=== PATIENT | male | born 1945 | race Caucasian/White ===

== ENCOUNTER 2016-05-10 14:05 | Inpatient (IN) | payer MEDICARE ==
[~2016-05-10] VITALS: Ht 175.3 cm; Wt 98.7 kg
[2016-05-10] VITALS (7 sets, daily range): BP systolic 106–154; BP diastolic 50–82; PULSE 65–70; RESP 18–22; O2SAT 92–94
[~2016-05-10 14:05] MED LIST: DOCU-41 PO; FOLI1TAB18 PO; INSU100I SQ; INSU100V7 SUBQ; LEVO88TA4 PO; MAGN400T39 PO; MULT1CAP33 PO; OMEG-38 PO; OXYC5TAB72 PO; PANT40TA3 PO; TORS20TA3 PO; WARF4TAB6 PO
--- NOTE | 2016-05-10 14:23 | ED.REPORT ---
HPI-Dyspnea / Wheezing Date of Service May 10, 2016 ED Provider: Dr. Deleon 70 year old male with a hx of recurrent follicular malignant lymphoma, currently in remission, DM, Afib, on 3L home O2, and recurrent bilat pleural effusions requiring thoracentesis who presents to the ED via EMS due to increasing SOB for 2 days. Pt was seen by his home care nurse today who was concerned that he may need a thoracentesis. He is seen for the on almost a weekly basis with his last on 05/02/16. Pt also reports worsening edema. Pt denies CP but reports discomfort secondary to the dyspnea. Oncologist: Dr. Duque. Nursing Notes Stated Complaint: INCREASED SHORTNESS OF BREATH Chief Complaint: Respiratory Distress Nursing Notes Reviewed: Yes Allergies: Coded Allergies: levofloxacin (Verified Allergy, Intermediate, hives, 04/07/16) vancomycin (Verified Allergy, Intermediate, Rash, 04/07/16) Scheduled Folic Acid (Folic Acid) 1 Mg Tablet 1 MG PO DAILY Insulin Aspart (NovoLOG U-100 Pen) 100 Unit/Ml Insuln.pen UNITS SQ ACHS per sliding scale Insulin Glargine (Lantus U100 Insulin Vial) 100 Unit/Ml Vial 100 UNIT SUBQ QAM Levothyroxine (Levothyroxine) 88 Mcg Tablet 2 TAB PO DAILY Magnesium Oxide (Magnesium) 400 Mg Tablet 400 MG PO BID Multivitamin (Multivitamins) 1 Each Capsule 1 EACH PO DAILY [place]-3/Dha/Epa/Fish Oil (Fish Oil 1,000 mg Softgel) 1 Each Capsule 2 EACH PO DAILY Pantoprazole DR (Pantoprazole DR) 40 Mg Tablet.dr 40 MG PO DAILY Torsemide (Torsemide) 20 Mg Tablet 40 MG PO DAILY Warfarin Sodium (Warfarin Sodium) 4 Mg Tablet 4 MG PO DAILY Scheduled PRN Docusate Sodium (Colace) 100 Mg Capsule 100 MG PO HS PRN PRN For Constipation oxyCODONE (oxyCODONE) 5 Mg Tablet 10 MG PO Q4H PRN PRN SEVERE PAIN General Time Seen by MD: 14:25 Chief Complaint Shortness of breath Hx Obtained From: Patient, EMS Arrived By: Ambulance Sudden in Onset?: No Onset Occurred: 2 days ago Symptom Duration: Since onset Severity: Current: Mild Associated with: Reports: Leg swelling, Denies: Chest pain, Fever, Vomiting Pertinent Negative: Relieved by nothing Recent Healthcare: Recent doctor visit Similar Sx Previous: Yes Past Medical History Past Medical History Notes: Oncologist: Dunia - see note 02/29/16 Anaesthesiologist: Dr. Harper Last Admit: 10/2015 Past Medical History 1. ho Bacteremia with MRSA 10/2015 2. 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 4. Left-hand osteomyelitis. 7. Chronic kidney disease stage 3. 8. Paroxysmal atrial fibrillation. 9. Chronic Coumadin anticoagulation. 10. Diabetes mellitus type 2, insulin dependent. 11. History of complete heart block status post pacemaker. 13. Chronic anemia. 14. Dyslipidemia. 15. Hypothyroidism. 17. Recurrent follicular malignant lymphoma, currently in remission. 18. Hyperlipidemia 19. Congestive heart failure Past Surgical History Tonsillectomy Bone marrow asp/core biopsy Stem cell transplant Partial colonectomy Pacemaker insertion Family History noncontributory Smoking History Never Smoker Social History Lives at [facility] Alcohol Use: Denies alcohol use Drug Use: Denies drug use Other Social History: Local resident Ambulatory Status Independent Review of Systems Basic Review of Systems Eyes: Vision NL Neurologic: NL mental status Psychiatric: Normal thought content Constitutional: Denies: Fever Respiratory: Reports: Shortness of breath Cardiovascular: Reports: Edema, Denies: Chest pain Complete sys rev & neg: except as marked. Physical Exam Initial Vital Signs Vital Signs (First) Date Time Temp Pulse Resp B/P Pulse Ox O2 Delivery O2 Flow Rate FiO2 05/10/16 14:10 36.7 65 18 134/56 Nasal Cannula 4 Initial VS: Reviewed Head / Eyes: Atraumatic, Normocephalic, PERRL ENT: Conjunctiva normal, No scleral icterus Abdomen / GI: Soft, Non-tender, No guarding, No rebound, No distention Skin: Warm, Dry, No cyanosis Neurologic: Alert, Oriented Psychiatric: Mood/affect normal, Behavior normal General/Constitutional: Awake, Alert Distress / Hydration: Positive: Distress moderate Appearance / Presentation: Positive: Pale Neck: Atraumatic, Full range of motion Diminished Breath Sounds: Positive: Absent bilateral (Absent breath sounds except L upper lobe) on 5L NC in Low 80's. Goes up to 90% on a non-rebreather. Cardiovascular: Peripheral circulation NL Lower Ext Edema: Positive: Bilateral 3+ (with no erythema) Cardiac noises completely overridden. Abdomen: Soft, Non-tender Interpretation & Diagnostics Lab Results Interpretation Test 05/10/16 14:30 Prothrombin Time 21.9sec (8.1-12.5) Prothromb Time International Ratio 2.02ratio Troponin T 0.014ug/L (0.0-0.011) Re-Eval/Medical Decision Re-Evaluation/Progress : Time of Eval: 14:37 Re-Evaluation/Progress Note: Attempted to discuss advanced directives with the patient. He does not wish to talk about this at the time but indicates that there are advanced directives on file. Presumed DNR. Discharge & Departure Shift Change Sign-Out Patient Care Transferred: Yes Discussed Complaint(s): Yes Laboratory Evaluation: Ordered, not yet done Imaging Studies: Ordered, not yet done Procedures: Ordered, not yet done (anticipate need for therapeutic thoracentesis) Impression: Primary Impression: Bilateral pleural effusion Additional Impressions: Dyspnea Dyspnea type: shortness of breath Qualified Code: R06.02 - Shortness of breath Lymphoma Lymphoma type: non-Hodgkin Non-Hodgkin lymphoma type: follicular Follicular lymphoma type: other follicular type Lymphoma site: unspecified region Qualified Code: C82.80 - Other types of follicular lymphoma, unspecified site Referrals: Julian Fabian MD (PCP) Care Transferred to: Dr. Tony Care Transferred at: 15:09 Scribe Attestation Portions of this note were transcribed by Марина Bar. I, (Dr. Deleon) personally performed the history, physical exam and medical decision-making; I reviewed and confirmed the accuracy of the information in the transcribed note. Signed by: Марина Bar. 05/10/2016, 1433 copies to: Julian Fabian MD, Shawna L MD May 10, 2016 14:23 Марина Bar May 10, 2016 14:41
[2016-05-10 14:51] LABS: Mean Corpuscular Hemoglobin 25.1 pg (27.0-35.0); Mean Corpuscular Volume 90.4 fL (81-100); Platelet Count 166 bil/L (150-400)
[2016-05-10 15:01] LABS: INR 2.02 ratio
[2016-05-10 15:08] LABS: TROPONIN T 0.014 ug/L (0.0-0.011)
[2016-05-10 15:34] LABS: BASOPHILS % (AUTO) 2 % (0-3); EOSINOPHILS % (AUTO) 0 % (0-5); MONOCYTES % (AUTO) 7 % (4-12); NEUTROPHILS % (AUTO) 60 % (40-74)
[2016-05-10] MEDS ORDERED: Furosemide 10 mg/mL 10 mL Inj IVPUSH ONE (15:45)
[2016-05-10] MEDS ORDERED: 0.9% Sodium Chloride 250 ML IV ONE (15:45)
--- NOTE | 2016-05-10 15:45 | PCM.HPMED ---
Subjective Date of Service May 10, 2016 Primary Provider: Admitting Physician: Primary Care Physician: Julian Fabian MD Attending Physician: Chief Complaint: Dyspnea, recurrent pleural effusion History of Present Illness: 70 year old male with a hx of recurrent follicular malignant lymphoma, currently in remission, DM, Afib, on 3L home O2, and recurrent bilat pleural effusions requiring thoracentesis who presents to the ED via EMS due to increasing SOB for 2 days. Pt was seen by his home care nurse today who was concerned that he may need a thoracentesis. He is seen for the on almost a weekly basis with his last on 05/02/16. Pt also reports worsening edema. Pt denies CP but reports discomfort secondary to the dyspnea. Review of Systems: Gen.: No fevers chills weight loss weight gain Eyes: no visual disturbances or blurring vision HEENT: No nose/throat drainage, no pain in ears or throat, no hearing loss Lymph: No lymph nodes noted Cardiac: No chest pain, orthopnea, PND, palpitations , pedal edema or dyspnea on exertion Pulmonary: no cough, wheezing or bringing up of sputum GI: No anorexia nausea vomiting blood or black in the stool : no dysuria hematuria urinary frequency or decrease in urine output Musculoskeletal: Joint swelling no joint pain no new muscle aches or back pain Neuro: No syncope, seizures no loss of consciousness no new focal weakness, numbness or tingling Psychiatric: New new anxiety insomnia or depression Endocrine: No new heat or cold intolerances polyuria or polydipsia Hematology: No lymphadenopathy or easy bleeding or bruising noted skin: No new rashes, stasis dermatitis Allergies Coded Allergies: levofloxacin (Verified Allergy, Intermediate, hives, 04/07/16) vancomycin (Verified Allergy, Intermediate, Rash, 04/07/16) Home Medications Scheduled Folic Acid (Folic Acid) 1 Mg Tablet 1 MG PO DAILY Insulin Aspart (NovoLOG U-100 Pen) 100 Unit/Ml Insuln.pen UNITS SQ ACHS per sliding scale Insulin Glargine (Lantus U100 Insulin Vial) 100 Unit/Ml Vial 100 UNIT SUBQ QAM Levothyroxine (Levothyroxine) 88 Mcg Tablet 2 TAB PO DAILY Magnesium Oxide (Magnesium) 400 Mg Tablet 400 MG PO BID Multivitamin (Multivitamins) 1 Each Capsule 1 EACH PO DAILY [place]-3/Dha/Epa/Fish Oil (Fish Oil 1,000 mg Softgel) 1 Each Capsule 2 EACH PO DAILY Pantoprazole DR (Pantoprazole DR) 40 Mg Tablet.dr 40 MG PO DAILY Torsemide (Torsemide) 20 Mg Tablet 40 MG PO DAILY Warfarin Sodium (Warfarin Sodium) 4 Mg Tablet 4 MG PO DAILY Scheduled PRN Docusate Sodium (Colace) 100 Mg Capsule 100 MG PO HS PRN PRN For Constipation oxyCODONE (oxyCODONE) 5 Mg Tablet 10 MG PO Q4H PRN PRN SEVERE PAIN PMH Bacteremia with MRSA 10/2015 ho 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 Left-hand osteomyelitis. Sepsis secondary to above processes. Transaminitis, drug induced. Chronic kidney disease stage 3. Paroxysmal atrial fibrillation. Diabetes mellitus type 2, insulin dependent. History of complete heart block status post pacemaker. Lymphoma. Chronic anemia. Dyslipidemia. Hypothyroidism. Complete heart block, s/p dual chambered pacemaker placement Mar 2015 removed . New pacemaker placed 07/19/2015. Recurrent follicular malignant lymphoma, currently in remission. Hyperlipidemia Congestive heart failure Surgical History Tonsillectomy Bone marrow asp/core biopsy Stem cell transplant Partial colonectomy Pacemaker insertion Social History Hx Alcohol Use: No Hx Substance Use: No Hx Tobacco Use: No Smoking Status: Never Smoker Social History Hx Alcohol Use: No Hx Substance Use: No Hx Tobacco Use: No Smoking Status: Never Smoker Exam Vital Signs Vital Sign - Last Date Time Temp Pulse Resp B/P Pulse Ox O2 Delivery O2 Flow Rate FiO2 05/10/16 14:10 36.7 65 18 134/56 Nasal Cannula 4 Exam Gen.- A+ O 3 no apparent distress. Eyes- open conjunctiva clear, pupils equal nonicteric ENT- ears normal, nose normal Neck- supple/trach midline CVS- RRR no murmur or gallop Lungs CTA GI- NABS/NT soft Musc- moving 4 no obvious deformity Neuro- cranial nerves II through XII intact to gross examination, nonfocal Skin- warm and dry Psych- pleasant and appropriate, Lab and Diagnostics Labs INR 2.02, Troponin 0.014, LFTs WNL, glucose 243, urine still pending Result Diagram: 05/10/16 1430 05/10/16 1430 X-Rays, CTs and MRIs CXR Moderate to large bilateral pleural effusions, increased compared to prior exam. Recommend followup, as underlying areas of mass lesion cannot be excluded. Personally reviewed by me 12-lead ECG Personally viewed by me read his a flutter I see P waves and admits to regular but there is left bundle branch block I believe it is sinus with perhaps a first degree block heart rate 70 QTc 534 ms which may be spuriously prolonged as well Assessment & Plan Patient is getting FFP which only has a window of 6 hours of suppression of anticoagulation and will not affect the INR in the morning, I am going ahead and giving vitamin K 2 mg not tense so as not to over reverse him and have difficulties E anticoagulating him. Plan is for patient to go for thoracentesis when INR is 1.5 which hopefully will be tomorrow morning. 70-year-old male with recurrent pleural effusions presented with dyspnea and recurrence. I wonder to myself why this patient does not have a Pleurx cath or if he is not a candidate for 1,or perhaps pleuroadhesis (pt states they are talking about/working on this) Dyspena/acute resp failure- 2' effusion Recurrent malignant pleural effusion-ravi for thoracentesis 05/11 INR <1.6 Complete Heart Block- - Pacemaker dependent Paroxysmal Atrial Fibrillation- continue Warfarin, dosing as per pharmacist Diabetes Mellitus, Type II- cutting lantus from 100 to 60 and will use high dose SS and prandial, suspect substantial home noncomplaince. Giving pt general diet here, he wants OJ. I don't think he is going to to of diabetic complications... Hyperlipidemia- Continue statin Hypothyroidism- levothyroxine 176 mcg daily Chronic Kidney Disease, Stage III- baseline about 1.3 stable Chronic anemia- - Likely due to CKD pt stable w/ Hg 8-210 will allow oncology to address as needed Pain Evaluation: Adequate Pain Control prn morphine GI Prophylaxis: H2 eugene, VTE Prophylaxis: Theraputic Anticoag with Warfarin, lovenox while he is not Dispo-from home, full code cbc, bmp, inr in am Kevin Coles MD May 10, 2016 15:45 - Continue home insulin regimen Hyperlipidemia - Continue Pravastatin 40 mg HS Hypothyroidism - Continue home dose levothyroxine 176 mcg daily Chronic Kidney Disease, Stage III Chronic anemia - Likely due to CKD Pain Evaluation: Adequate Pain Control GI Prophylaxis: H2 eugene VTE Prophylaxis: Theraputic Anticoag with Warfarin Kevin Coles MD May 10, 2016 15:45
[2016-05-10] MEDS ORDERED: Alum-Mag Hydrox-Simeth 30 mL Suspension PO PRN (15:55)
[2016-05-10] MEDS ORDERED: Ondansetron 2 mg/mL 2 mL Inj IVPUSH PRN (15:55)
--- NOTE | 2016-05-10 16:03 | DRSVH ---
PROCEDURE: X-RAY CHEST ONE VIEW, PORTABLE ([id number]) INDICATIONS: dyspnea TECHNIQUE: One view of the chest was acquired. COMPARISON: [facility], CR, XR CHEST 1VW, 05/02/2016, 14:09. FINDINGS: Surgical changes and devices: None. Lungs and pleura: Moderate to large bilateral pleural effusions, increased in size compared to prior exam. Mediastinum: Mediastinal contours appear normal. Heart size is normal. Bones and chest wall: No suspicious bony lesions. Overlying soft tissues appear unremarkable. IMPRESSION: Moderate to large bilateral pleural effusions, increased compared to prior exam. Recomm end followup, as underlying areas of mass lesion cannot be excluded. Dictated by: Em Mercado M.D. on 05/10/2016 at 16:01 Approved by: Em Mercado M.D. on 05/10/2016 at 16:01
[2016-05-10] MEDS ORDERED: IBRU140C PO (16:19)
[2016-05-10] MEDS ORDERED: Glucose 40% Oral Gel 15 Gm Tube PO PRN (17:10)
[2016-05-10] MEDS ORDERED: Polyethylene Glycol (PEG) 17 Gm Powder PO PRN (17:10)
[2016-05-10] MEDS ORDERED: HYDROcodone-APAP 5-325 mg Tablet PO PRN (17:10)
[2016-05-10] MEDS ORDERED: Phytonadione (Adult) 10 mg/1 mL Inj PO ONE (17:25)
[2016-05-10 17:26] LABS: APPEARANCE,URINE CLEAR (CLEAR,HAZY); COLOR,URINE YELLOW (YELLOW)
[2016-05-10 17:27] LABS: OCCULT BLOOD,URINE TRACE (NEGATIVE); UROBILINOGEN,URINE NORMAL (NORMAL)
[2016-05-10] MEDS: Insulin LISPRO 300 Unit/3 mL Inj SUBQ SCH ×2 (17:30→21:33)
[2016-05-10] MEDS ORDERED: Morphine PF 1 mg/mL 10 mL Inj IV PRN (18:45)
[2016-05-10] MEDS ORDERED: LORazepam 1 mg Tablet PO PRN (18:45)
--- NOTE | 2016-05-10 18:49 | PCM.CONPHA ---
Subjective Date of Service: May 10, 2016 Dyspnea, recurrent pleural effusion Reason for Pharmacy Consult: Anticoagulation Management Objective Vital Signs Date Time Temp Pulse Resp B/P Pulse Ox O2 Delivery O2 Flow Rate FiO2 05/10/16 18:23 70 05/10/16 18:21 36.0 70 22 118/68 93 Nasal Cannula 3.00 05/10/16 17:34 Supplement Oxygen 05/10/16 16:49 36.7 69 19 106/50 92 Nasal Cannula 5 05/10/16 16:13 69 19 106/50 92 Nasal Cannula 5 05/10/16 14:10 36.7 65 18 134/56 Nasal Cannula 4 Weight (Kilograms): 99.000 Height (Feet): 5 Height (Inches): 9.00 Test 05/10/16 14:30 05/10/16 16:43 White Blood Count 18.7th/mm3 (3.8-10.1) Red Blood Count 3.87mil/mm3 (4.40-5.80) Hemoglobin 9.7g/dL (13.8-17.2) Hematocrit 35.0% (41.0-50.0) Mean Corpuscular Volume 90.4fL (81-100) Mean Corpuscular Hemoglobin 25.1pg (27.0-35.0) Mean Corpuscular Hemoglobin Concent 27.7% (32.0-37.0) Red Cell Distribution Width 24.0% (12.3-15.4) Platelet Count 166bil/L (150-400) Neutrophils (%) (Auto) 60% (40-74) Lymphocytes (%) (Auto) 25% (14-46) Monocytes (%) (Auto) 7% (4-12) Eosinophils (%) (Auto) 0% (0-5) Basophils (%) (Auto) 2% (0-3) Band Neutrophils % 6% (1-5) Nucleated Red Blood Cells 4/100 WBC (0-24) Prothrombin Time 21.9sec (8.1-12.5) Prothromb Time International Ratio 2.02ratio Sodium Level 136mEq/L (134-144) Potassium Level 4.3mEq/L (3.5-5.2) Chloride Level 86mEq/L (97-108) Carbon Dioxide Level 44mmol/L (18-29) Blood Urea Nitrogen 17mg/dL (8-27) Creatinine 1.28mg/dL (0.76-1.27) Estimat Glomerular Filtration Rate 59mL/min (>59) Glucose Level 243mg/dL (60-99) Calcium Level 8.7mg/dL (8.5-10.1) Total Bilirubin 0.2mg/dL (0.0-1.2) Aspartate Amino Transf (AST/SGOT) 13U/L (0-50) Alanine Aminotransferase (ALT/SGPT) 8U/L (0-44) Alkaline Phosphatase 128U/L (25-160) Troponin T 0.014ug/L (0.0-0.011) Total Protein 6.1g/dL (6.4-8.4) Albumin 3.3g/dL (3.4-5.0) Hold Pérez Top Tube Received (Received) Urine Color Yellow (YELLOW) Urine Appearance Clear (CLEAR,HAZY) Urine pH 7.0 (5.0-8.0) Urine Specific [place] 1.010 (1.003-1.035) Urine Protein Tracemg/dL (NEG,TRACE) Urine Glucose (UA) 250mg/dL (NEGATIVE) Urine Ketones Negativemg/dL (NEGATIVE) Urine Occult Blood Trace (NEGATIVE) Urine Nitrite Negative (NEGATIVE) Urine Bilirubin Negative (NEGATIVE) Urine Urobilinogen Normalmg/dL (NORMAL) Urine Leukocyte Esterase Negative (NEGATIVE) Urine RBC 0-2/hpf (0-2) Urine WBC 0-5/hpf (0-5) Urine Epithelial Cells Occasional/hpf (NONE-MOD) Urine Crystals None seen (NONE SEEN) Urine Bacteria None/hpf (NONE-FEW) Urine Hyaline Casts None/lpf (NONE) Urine Granular Casts None seen (NONE SEEN) Urine Waxy Casts None seen (NONE SEEN) Urine Red Blood Cell Casts None seen (NONE SEEN) Urine White Blood Cell Casts None seen (NONE SEEN) Urine Mucus None seen (None Seen) Urine Trichomonas None seen (NONE SEEN) Urine Yeast None (NONE SEEN) Urinalysis Comment None Urine Culture Reflexed Not indicated Assessment/Plan Assessment/Plan Indication: A-Fib Home Dose : 4mg INR today: 2.02; 2mg Vit K PO for INR goal <1.5 prior to thoracentesis tomorrow 05/11 Then start Lovenox 100mg Q12h to bridge & reload with warfarin on 05/11 Ad Fairbanks PharmD May 10, 2016 18:49
[2016-05-10 20:32] LABS: INR 1.97 ratio
[2016-05-11] VITALS (11 sets, daily range): BP systolic 109–145; BP diastolic 65–71; PULSE 70–76; RESP 16–20; O2SAT 92–97
--- NOTE | 2016-05-11 07:04 | NUR ---
Resp/Confusion/FFP Pt very SOB even at rest, O2 need increased over night from 3L O@ per NC to 6L O2 per NC. Pt got increasingly confused over night, thinking he was in the war and bullets were flying, pt also keeps taking O2 off and immediately desats to low 70's. FFP's apparently not given in ED or on day shift, night hospitalist called and verified that FFP's still should be given and verified that "yes". FFP's started and infusing currently. Pt's own home med given at HS per his own request since he always takes it at night.
[2016-05-11] MEDS: Insulin GLARgine 100 Unit/mL Syringe SUBQ SCH (08:29)
[2016-05-11] MEDS ORDERED: IBRUTINIB 140 MG PO SCH ×2 (08:30→21:15)
[2016-05-11] MEDS: Insulin LISPRO 300 Unit/3 mL Inj SUBQ SCH ×4 (08:31→21:31)
[2016-05-11] MEDS: Pantoprazole 40 mg ER24 Tablet PO SCH (08:40)
[2016-05-11] MEDS: Omega-3 Fatty Acids 1,000 mg Capsule PO SCH (08:41)
[2016-05-11 09:25] LABS: Mean Corpuscular Hemoglobin 25.8 pg (27.0-35.0); Mean Corpuscular Volume 89.9 fL (81-100)
[2016-05-11 09:51] LABS: INR 1.52 ratio
--- NOTE | 2016-05-11 11:09 | NUR ---
Mentation/Resp 0715 am, pt somnolent, not oriented. Woke to voice, but could not hold attention. 1:1 sitter present. By 0830, he was much more alert and completely oriented. Compliant with care. Refuses oximask. On 6L nc. Sats in the low-mid 90s at rest, but desats to mid 80s quickly with eating, talking or activity. Recovers with coaching for pursed lip breathing. FFP transfused with no s/s adverse effect.
--- NOTE | 2016-05-11 13:17 | NUR ---
Off unit Pt to ultrasound via wheelchair for thoracentesis at this time. equipment maintenance tech aware. Report given to Nallely. Addendum: 05/11/16 at 1428 by ERICK LEIGH RN Returned to [facility] [place] room 1014 at this time.
--- NOTE | 2016-05-11 13:56 | PCM.PHAPRO ---
Progress Dyspnea, recurrent pleural effusion WARFARIN DOSING PER PHARMACY Indication: Afib Home dose: 4 mg po daily INR Goal: 2-3 Additional Anticoagulation: Lovenox 100 mg sq q12 Lab Date Result Dose INR 05/10/16 2.02 HELD INR 05/11/16 1.52 Notes: - Pt is scheduled for thoracentesis and is going this afternoon - 2mg of vit K PO was given 05/10/16 for procedure (goal INR <1.5) Plan: - Lovenox will be scheduled 12 hours post-op once pt leaves for procedure (pt has not received any doses so far) - Plan on holding warfarin dose tonight for procedure and restarting tomorrow evening - Pharmacy will continue to monitor INR/CBC/signs and symptoms of bleeding Adri Britt PharmD May 11, 2016 13:56
--- NOTE | 2016-05-11 14:32 | DRSVH ---
PROCEDURE: US GUIDED THORACENTESIS BY REFERRING PHYSICIAN ([id number]) INDICATIONS: therapeutic, recurrent pleural effusion TECHNIQUE: The indications, alternatives, benefits, risks, and complications of the procedure were explained to the patient. Written informed consent was obtained and placed in the chart. The chest was examined sonographically, and an appropriate site was chosen for thoracentesis. The skin was prepared and noemy ped in the usual sterile fashion, and 1% lidocaine was infiltrated from the skin down through the ple ural surface. A 19-gauge catheter-covered needle was then introduced into the pleural space, the cat heter was advanced and the needle was withdrawn, and thereafter pleural fluid was aspirated. The cat heter was then removed and a dressing was applied. COMPARISON: [facility], CR, XR CHEST 1VW, 05/11/2016, 14:07. [facility], US, US GUIDED THORACENTESIS, 05/02/2016, 13:16. FINDINGS: Access site: Right hemithorax. Needle: One-Step centesis catheter with introducer needle. Fluid volume and description: 1450 cc, serosanguineous Fluid sent for diagnostic testing: No Medications: 1% lidocaine for local anaesthesia. Complications: None; post-procedural chest radiograph is pending to assess for pneumothorax. IMPRESSION: Successful ultrasound-guided thoracentesis. Dictated by: Em Mercado M.D. on 05/11/2016 at 14:30 Approved by: Em Mercado M.D. on 05/11/2016 at 14:30
--- NOTE | 2016-05-11 15:35 | DRSVH ---
PROCEDURE: X-RAY CHEST ONE VIEW ([id number]) INDICATIONS: POST thoracentesis TECHNIQUE: One view of the chest was acquired. COMPARISON: [facility], CR, XR CHEST 1VW, 05/02/2016, 14:09. FINDINGS: Surgical changes and devices: None. Lungs and pleura: Bilateral pleural fluid collections are stable compared to prior examination. Bibas ilar opacities which could represent compressive atelectasis versus pneumonia stable. Mediastinum: Mediastinal contours appear normal. Heart size is normal. Bones and chest wall: No suspicious bony lesions. Overlying soft tissues appear unremarkable. IMPRESSION: No postthoracentesis pneumothorax. Dictated by: Lisbeth Alva MD, PhD on 05/11/2016 at 15:34 Approved by: Lisbeth Alva MD, PhD on 05/11/2016 at 15:34
--- NOTE | 2016-05-11 16:41 | NUR ---
Wound Care Wound evaluation orders received, pt seen at bedside. Pt has been seen as an outpatient at [facility] for left foot wound. Dressing removed. Drainage- minimal,sanguineous, without odor. Periwound- calloused and raised, no redness, undermining or tunneling. Wound bed 100% fibrin. Dimensions- 1 cm x 1.5 cm x 0.2 cm. Biofilm removed with #10 scalpel, bleeding minimal, stopped with pressure. Redressed with offloading felt,foam and tape. 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 Follow up at wound center on discharge, dressing can stay intact for 72 hrs.
--- NOTE | 2016-05-11 17:19 | PCM.PNMED ---
Subjective Date of Service May 11, 2016 Subjective denies any new issues/complaints. says feeling sleepy and tired. breathing feels about the same Exam Vital Signs Vital Sign - Last Date Time Temp Pulse Resp B/P Pulse Ox O2 Delivery O2 Flow Rate FiO2 05/11/16 14:25 36.5 70 18 109/65 96 Nasal Cannula 6.00 Intake and Output 05/10/16 05/10/16 05/11/16 Cumulative From/Thru 15:00 23:00 07:00 05/10/16 14:10 - 05/11/16 06:47 Intake Total 250 ml 350 ml 600 ml Output Total 550 ml 875 ml 1425 ml Balance -300 ml -525 ml -825 ml Intake Oral 240 ml 350 ml 590 ml IV Total 10 ml 10 ml Output Urine Total 550 ml 875 ml 1425 ml # Bowel Movements 0 0 General: Alert, Cooperative, No Acute Distress Eyes: Scleral Anicteric Mouth: Mucous Membr Moist/[place] Neck: Supple Chest & Lungs: Chest Wall Normal, Coarse breath sounds (bilat) Cardiovascular: Regular Rate/Rhythm Abdomen: Non-tender, Non-distended, Normoactive bowel tones, Soft Extremities: No cyanosis/clubbing/edma bilat Neurological: Grossly Neurologically Intact, Normal Speech IVs and Medications Medications Reviewed: Medications were reviewed in detail Lab and Diagnostics Result Diagram: 05/11/16 0855 05/11/16 0855 X-Rays, CTs and MRIs CXR Moderate to large bilateral pleural effusions, increased compared to prior exam. Recommend followup, as underlying areas of mass lesion cannot be excluded. Personally reviewed by me 12-lead ECG Personally viewed by me read his a flutter I see P waves and admits to regular but there is left bundle branch block I believe it is sinus with perhaps a first degree block heart rate 70 QTc 534 ms which may be spuriously prolonged as well Assessment & Plan 70-year-old male with recurrent pleural effusions presented with dyspnea and recurrence. 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 stable # Paroxysmal Atrial Fibrillation - Resume Warfarin (dosing as per pharmacist) after thoracentesis - f/u daily INR # Diabetes Mellitus, Type II - c/w Lantus - c/w ISS # Hyperlipidemia - Continue statin # Hypothyroidism - c/w levothyroxine # Chronic Kidney Disease, Stage III - baseline about 1.3 stable Dispo: 1-2 days Donal Negron May 11, 2016 17:19
[2016-05-12 00:36] VITALS: BP 109/62; PULSE 70; RESP 22; O2SAT 96
--- NOTE | 2016-05-12 03:28 | NUR ---
Sob/Desat Pt alert and oriented x3 but forgetful at times. He answers questions appropriately but has episodes of disorientation at times. Reorientation given with patient's understanding noted. Pt noted to have desaturations while on his right side with 02 6L NC in low to mid 80s. Patient enc to lay on his back and head up if but insists on his side. Pt denies and not noted to be on distress. RT at bedside to assess pt as well. Increased 02sat to 15L Oxymask while pt laying on his side with 02sat only up to 90%. Pt agreed to reposition and sleep on his back and head up. He prefers the NC instead of Oxymask. 02sat on 6L NC in 90-93% at this time. made aware. Repeat CXR in am ordered.
[2016-05-12 04:42] VITALS: PULSE 72
[2016-05-12 04:55] VITALS: BP 114/67; PULSE 70; RESP 18; O2SAT 95
[2016-05-12] MEDS: Pantoprazole 40 mg ER24 Tablet PO SCH (06:33)
[2016-05-12 06:58] LABS: INR 1.22 ratio
[2016-05-12] MEDS: Insulin GLARgine 100 Unit/mL Syringe SUBQ SCH (07:42)
[2016-05-12] MEDS: Insulin LISPRO 300 Unit/3 mL Inj SUBQ SCH ×2 (07:42→11:46)
[2016-05-12 08:00] VITALS: PULSE 77
[2016-05-12] MEDS: Omega-3 Fatty Acids 1,000 mg Capsule PO SCH (08:59)
--- NOTE | 2016-05-12 09:05 | DRSVH ---
PROCEDURE: X-RAY CHEST ONE VIEW, PORTABLE ([id number]) INDICATIONS: SHORT OF BREATH TECHNIQUE: One view of the chest was acquired. COMPARISON: 05/11/2016 FINDINGS: Surgical changes and devices: None. Lungs and pleura: Bilateral, left greater than right, pleural effusions, and no pneumothorax. Bibasil ar atelectasis/infiltrate left greater than right. Mediastinum: Mediastinal contours appear normal. Heart size is normal. Bones and chest wall: No suspicious bony lesions. Overlying soft tissues appear unremarkable. IMPRESSION: 1. Bilateral pleural effusions left greater than right. 2. Bibasilar radiodensities compatible with atelectasis or possible pneumonia. Underlying mass lesion s cannot be excluded. Dictated by: Shamir Whitfield M.D. on 05/12/2016 at 9:03 Approved by: Shamir Whitfield M.D. on 05/12/2016 at 9:03
[2016-05-12 09:16] VITALS: BP 110/68; PULSE 75; RESP 18; O2SAT 93
--- NOTE | 2016-05-12 11:05 | PCM.PHAPRO ---
Progress Dyspnea, recurrent pleural effusion WARFARIN DOSING PER PHARMACY Indication: Afib Home dose: 4 mg po daily INR Goal: 2-3 Additional Anticoagulation: Lovenox 100 mg sq q12 for bridging Lab Date Result Dose INR 05/10/16 2.02 HELD INR 05/11/16 1.52 HELD INR 05/12/16 1.22 Notes: - 2mg of vit K PO was given 05/10/16 for procedure (goal INR <1.5) Plan: - Warfarin has been held the last few days due to thoracentesis but can be initiated today - Will give one dose of warfarin 4mg PO tonight - Pharmacy will continue to monitor INR/CBC/signs and symptoms of bleeding Adri Britt PharmD May 12, 2016 11:05
--- NOTE | 2016-05-12 12:01 | PCM.DIMED ---
Discharge Instructions Date of Service May 12, 2016 Dates of Hospitalization May 10, 2016 at 16:58 Discharge Diagnosis Discharge Diagnosis Pulmonary effusion-post thoracentesis Diet Diabetic Activity Limited until seen by PCP Call your provider Shortness of breath, Chest pain, Excessive diarrhea, Weakness (unilateral) Patient Instructions Follow-up plan Follow-up with oncology as previously scheduled Next INR check 05/16/2016 Follow-up with PCP in: 1 week Fidel Bar DO May 12, 2016 12:00
--- NOTE | 2016-05-12 13:58 | NUR ---
Discharge To home with friend via POV at 13:50. Steady transfer to wheelchair with 1 person assist. IV discontinued intact. All belongings, including phone/mobile solutions architect and home chemo medication, sent with pt. Expresses understanding of all discharge instructions. No Rx.
--- NOTE | 2016-05-12 21:21 | PCM.DC.MED ---
Discharge Summary Date of Service May 12, 2016 Dates of Hospitalization Date of Hospital Admission May 10, 2016 at 16:58 Date of Discharge: May 12, 2016 Providers: Admitting Physician: Kevin Coles MD Primary Care Physician: Julian Fabian MD Attending Physician: Kevin Coles MD Diagnosis at Time of Discharge Diagnosis at Time of Discharge Pulmonary effusion-post thoracentesis Consultations Interventional radiology Procedures XRay, CTs & MRIs CXR Moderate to large bilateral pleural effusions, increased compared to prior exam. Recommend followup, as underlying areas of mass lesion cannot be excluded. Personally reviewed by me ECG 12 Lead Personally viewed by me read his a flutter I see P waves and admits to regular but there is left bundle branch block I believe it is sinus with perhaps a first degree block heart rate 70 QTc 534 ms which may be spuriously prolonged as well Invasive Procedures Thoracentesis Brief History 70 year old male with a hx of recurrent follicular malignant lymphoma, currently in remission, DM, Afib, on 3L home O2, and recurrent bilat pleural effusions requiring thoracentesis who presents to the ED via EMS due to increasing SOB for 2 days. Pt was seen by his home care nurse today who was concerned that he may need a thoracentesis. He is seen for the on almost a weekly basis with his last on 05/02/16. Pt also reports worsening edema. Pt denies CP but reports discomfort secondary to the dyspnea. Hospital Course 70-year-old male with recurrent pleural effusions presented with dyspnea and recurrence. The patient was admitted, he did undergo thoracentesis on 2016 with no reported complications. 1450 mL of fluid was drained. Eventually his oxygen supplementation was able to return to his normal baseline of 3 L/m. He had no other complications during his hospital stay. He had a strong desire to be discharged home and was feeling significantly better. He will need to follow-up with his oncologist as previously scheduled, and follow-up with his primary care physician within one week, sooner if his condition worsened in anyway. Delineated problem list as below. 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 stable # Paroxysmal Atrial Fibrillation - Resume Warfarin (dosing as per pharmacist) after thoracentesis - f/u daily INR # Diabetes Mellitus, Type II - c/w Lantus - c/w ISS # Hyperlipidemia - Continue statin # Hypothyroidism - c/w levothyroxine # Chronic Kidney Disease, Stage III - baseline about 1.3 stable Exam Vital Signs (Last) Date Time Temp Pulse Resp B/P Pulse Ox O2 Delivery O2 Flow Rate FiO2 05/12/16 09:16 36.7 75 18 110/68 93 Nasal Cannula 6.00 Test 05/10/16 14:30 05/10/16 16:43 05/11/16 08:55 05/12/16 05:42 Neutrophils (%) (Auto) 60% (40-74) Lymphocytes (%) (Auto) 25% (14-46) Monocytes (%) (Auto) 7% (4-12) Eosinophils (%) (Auto) 0% (0-5) Basophils (%) (Auto) 2% (0-3) Band Neutrophils % 6% (1-5) Nucleated Red Blood Cells 4/100 WBC (0-24) Total Bilirubin 0.2mg/dL (0.0-1.2) Aspartate Amino Transf (AST/SGOT) 13U/L (0-50) Alanine Aminotransferase (ALT/SGPT) 8U/L (0-44) Alkaline Phosphatase 128U/L (25-160) Troponin T 0.014ug/L (0.0-0.011) Total Protein 6.1g/dL (6.4-8.4) Albumin 3.3g/dL (3.4-5.0) Hold Pérez Top Tube Received (Received) Urine Color Yellow (YELLOW) Urine Appearance Clear (CLEAR,HAZY) Urine pH 7.0 (5.0-8.0) Urine Specific [place] 1.010 (1.003-1.035) Urine Protein Tracemg/dL (NEG,TRACE) Urine Glucose (UA) 250mg/dL (NEGATIVE) Urine Ketones Negativemg/dL (NEGATIVE) Urine Occult Blood Trace (NEGATIVE) Urine Nitrite Negative (NEGATIVE) Urine Bilirubin Negative (NEGATIVE) Urine Urobilinogen Normalmg/dL (NORMAL) Urine Leukocyte Esterase Negative (NEGATIVE) Urine RBC 0-2/hpf (0-2) Urine WBC 0-5/hpf (0-5) Urine Epithelial Cells Occasional/hpf (NONE-MOD) Urine Crystals None seen (NONE SEEN) Urine Bacteria None/hpf (NONE-FEW) Urine Hyaline Casts None/lpf (NONE) Urine Granular Casts None seen (NONE SEEN) Urine Waxy Casts None seen (NONE SEEN) Urine Red Blood Cell Casts None seen (NONE SEEN) Urine White Blood Cell Casts None seen (NONE SEEN) Urine Mucus None seen (None Seen) Urine Trichomonas None seen (NONE SEEN) Urine Yeast None (NONE SEEN) Urinalysis Comment None Urine Culture Reflexed Not indicated White Blood Count 17.1th/mm3 (3.8-10.1) Red Blood Count 3.76mil/mm3 (4.40-5.80) Hemoglobin 9.7g/dL (13.8-17.2) Hematocrit 33.8% (41.0-50.0) Mean Corpuscular Volume 89.9fL (81-100) Mean Corpuscular Hemoglobin 25.8pg (27.0-35.0) Mean Corpuscular Hemoglobin Concent 28.7% (32.0-37.0) Red Cell Distribution Width 24.2% (12.3-15.4) Platelet Count 152bil/L (150-400) Sodium Level 140mEq/L (134-144) Potassium Level 4.1mEq/L (3.5-5.2) Chloride Level 86mEq/L (97-108) Carbon Dioxide Level 44mmol/L (18-29) Blood Urea Nitrogen 19mg/dL (8-27) Creatinine 1.32mg/dL (0.76-1.27) Estimat Glomerular Filtration Rate 57mL/min (>59) Glucose Level 187mg/dL (60-99) Calcium Level 8.3mg/dL (8.5-10.1) Prothrombin Time 13.1sec (8.1-12.5) Prothromb Time International Ratio 1.22ratio Discharge Medications Discharge Medications Folic Acid (Folic Acid) 1 Mg Tablet 1 MG PO DAILY Prescribed by: EDWIN BURGOS MD Ibrutinib (Imbruvica) 140 Mg Capsule 420 MG PO HS (Reported) Insulin Aspart (NovoLOG U-100 Pen) 100 Unit/Ml Insuln.pen UNITS SQ ACHS ( Reported) per sliding scale Insulin Glargine (Lantus U100 Insulin Vial) 100 Unit/Ml Vial 100 UNIT SUBQ QAM ( Reported) Levothyroxine (Levothyroxine) 88 Mcg Tablet 2 TAB PO DAILY (Reported) Magnesium Oxide (Magnesium) 400 Mg Tablet 400 MG PO BID (Reported) Multivitamin (Multivitamins) 1 Each Capsule 1 EACH PO DAILY (Reported) [place]-3/Dha/Epa/Fish Oil (Fish Oil 1,000 mg Softgel) 1 Each Capsule 2 EACH PO DAILY (Reported) Pantoprazole DR (Pantoprazole DR) 40 Mg Tablet.dr 40 MG PO DAILY (Reported) Torsemide (Torsemide) 20 Mg Tablet 40 MG PO DAILY Prescribed by: PARVIN BASILIO DO Warfarin Sodium (Warfarin Sodium) 4 Mg Tablet 4 MG PO DAILY (Reported) As needed Docusate Sodium (Colace) 100 Mg Capsule 100 MG PO HS PRN PRN For Constipation ( Reported) oxyCODONE (oxyCODONE) 5 Mg Tablet 10 MG PO Q4H PRN PRN SEVERE PAIN (Reported) Followup Plan Follow-up plan Follow-up with oncology as previously scheduled Next INR check 05/16/2016 Discharge Diet: Diabetic Discharge Activity: Limited until seen by PCP Follow-up with PCP in: 1 week Time spent 35 minutes spent discharging this patient Fidel Bar DO May 12, 2016 21:21
[2016-05-26] MEDS ORDERED: BEND25VI IV (14:13)
[2016-05-26] MEDS ORDERED: RITUX IV (14:13)
[2016-06-22] MEDS ORDERED: ASPI-973 PO (11:23)
[2016-07-25] MEDS ORDERED: TORS20TA3 PO (10:35)
[2016-08-02] MEDS ORDERED: TORS20TA3 PO (10:46)
[2016-08-10] MEDS ORDERED: SPIR25TA3 PO (12:39)
[2016-09-29] MEDS ORDERED: IBRU140C PO (09:08)
[2016-10-06] MEDS ORDERED: METF500T4 PO (11:03)
[2016-10-06] MEDS ORDERED: SPIR25TA3 PO (11:27)
[2016-10-06] MEDS ORDERED: TORS20TA3 PO (11:27)
[2016-10-06] MEDS ORDERED: POTA20TA16 PO (11:30)
[2016-10-13] MEDS ORDERED: [UNRECOGNIZED DRUG - CODE] PO (15:08)
[2016-10-13] MEDS ORDERED: ACET-2766 PO (15:08)
[2016-10-13] MEDS ORDERED: LEVO150T5 PO (15:08)
[2016-10-13] MEDS ORDERED: POTA10TA12 PO (15:08)
[2016-10-13] MEDS ORDERED: TORS10TA5 PO (15:08)
[2016-10-13] MEDS ORDERED: INSLIS SUBQ (15:08)
[2016-10-13] MEDS ORDERED: oxygen INH (15:08)
[2016-10-19] MEDS ORDERED: CLIN-78 PO (10:09)
[2016-10-19] MEDS ORDERED: FOLI1TAB18 PO (10:09)
== END 2016-05-12 13:53 | disposition home or self-care (01) | DRG 189 ==
LOC: EDBD 14:05 → SED 14:05 → EDUNIT# 14:05 → OSC 16:58
PROVIDERS: ADMIT Hospitalist; ATTEND Hospitalist
PROC: 0W993ZX Drainage of Right Pleural Cavity, Percutaneous Approach, Diagnostic (ICD-10-PCS; principal; 2016-05-11)
PROC: 0HDLXZZ Extraction of Left Lower Leg Skin, External Approach (ICD-10-PCS; 2016-05-11)
DX: J96.01 Acute respiratory failure with hypoxia (principal); J91.0 Malignant pleural effusion; C82.50 Diffuse follicle center lymphoma, unspecified site; I48.0 Paroxysmal atrial fibrillation; N18.3 Chronic kidney disease, stage 3 (moderate); E78.5 Hyperlipidemia, unspecified; E03.9 Hypothyroidism, unspecified; E11.9 Type 2 diabetes mellitus without complications; Z95.0 Presence of cardiac pacemaker

== ENCOUNTER 2016-08-02 23:24 | Emergency (ER) | payer MEDICARE ==
[~2016-08-02 23:24] MED LIST changes: +ASPI-973 PO; +IBRU140C PO; -WARF4TAB6 PO
--- NOTE | 2016-08-02 23:34 | ED.REPORT ---
HPI-Trauma Minor / Fall Date of Service Aug 02, 2016 ED Provider: Dago Tony MD A 70 year old male no longer on anticoagulants with an extensive medical history including chronic kidney disease, paroxysmal atrial fibrillation, CHF, diabetes, recurrent follicular malignant lymphoma, and heart block s/p pacemaker insertion presents to the ED via EMS with a head injury after a ground level fall onset just prior to arrival. The patient tripped and lost his balance while getting out of bed, hitting his head against a door jam. He denies loss of consciousness, vomiting, additional injury/trauma, or other symptoms. EMS found the patient with a BP of 140/76 and otherwise normal vital signs. The patient was previously on Coumadin but this has been discontinued by his oncologist. Nursing Notes Stated Complaint: GLF/ HEAD LAC Nursing Notes Reviewed: Yes ([employer] not reconciled) Allergies: Coded Allergies: levofloxacin (Verified Allergy, Intermediate, hives, 04/07/16) vancomycin (Verified Allergy, Intermediate, Rash, 04/07/16) Scheduled Aspirin (Aspirin) 81 Mg Tablet 81 MG PO DAILY Folic Acid (Folic Acid) 1 Mg Tablet 1 MG PO DAILY Ibrutinib (Imbruvica) 140 Mg Capsule 420 MG PO HS Insulin Aspart (NovoLOG U-100 Pen) 100 Unit/Ml Insuln.pen UNITS SQ ACHS per sliding scale Insulin Glargine (Lantus U100 Insulin Vial) 100 Unit/Ml Vial 100 UNIT SUBQ QAM Levothyroxine (Levothyroxine) 88 Mcg Tablet 2 TAB PO DAILY Magnesium Oxide (Magnesium) 400 Mg Tablet 400 MG PO BID Multivitamin (Multivitamins) 1 Each Capsule 1 EACH PO DAILY [place]-3/Dha/Epa/Fish Oil (Fish Oil 1,000 mg Softgel) 1 Each Capsule 2 EACH PO DAILY Pantoprazole DR (Pantoprazole DR) 40 Mg Tablet.dr 40 MG PO DAILY Torsemide (Torsemide) 20 Mg Tablet 40 MG PO DAILY Scheduled PRN Docusate Sodium (Colace) 100 Mg Capsule 100 MG PO HS PRN PRN For Constipation oxyCODONE (oxyCODONE) 5 Mg Tablet 10 MG PO Q4H PRN PRN SEVERE PAIN General Time Seen by MD: 23:31 Chief Complaint Fall, Head injury Hx Obtained From: Patient Arrived By: Ambulance Onset Occurred: Just prior to arrival Symptom Duration: Since onset Caused by: Accidental, Fall on ground Location: Head Quality: Painful Severity: Current: Moderate Severity: Maximum: Moderate Associated with: Denies: Loss of consciousness Pertinent Negative: Pt denies other symptoms Pertinent Negative: Relieved by nothing Context: Immunizations Unknown Recent Healthcare: No recent doctor visit Past Medical History Past Medical History Notes: Oncologist: [facility] - see note 07/25/16 (recurrent follicular lymphoma) Clockmaker: Dr. Harper Last Admit: 10/2015 Past Medical History 1. ho Bacteremia with MRSA 10/2015 2. 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 4. Left-hand osteomyelitis. 7. Chronic kidney disease stage 3. 8. Paroxysmal atrial fibrillation. 9. Chronic Coumadin anticoagulation - has been discontinued as of 08/02/16 10. Diabetes mellitus type 2, insulin dependent. 11. History of complete heart block status post pacemaker. 13. Chronic anemia. 14. Dyslipidemia. 15. Hypothyroidism. 17. Recurrent follicular malignant lymphoma, most recently on treatment with oral agent ibrutinib since the beginning of May 2016 at 420 mg daily - as of 07/25/16 18. Hyperlipidemia 19. Congestive heart failure 20. Chronic bilateral pleural effusion, requiring frequent thoracentesis Past Surgical History Tonsillectomy Bone marrow asp/core biopsy Stem cell transplant Partial colonectomy Pacemaker insertion Reports: Pacemaker insertion Family History noncontributory Smoking History Never Smoker Social History Lives at [facility] See discussion re: code status with oncology 07/25/16 - Patient does not want to be on protracted life support, but would want an initial attempt at resuscitation to be undertaken Alcohol Use: Denies alcohol use Drug Use: Denies drug use Other Social History: Local resident Ambulatory Status Independent Review of Systems Review of Systems Note: + Head injury Constitutional: Denies: Fever Respiratory: Denies: Non-productive cough, Shortness of breath Neurologic: Denies: Change LOC Complete sys rev & neg: except as marked. GI: Denies: Diarrhea, Vomiting Physical Exam Initial Vital Signs Vital Signs (First) Date Time Temp Pulse Resp B/P Pulse Ox O2 Delivery O2 Flow Rate FiO2 08/03/16 00:20 36.6 69 21 128/52 94 Nasal Cannula 2 Initial VS: Reviewed Respiratory: Breath sounds normal, Clear to auscultation, No respiratory distress Cardiovascular: Regular rate & rhythm, Heart sounds normal Abdomen / GI: Soft, Non-tender Skin: Warm, Dry, No cyanosis Psychiatric: Mood/affect normal, Behavior normal, Normal thought content General/Constitutional: Awake, Alert, No acute distress Head / Eyes: Normocephalic Trauma - General: Positive: Laceration (4.5cm, curved with surrounding blood) Lower Extremity / Pelvis / MS: Atraumatic Bilateral leg edema with calves wrapped - at baseline Neurologic: Oriented X3, Speech NL, No motor deficits, No sensory deficits No altered mental status or focal deficits Interpretation & Diagnostics CT Head Interpretation CONCLUSION: Small old area of encephalomalacia right anterior inferior right frontal lobe may be due to old trauma. Mild involutional changes. Mild patchy low density bilaterally in the deep white matter likely due to chronic ischemic small vessel disease. No acute intracranial abnormality. Report transmitted to ED by radiologist Geremias Camacho M.D. at 08/03/2016 - 12:12:51 AM PDT Study: Head CT no contrast Interpretation / Wet Read by: Interpret - Radiologist Procedures Laceration Management Time: 23:44 Procedure Performed by: ED physician Consent / Setup / Site Prep: Consent from patient, Time-out performed, Hand hygiene observed, Stand sterile technique Location of Wound: 4.5cm, curved, on scalp Local Anesthesia: Bupivacaine 0.5% (w/ epi) Wound Preparation: Normal saline Irrigation: Copious Repair Skin: Ava # Sutures - Skin: 9 Closure Layers: 1 Post-Procedure / Complications: No complications, Condition improved, Tolerated procedure well, Patient stable Re-Eval/Medical Decision Med Decision/Clinical Course This is a 70-year-old male who used to be on warfarin secondary atrial fibrillation but that has been discontinued due to need for recurrent thoracenteses for a pleural effusions from recurrent follicular lymphoma reports he tripped trying to get out of bed and hit his head against the door jam suffering a laceration. He had no loss of consciousness, denies neck pain, and had denies any other injury. The patient's mildly frail 70-year-old male, but in no extremist but he does have a 4.5 cm scalp laceration. His neck is nontender, and he has some chronic edema in his legs which are wrapped, but no other acute findings are evident. Noncontrast CT was negative. The scalp wound was anesthetized with bupivacaine and then cleaned irrigated, and ultimately repaired with 9 ava. Wound care is discussed. The patient is being discharged in stable condition. Source of Hx: Old records Re-Evaluation/Progress #1: Time of Eval: 23:44 Patient Status: Condition improved Re-Evaluation/Progress Note: Wound cleaned and laceration management performed. Re-Evaluation/Progress #2: Time of Eval: 00:40 Patient Status: Condition improved Re-Evaluation/Progress Note: Discussed with patient CT results, diagnosis, and plan for discharge. Follow-up and return to the ER instructions given. Patient agrees with plan for care and all questions were addressed. Counseled Regarding: Diagnosis, Need for follow-up, When/why to return to ED Discharge & Departure Impression: Primary Impression: Scalp laceration Encounter type: initial encounter Qualified Code: S01.01XA - Laceration without foreign body of scalp, initial encounter Additional Impression: Blunt head trauma Encounter type: initial encounter Qualified Code: S09.8XXA - Other specified injuries of head, initial encounter Disposition: Home Discharge Condition All VS Reviewed: Yes Condition: Improved Additional Instructions: 1. The CT scan did not reveal any injury to the brain from her fall. 2. You did have a 4.5 cm scalp laceration that was repaired with 9 ava today. 3. It is okay to shower. Keep wound clean. Fortunately it is rare for a scalp wound like this to become infected, so and the box are not indicated at this time. However if he develops redness, increasing swelling pain or fever- return to the emergency department for reevaluation. 4. Ava do need to be removed in about a week. There is no charge to return to the emergency Department forced staple removal. Referrals: Julian Fabian MD (PCP) Scribe Attestation Portions of this note were transcribed by Any Quijano. I, Dr. Tony, personally performed the history, physical exam, and medical decision-making; I reviewed and confirmed the accuracy of the information in the transcribed note. Signed by: Hilary Brown, 08/03/2016, 02:05 copies to: Julian Fabian MD, Matthew F MD Aug 02, 2016 23:34 ANY QUIJANO Aug 02, 2016 23:43
[2016-08-03 00:20] VITALS: BP 128/52; PULSE 69; RESP 21; O2SAT 94
[2016-08-03 02:36] VITALS: BP 106/46; PULSE 69; RESP 20; O2SAT 96
--- NOTE | 2016-08-03 09:30 | DRSVH ---
PROCEDURE: CT BRAIN WITHOUT CONTRAST ([id number]) INDICATIONS: trauma TECHNIQUE: Noncontrast 4.5 mm thick angled axial sections acquired from the foramen magnum to the vertex, with c oronal reformats. COMPARISON: None. FINDINGS: Image quality: Excellent. CSF spaces: Basal cisterns are patent. No extra-axial fluid collections. The ventricles are symmet bladimir in size and shape. Brain: No intracranial bleeds or masses. There is cerebral volume loss for age, with resultant vent ricular and sulcal prominence. There are periventricular and deep white matter chronic small vessel ischemic changes. Anterior right frontal encephalomalacia with surrounding gliosis is noted which be related to remote trauma or infarction. There is intracranial internal carotid artery and vertebral artery atherosclerosis. Skull and face: Calvarium and visualized facial bones appear intact, without suspicious lesions. Sinuses: Left frontal sinus mucosal thickening is noted. The mastoids are clear. IMPRESSION: No acute intracranial disease process. Dictated by: Lisbeth Alva MD, PhD on 08/03/2016 at 9:24 Approved by: Lisbeth Alva MD, PhD on 08/03/2016 at 9:29
[2016-08-10] MEDS ORDERED: SPIR25TA3 PO (12:39)
[2016-09-29] MEDS ORDERED: IBRU140C PO (09:08)
[2016-10-06] MEDS ORDERED: METF500T4 PO (11:03)
[2016-10-06] MEDS ORDERED: SPIR25TA3 PO (11:27)
[2016-10-06] MEDS ORDERED: TORS20TA3 PO (11:27)
[2016-10-06] MEDS ORDERED: POTA20TA16 PO (11:30)
[2016-10-13] MEDS ORDERED: oxygen INH (15:08)
[2016-10-13] MEDS ORDERED: LEVO150T5 PO (15:08)
[2016-10-13] MEDS ORDERED: POTA10TA12 PO (15:08)
[2016-10-13] MEDS ORDERED: INSLIS SUBQ (15:08)
[2016-10-13] MEDS ORDERED: [UNRECOGNIZED DRUG - CODE] PO (15:08)
[2016-10-13] MEDS ORDERED: ACET-2766 PO (15:08)
[2016-10-13] MEDS ORDERED: TORS10TA5 PO (15:08)
[2016-10-19] MEDS ORDERED: CLIN-78 PO (10:09)
[2016-10-19] MEDS ORDERED: FOLI1TAB18 PO (10:09)
== END 2016-08-03 02:18 | disposition home or self-care (01) ==
LOC: EDBD 23:24 → SED 23:24 → EDUNIT# 23:24 → SED 08-03 02:18
DX: S01.01XA Laceration without foreign body of scalp, initial encounter (principal); W01.0XXA Fall on same level from slipping, tripping and stumbling without subsequent striking against object, initial encounter; Y93.01 Activity, walking, marching and hiking; Y99.8 Other external cause status; Y92.013 Bedroom of single-family (private) house as the place of occurrence of the external cause; E11.29 Type 2 diabetes mellitus with other diabetic kidney complication; N18.3 Chronic kidney disease, stage 3 (moderate); I48.0 Paroxysmal atrial fibrillation; I50.9 Heart failure, unspecified; Z86.14 Personal history of Methicillin resistant Staphylococcus aureus infection; Z95.0 Presence of cardiac pacemaker; Z85.72 Personal history of non-Hodgkin lymphomas; Z79.82 Long term (current) use of aspirin; Z79.4 Long term (current) use of insulin; Z88.1 Allergy status to other antibiotic agents

== ENCOUNTER 2016-08-09 12:07 | Emergency (ER) | payer MEDICARE ==
[2016-08-09 12:11] VITALS: BP 106/66; PULSE 70; RESP 20; O2SAT 91
--- NOTE | 2016-08-09 12:28 | ED.REPORT ---
HPI-Recheck W/B/S Date of Service Aug 09, 2016 ED Provider: History of Present Illness: requesting melissa removed, wants area numbed. oncology care is Chay thompson is primary care Nursing Notes Stated Complaint: STITCHES REMOVED IN HEAD Chief Complaint: Wound Recheck/Suture Removal Nursing Notes Reviewed: Yes Allergies: Coded Allergies: levofloxacin (Verified Allergy, Intermediate, hives, 04/07/16) vancomycin (Verified Allergy, Intermediate, Rash, 04/07/16) Scheduled Aspirin (Aspirin) 81 Mg Tablet 81 MG PO DAILY Folic Acid (Folic Acid) 1 Mg Tablet 1 MG PO DAILY Ibrutinib (Imbruvica) 140 Mg Capsule 420 MG PO HS Insulin Aspart (NovoLOG U-100 Pen) 100 Unit/Ml Insuln.pen UNITS SQ ACHS per sliding scale Insulin Glargine (Lantus U100 Insulin Vial) 100 Unit/Ml Vial 100 UNIT SUBQ QAM Levothyroxine (Levothyroxine) 88 Mcg Tablet 2 TAB PO DAILY Magnesium Oxide (Magnesium) 400 Mg Tablet 400 MG PO BID Multivitamin (Multivitamins) 1 Each Capsule 1 EACH PO DAILY [place]-3/Dha/Epa/Fish Oil (Fish Oil 1,000 mg Softgel) 1 Each Capsule 2 EACH PO DAILY Pantoprazole DR (Pantoprazole DR) 40 Mg Tablet.dr 40 MG PO DAILY Torsemide (Torsemide) 20 Mg Tablet 40 MG PO DAILY Scheduled PRN Docusate Sodium (Colace) 100 Mg Capsule 100 MG PO HS PRN PRN For Constipation oxyCODONE (oxyCODONE) 5 Mg Tablet 10 MG PO Q4H PRN PRN SEVERE PAIN General Time Seen by Provider: 12:28 Chief Complaint Staple removal Hx Obtained From: Patient Onset Occurred: More than a week ago... Past Medical History Past Medical History Notes: Oncologist: Dunia - see note 07/25/16 (recurrent follicular lymphoma) Judo Instructor: Dr. Harper Last Admit: 10/2015 primary care is Julian Cartwright Past Medical History 1. ho Bacteremia with MRSA 10/2015 2. 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 4. Left-hand osteomyelitis. 7. Chronic kidney disease stage 3. 8. Paroxysmal atrial fibrillation. 9. Chronic Coumadin anticoagulation - has been discontinued as of 3/29/17 10. Diabetes mellitus type 2, insulin dependent. 11. History of complete heart block status post pacemaker. 13. Chronic anemia. 14. Dyslipidemia. 15. Hypothyroidism. 17. Recurrent follicular malignant lymphoma, most recently on treatment with oral agent ibrutinib since the beginning of May 2016 at 420 mg daily - as of 07/25/16 18. Hyperlipidemia 19. Congestive heart failure 20. Chronic bilateral pleural effusion, requiring frequent thoracentesis Past Surgical History Tonsillectomy Bone marrow asp/core biopsy Stem cell transplant Partial colonectomy Pacemaker insertion Reports: Pacemaker insertion Family History noncontributory Smoking History Never Smoker Social History Lives at [facility] See discussion re: code status with oncology 07/25/16 - Patient does not want to be on protracted life support, but would want an initial attempt at resuscitation to be undertaken Alcohol Use: Denies alcohol use Drug Use: Denies drug use Other Social History: Local resident Ambulatory Status Independent Review of Systems Basic Review of Systems Eyes: Vision NL, No discharge : No dysuria, No frequency Psychiatric: Normal thought content Physical Exam Initial Vital Signs Vital Signs (First) Date Time Temp Pulse Resp B/P Pulse Ox O2 Delivery O2 Flow Rate FiO2 08/09/16 12:11 70 20 106/66 91 Initial VS: Reviewed, Vital signs normal General/Constitutional: Well-developed, Well-nourished Head / Eyes: Atraumatic, Normocephalic, PERRL ENT: Mucous membranes moist, Conjunctiva normal, No scleral icterus Neck: Supple, Non-tender, Full range of motion Respiratory: Breath sounds normal, Clear to auscultation, No respiratory distress Cardiovascular: Regular rate & rhythm, Heart sounds normal, Intact distal pulses Neurologic: Alert, Oriented, Nonfocal Psychiatric: Mood/affect normal, Behavior normal, Normal thought content Rash / Lesion Notes: presents with laceration on right side of head. Laceration has extensive scabbing. Patient has no discomfort tolerance. Patient requesting to have area put to sleep. Starts moving his head in all directions. Advised paitient will not inject unless he is able to hold still. States he can't promise that. LET placed on site. General/Constitutional: Awake, Alert, No acute distress Head / Eyes: Atraumatic, Normocephalic, PERRL, EOMI ENT: Atraumatic, Airway patent, Mucous membranes moist, Pharynx NL Respiratory / Chest: Atraumatic, Breath sounds NL, Breath sounds = bilat, No respiratory distress Cardiovascular: Heart rate NL, Regular rhythm, Heart sounds NL, No gallop Procedures Procedure Notes: 8 melissa removed Suture Removal Time: 14:00 Procedure Performed by: Allied health pract Number Removed: Removed melissa Re-Eval/Medical Decision Med Decision/Clinical Course 70 year old male with extensive scabbing of repaired laceration. 8 sutures removed with out additional bleeding or incident. Discharge & Departure Impression: Primary Impression: Encounter for staple removal Disposition: Home Additional Instructions: 8 melissa have been removed. there may be another one there but I am not able to see or feel it. If after you wash the head and the large scab is gone, if you find a remaining staple, return to the ER for removal. Follow with primary care as needed. Referrals: Julian Fabian MD (PCP) EDSupervising Provider for APC: Miller Coppola MD copies to: Julian Fabian MD, Sue ARNP Aug 09, 2016 12:28
[2016-08-09] MEDS ORDERED: Lidocaine-Epi-Tetracaine Solution 3 mL Syringe TOPICAL ONE (12:45)
[2016-08-10] MEDS ORDERED: SPIR25TA3 PO (12:39)
[2016-09-29] MEDS ORDERED: IBRU140C PO (09:08)
[2016-10-06] MEDS ORDERED: METF500T4 PO (11:03)
[2016-10-06] MEDS ORDERED: SPIR25TA3 PO (11:27)
[2016-10-06] MEDS ORDERED: TORS20TA3 PO (11:27)
[2016-10-06] MEDS ORDERED: POTA20TA16 PO (11:30)
[2016-10-13] MEDS ORDERED: oxygen INH (15:08)
[2016-10-13] MEDS ORDERED: ACET-2766 PO (15:08)
[2016-10-13] MEDS ORDERED: TORS10TA5 PO (15:08)
[2016-10-13] MEDS ORDERED: LEVO150T5 PO (15:08)
[2016-10-13] MEDS ORDERED: [UNRECOGNIZED DRUG - CODE] PO (15:08)
[2016-10-13] MEDS ORDERED: POTA10TA12 PO (15:08)
[2016-10-13] MEDS ORDERED: INSLIS SUBQ (15:08)
[2016-10-19] MEDS ORDERED: FOLI1TAB18 PO (10:09)
[2016-10-19] MEDS ORDERED: CLIN-78 PO (10:09)
== END 2016-08-09 14:12 | disposition home or self-care (01) ==
LOC: SED 12:07
DX: Z48.02 Encounter for removal of sutures (principal); E11.22 Type 2 diabetes mellitus with diabetic chronic kidney disease; N18.3 Chronic kidney disease, stage 3 (moderate); I48.0 Paroxysmal atrial fibrillation; E78.5 Hyperlipidemia, unspecified; E03.9 Hypothyroidism, unspecified; Z95.0 Presence of cardiac pacemaker; Z79.82 Long term (current) use of aspirin; Z79.4 Long term (current) use of insulin; Z88.1 Allergy status to other antibiotic agents

== ENCOUNTER 2016-09-18 04:35 | Inpatient (IN) | payer MEDICARE ==
--- NOTE | 2016-09-13 11:08 | NUR ---
Testing Engineer D/A: CLINICAL OFFICE TECHNICIAN received a referral for a family care conference involving the patient, his brother Ryder, facilitated by the patient's medical oncologist Dr. Duque. Patient was noted to ambulate with a wheelchair and was supported with supplemental oxygen. Patient reports recently missed appointments and ongoing challenges with reduced independence and forgetfulness. Patient receives services, RN for medication management. Patient does not drive and secures his own transportation via a local taxi company. Patient usually attends appointments alone, today his accompanied by his brother Ryder, who the patient reports is a very active supportive person in his life. Patient acknowledges a decline in his ability to maintain ADL's and function independently, and has historically decline any referrals for higher level of care living environments. Recently, the patient has agreed to allow CLINICAL OFFICE TECHNICIAN to explore SNF and/or assisted living options. CLINICAL OFFICE TECHNICIAN staffed the patient's case with an ED of a local SNF who noted that the patient has not had a recent qualifying hospital stay that would precipitate the patient's Medicare Insurance ability to pay for SNF Room/Board and Therapies. Patient would be required to pay approximately $9000/month out of pocket. This information was shared during the care conference. In addition, the patient's care needs are to significant to be successfully managed in an assisted living facility. Patient's other acknowledged barrier to accepting residential/SNF placement is his three "beloved" house cats. During the care conference, the patient and his brother had a candid conversation about the patient's preference for the cats disposition in the event he was no longer able to maintain their care in his home. P: Patient agreeable to SNF placement in the future and acknowledges his current care needs and overall decline in his functional status. CLINICAL OFFICE TECHNICIAN will continue to work with the patient/family on interim in-home supports and manufacturing machine operator planning regarding the patient's preference for out of home care. CLINICAL OFFICE TECHNICIAN will continue to monitor and follow-up with patient/family as additional psychosocial issues arise or are identified. Kalen DUTTAS, KECIA
[2016-09-18] VITALS (16 sets, daily range): BP systolic 91–159; BP diastolic 49–74; PULSE 61–114; RESP 18–28; O2SAT 82–100
[~2016-09-18] VITALS: Ht 175.3 cm; Wt 92.5 kg
[~2016-09-18 04:35] MED LIST changes: +SPIR25TA3 PO; -TORS20TA3 PO
--- NOTE | 2016-09-18 04:38 | ED.REPORT ---
HPI-General Illness Date of Service September 18, 2016 ED Provider: Wilfrido Ramirez MD Patient is a 70 year old male with a history of lymphoma and recurrent pleural effusion requiring essentially weekly thoracocentesis, who was seen earlier today by EMS due to shortness of breath, but refused to come to the ED. The patient was brought to the ED via EMS due to shortness of breath and respiratory failure after being called a second time. Family reports that he missed a tap two weeks ago and has one scheduled for mid week this week. They are unaware of any other antecedent symptoms. He is unable give any coherent history due to his respiratory distress and obtunded state. Family reports he continues to be a full code, though he has expressed some desire not to have CPR performed. He has not said that he does not want to be intubated, and clearly requires intubation shortly after admission. Nursing Notes Stated Complaint: SHORT OF BREATH Nursing Notes Reviewed: Yes Allergies: Coded Allergies: levofloxacin (Verified Allergy, Intermediate, hives, 09/18/16) vancomycin (Verified Allergy, Intermediate, Rash, 09/18/16) Scheduled Aspirin (Aspirin) 81 Mg Tablet 81 MG PO DAILY Folic Acid (Folic Acid) 1 Mg Tablet 1 MG PO DAILY Ibrutinib (Imbruvica) 140 Mg Capsule 420 MG PO HS Insulin Aspart (NovoLOG U-100 Pen) 100 Unit/Ml Insuln.pen UNITS SQ ACHS per sliding scale Insulin Glargine (Lantus U100 Insulin Vial) 100 Unit/Ml Vial 100 UNIT SUBQ QAM Levothyroxine (Levothyroxine) 88 Mcg Tablet 2 TAB PO DAILY Magnesium Oxide (Magnesium) 400 Mg Tablet 400 MG PO BID Multivitamin (Multivitamins) 1 Each Capsule 1 EACH PO DAILY [place]-3/Dha/Epa/Fish Oil (Fish Oil 1,000 mg Softgel) 1 Each Capsule 2 EACH PO DAILY Pantoprazole DR (Pantoprazole DR) 40 Mg Tablet.dr 40 MG PO DAILY Spironolactone (Spironolactone) 25 Mg Tablet 25 MG PO DAILY Scheduled PRN Docusate Sodium (Colace) 100 Mg Capsule 100 MG PO HS PRN PRN For Constipation oxyCODONE (oxyCODONE) 5 Mg Tablet 5-10 MG PO Q4H PRN PRN SEVERE PAIN General Time Seen by MD: 04:38 Chief Complaint Other (shortness of breath) Hx Obtained From: EMS Arrived By: Ambulance Sudden in Onset?: Yes Onset Occurred: 9 - 12 hours ago Recent Healthcare: Recent doctor visit, Recent hospitalization Similar Sx Previous: Yes Past Medical History Past Medical History Notes: Oncologist: Dunia - see note 07/25/16 (recurrent follicular lymphoma) Director Money: Dr. Harper Last Admit: 10/2015 primary care is Julian Cartwright Past Medical History 1. ho Bacteremia with MRSA 10/2015 2. 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 4. Left-hand osteomyelitis. 7. Chronic kidney disease stage 3. 8. Paroxysmal atrial fibrillation. 9. Chronic Coumadin anticoagulation - has been discontinued as of 08/02/16 10. Diabetes mellitus type 2, insulin dependent. 11. History of complete heart block status post pacemaker. 13. Chronic anemia. 14. Dyslipidemia. 15. Hypothyroidism. 17. Recurrent follicular malignant lymphoma, most recently on treatment with oral agent ibrutinib since the beginning of May 2016 at 420 mg daily - as of 07/25/16 18. Hyperlipidemia 19. Congestive heart failure 20. Chronic bilateral pleural effusion, requiring frequent thoracentesis Past Surgical History Tonsillectomy Bone marrow asp/core biopsy Stem cell transplant Partial colonectomy Pacemaker insertion Reports: Pacemaker insertion Family History noncontributory Smoking History Never Smoker Social History Lives at [facility] See discussion re: code status with oncology 07/25/16 - Patient does not want to be on protracted life support, but would want an initial attempt at resuscitation to be undertaken Alcohol Use: Denies alcohol use Drug Use: Denies drug use Other Social History: Local resident Ambulatory Status Independent Review of Systems Patient nearly unresponsive on arrival with respiratory distress and hypoxemia and hypercarbia. He was intubated shortly after arrival. Review with family Limited by their intermittent contact, but no antecedent fevers or other complaints noted to the family. Unable to Obtain ROS Patient condition, Intubated Physical Exam Vital Signs Vital Signs Date Time Temp Pulse Resp B/P Pulse Ox O2 Delivery O2 Flow Rate FiO2 09/18/16 06:00 70 22 92/49 93 ET Tube 09/18/16 05:54 70 22 94/50 97 ET Tube 09/18/16 05:52 70 22 101/53 99 ET Tube 09/18/16 05:47 70 22 114/70 100 ET Tube 09/18/16 05:19 100 09/18/16 05:01 36.2 114 28 159/66 82 Non-Rebreather 15 Initial VS: Reviewed GENERAL: barely arousable unable to speak or give history Head / Eyes: Normocephalic, PERRL, EOMI linear erosion almost down to the bone on scalp RESPIRATORY: maximum respiratory effort lungs dull bilateral Cardiovascular: Heart rate NL, Regular rhythm, Heart sounds NL Abdomen: Atraumatic, Soft, Non-tender LOWER EXTREMITIES: extremities in compression socks 3+ bilateral edema Skin: Atraumatic, Color NL, No rash, Warm, Dry Interpretation & Diagnostics Lab Results Interpretation Result Diagram: 09/18/16 0440 09/18/16 0440 Test 09/18/16 04:40 09/18/16 04:45 09/18/16 05:10 White Blood Count 21.6th/mm3 (3.8-10.1) Red Blood Count 3.96mil/mm3 (4.40-5.80) Hemoglobin 9.4g/dL (13.8-17.2) Hematocrit 33.7% (41.0-50.0) Mean Corpuscular Volume 85.1fL (81-100) Mean Corpuscular Hemoglobin 23.7pg (27.0-35.0) Mean Corpuscular Hemoglobin Concent 27.9% (32.0-37.0) Red Cell Distribution Width 21.6% (12.3-15.4) Platelet Count 319bil/L (150-400) Neutrophils (%) (Auto) 63% (40-74) Lymphocytes (%) (Auto) 12% (14-46) Monocytes (%) (Auto) 10% (4-12) Eosinophils (%) (Auto) 0% (0-5) Basophils (%) (Auto) 0% (0-3) Band Neutrophils % 12% (1-5) Metamyelocytes % 3% (0-0) Myelocytes % 1% (0-0) Hematology Comments Hold Purple Top Tube Received (Received) Prothrombin Time 11.5sec (8.1-12.5) Prothromb Time International Ratio 1.07ratio Activated Partial Thromboplast Time 27.5sec (22.8-33.0) Hold Blue Top Tube Received (Received) Sodium Level 137mEq/L (134-144) Potassium Level 5.5mEq/L (3.5-5.2) Chloride Level 95mEq/L (97-108) Carbon Dioxide Level 30mmol/L (18-29) Blood Urea Nitrogen 21mg/dL (8-27) Creatinine 1.22mg/dL (0.76-1.27) Estimat Glomerular Filtration Rate 62mL/min (>59) Glucose Level 255mg/dL (60-99) Calcium Level 9.2mg/dL (8.5-10.1) Magnesium Level 2.3mg/dL (1.6-2.6) Total Bilirubin 0.5mg/dL (0.0-1.2) Aspartate Amino Transf (AST/SGOT) 14U/L (0-50) Alanine Aminotransferase (ALT/SGPT) 11U/L (0-44) Alkaline Phosphatase 147U/L (25-160) Troponin T 0.033ug/L (0.0-0.011) Pro-B-Type Natriuretic Peptide 4094pg/mL (0-376) Total Protein 6.6g/dL (6.4-8.4) Albumin 3.6g/dL (3.4-5.0) Procalcitonin 0.12ng/mL (0.00-0.08) Hold [place] Top Tube Received (Received) Urine Color Dark yellow (YELLOW) Urine Appearance Clear (CLEAR,HAZY) Urine pH 5.5 (5.0-8.0) Urine Specific [place] 1.030 (1.003-1.035) Urine Protein 100mg/dL (NEG,TRACE) Urine Glucose (UA) 250mg/dL (NEGATIVE) Urine Ketones Negativemg/dL (NEGATIVE) Urine Occult Blood Negative (NEGATIVE) Urine Nitrite Negative (NEGATIVE) Urine Bilirubin Negative (NEGATIVE) Urine Urobilinogen Normalmg/dL (NORMAL) Urine Leukocyte Esterase Negative (NEGATIVE) Urine RBC 3-10/hpf (0-2) Urine WBC 0-5/hpf (0-5) Urine Epithelial Cells Occasional/hpf (NONE-MOD) Urine Crystals Amorphous urates (NONE Urine Bacteria Few/hpf (NONE-FEW) Urine Hyaline Casts Occasional/lpf (NONE) Urine Granular Casts >20 (NONE SEEN) Urine Waxy Casts None seen (NONE SEEN) Urine Red Blood Cell Casts None seen (NONE SEEN) Urine White Blood Cell Casts None seen (NONE SEEN) Urine Mucus Present (None Seen) Urine Trichomonas None seen (NONE SEEN) Urine Yeast None (NONE SEEN) Urinalysis Comment None Urine Culture Reflexed Not indicated Lactic Acid Level 2.3mmol/L (0.4-2.0) ECG Interpretation ECG Interpretation: LBBB Time: 04:47 Interpreted by: ED physician Normal ECG Interpretation: Normal rate (70), Normal sinus rhythm X-Ray Chest Interpretation Chest Xray Interpretation: IMPRESSION: bilateral pleural effusion View: Portable, 1 view Interpretation / Wet Read by: Wet read ED physician Procedures Central Line Placement Time: 05:41 Procedure Performed by: ED physician Consent / Setup / Site Prep: No consent - emergent, Time-out performed, Hand hygiene observed, Standard surgical scrub, Sterile drapes applied, Position Trendelenburg Skin Preparation Agent: Other (Chloraprep) Local Anesthesia: Lidocaine 1% Procedural Sedation/Analgesia: Sedation: Propofol Side / Location / Ultrasound: Internal jugular right, Ultrasound assisted Catheter / Lumen / Technique: Triple lumen, Good blood return, Secured with tape Post-Procedure / Complications: Tolerated procedure well, Patient stable Intubation Time: 04:44 Procedure Performed by: ED physician Consent / Setup / Site Prep: Consent from patient, Time-out performed, Hand hygiene observed Blade / ET Tube / Route: Route: oral Procedural Sedation/Analgesia: Sedation: Other Secured / Marked: Tube marked at ___ cm (22), Tube marked at teeth Complications: None Post-Procedure: Condition improved, Tolerated procedure well, Patient stable Re-Eval/Medical Decision Med Decision/Clinical Course 70-year-old with follicular lymphoma, multiple MRSA infections including endocarditis, presents with respiratory failure, progressive shortness of breath, bilateral pleural effusions, and ultimately respiratory failure. He is intubated and being adequately maintained on a ventilator. His white count 21,000, and elevated pro-calcitonin, a moderately elevated proBNP. He has a known history of chronic diastolic congestive heart failure with peripheral edema and recurrent pleural effusions. We must assume infection at this point, and treat for healthcare associated pneumonia anticipating MRSA. He is allergic to vancomycin reportedly and is treated now with Zosyn and linezolid and azithromycin, as he is also allergic to Levaquin. Blood pressure has been borderline but he is not required pressors at this point. Central line was placed in anticipation of that. Verified in good position with no pneumothorax by x-ray. Troponin is noted elevated with some background of renal failure, and significance uncertain. Needs to be trended and assume that this is potentially a non-STEMI. Background EKG is a bundle branch block/pacer, and so is not interpretable as to acute IN. Transported now to the ICU in critical condition. Time of Eval: 05:15 Re-Evaluation/Progress Note: Discussed patient's status and plan for admit with the patient's son. All questions were addressed. Consultation : Referral / Consult Name: Virginia Alexander DO Consulted With: Hospitalist Call Returned at: 06:04 Bushing And Broach Operator: Agrees with eval, Agrees with plan, Accepts admit Counseled Regarding: Diagnosis, Lab results, Need for admission Discharge & Departure Primary Impression: Respiratory failure Chronicity: acute Respiratory failure complication: hypoxia and hypercapnia Qualified Code: J96.01 - Acute respiratory failure with hypoxia Additional Impressions: Septic shock Pleural effusion, bilateral Hypotension (arterial) Hypotension type: unspecified hypotension type Qualified Code: I95.9 - Hypotension, unspecified Chronic renal failure Chronic kidney disease stage: stage 3 (moderate) Qualified Code: N18.3 - Chronic kidney disease, stage 3 (moderate) Diastolic heart failure Heart failure chronicity: acute on chronic Qualified Code: I50.33 - Acute on chronic diastolic (congestive) heart failure Diabetes Diabetes mellitus type: type 2 Diabetes mellitus complication status: with kidney complications Diabetes mellitus complication detail: with chronic kidney disease Diabetes mellitus snf insulin use: with snf use Chronic kidney disease stage: stage 3 (moderate) Qualified Code: E11.22 - Type 2 diabetes mellitus with diabetic chronic kidney disease Lymphoma Lymphoma type: non-Hodgkin Non-Hodgkin lymphoma type: follicular Follicular lymphoma grade: unspecified grade Lymphoma site: unspecified region Qualified Code: C82.90 - Follicular lymphoma, unspecified, unspecified site NSTEMI (non-ST elevated myocardial infarction) Disposition: ADMITTED TO HOSPITAL Discharge Condition All VS Reviewed: Yes Condition: Critical Referrals: Julian Fabian MD (PCP) Crit Care Except Billable Proc Time Spent: 75-104 minutes (sixty minutes) Services Performed: Patient management by me, Time spent at bedside, Reviewing test results, Reviewing imaging, Discussing patient care, Documentation in record, Time with fam/surrogate Scribe Attestation Portions of this note were transcribed by Kiara Emanuel. IDr. Ramirez personally performed the history, physical exam and medical decision-making; I reviewed and confirmed the accuracy of the information in the transcribed note. Signed by: Hilary Em, 09/18/16 at 0530 copies to: Julian Fabian MD, Christopher W MD September 18, 2016 04:38 Cristel Emanuel September 18, 2016 04:47
--- NOTE | 2016-09-18 05:01 | ABG ---
DateTimeAnalyzed 04:57:00 -_ pH ____7.307 - 7.350 7.450 pCO2 ___64.2__ -mmHg 35.0 45.0 pO2 ___88.1__ -mmHg 69.0 116 HCO3- ___31.2__ -mmol/L 22.0 26.0 ABE ____4.4__ -mmol/L -2.0 2.0 tHb ____9.0__ -g/dL O2Hb ___94.0__ -% COHb ____1.8__ -% MetHb ____1.2__ -% sO2 ___96.9__ -% 25.0 FIO2 __100.0__ -% Drawn By LT - Date/Time Notified____ 05:01:00 -_ Notified By LT - Notified Whom DR AVELAR - B 757 -mmHg tO2 ___12.0__ -Vol% Cristiano test _Positive -
[2016-09-18] MEDS ORDERED: Propofol 10,000 mCg/mL 100 mL Inj ONE (05:05)
[2016-09-18] MEDS ORDERED: Furosemide 10 mg/mL 10 mL Inj IVPUSH ONE (05:10)
[2016-09-18 05:11] LABS: APPEARANCE,URINE CLEAR (CLEAR,HAZY); COLOR,URINE DARK YELLOW (YELLOW); OCCULT BLOOD,URINE NEGATIVE (NEGATIVE); PH,URINE 5.5 (5.0-8.0); UROBILINOGEN,URINE NORMAL (NORMAL)
[2016-09-18 05:11] LABS: INR 1.07 ratio
[2016-09-18 05:21] LABS: BASOPHILS % (AUTO) 0 % (0-3); EOSINOPHILS % (AUTO) 0 % (0-5); MONOCYTES % (AUTO) 10 % (4-12); Mean Corpuscular Hemoglobin 23.7 pg (27.0-35.0); Mean Corpuscular Volume 85.1 fL (81-100); NEUTROPHILS % (AUTO) 63 % (40-74); Platelet Count 319 bil/L (150-400)
[2016-09-18 05:23] LABS: TROPONIN T 0.033 ug/L (0.0-0.011)
[2016-09-18 05:34] LABS: Magnesium 2.3 mg/dL (1.6-2.6)
[2016-09-18] MEDS ORDERED: Acetaminophen IV 1,000 MG in IV Premix 1 EACH IV PRN (06:05)
[2016-09-18] MEDS: fentaNYL 2,500 mCg/250 mL 2,500 MCG in IV Premix 1 EACH IV SCH (06:08)
[2016-09-18] MEDS ORDERED: Propofol Inj 1,000,000 MCG in IV Premix 1 EACH IV SCH (06:08)
[2016-09-18] MEDS ORDERED: Dexamethasone Inj 10 MG in 0.9% Sodium Chloride-Pha MIX 50 ML IV ONE (06:10)
[2016-09-18] MEDS ORDERED: Piperacillin-Tazo 3.375 Gm Inj 3.375 GM in Dextrose 5% Minibag Plus 50 ML IV ONE (06:10)
[2016-09-18] MEDS ORDERED: Ketamine 10 mg/mL 20 mL Inj IV ONE (06:10)
[2016-09-18] MEDS ORDERED: Azithromycin Inj 500 MG in Dextrose 5% w/Vial Mate 250 ML IV ONE (06:30)
[2016-09-18] MEDS: Norepineph 8,000 mCg/250 mL NS 8,000 MCG in IV Premix 1 EACH IV SCH (07:14)
--- NOTE | 2016-09-18 07:37 | ABG ---
DateTimeAnalyzed 07:32:00 -_ pH ____7.560 - 7.350 7.450 pCO2 ___35.5__ -mmHg 35.0 45.0 pO2 111 -mmHg 69.0 116 HCO3- ___31.8__ -mmol/L 22.0 26.0 ABE ____8.9__ -mmol/L -2.0 2.0 tHb ____7.8__ -g/dL O2Hb ___95.8__ -% COHb ____2.0__ -% MetHb ____1.3__ -% sO2 ___99.1__ -% 25.0 FIO2 ___60.0__ -% PRVC 480 - PEEP ____5.0__ -cmH2O Drawn By kb - Date/Time Notified____ 07:36:00 -_ Spontaneous_RR ___22.0__ -b/min Oxygen Device 1 VENTILATOR - Notified By JJ - Notified Whom DR AVELAR - B 757 -mmHg tO2 ___10.7__ -Vol% Cristiano test _Positive -
--- NOTE | 2016-09-18 08:09 | DRSVH ---
PROCEDURE: X-RAY CHEST ONE VIEW, PORTABLE ([id number]) INDICATIONS: resp failure TECHNIQUE: One view of the chest was acquired. COMPARISON: [facility], CR, XR CHEST 1VW (PORTABLE), 09/18/2016, 5:55. [facility], CR, XR CHEST 1VW, 08/04/2016, 13:48. FINDINGS: Surgical changes and devices: Endotracheal tube and enteric tube appear unchanged. Lungs and pleura: Bilateral [id number] pleural effusions, probably stable to mildly increased, with adjacent atelectasis as before. No definite interval change. No pneumothorax. No new focal cons olidation. Diffuse groundglass opacities elsewhere in the visualized lungs Mediastinum: Cardiac silhouette and mediastinal contours are stable. Bones and chest wall: No suspicious bony lesions. Overlying soft tissues appear unremarkable. Late ral curvature of the spine and discogenic changes IMPRESSION: Bilateral pleural effusions, grossly unchanged to mildly increased, with adjacent atelect asis. No new consolidation. Stable support equipment Dictated by: Juan Del Rio M.D. on 09/18/2016 at 8:05 Approved by: Juan Del Rio M.D. on 09/18/2016 at 8:08
--- NOTE | 2016-09-18 08:11 | DRSVH ---
PROCEDURE: X-RAY CHEST ONE VIEW, PORTABLE ([id number]) INDICATIONS: POST CENTRAL LINE TECHNIQUE: One view of the chest was acquired. COMPARISON: [facility], CR, XR CHEST 1VW (PORTABLE), 09/18/2016, 4:44. [facility], CR, XR CHEST 1VW, 08/04/2016, 13:48. FINDINGS: Surgical changes and devices: A new right internal jugular region central venous line has been placed with its tip extending into the middle third of the superior vena cava. There also is an endotrache al tube and the nasogastric tube both in normal position. Lungs and pleura: No pleural effusions or pneumothorax. Lungs are unchanged with a bilateral subpul filipe pleural effusion pattern and alveolar infiltration especially over the lung bases, likely a com bination of pneumonia and atelectasis. Mediastinum: Mediastinal contours appear normal. Heart size is normal. Bones and chest wall: No suspicious bony lesions. Overlying soft tissues appear unremarkable. IMPRESSION: No pneumothorax after central line placement. Central line tip overlies the middle third region of the superior vena cava. Stable bilateral subpulmonic effusions and presumed a combination of atelectasis and pneumonia. Dictated by: Reese Barton M.D. on 09/18/2016 at 8:08 Approved by: Reese Barton M.D. on 09/18/2016 at 8:10
[2016-09-18] MEDS ORDERED: ACET-171 PO (08:33)
[2016-09-18] MEDS ORDERED: NAPR220C16 PO (08:34)
[2016-09-18] MEDS ORDERED: LEVO200T6 PO (08:34)
[2016-09-18] MEDS: Linezolid Inj 600 MG in IV Premix 1 EACH IV SCH ×2 (08:40→20:28)
[2016-09-18] MEDS: Chlorhexidine 0.12% 15 mL Oral Solution MT SCH ×4 (08:40→20:30)
[2016-09-18] MEDS ORDERED: Dextrose 10% 250 ML IV PRN (10:10)
[2016-09-18] MEDS ORDERED: 0.9% Sodium Chloride 500 ML IV ONE ×2 (10:10→19:05)
--- NOTE | 2016-09-18 10:53 | NUR ---
Palliative Care Palliative Care received verbal order from Dr Mercado 09/18/16 to assist with goals of care. Patient is a 70 year old man with follicular lymphoma. He was admitted 09/18/16 with respiratory failure and is intubated. Ryder Winston (brother) [phone] Tiburcio Salazar (friend) [phone] Palliative Care to follow. Swati Mazariegos
--- NOTE | 2016-09-18 10:55 | NUR ---
Wound Note Orders received for wound evaluation, patient seen at bedside. 70 yo diabetic male admitted to [facility] with respiratory failure. Patient has been seen at the wound center for treatment of a left foot diabetic ulcer and various lower extremity stasis ulcerations. Today patient presents with left plantar first metatarsal head ulcer; left first metatarsal head ulcer, measures 1 cm x 0.5 cm x 0.1 cm. There is approximately 25% fibrin tissue. Granulation tissue is pink and firm. A small amount of serosanguineous drainage. There is no odor, eschar, bone, or tendon exposed. Wound is benign, has been off loaded with felt in the past but given patients bedbound status currently this will not be necessary today. Redressed with hydrogel and a adhesive foam dressing, Patient also presents with a right medial calf stasis ulcer approx 2 cm L x 1.5 cm W x 0.1 cm D, cleaned with saline and redressed with bacitracin and an adhesive foam dressing. Patient presents with erythema at his left groin possibly consistent with a yeast overgrowth recommend nystatin powder daily. Inspection of patients backside reveals small scabs on either buttock less than 1 cm in diameter, these do not appear to be involve in any infectious process, recommend calmoseptine be applied daily. Will need follow up at the wound center on discharge.
--- NOTE | 2016-09-18 11:42 | PCM.HPMED ---
Subjective Date of Service September 18, 2016 Primary Provider: Admitting Physician: Virginia Alexander DO Primary Care Physician: Julian Fabian MD Attending Physician: Virginia Alexander DO Chief Complaint: Shortness of breath. History of Present Illness: PCP is Dr. Julian Fabian Dry House Worker is Dr. Елена [place] Oncologist is Dr. Duque 70-year-old gentleman with complicated medical history including recurrent follicular lymphoma on Ibrutinib, chronic bilateral pleural effusions requiring regular thoracentesis, hypogammaglobulinemia with history of multiple episodes of sepsis and bacteremia involving MRSA. He presented via EMS (EMS was called earlier in the day, but despite recommendation, patient refused to come to the ER) to ER with shortness of breath that did not respond to conservative oxygen delivery methods. The following history is obtained after speaking with family, and reviewing outpatient and inpatient record (including oncology, cardiology record): Patient is reportedly been having regular thoracenteses performed on alternating sides for his chronic bilateral pleural effusions. Records and family reported that he missed his thoracentesis approximately 2 weeks ago ( this was rescheduled to take place on Sunday of this week (09/20). Family noted that patient was very short of breath in the preceding several days, and became acutely worse today prompting a call to EMS. EMS arrived and recommended the patient proceed to the ER, but he declined. His shortness of breath continued to worsen, and EMS was called a second time, and patient was brought to the ER for evaluation and treatment. Please note the patient was started on Ibrutinib in May 2016 for recurrence of his follicular lymphoma. He receives regular IVIG administration's ( oncology note mentions last dose 09/11/16). Oncology note also makes mention over the last several visits of the patient's gradual decline over the last year or so in both a physical and cognitive manner. They were having discussions with patient and family with regards to SNF placement. Family reports the patient was amenable to this. They were also visiting with a criminal lawyer (they were supposed to meet with the criminal lawyer this morning at 11 AM) with regards to DURABLE POWER OF DEPUTY REGISTER OF DEEDS paperwork. As far as can be gathered from family: Patient has not had any recent travel, no recent sick contacts, no fevers/chills, no nausea or vomiting, no diarrhea, no rash. Patient does follow regularly with wound care with regards to his bilateral lower extremities (chronic lower extremity edema, and lower extremity chronic wounds), but note that there has not been any appearance of spreading redness or cellulitis at this time. There is some concern that medication compliance is been an issue (given his declining cognition), but unclear of doses of actually been missed. Of note, the only medication change of late was an increase in his levothyroxine from 2 tablets of 88 g to 1 tablet of 200 g daily. As noted above, in the ER patient continued to be short of breath not amenable to nonrebreather, and given his distress and report of obtundation, he was subsequently intubated. Initially placed on propofol and fentanyl, but due to dropping blood pressures, propofol was discontinued, and norepinephrine was initiated. Central line was also placed (right IJ). Patient was then admitted up to the ICU in stable condition. Patient is admitted under inpatient status with expected length of stay greater than 2 midnights due to severity of presenting symptoms, risk of adverse event, and complexity of treatment plan. Review of Systems: Comprehensive ROS is impossible at this time given patient's status. Allergies Coded Allergies: levofloxacin (Verified Allergy, Intermediate, hives, 09/18/16) vancomycin (Verified Allergy, Intermediate, Rash, 09/18/16) Home Medications Obtained from family: They brought his pills. 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 Development of MRSA bacteremia with subsequent device involvement. 07/2015 infected pacemaker removed, and right venous pacemaker placed. Unfortunately this became infected as well. In 10/2015, transferred to for placement of permanent tunneled pacemaker with generator placement in the right upper quadrant of the abdomen ( this was a transdiaphragmatic approach). Diastolic congestive heart failure (reports note this manifested following transdiaphragmatic pacer lead placement) * Chronic lower extremity edema History of left hand osteomyelitis Chronic kidney disease stage III Chronic atrial fibrillation, not currently on anticoagulation (some outpatient notes mention warfarin) * Please note the patient had a ground-level fall with head trauma in 07/2016. Question of possible discontinuation of warfarin at that time due to bleed risk. Diabetes mellitus type II, not currently on medication (some outpatient notes mention insulin-dependent) Dyslipidemia Hypothyroidism, on thyroid replacement Anemia of chronic disease with iron deficiency component Multiple outpatient records indicate the patient has had a gradual decline in both physical and cognitive function over the last year or 2. Surgical History Tonsillectomy Bone marrow biopsy Stem cell transplant Partial colectomy Pacemaker placement as noted above Family History Mother had an aneurysm in her heart. Sister with depression. Social History Hx Alcohol Use: No Hx Substance Use: No Hx Tobacco Use: No Smoking Status: Never Smoker Living Arrangement: Alone Additional Information Patient lives alone locally with his 3 cats. Family is currently working on finding homes for his cats as the plan is to transition to SNF. Exam Vital Signs Vital Sign - Last Date Time Temp Pulse Resp B/P Pulse Ox O2 Delivery O2 Flow Rate FiO2 09/18/16 08:30 36.7 70 18 120/60 100 Mechanical Ventilator 60 09/18/16 05:01 15 Intake and Output 09/17/16 09/17/16 09/18/16 Cumulative From/Thru 15:00 23:00 07:00 09/18/16 05:01 - 09/18/16 05:40 Intake Total 500 ml 500 ml Output Total 220 ml 220 ml Balance 280 ml 280 ml Intake IV Total 500 ml 500 ml Output Urine Total 220 ml 220 ml Exam General: Intubated and sedated. Head: Normocephalic, atraumatic. External ears normal. Eyes: PERRL (approximately 3 mm vi to 2 mm bilaterally), EOM status cannot be determined given sedation. Anicteric sclerae. Conjunctivae are not injected Mouth: Mouth Normal, Mucous Membranes Moist/[place]. ET tube and OG tube in place. Neck: Neck supple. No Thyromegaly. Do not appreciate any lymphadenopathy. Do not appreciate JVD. Right IJ central line in place. Chest & Lungs: Coarse to auscultation bilaterally with no crackles, wheezes, or rhonchi. Decreased breath sounds in the bases/posteriorly. On mechanical ventilation. Cardiovascular: Regular Rate/Rhythm (paced on the monitor), Normal S1, Normal S2, No Murmurs/Rubs/Gallops. Radial pulses are 2+ bilaterally. Posterior tibial pulses could not be assessed given the wrappings about the lower legs bilaterally. Abdomen: Non-tender, Non-distended, large reducible hernia, hypo-active bowel tones, Soft. Multiple surgical scars (colectomy, pacemaker). Pacemaker generator palpable in the right upper quadrant subcutaneously. No overlying erythema. Musculoskeletal: Sedated. Soft restraints on upper extremities. Extremities: No cyanosis/clubbing bilat. Mild pitting edema in the lower extremities above the level of the wrappings. Neurological: Sedated. Psych: Sedated. Lab and Diagnostics Labs Laboratory Tests Test 09/18/16 04:40 09/18/16 04:45 09/18/16 05:10 09/18/16 07:55 White Blood Count 21.6th/mm3 (3.8-10.1) Red Blood Count 3.96mil/mm3 (4.40-5.80) Hemoglobin 9.4g/dL (13.8-17.2) Hematocrit 33.7% (41.0-50.0) Mean Corpuscular Volume 85.1fL (81-100) Mean Corpuscular Hemoglobin 23.7pg (27.0-35.0) Mean Corpuscular Hemoglobin Concent 27.9% (32.0-37.0) Red Cell Distribution Width 21.6% (12.3-15.4) Platelet Count 319bil/L (150-400) Neutrophils (%) (Auto) 63% (40-74) Lymphocytes (%) (Auto) 12% (14-46) Monocytes (%) (Auto) 10% (4-12) Eosinophils (%) (Auto) 0% (0-5) Basophils (%) (Auto) 0% (0-3) Band Neutrophils % 12% (1-5) Metamyelocytes % 3% (0-0) Myelocytes % 1% (0-0) Hematology Comments Hold Purple Top Tube Received (Received) Prothrombin Time 11.5sec (8.1-12.5) Prothromb Time International Ratio 1.07ratio Activated Partial Thromboplast Time 27.5sec (22.8-33.0) Hold Blue Top Tube Received (Received) Sodium Level 137mEq/L (134-144) Potassium Level 5.5mEq/L (3.5-5.2) Chloride Level 95mEq/L (97-108) Carbon Dioxide Level 30mmol/L (18-29) Blood Urea Nitrogen 21mg/dL (8-27) Creatinine 1.22mg/dL (0.76-1.27) Estimat Glomerular Filtration Rate 62mL/min (>59) Glucose Level 255mg/dL (60-99) Calcium Level 9.2mg/dL (8.5-10.1) Magnesium Level 2.3mg/dL (1.6-2.6) Total Bilirubin 0.5mg/dL (0.0-1.2) Aspartate Amino Transf (AST/SGOT) 14U/L (0-50) Alanine Aminotransferase (ALT/SGPT) 11U/L (0-44) Alkaline Phosphatase 147U/L (25-160) Troponin T 0.033ug/L (0.0-0.011) Pro-B-Type Natriuretic Peptide 4094pg/mL (0-376) Total Protein 6.6g/dL (6.4-8.4) Albumin 3.6g/dL (3.4-5.0) Procalcitonin 0.12ng/mL (0.00-0.08) Hold [place] Top Tube Received (Received) Urine Color Dark yellow (YELLOW) Urine Appearance Clear (CLEAR,HAZY) Urine pH 5.5 (5.0-8.0) Urine Specific [place] 1.030 (1.003-1.035) Urine Protein 100mg/dL (NEG,TRACE) Urine Glucose (UA) 250mg/dL (NEGATIVE) Urine Ketones Negativemg/dL (NEGATIVE) Urine Occult Blood Negative (NEGATIVE) Urine Nitrite Negative (NEGATIVE) Urine Bilirubin Negative (NEGATIVE) Urine Urobilinogen Normalmg/dL (NORMAL) Urine Leukocyte Esterase Negative (NEGATIVE) Urine RBC 3-10/hpf (0-2) Urine WBC 0-5/hpf (0-5) Urine Epithelial Cells Occasional/hpf (NONE-MOD) Urine Crystals Amorphous urates (NONE Urine Bacteria Few/hpf (NONE-FEW) Urine Hyaline Casts Occasional/lpf (NONE) Urine Granular Casts >20 (NONE SEEN) Urine Waxy Casts None seen (NONE SEEN) Urine Red Blood Cell Casts None seen (NONE SEEN) Urine White Blood Cell Casts None seen (NONE SEEN) Urine Mucus Present (None Seen) Urine Trichomonas None seen (NONE SEEN) Urine Yeast None (NONE SEEN) Urinalysis Comment None Urine Culture Reflexed Not indicated Urine Legionella pneumophilia Ag Negative (Negative) Lactic Acid Level 2.3mmol/L (0.4-2.0) Hold Urine Received (Received) Test 09/18/16 09:10 09/18/16 10:44 09/18/16 12:00 Lactic Acid Level 2.3mmol/L (0.4-2.0) Lactate Dehydrogenase 209U/L (100-190) Troponin T 0.035ug/L (0.0-0.011) Result Diagram: 09/18/160 09/18/16 0440 Microbiology MRSA nasal screen positive Respiratory nasal PCR negative 09/18 blood cultures pending 09/18 sputum cultures pending (Gram stain shows rare polys and rare mixed normal radha) Please note patient has history of extensive MRSA infections. X-Rays, CTs and MRIs Date of Service: 09/18/16447 PROCEDURE: X-RAY CHEST ONE VIEW, PORTABLE ([id number]) INDICATIONS: resp failure IMPRESSION: Bilateral pleural effusions, grossly unchanged to mildly increased, with adjacent atelectasis. No new consolidation. Stable support equipment Dictated by: Juan Del Rio M.D. on 09/18/2016 at 8:05 Follow-up chest x-ray showed stable placement of right IJ central line without evidence of pneumothorax. 12-lead ECG 09/18: Paced rhythm with rate of 70. Prolonged intervals in the setting of pacing. No appreciable ST or T-wave changes to suggest acute ischemia. Additional Diagnostics: DateTimeAnalyzed 04:57:00 -_ pH ____7.307 - 7.350 7.450 pCO2 ___64.2__ -mmHg 35.0 45.0 DateTimeAnalyzed 07:32:00 -_ pH ____7.560 - 7.350 7.450 pCO2 ___35.5__ -mmHg 35.0 45.0 pO2 111 -mmHg 69.0 116 HCO3- ___31.8__ -mmol/L 22.0 26.0 sO2 ___99.1__ -% 25.0 FIO2 ___60.0__ -% PRVC 480 - PEEP ____5.0 Assessment & Plan 70-year-old gentleman with complicated medical history including recurrent follicular lymphoma on Ibrutinib, chronic bilateral pleural effusions requiring regular thoracentesis, hypogammaglobulinemia with history of multiple episodes of sepsis and bacteremia involving MRSA. He presented via EMS (EMS was called earlier in the day, but despite recommendation, patient refused to come to the ER) to ER with shortness of breath that did not respond to conservative oxygen delivery methods. Hospital day 1. Shock. Present on admission -Suspect secondary to intubation with increased intrathoracic pressure, and administration of propofol -Norepinephrine -Conservative fluid administration (received a 500 mL bolus in the ER, and gave another 500 mL bolus on the floor) -Propofol stopped -Possible sepsis component (met SIRS criteria presentation, and concern regarding pulmonary/other infection) -Consideration for repeat echo given history of CHF, and troponin this admission -Management of underlying processes as follows Acute hypoxic and hypercapnic respiratory failure. Present on admission -Suspect pleural effusion (patient missed his thoracentesis), and possible pulmonary infection. -1 time dose of IV Lasix 80 mg administered in the ER along with one-time dose of IV dexamethasone 10 mg -Ultrasound-guided thoracentesis with full fluid analysis * To be performed by interventional radiology -Empiric Linezolid, Zosyn * Infectious disease consulted, and we appreciated their expertise -Ventilator support (sedated on Fentanyl) * ICU/pulmonology consulted, and we appreciate their expertise -When necessary ABG -Daily chest x-ray -Consideration for chest CT Acute on chronic bilateral pleural effusion. Present on admission -Secondary to follicular lymphoma -Chest x-ray shows bilateral effusions (most recent historical chest x-ray 2016 demonstrates effusion on the right, but fairly clear on the left) -Management as above -Consideration for indwelling pleural drainage catheter * Intent would be palliative, as this would likely increase his infectious risk SIRS. Present on admission -Leukocytosis with left shift, tachycardia, tachypnea. With elevated lactic acid. -Empiric antibiotics as noted -Patient is immunocompromised (gets regular administration of IVIG) -Trend lactic acid -IVF as noted -Pending studies as noted Seizure-like activity. Not present on admission -Per patient's brother, has seen this a couple times over the last month -Patient was seen in the ER at the end of July of this year for a ground-level fall with head trauma * Negative head CT at that time -Repeat noncontrast brain CT -Prolactin -Consideration for EEG Gradual physical and cognitive decline, chronic. -CODE STATUS discussion with family today, and confirmed patient wishes in line with DNR/DNI -Patient's brother, Emigdio, is family's agreed upon DPOA. They are in the process of discussing legal paperwork with a criminal lawyer. -Discussed the case with palliative care, and they will follow along as well. * We appreciated their expertise -Multiple discussions in outpatient setting regarding placement in SNF Hyperkalemia, acute. Present on admission -Outpatient report of Bactrim administration within the last month for conjunctivitis-question potential contribution (perhaps less likely in setting of improved creatinine) -Recheck potassium this afternoon -Monitoring on telemetry Hyperglycemia in patient with diabetes mellitus type II, not on medication. Present on admission -Check A1c -Regular insulin correction Elevated troponin, acute. Present on admission -Current Troponin approximately 2 x historical values -Likely represents cardiac stress in the setting of hypoxic respiratory failure -Trend -Consideration for echo as noted Chronic conditions: Recurrent follicular lymphoma (in treatment with periods of remission since 2008 ) * Oncologist is -contacted the oncology clinic on day of admission to notify of patient's hospitalization. * Current treatment is Ibrutinib (started 05/2016)-will hold until further clarified by oncology. Hypogammaglobulinemia on IVIG-last reported dose was administered 09/11. Complete heart block, status post pacer placement-monitor on telemetry Diastolic congestive heart failure-according to the list provided by family, patient is not on optimize heart failure medications, but will refrain from medication changes until prognosis clarified. * Chronic lower extremity edema-wound care consult Chronic kidney disease stage III (likely diabetic nephropathy)-monitor metabolic panel (fluid administration and diuresis as noted above) Chronic atrial fibrillation, not currently on anticoagulation-CHADsVASC score is 3 (age, CHF, diabetes). Nothing beyond prophylactic heparin at this time. Bleed risk with recent fall. Hypothyroidism, on thyroid replacement-continue IV administration of levothyroxine 200 g daily Anemia of chronic disease with component of iron deficiency-monitor H&H, and consider repeat iron studies +/- iron replacement (12/2015 iron 22, TIBC 336, percent saturation 7, ferritin 38) PRN MEDICATIONS - Acetaminophen as needed for mild pain/fever/headache - Bowel regimen as needed - Antiemetic as needed Patient is admitted under inpatient status with expected length of stay greater than 2 midnights due to severity of presenting symptoms, risk of adverse event, and complexity of treatment plan. Disposition: Intubated and sedated in the ICU. Guarded prognosis at this time. Ongoing discussions with family and involved care teams regarding diagnostic and therapeutic plans. Depending on response to therapies outlined above, potential for SNF discharge. Pain Evaluation: Adequate Pain Control GI Prophylaxis: H2 eugene VTE Prophylaxis: Sub-Q Heparin (Unfractionated) Resuscitation Status: DNR/DNI:Do Not Resuscitate/Intubate Attending Statement The patient was seen and examined together with Dr. Morel on 09/18/2016 and I agree with the history, exam and plan as outlined in the note above. . Yevgeniy Alegre DO September 18, 2016 11:42 Freddy Mercado MD September 18, 2016 16:47
--- NOTE | 2016-09-18 12:06 | CONS ---
[address] [address] CONSULTATION REPORT PATIENT: DHARA MOYA : 1945 MR#: [id number] ADMIT: 09/18/2016 JOB ID: [id number] DATE OF SERVICE: 09/18/2016 REASON FOR CONSULTATION: Altered mental status, shortness of breath, weakness, and apparent septic shock. I thank Dr. Mercado for this timely consult. HISTORY OF PRESENT ILLNESS: The patient is extraordinarily complicated, 70-year-old gentleman, well known to me from a series of admissions a couple of years ago. 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 The patient also has numerous other medical problems including some mild renal insufficiency, paroxysmal atrial fibrillation, and pacer dependent rhythm. The patient was in his usual state of very fragile, compensated ill health at home until late last night when he was noted to be profoundly weak, unable to really communicate with family members and unable to ambulate. He was also noted to be quite short of breath. Because of this shortness of breath, confusion and weakness, he was brought to the emergency department and admitted really just early this morning. Prior to this admission, he had been receiving ongoing frequent thoracenteses because of recurrent pleural effusions thought to be on the basis of his relapsed follicular lymphoma. The patient was being closely followed by Hematology Oncology for his follicular lymphoma, hypogammaglobulinemia and pleural effusions. His last visit with Oncology appears to have been five days or so ago when he was getting around but it was increasingly difficult, and there were discussions about perhaps his need to go into a residential facility because of progressive decline. Both his oncologist and his brother whom we interviewed this morning states that in recent weeks the patient has been missing many of his medications and, in fact, recently missed an appointment for elective thoracentesis. At this point, the patient has been emergently intubated and is on the ventilator. His eyes are open and he will track but does not seem to interact or answer questions with nodding appropriately, other than to say that he has abdominal pain when his large abdominal hernias is decompressed. He otherwise is not helpful as a historian, though we did review his brother and family members who see him frequently and who report progressive weakness and shortness of breath going back quite a while, but especially over the last day or so, weakness, trouble walking and confusion. The brother also notes that the patient has had a few jerking movements of the extremities, one of which was witnessed earlier today by the resident on our team. These may represent metabolic or seizure related phenomenon which has not previously been documented. PAST MEDICAL HISTORY: 1. Follicular lymphoma with bilateral pleural effusions, ongoing, with ibrutinib therapy. 2. 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 3. Complete heart block and now on his 3rd pacer as the first two were lost due to infections. The current pacer is in his abdomen. 4. Hypertension. 5. Diabetes mellitus. Insulin dependent. 6. Chronic renal insufficiency. 7. Diastolic CHF. 8. Progressive debility and weight loss. SOCIAL HISTORY: The patient lives at home with his three cats. He does not smoke, use drugs or drink. He is a recently retired gentleman. Has a large collection of friends and relatives who see him frequently. FAMILY HISTORY: Negative for TB in first and second-degree relatives. I do not know that from today because I cannot speak to the patient, but I have spoken to him about it on prior admissions and I assume that has not changed. REVIEW OF SYSTEMS: Is not possible, as the patient is intubated and sedated at this point. PHYSICAL EXAM: Reveals an intubated, sedated gentleman whose eyes are open but he seems to have a right upward gaze preference. Occasionally he will track or look across to the left side, however. The patient otherwise does not interact except when his abdomen is palpated and, at that time, he had some apparent pain. The patient is much more wasted than when I last saw him several months ago when I encountered him in the lobby of the hospital, and looks as if he has had a fairly significant weight loss during that time. Current vital signs include temp 36.7, pulse 70, respiratory rate 18, blood pressure 120/60. He is saturating 100% on 50 and 5 on the ventilator. He is currently on low to medium dose norepinephrine to support his blood pressure. Examination the head reveals temporal wasting which is new. His eyes are without conjunctivitis or scleral icterus. His nose is normal. Oral endotracheal tube, oral gastric tube in usual position. A new right IJ line has been placed. There are scars in both sides of the upper chest where previously infected pacers were removed. He currently has a pacer palpable in his right upper abdomen and it appears nontender. His lungs are notable for rales diffusely and decreased breath sounds at the bases, especially on the right. Cardiac tones are regular rate and rhythm. It is difficult to hear any murmur today. On the monitor, it looks like he has got underlying atrial fibrillation with a paced rhythm through it. The patient's abdomen is quite distended. He has a large reducible abdominal wall hernia which does not appear to be incarcerated, though he does suffer some pain when the hernia is reduced. The remainder of his abdomen is distended, but does not appear to be tender based on his facial expression. There is no palpable masses. Penis and scrotum appear normal. He has a Zhang catheter in his groin draining tremendous quantities of lightly colored urine. His extremities were notable for the presence of dressings below the knees bilaterally which are used for venous stasis as well as lymphedema. We carefully removed these dressings and examined his legs with Leland, the civil engineering specialist. On the right leg, on the medial calf about jail down, there is some mildly erythematous area which could be venous stasis or cellulitis but it is nontender and there is no purulence or bullae. On both legs, there is 3+ edema below the knees. The feet are reasonably well perfused. There are not palpable pulses, however, but they are warm and symmetrical. Some venous stasis changes are present bilaterally. Joints without effusions. We cannot assess his neurologic function today. LABORATORIES: Include white count 21,000. Note that the patient's normal white count is about 15,000, and he has underlying lymphoma, so I really I cannot interpret what 20,000 means. He has 12% bands, which is above his normal and suggests some sort of a bone marrow reactivity perhaps due to infection. Platelet count 329,000. Creatinine is 1.22, which is actually better than his baseline, quite a bit better. Lactic acid is 2.3 on two measurements since admission early this morning. His LFTs are normal. Troponin slightly elevated. BNP 4000. The first procalcitonin measures 0.12. Urinalysis without white cells. The patient's most recent serum IgG is 316, which is reasonable in a patient who is being replaced with IVIG. That level was from September 04, and I do not know if he has had an IVIG infusion since that time, and we will need to check with Dr. Duque to find out if there has been a dose of IVIG. Otherwise, he may require IVIG at this point. Micro studies include a positive MRSA PCR of the nares from this morning. Sputum has rare polys and some mixed radha, and is unimpressive. Blood cultures are negative. Respiratory viral PCR is negative. Urine pneumococcal antigen is negative. Prior cultures have shown on many occasions, MRSA from a variety of body sources. This tends to be clindamycin and vancomycin susceptible, but resistant to tetracyclines which is a bit unusual. Note that this patient has life-threatening allergy to VANCOMYCIN, and should never receive it, as he became dramatically ill during one of his earlier admissions with VANCOMYCIN. IMAGING: Chest x-ray shows stable subpulmonic effusions. We looked at these x-rays and compared them to prior ones on the view screen and there is really not a lot of dramatic new. Note that the patient does have bilateral pleural effusions, greater on the right, and he has been undergoing routine thoracentesis to remove this fluid which is thought to be in some way related to his lymphoma. IMPRESSION: This is an extremely complex and unfortunate, 70-year-old gentleman, who is admitted with relatively new weakness, confusion, and shortness of breath. The things that would lean us towards a possible infection in this circumstance includes his slightly elevated white count over his baseline with some degree of bandemia as well as elevated lactic acid and hypotension requiring vasopressor agents. It is possible, of course, that this is all related to his lymphoma or some other process, and we do not necessarily have evidence of infection, but I think at this point it is prudent to cover him broadly. Most of his problems in the last 2-3 years have been with one organism and that has been the MRSA which has turned up in many, many positive blood cultures as well as in cultures of his feet. Note that the patient has also had stenotrophomonas bacteremia in the past. At this point, I think the most reasonable course would be to cover him broadly for possible sources of sepsis while excluding the use of VANCOMYCIN. Discussions are underway regarding limits to care in this complex patient whose overall situation seems to be gradually declining. Another concern is whether the recent jerking movements that were seen by our resident and previously seen by the patient's brother are seizure activity, as this would have many implications. RECOMMENDATIONS: 1. Will check a stat prolactin to see whether he may be experiencing seizure activity. 2. If additional seizure-like activity is seen or prolactin is elevated, an EEG and imaging of the brain would be indicated. 3. We await his ongoing blood and sputum cultures. 4. We are going to continue with linezolid that he is receiving as we have no evidence he is bacteremic with MRSA at this point. The linezolid is a reasonable agent for MRSA, especially MRSA pulmonary infection, but is not great in bacteremia, but at this point, I think it will suffice for MRSA coverage. 5. I would continue with Zosyn at this point for gram-negative coverage. 6. No other antibiotics are indicated at this time. 7. We are going to be checking with Dr. Duque to see if he is due for IVIG, and if he is, we will take care of that during this hospital stay. 8. Thoracentesis is under consideration by the ICU team. 9. Considerable time was spent during intensive care unit rounds during a comprehensive discussion of this patient of his goals and management.
--- NOTE | 2016-09-18 12:19 | PCM.CONPAL ---
Date of Service September 18, 2016 Date of Hospital Admission: September 18, 2016 at 06:05 Date of Palliative Consult: September 18, 2016 Requesting Provider: Freddy Mercaod MD Reason Palliative Care Consult: Goals of Care Discussion Hospital Unit @time of consult: Critical Care Palliative Care Recommendation 70-year-old man with history of follicular lymphoma, recurrent pleural effusions , recurrent infections associated with hypogammaglobulinemia, chronic heart disease (diastolic heart failure and pacemaker) who presented with worsening dyspnea and is now intubated with acute respiratory failure. Continues on broad -spectrum IV antibiotics and is undergoing evaluation for possible seizures. Palliative medicine consulted to assist family in determination of goals of care. Summary of palliative recommendations: -Symptom management (Pain/other)- continued management per medical/critical care teams -DPOA/Advanced Directives/POLST- no prior documentation- patient and his brother were to have seen an assistant county attorney today to complete documents. Brother Ryder Andrade is POA by wish of patient and the rest of the family. According to Ryder, patient would want aggressive care initially, but would not want to be maintained if there is no reasonable chance of his recovery to independent lifestyle. Family is adopting a "[id number]" attitude for now and will follow trends. Ryder did acknowledge that the patient has shown signs of deterioration in the recent past (which contributed the decision to see an assistant county attorney to get documentation in order) but that up to this time he has been able to remain in his own home with good quality of life. -Family/emotional support- by all reports, excellent family support in the community as well as home health care support. -Spiritual support- hospital bookkeeping service sales agent is aware of his admission and will follow Patient Goals: 1. Patient and family want to be told the truth about his illness, even if it is unpleasant. 2. Patient and family would like to be told prognosis when it can be predicted, to better guide treatment decisions. 3. Patient would choose quality of life over quantity of life, and defines quality as independent living. Additional Medical Diagnoses with primary management by Hospitalist team include : Problems: End of Life Preferences Remains full code at this time Goals of Care Recovery and return to his independent lifestyle Disposition To be determined Resuscitation Status Resuscitation Status: CPR: Attempt Resuscitation POLST Updates/Changes Previous POLST?: No . Advanced Care Planning Address: POLST, Durable Power of Election Watcher Pain: None Symptom management: Drowsiness/sleepiness, Dyspnea Pt History History of Present Illness Per admission H&P: 70-year-old gentleman with complicated medical history including recurrent follicular lymphoma on Ibrutinib, chronic bilateral pleural effusions requiring regular thoracentesis, hypogammaglobulinemia with history of multiple episodes of sepsis and bacteremia involving MRSA. He presented via EMS (EMS was called earlier in the day, but despite recommendation, patient refused to come to the ER) to ER with shortness of breath that did not respond to conservative oxygen delivery methods. The following history is obtained after speaking with family, and reviewing outpatient and inpatient record (including oncology, cardiology record): Patient is reportedly been having regular thoracenteses performed on alternating sides for his chronic bilateral pleural effusions. Records and family reported that he missed his thoracentesis approximately 2 weeks ago ( this was rescheduled to take place on Sunday of this week (09/20). Family noted that patient was very short of breath in the preceding several days, and became acutely worse today prompting a call to EMS. EMS arrived and recommended the patient proceed to the ER, but he declined. His shortness of breath continued to worsen, and EMS was called a second time, and patient was brought to the ER for evaluation and treatment. Please note the patient was started on Ibrutinib in May 2016 for recurrence of his follicular lymphoma. He receives regular IVIG administration's ( oncology note mentions last dose 09/11/16). Oncology note also makes mention over the last several visits of the patient's gradual decline over the last year or so in both a physical and cognitive manner. They were having discussions with patient and family with regards to SNF placement. Family reports the patient was amenable to this. They were also visiting with a ladies attendant (they were supposed to meet with the ladies attendant this morning at 11 AM) with regards to DURABLE POWER OF MULTIFOCAL BUTTON GENERATOR paperwork. As far as can be gathered from family: Patient has not had any recent travel, no recent sick contacts, no fevers/chills, no nausea or vomiting, no diarrhea, no rash. Patient does follow regularly with wound care with regards to his bilateral lower extremities (chronic lower extremity edema, and lower extremity chronic wounds), but note that there has not been any appearance of spreading redness or cellulitis at this time. There is some concern that medication compliance is been an issue (given his declining cognition), but unclear of doses of actually been missed. Of note, the only medication change of late was an increase in his levothyroxine from 2 tablets of 88 g to 1 tablet of 200 g daily. In the emergency room, patient was urgently intubated for acute respiratory failure with hypoxemia and hypercarbia. He is now admitted to CCU for further evaluation and treatment. Palliative medicine was consulted in order to assist patient and family and determination of goals of care Prior to visiting, I reviewed his records in the EMR in detail, dating back over the last 18 months, including his multiple hospitalizations over that time period. I also spoke with his bedside nurse as well as his medical team members , and spoke with his brother Ryder Andrade. Patient remains intubated and sedated and was unable to participate. Spoke at length with his brother, who is by agreement of all family members patient's POA- they actually were to have met with an assistant county attorney today to finalize paperwork. His brother indicated that the patient, while chronically ill, still had a reasonably good quality of life, lived independently at home, and wanted to go on living. He has multiple medical problems at baseline and has had some deterioration of late but was not ready to discontinue care. His brother stated that the patient would not want to be maintained indefinitely on machines and would not want to go on with treatment if there was no hope of his returning to independent or semi-independent lifestyle. 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)-treated with extended course of daptomycin * Significant vancomycin allergy * MRSA infected pacemaker requiring removal and replacement with transdiaphragmatic approach Complete heart block, status post dual chambered pacemaker placement 03/2015 ( removed for infection, and replaced 07/2015) Diastolic congestive heart failure (reports note this manifested following transdiaphragmatic pacer lead placement) * Chronic lower extremity edema History of left hand osteomyelitis Chronic kidney disease stage III Chronic atrial fibrillation, not currently on anticoagulation (some outpatient notes mention warfarin) * Please note the patient had a ground-level fall with head trauma in 07/2016. Question of possible discontinuation of warfarin at that time due to bleed risk. Diabetes mellitus type II, not currently on medication (some outpatient notes mention insulin-dependent) Dyslipidemia Hypothyroidism, on thyroid replacement Multiple outpatient records indicate the patient has had a gradual decline in both physical and cognitive function over the last year or 2. Surgical History Tonsillectomy Bone marrow biopsy Stem cell transplant Partial colectomy Pacemaker placement as noted above Social History Occupation: Retired; worked as a marketing development manager for [employer] ; no children Family Members Issues: As per history of present illness Social Support: Excellent support from family and friends in the community Living Situation: Lives at home with support provided by multiple family members as well as home health Palliative Performance Scale PPS Patient Status: Baseline PPS Ambulation: Reduced PPS Activity: Unable to do any work PPS Self-Care: Occasional assistance necessary PPS Intake: Normal or reduced PPS Conscious Level: Full or confusion (increasing forgetfulness over the last 6 months) Performance Scale: 50% ADLs ADL Patient Status: Baseline ADL Ambulation: Reduced ADL Dressing: Full ADL Feeding: Full ADL Hygene/bathing: Full ADL Transfers: Full POLST at Time of Admission Previous POLST?: No Allergy Allergies Reviewed: Yes Medications Current Medications: Current Medications Acetaminophen/ Premix 100 ml @ 400 mls/hr Q6H PRN IV; Start 09/18/16 at 06:05 ; Stop 09/19/16 at 06:06 Chlorhexidine Gluconate 5 ml 5 ml Q4 MT Last administered on 09/18/16 08:40; Admin Dose 5 ML; Start 09/18/16 at 08:30 Propofol 6410805 mcg/Premix 100 ml @ 3.27 mls/hr Q24H IV; Start 09/18/16 at 06: 08; Stop 09/18/16 at 08:15; Status DC Fentanyl 2500 mcg/ Premix 250 ml @ 5 mls/hr Q24H IV; Start 09/18/16 at 06:08 Norepinephrine 8000 mcg/Premix 250 ml @ 10.22 mls/ hr Q24H IV Last administered on 09/18/16 07:14; Admin Dose 10.22 MLS/HR; Start 09/18/16 at 06: 08 Linezolid/Premix 300 ml @ 300 mls/hr Q12 IV Last administered on 5/15/17at 08: 40; Admin Dose 300 MLS/HR; Start 09/18/16 at 08:30 Insulin Human Regular * High Dose Insu... Q6 SUBQ; Start 09/18/16 at 14:30 Dextrose/Water 250 ml @ 750 mls/hr ONCE PRN IV; Start 09/18/16 at 10:10 Piperacillin Sod/ Tazobactam Sod/ Dextrose/Water 50 ml @ 12.5 mls/hr Q8H IV; Start 09/18/16 at 14:30 Scheduled Aspirin (Aspirin) 81 Mg Tablet 81 MG PO DAILY Folic Acid (Folic Acid) 1 Mg Tablet 1 MG PO DAILY Ibrutinib (Imbruvica) 140 Mg Capsule 420 MG PO HS Insulin Aspart (NovoLOG U-100 Pen) 100 Unit/Ml Insuln.pen UNITS SQ ACHS per sliding scale Insulin Glargine (Lantus U100 Insulin Vial) 100 Unit/Ml Vial 100 UNIT SUBQ QAM Levothyroxine (Levothyroxine) 200 Mcg Tablet 200 MCG PO DAILY Scheduled PRN Acetaminophen (Acetaminophen) 500 Mg Tablet 500 MG PO Q6H PRN PRN For Pain Docusate Sodium (Colace) 100 Mg Capsule 100 MG PO HS PRN PRN For Constipation Naproxen Sodium (Naproxen Sodium) 220 Mg Capsule 220 MG PO BID PRN PRN For Pain Current Treatments Ventilator: Yes Oxygen: Yes IV Fluids: Yes Antibiotics: Yes Restraints: Yes Telemetry: Yes Critical Care Unit: Yes Objective Findings Exam Vital Sign - Last Date Time Temp Pulse Resp B/P Pulse Ox O2 Delivery O2 Flow Rate FiO2 09/18/16 11:44 70 122/57 99 50 09/18/16 08:30 36.7 18 Mechanical Ventilator 09/18/16 05:01 15 Intake and Output 09/17/16 09/17/16 09/18/16 Cumulative From/Thru 15:00 23:00 07:00 09/18/16 05:01 - 09/18/16 05:40 Intake Total 500 ml 500 ml Output Total 220 ml 220 ml Balance 280 ml 280 ml Intake IV Total 500 ml 500 ml Output Urine Total 220 ml 220 ml Objective Elderly bearded gentleman lying in CCU bed, unresponsive. Intubated. Vital signs noted. Continues on IV norepinephrine. Skin is sallow and pale. HEENT without other acute findings. Lungs with decreased breath sounds at bases left worse than right. Heart sounds regular. Telemetry shows paced rhythm. Abdomen is soft and without apparent tenderness or rigidity. Lower extremities with pitting edema to above the knees bilaterally. Patchy areas of erythema on both lower legs as well as various dressings in place. Neurologic exam limited due to his sedation but I did note that when I was examining his hands and touched/flexed extended his left hand that he thereafter had approximately 10 seconds of coarse tremor/flapping of the hand which gradually faded. Other medical team members have noted other possible seizure activity as well. Lab/Diagnostics Lab and Imaging results reviewed in detail in EMR. Time spent Total time 85 minutes; >50% face to face with patient and family, providing counselling regarding plans and recommendations, and in care coordination with his medical teams. Of the above total time, 20 minutes counseling for advanced care planning with the patient's family, reviewing his wishes and prior documentation copies to: Aj Fernandez MD; Julian Fabian MD, David F MD September 18, 2016 12:19
--- NOTE | 2016-09-18 13:41 | NUR ---
NUTRITION ASSESSMENT: Assess: 69 YO M admitted to CCU for respiratory failure requiring intubation. Pt with chronic pleural effusions. Palliative consult pending. Pt is NPO X 1 day. PMHx: Follicular Lymphoma, DM, HTN, A-fib, Partial colectomy, CKD, complete heart block w/ pacemaker, depression, PNA, CHF, hypothyroid, hypogammaglobulinemia, sepsis, bacteremia, MRSA, L hand osteomyelitits. LABS: K+ 5.5, Glu 255, Lactic acid 2.3 MEDICATIONS: Reviewed. Fentanyl, Pressor. DIET: NPO X 1 day. GI: No BM noted. SKIN: R medial calf stasis ulcer, L plantar 1st metatarsal head ulcer. Wound care following. ANTHROPOMETRICS: Wt: 95.1 kg, BMI 31.0 kg/m2. ESTIMATED NEEDS: BMI/VENT/WOUND Calories: 5258-1029 kcal/day (22-25 kcal/kg BW) Protein: 113-151 g/day (1.5-2.0 g/kg IBW) Fluids: 6736-6413 ml/day (20-22 ml/kg BW) NUTRITION DIAGNOSIS: 1) Inadequate oral intake related to decreased ability to consume sufficient energy as evidenced by vent/NPO status. 2) Increased nutrient needs related to wound healing as evidenced by calf & plantar ulcers. INTERVENTION: 1) Will await plan of care decisions. 2) If family wants full care, recommend enteral nutrition of Glucerna 1.5 starting at 10 ml/hr. Once tolerance established, advance 10 ml q 6 hr to goal rate of 70 ml/hr. At goal TF will provide 2310 kcal, 127 g protein; meeting 100% calorie/protein needs. MONITOR/EVALUATE: NPO/Vent status, POC, nutrition support, labs, GI/nutrition status. Follow per high nutrition risk guidelines.
--- NOTE | 2016-09-18 14:42 | ABG ---
DateTimeAnalyzed 14:31:00 -_ pH ____7.596 - FIO2 ___50.0__ -% Drawn By KBB - Date/Time Notified____ 14:42:00 -_ Notified By KBB - Notified Whom [facility], Yevgeniy DO - Cristiano test N/A -
--- NOTE | 2016-09-18 14:50 | DRSVH ---
PROCEDURE: US GUIDED THORACENTESIS BY REFERRING PHYSICIAN ([id number]) INDICATIONS: ac hypox resp fail, pl. effusions TECHNIQUE: The indications, alternatives, benefits, risks, and complications of the procedure were explained to the patient. Written informed consent was obtained and placed in the chart. The chest was examined sonographically, and an appropriate site was chosen for thoracentesis. The skin was prepared and noemy ped in the usual sterile fashion, and 1% lidocaine was infiltrated from the skin down through the ple ural surface. A 19-gauge catheter-covered needle was then introduced into the pleural space, the cat heter was advanced and the needle was withdrawn, and thereafter pleural fluid was aspirated. The cat heter was then removed and a dressing was applied. The attending physician was present, and personal ly performed the procedure. COMPARISON: [facility], , US GUIDED THORACENTESIS, 08/04/2016, 13:14. FINDINGS: Access site: Left hemithorax. Needle: One-Step centesis catheter with introducer needle. Fluid volume and description: 1.12 L of clear pleural fluid. Fluid sent for diagnostic testing: Fluid sent for cytology, multiple chemistry panels and therapeuti c drainage. Medications: 1% lidocaine for local anaesthesia. Complications: None; post-procedural chest radiograph is pending to assess for pneumothorax. IMPRESSION: Successful ultrasound-guided thoracentesis. Dictated by: Dante SY Interpreted: Garfield Briggs MD on 09/18/2016 at 14:49 Transcribed by: MARIALUISA on 09/18/2016 at 14:50 Approved by: Garfield Briggs M.D. on 09/18/2016 at 16:05
--- NOTE | 2016-09-18 15:04 | NUR ---
Social Work Note - Initial Assessment: D/A: See Initial Assessment. The Pt is a 70 y/o male that was admitted for respiratory failure. The Pt's PCP is MD Julian Fabian and his insurance is [facility] [place] Medicare, no LTC reported. Family reports that the Pt is 100% [facility] service[place]. EMR reviewed. TOBIAS met with the Pt's family briefly to explain role and discuss discharge planning, SW telephone number written on white board. The Pt is currently intubated and sedated. Family reports that before this hospitalization, the Pt was living mostly independently in a first floor apartment in [place]. The Pt does not have an Advanced Directive, family reports that the Pt was going to have this completed today but was hospitalized. SW was unable to complete Initial Assessment with the family, placed call to brother Ryder Andrade [phone] at a later time to complete the assessment. Ryder reports that Pt is open with [facility] and also privately paid for [employer] to come to the home twice a week to help clean. The Pt does not drive and uses family, friends, and cabs for transportation needs. The Pt does not use any DME. Ryder reports that the Pt has been to [facility] in the past. The Pt is followed by MD Duque in Oncology and MD Harper for Cardiology needs. The Pt also completes his thoracentesis at the [facility], as reported by the family. Family also reports that the Pt is involved with [employer]als [employer] Wheels. The Pt's brother Ryedr stated that Pt has lived alone independently with his health concerns for the last 18+ years. Ryder reports that the family has been looking into other [facility] but may have to consider a SNF if necessary. Ryder reports that the Pt has been considering the possibility of moving during these last two weeks and has given permission to his family to find new homes for his beloved three cats who are considered his family as of last week. Ryder also reported that the family has been involved with the Oncology department and had a meeting last week with MD Duque and KECIA Melgar. ID, Palliative Care, and Wound Care involved, see notes. Pulmonary to be consulted. SW will continue to follow for discharge needs and to provide supportive care to the family. P: The Pt is not medically stable, currently intubated and sedated. ID, Palliative Care, and Wound Care involved, see notes. Pulmonary to be consulted. SW will continue to follow for discharge needs and to provide supportive care to the family. KECIA Santiago Paint Roller Covermaker Addendum: 09/18/16 at 1537 by SINDHU ASHER SS Amended: Links added.
--- NOTE | 2016-09-18 15:12 | DRSVH ---
PROCEDURE: X-RAY CHEST ONE VIEW, PORTABLE ([id number]) INDICATIONS: POST PARACENTESIS TECHNIQUE: One view of the chest was acquired. COMPARISON: [facility], CR, XR CHEST 1VW, 08/04/2016, 13:48. FINDINGS: Surgical changes and devices: There is a right-sided central line catheter identified with the tip ov erlying the low superior vena cava. An endotracheal tube is positioned just above the level of the c lisset. A nasogastric tube extends below the diaphragms. Lungs and pleura: Blunting of the costophrenic angles is evident, suggesting pleural effusions. The effusion on the right appear smaller on the current study. No new consolidation or definite pneumoth orax is evident. Mediastinum: Mediastinal contours appear normal. Heart size is normal. Bones and chest wall: No suspicious bony lesions. Overlying soft tissues appear unremarkable. IMPRESSION: 1. Tubes and lines as described. 2. Bilateral pleural effusions and associated atelectasis. (The right-sided effusion has decreased in the interim). Superimposed pneumonia cannot be excluded. 3. No pneumothorax. Dictated by: Chin Gupta M.D. on 09/18/2016 at 14:05 Approved by: Chin Gupta M.D. on 09/18/2016 at 14:10
[2016-09-18 15:22] LABS: TOTAL PROTEIN,PLEURAL FLUID 2.7 g/dL
[2016-09-18] MEDS: Piperacillin-Tazo 3.375 Gm Inj 3.375 GM in Dextrose 5% Minibag Plus 50 ML IV SCH ×2 (15:39→23:01)
[2016-09-18] MEDS: Insulin Human REGular 300 Unit/3 mL Inj SUBQ SCH ×2 (15:40→20:58)
[2016-09-18 15:43] LABS: BFWBC 113 /mm3; MONOCYTES,BODY FLUID 66 %; OTHER CELLS,BODY FLUID 10
[2016-09-18 16:52] LABS: TROPONIN T 0.04 ug/L (0.0-0.011)
[2016-09-18] MEDS ORDERED: Succinylcholine Chloride 20 mg/mL 5 mL Inj ONE (16:59)
[2016-09-18 17:03] LABS: OSMOLALITY, URINE 403 mOs/kH2O (250-1200)
--- NOTE | 2016-09-18 17:09 | DRSVH ---
PROCEDURE: CT BRAIN WITHOUT CONTRAST ([id number]) INDICATIONS: AMS, poss. seizure TECHNIQUE: Noncontrast 4.5 mm thick angled axial sections acquired from the foramen magnum to the vertex, with c oronal reformats. COMPARISON: [facility], CT, CT BRAIN WO CON, 08/03/2016, 0:01. [facility], C T, CT BRAIN WO CON, 07/07/2015, 13:20. FINDINGS: Image quality: Excellent. CSF spaces: Basal cisterns are patent. No extra-axial fluid collections. The ventricles are symmet bladimir in size and shape. Brain: No intracranial bleeds or masses. No change in small chronic infarct within the right manfred inferior frontal lobe. There is cerebral volume loss for age, with resultant ventricular and sulcal p rominence. There are periventricular and deep white matter chronic small vessel ischemic changes. T here is intracranial internal carotid artery atherosclerosis. Skull and face: Calvarium and visualized facial bones appear intact, without suspicious lesions. Sinuses: Moderate chronic mucoperiosteal thickening involves the bilateral maxillary sinuses. Mild ri ght and moderate left frontal sinus mucosal thickening. Mastoids clear. IMPRESSION: 1. No acute intracranial process. 2. Sinus disease. Dictated by: Geovanny Salazar M.D. on 09/18/2016 at 17:06 Approved by: Geovanny Salazar M.D. on 09/18/2016 at 17:07
--- NOTE | 2016-09-18 17:54 | NUR ---
ADMIT TO CCU Report received from NATALIIA Oro in ED. Patient arrived to unit at 0745, intubated and on Fentanyl gtt for sedation. He was awake and responding appropriately to questions, but quickly became restless, so bolus of Fentanyl administered and increased dose to 125 mcg/hr. Patient appears comfortable, and is still able to awaken and respond to questions. Vent settings have changed since admission, currently at 40% FiO2/5 PEEP/18 Rate/480 Vt, he does not appear to be in respiratory distress. Thoracentesis performed and 1100 mL removed from R pleural effusion, samples sent to lab for testing. Transported to CT for brain CT, results pending. Urine output of 3800 mL this shift, following single dose of Lasix 80 mg IV. Vitals have been stable, Levophed decreased from 0.05 mcg/kg/min to 0.03 mcg/kg/min. Will continue to monitor.
[2016-09-18] MEDS: Heparin 5,000 Unit/mL Inj SUBQ SCH (18:22)
--- NOTE | 2016-09-18 19:16 | CCS NOTE ---
[facility] [address] [place] [address], [address] [address] MEDICAL ONCOLOGY OFFICE NOTE PATIENT: DHARA MOYA : 1945 MR#: [id number] DATE: 09/18/2016 JOB ID: [id number] DATE: 09/18/2016 The patient is a very pleasant, 70-year-old gentleman whom I saw just five days ago in the clinic on September 13 for his recurrent chronic follicular lymphoma that we are managing since 2008. For details, please refer to my office note of September 13. We have been seeing him frequently in the clinic with supportive care to manage his disease and comorbidities. He has been developing a severe onset of respiratory failure apparently over the past 24-48 hours. Hospital intake notes were reviewed. The patient was brought in by the paramedics. After the 1st visit, he had declined to go to the ER, but the second visit, he was brought to the ER and had to be intubated. He had missed his thoracentesis due to being somewhat overwhelmed with the appointments and management of his care. He is currently intubated, and at bedside are, at the time I saw him, no family members. His FiO2 is already down to 40% and his O2 sat is 99%. He was also somewhat hypotensive and had an elevated lactic acid of 2.3. His blood cultures are so far without growth. His nasal swab is positive for MRSA with prior infections. He is colonized. Dr. Finley, who knows him from multiple previous admissions with infectious issues, has started him on both linezolid and Zosyn. He is allergic to VANCOMYCIN. He has had a thoracentesis on the right side with removal of 1.2 L of fluid. The pleural fluid analysis is considered consistent with a transudate, with an LDH of 99 and a protein of 2.7. LABS: White count is elevated with 21, with a left shift, and presence of 12% bands and metamyelocytes and myelocytes. Hemoglobin 9.4, platelets 319. Chemistry shows stable creatinine, 1.19. Sodium 133. ProBNP is 4091. PHYSICAL EXAMINATION: He is sedated, intubated. Abdomen is soft. No obvious systemic rash. Afebrile, and he has not had any reported fever for the past couple of days. A central line is placed. ASSESSMENT AND PLAN: A 70-year-old, pleasant, gentleman, with several comorbidities including complete heart block and severe diastolic dysfunction with a pacemaker with pericardial leads to avoid intravascular device because of previous infections of the pacemaker leads associated with chronically elevated BNP and lower extremity edema and chronic bilateral pleural effusion requiring thoracentesis. He is also known to have chronic renal insufficiency, diabetes, and hypogammaglobinemia and multiple previous infections and septic episodes. He has managed for follicular lymphoma at our clinic since 2008 with multiple relapses over the years and has had extensive previous chemotherapy and autologous stem cell transplant, currently on ibrutinib, which is an oral agent and a B-cell receptor tyrosine kinase inhibitor since May with good response with recent CT scan in late August showing minimal measurable disease. We had been debating for him to go to a [facility] facility, which he has been reluctant to do, as stated in my previous notes. Unfortunately, he is now admitted with respiratory failure, which might be a combination of both worsening pleural effusion, as he missed his appointment for thoracentesis, but more likely complicated with possible infectious process. His cultures are currently pending, but he does have an elevated white count with left shift. His FiO2 requirements are not very high, and I am hopeful that he can be weaned off the ventilator. I discussed that with his team, and we will follow the progress of the next few days. He is on linezolid and Zosyn. I appreciate arranging a thoracentesis from the right side today to improve pleural effusion. The fluid appeared more like a transudate by LDH and protein. He used to be on anticoagulation for previous paroxysmal AFib but he has not been in atrial fibrillation and it did not make sense to continue anticoagulation with warfarin due to frequent thoracentesis, and he has been on aspirin alone. Ibrutinib can be kept on hold for now pending the course of the coming days. I appreciate the hospitalist and Infectious Disease support in his care. Dr. Елена Harper of cardiology is also familiar with the case.
[2016-09-18] MEDS: 0.9% Sodium Chloride 1,000 ML IV SCH (20:27)
[2016-09-18] MEDS: Famotidine Inj 20 MG in IV Premix 1 EACH IV SCH (20:29)
--- NOTE | 2016-09-18 21:16 | CONS ---
[address] [address] CONSULTATION REPORT PATIENT: DHARA MOYA : 1945 MR#: [id number] ADMIT: 09/18/2016 JOB ID: [id number] DATE OF SERVICE: 09/18/2016 REASON FOR CONSULTATION: Ventilator management. Bilateral pleural effusions with respiratory failure. REQUESTING PHYSICIAN: Yevgeniy Alegre DO. HISTORY OF PRESENT ILLNESS: The patient is a 70-year-old, male with follicular lymphoma, on chemotherapy. Has chronic bilateral pleural effusions requiring regular thoracentesis (13 thoracenteses since mid February 2016), hypogammaglobulinemia. He was scheduled for thoracentesis but declined. Increasing shortness of breath and again declined to come to the ED. Finally EMS was called because of shortness of breath. He was intubated in the field. Oncology notes describe decline over the past year or so, both physically and cognitively. Discussions were being held regarding durable power of estate attorney. HOME MEDICATIONS: Include ibrutinib, baby aspirin, docusate, Tylenol, naproxen, levothyroxine. ALLERGIES: Include: 1. LEVOFLOXACIN. 2. VANCOMYCIN. PAST MEDICAL HISTORY: 1. Complete heart block, status post pacer placement. 2. MRSA infective endocarditis, October 2015. Diagnostic of congestive heart failure. 3. Diabetes mellitus. 4. Hypothyroidism. 5. Anemia of chronic disease. OBJECTIVE: Temperature 36.6. Pulse 70, pacer dependent. Respiratory rate 18 with ventilator set at 18. Blood pressure 116/62, O2 sat on FiO2 of 60%, PEEP of 5 is 100%. General appearance: Sedated on ventilator. On his way to CT scan of his head because of cognitive decline and possible seizure activity earlier today. Chest shows fairly good breath sounds. Relatively clear on the left. Decreased at the right lower lung field. No use of accessory muscles. With tidal volume of 480, rate of 22, FiO2 0.6, and a PEEP of 5, pO2 is 111, pCO2 35, pH 7.56. Patient's ventilatory settings and FiO2 have been decreased in the interim. Heart: Regular rhythm. Monitor shows flutter waves with ventricular rate 100% pacer dependent. Abdomen soft. Nontender. Extremities: No pretibial edema. LABORATORY DATA: Shows a white count of 21,600, with 63 polymorphonuclears, 12 bands, 3 metamyelocytes, one myelocyte. Hemoglobin 9.4. Platelet count 319,000. Lytes showed a sodium 133, potassium 3.8, chloride 88, CO2 is 28, BUN 23, creatinine 1.1. Glucose 291. Calcium 8.8. Lactic acid 2.3; stable on repeat determinations. Pleural fluid shows 113 white cells, 2 polys, 22 lymphocytes, 66 monocytes. Pleural glucose 258, pleural total protein 2.7. Pleural fluid LDH is 99. ASSESSMENT: 1. Respiratory failure. Presumably due to the pleural effusions. He has required taps every two weeks or so. Other possibilities would include sepsis. On broad-spectrum antibiotics. 2. With regard to the ventilator, appropriate changes have been made. Oxygenation is fine. He is quite alkalotic on the ventilator, mostly metabolic. Not on diuretics. No history of nausea or vomiting. Was actually somewhat hyperkalemic on admission with a potassium of 5.5. 3. Metabolic alkalosis. Ventilator will help to some extent with that, though we have dropped his ventilation a bit to let his CO2 rise. Need, however, to correct his alkalemia. PLAN: 1. Appropriate changes have been made by RT to the ventilator. Will continue those current settings. 2. Monitor alkalemia. Thank you so much, Dr. Alegre for asking us to see this unfortunate individual. Will follow his ventilatory status closely along with you.
[2016-09-19] VITALS (15 sets, daily range): BP systolic 90–132; BP diastolic 49–73; PULSE 70–72; RESP 6–18; O2SAT 89–100
[2016-09-19] MEDS: Chlorhexidine 0.12% 15 mL Oral Solution MT SCH ×7 (00:30→23:40)
[2016-09-19] MEDS: fentaNYL 2,500 mCg/250 mL 2,500 MCG in IV Premix 1 EACH IV SCH ×2 (00:53→22:28)
[2016-09-19] MEDS: Heparin 5,000 Unit/mL Inj SUBQ SCH ×4 (01:33→23:41)
[2016-09-19] MEDS: Insulin Human REGular 300 Unit/3 mL Inj SUBQ SCH ×4 (02:41→20:30)
--- NOTE | 2016-09-19 05:11 | ABG ---
DateTimeAnalyzed 05:06:00 -_ pH ____7.653 - 7.350 7.450 pCO2 ___28.3__ -mmHg 35.0 45.0 pO2 ___95.5__ -mmHg 69.0 116 HCO3- ___31.9__ -mmol/L 22.0 26.0 ABE ___10.1__ -mmol/L -2.0 2.0 tHb ____8.2__ -g/dL O2Hb ___95.9__ -% COHb ____1.9__ -% MetHb ____1.1__ -% sO2 ___98.9__ -% 25.0 FIO2 ___40.0__ -% PRVC 18 - PEEP ____5.0__ -cmH2O Vt __480.0__ -L Drawn By blf - Date/Time Notified____ 05:10:00 -_ Spontaneous_RR ___18.0__ -b/min Oxygen Device 1 VENTILATOR - Notified By blf - Notified Whom BARBARA ALFA RN -___ B 747 -mmHg tO2 ___11.2__ -Vol% Cristiano test N/A -
[2016-09-19] MEDS: Norepineph 8,000 mCg/250 mL NS 8,000 MCG in IV Premix 1 EACH IV SCH (06:08)
--- NOTE | 2016-09-19 06:25 | NUR ---
P: hypotension I: norepinephrine drip E: Awake on vent. Nods appropriately. Denies pain, N/V. Chronic generalizing itching. Restless when awake. Fentanyl drip for sedation and comfort. Tele paced w/ underlying a flutter. BP support w/ norepinephrine. Rate from off to 0.02mcg. Currently drip on Hold. UOP 75ml+/hr.
[2016-09-19] MEDS: Piperacillin-Tazo 3.375 Gm Inj 3.375 GM in Dextrose 5% Minibag Plus 50 ML IV SCH ×3 (06:36→22:29)
[2016-09-19 06:41] LABS: Mean Corpuscular Volume 77.6 fL (81-100); Platelet Count 270 bil/L (150-400)
[2016-09-19 07:14] LABS: Magnesium 1.9 mg/dL (1.6-2.6); Phosphorus 1.9 mg/dL (2.5-4.9)
[2016-09-19 07:19] LABS: TROPONIN T 0.055 ug/L (0.0-0.011)
[2016-09-19] MEDS: Levothyroxine 100 mCg/5 mL Inj IV SCH (07:28)
[2016-09-19] MEDS: Famotidine Inj 20 MG in IV Premix 1 EACH IV SCH ×2 (07:41→20:40)
[2016-09-19] MEDS: Linezolid Inj 600 MG in IV Premix 1 EACH IV SCH ×2 (07:43→20:40)
[2016-09-19] MEDS ORDERED: Potassium Phos (mEq) Inj 40 MEQ in Dextrose 5% 500 ML IV ONE (07:45)
[2016-09-19] MEDS: Sodium Chloride LOK Flush 10 mL Syringe IVFLUSH SCH ×3 (08:20→23:40)
[2016-09-19] MEDS: diphenhydrAMINE 25 mg Capsule PO PRN ×2 (08:20→17:01)
[2016-09-19] MEDS ORDERED: Levothyroxine 100 mCg/5 mL Inj IV SCH (08:30)
[2016-09-19 08:35] LABS: BASOPHILS % (AUTO) 0 % (0-3); EOSINOPHILS % (AUTO) 0 % (0-5); MONOCYTES % (AUTO) 28 % (4-12); NEUTROPHILS % (AUTO) 59 % (40-74)
--- NOTE | 2016-09-19 08:49 | PROG NOTE ---
[address] [address] PROGRESS NOTE PATIENT: DHARA MOYA : 1945 MR#: [id number] ADMIT: 09/18/2016 JOB ID: [id number] DATE: 09/19/2016 REASON FOR FOLLOWUP: Possible septic shock in a patient with respiratory failure, right pleural effusion, and underlying lymphoma. INTERVAL HISTORY: Overnight, the patient has improved considerably. He remains on the ventilator, but his ventilatory support has been could decreased considerably. In addition he is now completely awake and alert on the ventilator and able to nod yes and no appropriately and give us some more data. He states he has a bit of a headache, but he denies any subjective fever, chills. He is not having any air hunger or pain in his chest. He denies abdominal pain and has no diarrhea. He has multiple lines and devices in place, but none of these seem to hurt. He did tell the nurse earlier that he is itching some, but apparently that is chronic and probably related to his lymphoma. PHYSICAL EXAMINATION: Reveals a much more comfortable awake gentleman on the ventilator. He is afebrile and has been since admission. Temp 36.8, pulse 70, respiratory rate 16 on the vent, blood pressure 103/56, saturating 99% on 40% FiO2 5 of PEEP. He is awake, alert. Conjunctiva normal. Oral endotracheal tube and orogastric tube in good position. Right IJ is present as well as 2 peripheral IVs. He does have a Zhang catheter. Lungs with decreased breath sounds at the right base, otherwise relatively clear. Cardiac tones regular rate and rhythm. Pacer is present in the abdomen in this case. It is nontender. The remainder of his abdomen is also nontender. He does have a large hernia which is not incarcerated at this point. Zhang catheter is present. Penis and scrotum appear normal. He has reasonably good perfusion of the extremities. He does have the 2 small areas of concern on his lower extremities for possible infection, but neither of these is tender nor warm and does not appear to be the primary focus of any infection. LABORATORIES: Include white count 21 yesterday for some reason. Today's are not available over 2 hours after they were drawn. His creatinine is 1.31 and that is today's value. LFTs normal. Pro calcitonin 0.17 which is unchanged really from 0.12 on admission. His prolactin we had ordered was 17 which is suggestive of, but not diagnostic of a recent seizure. Urinalysis had no pyuria. Pleural fluid yesterday 1100 cc taken off the right side, 113 white cells. Protein 2.7, LDH 99 by lytes criteria. Cultures so far include a nasal PCR positive for MRSA otherwise negative. Blood cultures are negative. Pneumococcal urine antigen, Legionella urine antigen, and pleural fluid Gram stains were also negative at this point. IMAGING: Includes a chest x-ray done today which shows bilateral pleural effusions and potential fluid overload which is not new. IMPRESSION: Overall, I am unconvinced this patient has any infection, but given his dramatic presentation and initial shock I think we need to continued our broad-spectrum antibiotics including coverage for MRSA while we await additional clinical developments. Hopefully the patient is nearing a point where he can be extubated and can participate in his own decisions about whether he would want to be reintubated in the future. RECOMMENDATIONS: 1. Will continue with Zyvox and Zosyn. 2. We await the multiple pending cultures. 3. He may require neurologic evaluation as it does appear he likely suffered one or more seizures during the earlier stages of this illness though this morning he is awake bright and apparently completely oriented.
--- NOTE | 2016-09-19 08:52 | ABG ---
DateTimeAnalyzed 08:47:00 -_ pH ____7.552 - 7.350 7.450 pCO2 ___36.2__ -mmHg 35.0 45.0 pO2 128 -mmHg 69.0 116 HCO3- ___31.8__ -mmol/L 22.0 26.0 ABE ____8.8__ -mmol/L -2.0 2.0 tHb ____8.2__ -g/dL O2Hb ___96.1__ -% COHb ____1.5__ -% MetHb ____1.4__ -% sO2 ___99.0__ -% 25.0 FIO2 ___40.0__ -% PRVC 400 - PEEP ____5.0__ -cmH2O Set_RR ___16.0__ -b/min Drawn By KBB - Date/Time Notified____ 08:52:00 -_ Oxygen Device 1 VENTILATOR - Notified By KBB - Notified Whom Delahoussaye, Yevgeniy DO - B 748 -mmHg tO2 ___11.3__ -Vol% Cristiano test N/A -
--- NOTE | 2016-09-19 09:14 | NUR ---
Spoke with Ny in patient access at [facility] and this patient is 100% connected for Hodgkin Lymphoma. Patient holds [place] [facility] part D Asked [employer] to follow up regarding preference for payment. Updated Cardiovascular Lab Director
--- NOTE | 2016-09-19 09:43 | DRSVH ---
PROCEDURE: X-RAY CHEST ONE VIEW, PORTABLE ([id number]) INDICATIONS: Monitor effusions/infiltrates TECHNIQUE: One view of the chest was acquired. COMPARISON: [facility], CR, XR CHEST 1VW, 03/24/2016, 17:20. [facility], CR , XR CHEST 1VW, 08/04/2016, 13:48. [facility], CR, XR CHEST 1VW (PORTABLE), 09/18/2016, 14 :32. FINDINGS: Surgical changes and devices: ETT tip projected 3.3 cm above the merry. Nasogastric tube tip sarah beth ses the GE junction. Stable positioning of right IJ CVL. Cardiac pacer leads are seen projected ove r the inferior right heart. Lungs and pleura: Mid/basilar patchy airspace opacities redemonstrated and small pleural effusions. No pneumothorax. Mediastinum: Mediastinal contours appear normal. Heart size is normal. Bones and chest wall: No suspicious bony lesions. Overlying soft tissues appear unremarkable. IMPRESSION: 1. Stable support lines and tubes. 2. Mid/basilar patchy airspace opacities redemonstrated consistent with pneumonia and/or atelectasis. 3. Small pleural effusions redemonstrated. Dictated by: Dante Diehl RRA Interpreted: Lisbeth Alva MD on 09/19/2016 at 9:24 Transcribed by: CAROL on 09/19/2016 at 9:42 Approved by: Lisbeth Alva MD, PhD on 09/19/2016 at 15:04
--- NOTE | 2016-09-19 09:53 | ABG ---
DateTimeAnalyzed 08:47:00 -_ pH ____7.552 - 7.350 7.450 pCO2 ___36.2__ -mmHg 35.0 45.0 pO2 128 -mmHg 69.0 116 HCO3- ___31.8__ -mmol/L ABE ____8.8__ -mmol/L tHb ____8.2__ -g/dL O2Hb ___96.1__ -% COHb ____1.5__ -% MetHb ____1.4__ -% sO2 ___99.0__ -% FIO2 ___40.0__ -% Drawn By KBB - Date/Time Notified____ 08:52:00 -_ Notified By KBB - Notified Whom [facility], Yevgeniy DO - B 748 -mmHg tO2 ___11.3__ -Vol% Cristiano test N/A -
--- NOTE | 2016-09-19 10:46 | PCM.PNMED ---
Subjective Date of Service September 19, 2016 Subjective Hospital day 2. No significant events overnight. No further sign of seizure activity with the exception of some tremor noted in the upper ext even while patient is awake and interacting appropriately. Patient denies complaints today, and indicates with head movements that he wants the ET tube out. Focused (but limited) ROS today is negative except as noted above. Exam Vital Signs Vital Sign - Last Date Time Temp Pulse Resp B/P Pulse Ox O2 Delivery O2 Flow Rate FiO2 09/19/16 08:36 70 115/55 40 09/19/16 08:00 Ventilator 09/19/16 07:23 36.8 16 99 09/18/16 05:01 15 Intake and Output 09/18/16 09/18/16 09/19/16 Cumulative From/Thru 15:00 23:00 07:00 09/18/16 05:01 - 09/19/16 06:21 Intake Total 1274 ml 1031 ml 2805 ml Output Total 3840 ml 800 ml 4860 ml Balance -2566 ml 231 ml -2055 ml Intake IV Total 1274 ml 1031 ml 2805 ml Output Urine Total 3800 ml 800 ml 4820 ml Gastric Drainage Total 40 ml 0 ml 40 ml # Bowel Movements 0 0 0 Exam General: Intubated and asleep with eyes closed not overbreathing the vent. Awakens easily/readily to voice, and interacting appropriately with head movements yes/no. NAD. Head: Normocephalic, atraumatic. External ears normal. Eyes: PERRL (approximately 4 mm vi to 3 mm bilaterally), EOMi and tracking appropriately. Anicteric sclerae. Conjunctivae are not injected Mouth: Mouth Normal, Mucous Membranes Moist/Netos. ET tube and OG tube in place. Neck: Neck supple. No Thyromegaly. Do not appreciate any lymphadenopathy. Do not appreciate JVD. Right IJ central line in place is c/d/i. Chest & Lungs: Clear to auscultation bilaterally with no crackles, wheezes, or rhonchi. Decreased breath sounds in the bases/posteriorly (improved on R - note thoracentesis 09/18 with 1.1L removed). On mechanical ventilation. Cardiovascular: Regular Rate/Rhythm (paced on the monitor), Normal S1, Normal S2, No Murmurs/Rubs/Gallops. Radial pulses are 2+ bilaterally. Posterior tibial pulses 1+ bilaterally d/t edema. Abdomen: Non-tender, Non-distended, large reducible ventral hernia, normoactive bowel tones, Soft. Multiple surgical scars (colectomy, pacemaker). Pacemaker generator palpable in the right upper quadrant subcutaneously. No overlying erythema. Musculoskeletal: Sedated, but easily awakened. Soft restraints on upper extremities. Extremities: No cyanosis/clubbing bilat. Mod pitting edema in the lower extremities to the level of the hips bilaterally. Neurological: Grossly intact in this sedated patient. Psych: Intubated, but appears to have normal mood and affect. IVs and Medications Medications Reviewed: Medications were reviewed in detail Lab and Diagnostics Laboratory Tests Test 09/18/16 14:01 09/18/16 14:47 09/18/16 16:23 09/19/16 01:15 Sodium Level 133mEq/L (134-144) Potassium Level 3.8mEq/L (3.5-5.2) Chloride Level 88mEq/L (97-108) Carbon Dioxide Level 28mmol/L (18-29) Blood Urea Nitrogen 23mg/dL (8-27) Creatinine 1.19mg/dL (0.76-1.27) Estimat Glomerular Filtration Rate 64mL/min (>59) Glucose Level 291mg/dL (60-99) Osmolality 312 (275-300) Lactic Acid Level 2.2mmol/L (0.4-2.0) 1.8mmol/L (0.4-2.0) Calcium Level 8.8mg/dL (8.5-10.1) Troponin T 0.040ug/L (0.0-0.011) 0.043ug/L (0.0-0.011) Body Fluid Source Pleural fluid Body Fluid Color Yellow (Clear) Body Fluid Appearance Hazy Body Fluid pH 7.9 (Not Estab.) Body Fluid WBC 113/mm3 Body Fluid RBC 6500/mm3 Body Fluid Polynuclear WBCs 2% Body Fluid Lymphocytes 22% Body Fluid Monocytes 66% Body Fluid Eosinophils 0% Body Fluid Basophils 0% Body Fluid Lactate Dehydrogenase 99U/L Pleural Fluid Total Protein 2.7g/dL Pleural Fluid Glucose 258mg/dL Urine Osmolality 403mOs/kH2O (250-1200) Urine Random Sodium 115mEq/L Test 09/19/16 05:45 09/19/16 06:25 White Blood Count 15.2th/mm3 (3.8-10.1) Red Blood Count 3.52mil/mm3 (4.40-5.80) Hemoglobin 8.1g/dL (13.8-17.2) Hematocrit 27.3% (41.0-50.0) Mean Corpuscular Volume 77.6fL (81-100) Mean Corpuscular Hemoglobin 23.0pg (27.0-35.0) Mean Corpuscular Hemoglobin Concent 29.7% (32.0-37.0) Red Cell Distribution Width 21.0% (12.3-15.4) Platelet Count 270bil/L (150-400) Neutrophils (%) (Auto) 59% (40-74) Lymphocytes (%) (Auto) 8% (14-46) Monocytes (%) (Auto) 28% (4-12) Eosinophils (%) (Auto) 0% (0-5) Basophils (%) (Auto) 0% (0-3) Band Neutrophils % 5% (1-5) Sodium Level 140mEq/L (134-144) Potassium Level 3.1mEq/L (3.5-5.2) Chloride Level 98mEq/L (97-108) Carbon Dioxide Level 29mmol/L (18-29) Blood Urea Nitrogen 23mg/dL (8-27) Creatinine 1.31mg/dL (0.76-1.27) Estimat Glomerular Filtration Rate 57mL/min (>59) Glucose Level 161mg/dL (60-99) Calcium Level 8.5mg/dL (8.5-10.1) Phosphorus Level 1.9mg/dL (2.5-4.9) Magnesium Level 1.9mg/dL (1.6-2.6) Total Bilirubin 1.1mg/dL (0.0-1.2) Aspartate Amino Transf (AST/SGOT) 15U/L (0-50) Alanine Aminotransferase (ALT/SGPT) 8U/L (0-44) Alkaline Phosphatase 104U/L (25-160) Troponin T 0.055ug/L (0.0-0.011) Total Protein 5.0g/dL (6.4-8.4) Albumin 2.5g/dL (3.4-5.0) Procalcitonin 0.17ng/mL (0.00-0.08) Lactic Acid Level 1.7mmol/L (0.4-2.0) Result Diagram: 09/19/16 0545 09/19/16544 Microbiology MRSA nasal screen positive Respiratory nasal PCR negative 09/18 blood cultures negative to date 09/18 sputum cultures (Gram stain shows rare polys and rare mixed normal radha) negative to date 09/18 pleural fluid cultures (incl fungal) negative to date Please note patient has history of extensive MRSA infections. X-Rays, CTs and MRIs Date of Service: 09/18/16 044 PROCEDURE: X-RAY CHEST ONE VIEW, PORTABLE ([id number]) INDICATIONS: resp failure IMPRESSION: Bilateral pleural effusions, grossly unchanged to mildly increased, with adjacent atelectasis. No new consolidation. Stable support equipment Dictated by: Juan Del Rio M.D. on 09/18/2016 at 8:05 Follow-up chest x-ray showed stable placement of right IJ central line without evidence of pneumothorax. CXR 09/19 shows persisting small bilateral pleural effusions. 12-lead ECG 09/18: Paced rhythm with rate of 70. Prolonged intervals in the setting of pacing. No appreciable ST or T-wave changes to suggest acute ischemia. Cardiac Echo Impressions Date of Service: 09/19/16 190 Interpretation Summary The left ventricle is normal in size. Left ventricular systolic function is normal without focal wall motion abnormalities. The ejection fraction is estimated to be 60-65%. LVEF is unchanged since prior study on 03/26/2016. There are no findings that would suggest acute CHF on today's study. Clinical correlation is recommended. The right ventricle is normal size. TAPSE is reduced suggestive of decreased RV systolic function but visually the RV function appears to be grossly normal. Right ventricular systolic pressure is estimated to be 27 mmHg plus the clinically estimated CVP which cannot be estimated on this exam. The left atrium is mildly dilated. Right atrial size is normal. There is no significant valvular heart disease. The aortic root is normal size. There is a trivial to small pericardial effusion noted. There are no echocardiographic indications of cardiac tamponade. There is a moderate left-sided pleural effusion. There is a large right-sided pleural effusion. Read by Dr. 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 He presented via EMS (EMS was called earlier in the day, but despite recommendation, patient refused to come to the ER) to ER with shortness of breath that did not respond to conservative oxygen delivery methods. Hospital day 2. Shock. Present on admission -Suspect secondary to intubation with increased intrathoracic pressure, and administration of propofol -Cardiogenic less likely given echo findings (see above) -Norepinephrine has been weaned to minimal, and anticipate discontinuing today. -Conservative fluid administration until planned for extubation clarified (if extubated, we will proceed with by mouth diet when appropriate; if not, we will proceed with tube feeds) -Propofol stopped 09/18 due to hypotension -Possible sepsis component (met SIRS criteria presentation, and concern regarding pulmonary/other infection) seems much less likely at this point given both laboratory and clinical findings. -Management of underlying processes as follows Acute hypoxic and hypercapnic respiratory failure. Present on admission -Suspect pleural effusion (patient missed his scheduled thoracentesis), and less likely pulmonary infection. -Strong indication of chronic hypercapnic respiratory failure based on ABG findings (patient has been alkalemic on ABGs with a peak pH of 7.65 early a.m. in the setting of PaCO2 in the mid 30s). * Suspect that patient has a PaCO2 in the high 40s to low 50s at baseline. * Therefore, we will continue to decrease respiratory rate setting on the ventilator in order to bring him back to baseline. -1 time dose of IV Lasix 80 mg administered in the ER along with one-time dose of IV dexamethasone 10 mg, but these have not been continued -Ultrasound-guided thoracentesis 09/18 with full fluid analysis (as noted above) * 1.1 L transudate pleural fluid removed -Empiric Linezolid, Zosyn * Infectious disease consulted, and we appreciated their expertise -Ventilator support (sedated on Fentanyl) * ICU/pulmonology consulted, and we appreciate their expertise -When necessary ABG -Consider a.m. chest x-ray -Consideration for chest CT Acute primary respiratory alkalosis in patient with chronic metabolic alkalosis secondary to hypercapnia. -Patient has chronic underlying respiratory impairment as noted in detail above. Review of the last several months medical record reveals serum bicarbonate routinely in the mid 30s to 40s. Suspicion that patient has some baseline degree of CO2 retention with resultant chronic metabolic alkalosis. -As a result of mechanical ventilation (with a set respiratory rate and tidal volume) there is strong clinical evidence that we are artificially maintaining the patient and his state of respiratory alkalosis when his physiologic baseline is more consistent with PaCO2 in the mid 40s to low 50s (as opposed to the mid 30s as he is currently). -Discussed in detail with ICU/pulmonary team. -Ventilator changes as needed, and other management as noted above. Acute on chronic bilateral pleural effusion. Present on admission -Secondary to follicular lymphoma -Chest x-ray at admission shows bilateral effusions (most recent historical chest x-ray 07/2016 demonstrates effusion on the right, but fairly clear on the left) -Management as above -Consideration for indwelling pleural drainage catheter * Intent would be palliative, as this would likely increase his infectious risk SIRS. Present on admission -Leukocytosis with left shift, tachycardia, tachypnea. With elevated lactic acid (normalized 09/18). -Empiric antibiotics as noted -Patient is immunocompromised (gets regular administration of IVIG) -IVF as noted -Pending studies as noted Seizure-like activity. Not present on admission -Per patient's brother, has seen this a couple times over the last month, and continues to have "tremors" as noted above in subjective. -Please note, patient is awake and alert and responding appropriately, does close his eyes and appeared to sleep, but awakens easily to voice. -Patient was seen in the ER at the end of July of this year for a ground-level fall with head trauma * Negative head CT at that time -Repeat noncontrast brain CT 09/18 also negative -Prolactin mildly elevated at 17.4 (upper end of normal is 15.2 per our lab parameters) -Consideration for EEG -Monitor closely, and would likely benefit (if desired by patient and family) to follow-up with neurology in outpatient. Gradual physical and cognitive decline, chronic. -CODE STATUS discussion with family today, and confirmed patient wishes in line with DNR/DNI -Patient's brother, Emigdio, is family's agreed upon DPOA. They are in the process of discussing legal paperwork with a merchandising assistant. -Discussed the case with palliative care, and they will follow along as well. * We appreciated their expertise -Multiple discussions in outpatient setting regarding placement in SNF Hypokalemia with Hyperkalemia at time of admission, acute. -Outpatient report of Bactrim administration within the last month for conjunctivitis-question potential contribution (perhaps less likely in setting of improved creatinine) -Replacing with potassium phosphate 09/18 -Recheck BMP, magnesium, phosphorus once IV rider has completed -Monitoring on telemetry Hypophosphatemia, acute. Not present on admission -Likely related to decreased oral intake in the setting of gradual decline as noted above with subsequent malnutrition -Replacement with potassium phosphate 09/18 -Recheck labs as above Hyperglycemia in patient with diabetes mellitus type II, not on medication. Present on admission -A1c 7.6 -Regular insulin correction -Depending on response to current interventions for presenting illness, may or may not recommend outpatient medication. Elevated troponin, acute. Present on admission -Current Troponin approximately 2 x historical values, and minimally trending up -Likely represents cardiac stress in the setting of hypoxic respiratory failure -No indication of wall motion abnormality/other sign of ischemia on echo as noted above -We will recheck troponin tomorrow morning Chronic conditions: Recurrent follicular lymphoma (in treatment with periods of remission since 2008 ) * Oncologist is -has seen the patient and is following. We appreciate his expertise. * Current treatment is Ibrutinib (started 05/2016)-will hold until further clarified by oncology. Hypogammaglobulinemia on IVIG-last reported dose was administered 09/11. Complete heart block, status post pacer placement-monitor on telemetry Diastolic congestive heart failure-according to the list provided by family, patient is not on optimized heart failure medications, but will refrain from medication changes until prognosis/goals of care clarified. * Chronic lower extremity edema-wound care consult Chronic kidney disease stage III (likely diabetic nephropathy)-review of the last several months reveals suspected baseline of 1.2-1.4. Monitor metabolic panel (fluid administration and diuresis as noted above) Chronic atrial fibrillation, not currently on anticoagulation-CHADsVASC score is 3 (age, CHF, diabetes). Nothing beyond prophylactic heparin at this time. Bleed risk with recent fall. Hypothyroidism, on thyroid replacement-continue IV administration of levothyroxine 100 g daily Anemia of chronic disease with component of iron deficiency-monitor H&H, and consider repeat iron studies +/- iron replacement (12/2015 iron 22, TIBC 336, percent saturation 7, ferritin 38) PRN MEDICATIONS - Acetaminophen as needed for mild pain/fever/headache - Bowel regimen as needed - Antiemetic as needed Patient is admitted under inpatient status with expected length of stay greater than 2 midnights due to severity of presenting symptoms, risk of adverse event, and complexity of treatment plan. Disposition: Intubated and sedated in the ICU. Guarded long-term prognosis at this time, but may rally in the short-term. Consideration for extubation per ICU/pulmonology service today. Ongoing discussions with family and involved care teams regarding diagnostic and therapeutic plans. Depending on response to therapies outlined above, potential for SNF discharge. Pain Evaluation: Adequate Pain Control GI Prophylaxis: H2 eugene VTE Prophylaxis: Sub-Q Heparin (Unfractionated) Resuscitation Status: DNR/DNI:Do Not Resuscitate/Intubate Attending Statement The patient was seen and examined together with Dr. Morel on 09/19/2016 and I agree with the history, exam and plan as outlined in the note above. . Yevgeniy Alegre DO September 19, 2016 10:46 Freddy Mercado MD September 19, 2016 15:52
--- NOTE | 2016-09-19 12:41 | DRSVH ---
[facility] [address] [place] [address] Echocardiogram Report Name: DHARA MOYA te: 09/19/2016 Height: 69 in Hospital Exam Location: [facility] Weight: 204 lb Gender: Male BSA: 2.1 m2 : 1945 Age: 70 yrs BP: 112/57 mmHg Reason For Study: Congestive Heart Failure Ordering Physician: Performed By: Iesha Burton [employer] [employer] [facility] Interpretation Summary The left ventricle is normal in size. Left ventricular systolic function is normal without focal wall motion abnormalities. The ejection fraction is estimated to be 60-65%. LVEF is unchanged since prior study on 03/26/2016. There are no findings that would suggest acute CHF on today's study. Clinical correlation is recommended. The right ventricle is normal size. TAPSE is reduced suggestive of decreased RV systolic function but visually the RV function appears to be grossly normal. Right ventricular systolic pressure is estimated to be 27 mmHg plus the clinically estimated CVP which cannot be estimated on this exam. The left atrium is mildly dilated. Right atrial size is normal. There is no significant valvular heart disease. The aortic root is normal size. There is a trivial to small pericardial effusion noted. There are no echocardiographic indications of cardiac tamponade. There is a moderate left-sided pleural effusion. There is a large right-sided pleural effusion. Procedure: A two-dimensional transthoracic echocardiogram with color flow and Doppler was performed. Comparison is made with the echocardiogram of 11/23/2015. The patient has a paced rhythm. Left Ventricle: The left ventricle is normal in size. Left ventricular wall thickness is normal. Left ventricular systolic function is normal without focal wall motion abnormalities. The ejection fraction is estimated to be 60- 65%. Septal motion is consistent with conduction abnormality. Diastolic function could not be accurately assessed due to paced rhythm. Right Ventricle: The right ventricle is normal size. TAPSE is reduced suggestive of decreased RV systolic function but visually the RV function appears to be grossly normal. Atria: The left atrium is mildly dilated. Right atrial size is normal. The interatrial septum is intact with no evidence for an atrial septal defect. Mitral Valve: There is mild mitral annular calcification. There is trace mitral regurgitation. Aortic Valve: The aortic valve is trileaflet. The aortic valve opens well. The aortic valve is slightly calcified. No aortic regurgitation is present. Tricuspid Valve: The tricuspid valve leaflets are thin and pliable. There is mild tricuspid regurgitation. Right ventricular systolic pressure is estimated to be 27 mmHg plus the clinically estimated CVP which cannot be estimated on this exam. Pulmonic Valve: The pulmonic valve is normal in structure and function. There is a trace or physiologic amount of pulmonic regurgitation. There is no significant valvular heart disease. Great Vessels: The aortic root is normal size. The ascending aorta is normal in size. The IVC has a measurement of 26 mm. Inspiratory collapse cannot be assessed because of mechanical ventilation, thus CVP cannot be estimated.. Pericardium/ Pleura There is a trivial to small pericardial effusion noted. There are no echocardiographic indications of cardiac tamponade. There is a moderate left-sided pleural effusion. There is a large right-sided pleural effusion. MMode/2D Measurements & Calculations LVIDd: 4.7 cm RA long axis LVOT diam LVIDs: 3.2 cm LA A2 area: 26.7 cm FS: 32.0 % LA A4 area: 16.7 cm RA area AoV Opening EPSS: 0.65 cm LA length (vol): 4.8 cm IVSd: 0.90 cm LA vol: 78.9 ml : 18.9 cm Ao root diam LVPWd: 0.90 cm LA vol index RA vol : 59.6 ml Aortic Jxn RA IVC diam: 2.6 cm : 28.6 mm2 asc Aorta Diam: 2.9 cm LV raman. diameter/BSA LV sys. diameter/BSA TAPSE: 0.96 cm (cm/m^2): 2.3 (cm/m^2): 1.5 Doppler Measurements & Calculations Ao V2 max: 119.1 cm/secMV E max yrn Med Peak E' Yrn TR max yrn Ao max P.7 mmHg : 106.0 cm/sec : 258.9 cm/sec Ao mean P.7 mmHg MV P1/2t E/E' med: 12.6 TR max PG LVOT Max Yrn : 47.1 msec : 26.8 mmHg : 75.6 cm/sec PA V2 max : 87.5 cm/sec CYNDI(I,D): 2.1 cm PA mean PG sev ratio: 0.62 PA Accel Time : 0.08 sec MV P1/2t max yrn Ao V2 mean LV V1 max PG PA V2 mean : 89.7 cm/sec : 55.5 cm/sec Ao V2 VTI: 21.9 cmLV V1 VTI MVA(P1/2t): 4.7 cm2 : 13.5 cm CYNDI(V,D): 2.1 cm2 CYNDI indexed to BSA (cm^2/m^2): 1.00 Reading Physician:PM
--- NOTE | 2016-09-19 14:31 | NUR ---
Neuro: Arouses easily to voice or light touch, reacts appropriately. Nods or gestures in answer to questions. MCKEE, assists with turns. Resp: Remains on vent. Attempted PST today but returned to settings after just a couple minutes due to significant apneic pauses. Dislikes oral care and tries to hit or push away when attempted. Desats x1 today while on left side at completion of echocardiogram, recovers quickly after turn to right and rest. Assist rate on vent reduced to 12, plan to check venous gas to monitor PCO2 and pH. Fentanyl reduced to 75mcg anticipating PST and remains at that rate providing adequate comfort. GI/: UOP sufficient, no stool. NPO. Safety/skin: Restraints tolerated well. Mepilex dressings in place both LE, No change due today. Brother and a couple friends have visited, update given, questions answered as able.
--- NOTE | 2016-09-19 14:42 | PCM.PALLBR ---
Palliative Care Recommendation 70-year-old man with history of follicular lymphoma, recurrent pleural effusions , recurrent infections associated with hypogammaglobulinemia, chronic heart disease (diastolic heart failure and pacemaker) who presented with worsening dyspnea and is now intubated with acute respiratory failure. Continues on broad -spectrum IV antibiotics. Did not do well with pressure support trial today so remains intubated with hopes for possible extubation on 09/20. Palliative medicine consulted to assist family in determination of goals of care. Summary of palliative recommendations: -Symptom management (Pain/other)- continued management per medical/critical care teams -DPOA/Advanced Directives/POLST- no prior documentation- patient and his brother were to have seen an district attorney today to complete documents. Brother Ryder Andrade is POA by wish of patient and the rest of the family. According to Ryder, patient would have wanted aggressive care initially, but would not want to be maintained if there is no reasonable chance of his recovery to independent lifestyle. Further, Ryder felt that given his overall situation and prognosis, that he should be DO NOT RESUSCITATE at this point. If he improves to the point of being extubated, will need to confirm before extubation that he is not a candidate for reintubation. We will plan on following closely and participating in that discussion with Ryder and/or the patient. Family is adopting a "thse-oel-gli" attitude for now and will follow trends. Ryder did acknowledge that the patient has shown signs of deterioration in the recent past (which contributed the decision to see an district attorney to get documentation in order) but that up to this time he has been able to remain in his own home with good quality of life. -Family/emotional support- by all reports, excellent family support in the community as well as home health care support. -Spiritual support- hospital electrician helper powerhouse is aware of his admission and will follow Patient Goals: 1. Patient and family want to be told the truth about his illness, even if it is unpleasant. 2. Patient and family would like to be told prognosis when it can be predicted, to better guide treatment decisions. 3. Patient would choose quality of life over quantity of life, and defines quality as independent living. Additional Medical Diagnoses with primary management by Hospitalist team include : Shock. Present on admission Acute hypoxic and hypercapnic respiratory failure. Present on admission Acute primary respiratory alkalosis in patient with chronic metabolic alkalosis secondary to hypercapnia. Acute on chronic bilateral pleural effusion. Present on admission SIRS. Present on admission Seizure-like activity. Not present on admission Gradual physical and cognitive decline, chronic. Hypokalemia with Hyperkalemia at time of admission, acute. Hypophosphatemia, acute. Not present on admission Hyperglycemia in patient with diabetes mellitus type II, not on medication. Present on admission Elevated troponin, acute. Present on admission Chronic conditions: Recurrent follicular lymphoma (in treatment with periods of remission since 2008 ) Hypogammaglobulinemia on IVIG-last reported dose was administered 09/11. Complete heart block, status post pacer placement-monitor on telemetry Diastolic congestive heart failure-according to the list provided by family, patient is not on optimized heart failure medications, but will refrain from medication changes until prognosis/goals of care clarified. Chronic lower extremity edema-wound care consult Chronic kidney disease stage III (likely diabetic nephropathy) Chronic atrial fibrillation Hypothyroidism Anemia of chronic disease with component of iron deficiency Problems: End of Life Preferences DO NOT RESUSCITATE Goals of Care Recovery and return to his independent lifestyle Disposition To be determined Resuscitation Status Resuscitation Status: Limited Interventions Limited Interventions: Intubation w Mech Vent (remains intubated at this time; not a candidate for CPR/defibrillation) POLST Updates/Changes Previous POLST?: No . Pain: None Symptom management: Dyspnea Total time 35 minutes; >50% face to face with patient, providing counselling regarding plans and recommendations, and in care coordination with his medical teams. Palliative Brief Note Date of Service September 19, 2016 . Returned to reevaluate patient. Prior to positioning, reviewed his updated records in the EMR in detail, spoke with his bedside nurse and with his hospitalist team members. Patient remains intubated and sedated; early in the day had been restless. On exam, elderly gentleman lying in bed, when I saw him in no distress. Vital signs noted. Skin is pale/sallow warm and dry. Head and neck exam without other acute findings. Lungs with decreased breath sounds dependent no rales or wheezes. Heart sounds regular. Systolic murmur as before. Abdomen soft and apparently nontender. Extremities with diffuse pitting edema. Nitish Ellsworth MD September 19, 2016 14:42
[2016-09-19] MEDS ORDERED: diphenhydrAMINE 25 mg Capsule PO PRN (14:55)
--- NOTE | 2016-09-19 15:04 | ABG ---
DateTimeAnalyzed 14:59:00 -_ pH ____7.423 - 7.350 7.450 pCO2 ___50.1__ -mmHg 35.0 45.0 pO2 ___34.8__ -mmHg 69.0 116 HCO3- ___32.1__ -mmol/L ABE ____7.3__ -mmol/L tHb ____8.0__ -g/dL O2Hb ___59.5__ -% COHb ____1.4__ -% MetHb ____1.1__ -% sO2 ___61.0__ -% FIO2 ___40.0__ -% PRVC 400 - PEEP ____5.0__ -cmH2O Set_RR ___12.0__ -b/min Drawn By KBB - Date/Time Notified____ 15:03:00 -_ Oxygen Device 1 VENTILATOR - Notified By KBB - Notified Whom Kendregen, Fidel MD -_ B 750 -mmHg tO2 ____6.7__ -Vol% Cristiano test N/A -
--- NOTE | 2016-09-19 15:19 | NUR ---
spiritual care: routine/follow pt's brother shared update and coping including family's work on DPOA and other documents. He reported on weekend events and current hopefulness shared as pt was able to communicate a bit this morning.
[2016-09-19] MEDS ORDERED: Sodium Chloride LOK Flush 10 mL Syringe IVFLUSH PRN ×2 (15:40)
--- NOTE | 2016-09-19 18:30 | NUR ---
Frustrated, bored, wants tube out. Consistently breathes above vent rate while awake. No effort above set rate noted after fentanyl returned to 125mcg/h for comfort this evening. Saturations stable. Venous blood gas reviewed by and is improving. Restraints off since 0 per pt request. Uses call light appropriately, says we can trust him to not pull at the tube.
[2016-09-19 18:47] LABS: Magnesium 1.9 mg/dL (1.6-2.6); Phosphorus 4.5 mg/dL (2.5-4.9)
[2016-09-19] MEDS: 0.9% Sodium Chloride 1,000 ML IV SCH (20:43)
[2016-09-20] VITALS (12 sets, daily range): BP systolic 94–129; BP diastolic 47–72; PULSE 70–71; RESP 10–24; O2SAT 95–100
[2016-09-20] MEDS: Insulin Human REGular 300 Unit/3 mL Inj SUBQ SCH ×4 (03:17→20:30)
[2016-09-20] MEDS: Chlorhexidine 0.12% 15 mL Oral Solution MT SCH ×3 (03:19→12:30)
[2016-09-20] MEDS: Norepineph 8,000 mCg/250 mL NS 8,000 MCG in IV Premix 1 EACH IV SCH (03:19)
--- NOTE | 2016-09-20 03:26 | NUR ---
Vent/Hemodynamics Patient awake and communicating with hands and mouthing words, calm and cooperative with very light sedation (Fentanyl 100mcg/hr), HR has been A-Flutter with 100 V-Paced, Levophed titrated off this shift and current BP 115/54 with MAP of 67, no distress noted, uneventful shift, AM labs drawn, BS 152 this AM and 2 units insulin given per order, patient assisting with turns, will continue to monitor. Addendum: 09/20/16 at 0330 by ADRIA ANDERSON RN Amended: Links added.
[2016-09-20 03:44] LABS: BASOPHILS % (AUTO) 0.3 % (0-3); EOSINOPHILS % (AUTO) 0.9 % (0-5); MONOCYTES % (AUTO) 25.9 % (4-12); Mean Corpuscular Hemoglobin 23.2 pg (27.0-35.0); Mean Corpuscular Volume 79.2 fL (81-100); Platelet Count 230 bil/L (150-400)
[2016-09-20 04:05] LABS: Magnesium 1.9 mg/dL (1.6-2.6); Phosphorus 3.7 mg/dL (2.5-4.9)
--- NOTE | 2016-09-20 05:07 | ABG ---
DateTimeAnalyzed 05:02:00 -_ pH ____7.364 - pCO2 ___57.9__ -mmHg pO2 ___32.7__ -mmHg HCO3- ___32.2__ -mmol/L ABE ____6.4__ -mmol/L tHb ____7.8__ -g/dL O2Hb ___53.9__ -% COHb ____1.3__ -% MetHb ____1.2__ -% sO2 ___55.3__ -% FIO2 ___40.0__ -% PRVC 10 - PEEP ____5.0__ -cmH2O Vt __400.0__ -L Drawn By RN - Spontaneous_RR ___11.0__ -b/min Oxygen Device 1 VENTILATOR - B 758 -mmHg tO2 ____6.0__ -Vol% Cristiano test N/A -
[2016-09-20] MEDS ORDERED: KCl 40 mEq/100 mL Premix (K 3 - 3.7 & Creat < 2) IV ONE (05:15)
[2016-09-20] MEDS: Piperacillin-Tazo 3.375 Gm Inj 3.375 GM in Dextrose 5% Minibag Plus 50 ML IV SCH ×3 (05:32→22:55)
--- NOTE | 2016-09-20 08:41 | NUR ---
extubated at 0830hrs Pt did well on PST, has been awake and writing notes most of the night and morning. He was extubated to 3l NC and is doing well. Message left for his brother as pt was requesting we call him and tell him what was happening.
[2016-09-20] MEDS ORDERED: diphenhydrAMINE 25 mg Capsule PO ONE (08:45)
[2016-09-20] MEDS ORDERED: Furosemide 10 mg/mL 2 mL Inj IV ONE ×2 (08:45→14:30)
--- NOTE | 2016-09-20 08:57 | PROG NOTE ---
[address] [address] PROGRESS NOTE PATIENT: DHARA MOYA : 1945 MR#: [id number] ADMIT: 09/18/2016 JOB ID: [id number] DATE: 09/20/2016 REASON FOR FOLLOWUP: Shock and respiratory failure with right exudative pleural effusion, underlying lymphoma and a history of recurrent bacterial infections. INTERVAL HISTORY: Overnight, the patient's ventilator settings have been progressively dialed down. This morning, he is completely awake, animated and writing notes on the ventilator, on only 30% FiO2 and 5 of PEEP. He denies fevers, chills, air hunger, cough, abdominal pain, nausea, vomiting, or diarrhea. PHYSICAL EXAMINATION: Reveals a wide awake gentleman on the ventilator who looks eager to get off the ventilator. Temperature 36.4, pulse 70, respiratory rate 22, blood pressure 102/67, saturating very well on 30 and 5, as mentioned. The patient is alert, completely oriented. Eyes without conjunctivitis. Oral endotracheal tube, orogastric tube in good position. Lungs with decreased breath sounds at both bases, perhaps more on the right. Cardiac tones without new murmur. Abdomen soft and nontender. Extremities with increasing edema below the knee. There is still evidence of venous stasis changes bilaterally below the knee, but no evidence of overt infection. LABORATORIES: Include a white count 15,000, which is somewhat hard to interpret in this man with lymphoma, but basically normal diff. Creatinine is 1.2, which is steadily coming down. LFTs normal. Pleural fluid had an LDH of 99, but a protein of 2.7, so just barely by Light's criteria, as this is a transudate. Gram stain and culture of the pleural fluid negative to date. A MRSA screen of the nares was positive. Blood cultures have been negative. Respiratory viral panel PCR negative. Yesterday's chest x-ray was carefully reviewed on the computer. It shows bilateral pleural effusions as well as atelectasis versus pneumonia at the bases. IMPRESSION: I continue to be unconvinced that this patient has any infection. He did present with shock and respiratory failure we are trying to explain, and we now have a mildly exudative right pleural effusion. We do know that he is colonized as well with MRSA. The patient is now rapidly approaching extubation and looking very well. I think his antibiotic course can be very short, perhaps five days. RECOMMENDATIONS: 1. Will continue with Zosyn and Zyvox to complete five days of therapy which will be about two more days of treatment. 2. Will closely follow the multiple pending studies. 3. We look forward to speaking to the patient tomorrow following extubation.
[2016-09-20] MEDS: Levothyroxine 100 mCg/5 mL Inj IV SCH (09:00)
[2016-09-20] MEDS: Linezolid Inj 600 MG in IV Premix 1 EACH IV SCH ×2 (09:00→21:19)
[2016-09-20] MEDS: Famotidine Inj 20 MG in IV Premix 1 EACH IV SCH (09:00)
[2016-09-20] MEDS: Heparin 5,000 Unit/mL Inj SUBQ SCH ×2 (09:01→16:58)
[2016-09-20] MEDS: Sodium Chloride LOK Flush 10 mL Syringe IVFLUSH SCH ×3 (09:01→22:55)
--- NOTE | 2016-09-20 10:42 | NUR ---
NUTRITION FOLLOW-UP: Assess: 69 YO M admitted to CCU for respiratory failure requiring intubation. Pt with chronic pleural effusions. Pt was able to be extubated 09/20. ST eval pending. PMHx: Follicular Lymphoma, DM, HTN, A-fib, Partial colectomy, CKD, complete heart block w/ pacemaker, depression, PNA, CHF, hypothyroid, hypogammaglobulinemia, sepsis, bacteremia, MRSA, L hand osteomyelitits. LABS: CO2 31, Glu 162, Ca 7.8, Alb 2.5 MEDICATIONS: Reviewed. DIET: NPO X 3 day. GI: No BM noted. SKIN: R medial calf stasis ulcer, L plantar 1st metatarsal head ulcer. Wound care following. ANTHROPOMETRICS: Wt: 92.5 kg, BMI 30.1 kg/m2, admit wt 95kg ESTIMATED NEEDS: BMI/wound Calories: 7060-9410 kcal/day (22-25 kcal/kg BW) Protein: 85-105 g/day (1.2-1.5 g/kg IBW) NUTRITION DIAGNOSIS: 1) Inadequate oral intake related to decreased ability to consume sufficient energy as evidenced by vent/NPO status. -PERSISTS 2) Increased nutrient needs related to wound healing as evidenced by calf & plantar ulcers.-PERSISTS INTERVENTION: 1) Advance diet per ST. MONITOR/EVALUATE: ST, POC, labs, GI/nutrition status. Follow per high nutrition risk guidelines.
[2016-09-20] MEDS: 0.9% Sodium Chloride 250 ML IV SCH (11:45)
--- NOTE | 2016-09-20 12:37 | PCM.PALLBR ---
Palliative Care Recommendation 70-year-old man with history of follicular lymphoma, recurrent pleural effusions , recurrent infections associated with hypogammaglobulinemia, chronic heart disease (diastolic heart failure and pacemaker) who presented with worsening dyspnea and was intubated with acute respiratory failure. Successfully extubated on 09/20. Continues on broad-spectrum IV antibiotics- per Dr. Finley this should be continued through a full 5 day course (complete on 09/22) though it is unclear if he ever actually had serious infectious process. Palliative medicine consulted to assist family in determination of goals of care. Patient has now changed his mind and is insisting that he will only discharge home and will not consider SNF stay. I have contacted Drs. Duque and Tushar to enlist their assistance in convincing the patient that discharge to SNF is in his best interest. I also have spoken by phone again with his POA/ brother Ryder ( [phone]; h [phone]) about disposition planning as well as advanced care issues (see below for further details of my conversation with Ryder). Summary of palliative recommendations: -Symptom management (Pain/other)- continued management per medical/critical care teams -DPOA/Advanced Directives/POLST- no prior documentation- patient and his brother were to have seen an litigation attorney associate on 09/18 to complete documents. Brother Ryder Andrade is POA by wish of patient and the rest of the family. According to Ryder, patient would want aggressive care initially, but would not want to be maintained if there is no reasonable chance of his recovery to independent lifestyle. Further, Ryder felt that given his overall situation and prognosis, that he should be DO NOT RESUSCITATE at this point. Now that patient has been extubated, will need to confirm his wishes and will try to create a new POLST reflecting those wishes prior to discharge. Ryder did acknowledge that the patient has shown signs of deterioration in the last 3-6 months, with progressive cognitive/functional impairment (which contributed the decision to see an litigation attorney associate to get documentation in order) -Family/emotional support- by all reports, excellent family support in the community as well as home health care support. -Spiritual support- hospital equal employment opportunity officer is aware of his admission and will follow Patient Goals: 1. Patient and family want to be told the truth about his illness, even if it is unpleasant. 2. Patient and family would like to be told prognosis when it can be predicted, to better guide treatment decisions. 3. Patient would choose quality of life over quantity of life, and defines quality as independent living. Additional Medical Diagnoses with primary management by Hospitalist team include : Shock. Present on admission Acute hypoxic and hypercapnic respiratory failure. Present on admission Acute primary respiratory alkalosis in patient with chronic metabolic alkalosis secondary to hypercapnia. Acute on chronic bilateral pleural effusion. Present on admission SIRS. Present on admission Seizure-like activity. Not present on admission Gradual physical and cognitive decline, chronic. Hypokalemia with Hyperkalemia at time of admission, acute. Hypophosphatemia, acute. Not present on admission Hyperglycemia in patient with diabetes mellitus type II, not on medication. Present on admission Elevated troponin, acute. Present on admission Chronic conditions: Recurrent follicular lymphoma (in treatment with periods of remission since 2008 ) Hypogammaglobulinemia on IVIG-last reported dose was administered 09/11. Complete heart block, status post pacer placement-monitor on telemetry Diastolic congestive heart failure-according to the list provided by family, patient is not on optimized heart failure medications, but will refrain from medication changes until prognosis/goals of care clarified. Chronic lower extremity edema-wound care consult Chronic kidney disease stage III (likely diabetic nephropathy) Chronic atrial fibrillation Hypothyroidism Anemia of chronic disease with component of iron deficiency Problems: End of Life Preferences DO NOT RESUSCITATE/DO NOT INTUBATE Disposition To be determined Resuscitation Status Resuscitation Status: DNR/DNI:Do Not Resuscitate/Intubate Limited Interventions: Medications and IV Fluid POLST Updates/Changes Previous POLST?: No . Pain: None Total time 65 minutes; >50% face to face with patient and family, spread across several visits, providing counselling regarding plans and recommendations, and in care coordination with his medical teams. Of the above total time, 50 minutes counseling for advanced care planning with the patient and his brother and the rest of the medical team Palliative Brief Note Date of Service September 20, 2016 . Returned to reevaluate the patient early this morning and then again midday after extubation. Reviewed his updated records in the EMR in detail. Spoke with his bedside nurse as well as his pulmonary/critical care physicians and the rest of the team on morning CCU rounds. Reviewed and appreciate the note and input of Dr. Finley. The patient has seen Dr. Finley in the past and has great shauna in him. When I arrived to visit after extubation, patient is sitting up in bed talking with his brother Ryder. He now says, however, that he is definitely going home and will not consider going to an SNF, as had been agreed to and arranged. Ryder is clearly taken aback by this and we both talked extensively with the patient, trying to convince him that an SNF stay would be much to his benefit, but he remained adamant that he would only go home. Status post extubation his exam otherwise remained stable. Decreased breath sounds at the bases with a few crackles. Heart sounds regular. Abdomen benign. Labs and imaging studies reviewed. Hemoglobin has continued to drift down. Spoke again with Ryder later in the afternoon by phone. He remains firm in his decision that the patient must go to SNF. He is going to talk to the patient's other friends and try to get all of them to agree not to provide a ride home at time of hospital discharge, thereby hopefully gently pressuring the patient to go to SNF. Ryder is also going to have his daughter Thalia (who is an VACCINE CUSTOMER REPRESENTATIVE) call from her home in [place] to try to help convince the patient to go to SNF. Ryder did say that he thinks the patient's main reason for insisting on going home is so that he will be able to care for his pet cats , but Ryder said they are making arrangements to have the cats cared for by other friends and so that should not be a road block. Nitish Ellsworth MD September 20, 2016 12:37
--- NOTE | 2016-09-20 13:06 | NUR ---
RESTRAINTS DISCONTINUED AT 0800HRS PT WAS AWAKE AND APPROP. REATRAINTS WERE DISCONTINUED.
--- NOTE | 2016-09-20 13:59 | PROG NOTE ---
[address] [address] PROGRESS NOTE PATIENT: DHARA MOYA : 1945 MR#: [id number] ADMIT: 09/18/2016 JOB ID: [id number] DATE: 09/20/2016 PULMONARY FOLLOW UP NOTE: PROBLEMS: 1. Ventilatory failure. 2. Lymphoma. 3. Recurrent pleural effusions status post thoracentesis. SUBJECTIVE: Breathing comfortably. Very anxious to have endotracheal tube out. Otherwise breathing relatively comfortably. Heart: Regular rhythm. Heart tones seem normal. Chest: Fairly good breath sounds bilaterally. Maybe a few crackles in the right anterior lung field. No use of accessory muscles. Abdomen soft. Bowel tones present. Extremities: No pedal edema. Blood work shows a white count of 15,600 with 61 polymorphonuclears, 10 lymphs, 25 monocytes. Hemoglobin 7.7, slightly decreased from yesterday's value of 8.1, but down almost 2 g/dL since admission two days previously. Platelet count falling currently to 230,000, being 319,000 on admission 48 hours ago. Sodium 140, potassium 3.6, chloride 98, CO2 is 31. Calcium 7.8. Phosphorus 3.7, magnesium 1.9. Creatinine 1.2 with a BUN of 18. Assess for extubation. Breathing comfortably. Initially was rather sleepy from opiates but that cleared relatively quickly and now he seems rather awake. Evidence for a leak around the cuff. Extubated without difficulty. Placed on nasal prongs. Doing well. No use of accessory muscles. Breathing comfortably. ASSESSMENT: 1. Ventilatory failure likely due to his enlarging pleural effusions. However, it is apparent that he does have chronic hypoventilation with CO2s in the high 50s and bicarbonates in the mid 30s. 2. Recurrent pleural effusions. Long-term care of the pleural effusions was discussed. The plan is to do the p.r.n. thoracenteses. Currently needing them at about every two weeks. Maybe a little bit more time. PLAN: Will stop following on a routine basis. If any problems or questions arise, please feel free to contact the pulmonary service.
--- NOTE | 2016-09-20 13:59 | NUR ---
spiritual care: following pt reflective about his baha'i shauna and confronting continuing medical challenges and decisions. Pt able to make needs known and both declined medical care (blood sugar) and expressed his great respect for staff/care during our conversation. Pt engaged in life review as he considered his values, significant experiences and learnings. Pt appeared comfortable, sleepy at times and said he found our conversation regenerating.
--- NOTE | 2016-09-20 14:39 | NUR ---
Palliative care note ( late note for 09/19/16, entered on 09/20/16.) D/A: Case discussed in PC rounds. Noted that pt had very regularly scheduled thoracentesis procedures for an extended period of time. Oncology staff has had concerns about his cognition for about 6 months. Pt did not show for last scheduled thoracentesis which led to current admission. This worker and Kalen [facility] attempt to connect several times today to discuss above. P: Palliative care to follow. Janey GIMENEZ, CCM
--- NOTE | 2016-09-20 14:42 | NUR ---
Palliative care note D/A: Able to discuss with [facility] Dr. Duque and Kalen have had significant concerns about pt well being at home and had a family conference, including pt about 2 weeks ago. Work has been done regarding possible SNF placement. Barriers were payment as pt did not have qualifying stay at that time as well as pt cats. Family is pursuing placement of pt three cats with various family and friends. Have asked Kalen to please indicate concerns about pt well being to alejandro Chicas. Kalen has affirmed cognitive decline in pt. Pt indicating that he wishes to go home Dr. Ellsworth aware of above. He is able to discuss with pt samuel who indicates that he wishes for SNF placement for pt as pt is failing at home. Dr. Ellsworth has left messages for Dr. Duque to indicate that he may wish to communicate to pt regarding his recommendation for dc planning. Dr. Ellsworth communicating above with alejandro Chicas. Pt bro indicates that he is having a family member who is an [employer] MAKER call pt to discuss and further press upon pt the need for SNF placement. Samuel also planning on calling all of pt friends to ask them please to not rock picker pt from the hospital to help encourage pt to go home. P: Palliative care to continue to follow. Janey GIMENEZ, CCM
--- NOTE | 2016-09-20 15:15 | PCM.PNMED ---
Subjective Date of Service September 20, 2016 Subjective Hospital day 3. No significant events overnight. No further sign of seizure activity. Patient denies complaints today with the exception of wanting the ET tube out. Focused (but limited) ROS today is negative except as noted above. Exam Vital Signs Vital Sign - Last Date Time Temp Pulse Resp B/P Pulse Ox O2 Delivery O2 Flow Rate FiO2 09/20/16 13:30 36.6 70 18 120/64 09/20/16 12:30 96 Nasal Cannula 3.00 30 Intake and Output 09/19/16 09/19/16 09/20/16 Cumulative From/Thru 15:00 23:00 07:00 09/18/16 05:01 - 09/20/16 03:31 Intake Total 1622 ml 650 ml 5077 ml Output Total 550 ml 800 ml 6210 ml Balance 1072 ml -150 ml -1133 ml Intake IV Total 1542 ml 650 ml 4997 ml Tube Irrigant 80 ml 0 ml 80 ml Output Urine Total 550 ml 800 ml 6170 ml Gastric Drainage Total 0 ml 40 ml # Bowel Movements 0 0 Exam General: Intubated and asleep with eyes closed not overbreathing the vent. Awakens easily/readily to voice, and interacting appropriately with head movements yes/no. NAD. Using pen and paper to communicate. Head: Normocephalic, atraumatic. External ears normal. Eyes: PERRL (approximately 4 mm vi to 3 mm bilaterally), EOMi and tracking appropriately. Anicteric sclerae. Conjunctivae are not injected Mouth: Mouth Normal, Mucous Membranes Moist/Alix. ET tube and OG tube in place. Neck: Neck supple. No Thyromegaly. Do not appreciate any lymphadenopathy. Do not appreciate JVD. Right IJ central line in place is c/d/i. Chest & Lungs: Clear to auscultation bilaterally with no crackles, wheezes, or rhonchi. Decreased breath sounds in the bases/posteriorly (improved on R - note thoracentesis 09/18 with 1.1L removed). On mechanical ventilation. Cardiovascular: Regular Rate/Rhythm (paced on the monitor), Normal S1, Normal S2, No Murmurs/Rubs/Gallops. Radial pulses are 2+ bilaterally. Posterior tibial pulses 1+ bilaterally d/t edema. Abdomen: Non-tender, Non-distended, large reducible ventral hernia, normoactive bowel tones, Soft. Multiple surgical scars (colectomy, pacemaker). Pacemaker generator palpable in the right upper quadrant subcutaneously. No overlying erythema. Musculoskeletal: Sedated, but easily awakened. Soft restraints removed overnight. Extremities: No cyanosis/clubbing bilat. Mod pitting edema in the lower extremities to the level of the hips bilaterally. Neurological: Grossly intact. Psych: Intubated, but appears to have normal mood and affect. IVs and Medications Medications Reviewed: Medications were reviewed in detail Lab and Diagnostics Laboratory Tests Test 09/19/16 18:16 09/20/16 03:10 09/20/16 14:30 Sodium Level 139mEq/L (134-144) 140mEq/L (134-144) Potassium Level 3.4mEq/L (3.5-5.2) 3.6mEq/L (3.5-5.2) Chloride Level 98mEq/L (97-108) 98mEq/L (97-108) Carbon Dioxide Level 30mmol/L (18-29) 31mmol/L (18-29) Blood Urea Nitrogen 21mg/dL (8-27) 18mg/dL (8-27) Creatinine 1.30mg/dL (0.76-1.27) 1.20mg/dL (0.76-1.27) Estimat Glomerular Filtration Rate 58mL/min (>59) 63mL/min (>59) Glucose Level 205mg/dL (60-99) 162mg/dL (60-99) Calcium Level 7.9mg/dL (8.5-10.1) 7.8mg/dL (8.5-10.1) Phosphorus Level 4.5mg/dL (2.5-4.9) 3.7mg/dL (2.5-4.9) Magnesium Level 1.9mg/dL (1.6-2.6) 1.9mg/dL (1.6-2.6) White Blood Count 15.6th/mm3 (3.8-10.1) Red Blood Count 3.32mil/mm3 (4.40-5.80) Hemoglobin 7.7g/dL (13.8-17.2) Hematocrit 26.3% (41.0-50.0) Mean Corpuscular Volume 79.2fL (81-100) Mean Corpuscular Hemoglobin 23.2pg (27.0-35.0) Mean Corpuscular Hemoglobin Concent 29.3% (32.0-37.0) Red Cell Distribution Width 21.1% (12.3-15.4) Platelet Count 230bil/L (150-400) Neutrophils (%) (Auto) 61.0% (40-74) Lymphocytes (%) (Auto) 10.4% (14-46) Monocytes (%) (Auto) 25.9% (4-12) Eosinophils (%) (Auto) 0.9% (0-5) Basophils (%) (Auto) 0.3% (0-3) Result Diagram: 09/20/16 0310 09/20/16 0310 Microbiology MRSA nasal screen positive Respiratory nasal PCR negative 09/18 blood cultures negative to date 09/18 sputum cultures (Gram stain shows rare polys and rare mixed normal radha) negative to date 09/18 pleural fluid cultures (incl fungal) negative to date Please note patient has history of extensive MRSA infections. X-Rays, CTs and MRIs Date of Service: 09/18/16 3018 PROCEDURE: X-RAY CHEST ONE VIEW, PORTABLE ([id number]) INDICATIONS: resp failure IMPRESSION: Bilateral pleural effusions, grossly unchanged to mildly increased, with adjacent atelectasis. No new consolidation. Stable support equipment Dictated by: Juan Del Rio M.D. on 09/18/2016 at 8:05 Follow-up chest x-ray showed stable placement of right IJ central line without evidence of pneumothorax. CXR 09/19 shows persisting small bilateral pleural effusions. 12-lead ECG 09/18: Paced rhythm with rate of 70. Prolonged intervals in the setting of pacing. No appreciable ST or T-wave changes to suggest acute ischemia. Cardiac Echo Impressions Date of Service: 09/19/16 1901 Interpretation Summary The left ventricle is normal in size. Left ventricular systolic function is normal without focal wall motion abnormalities. The ejection fraction is estimated to be 60-65%. LVEF is unchanged since prior study on 03/26/2016. There are no findings that would suggest acute CHF on today's study. Clinical correlation is recommended. The right ventricle is normal size. TAPSE is reduced suggestive of decreased RV systolic function but visually the RV function appears to be grossly normal. Right ventricular systolic pressure is estimated to be 27 mmHg plus the clinically estimated CVP which cannot be estimated on this exam. The left atrium is mildly dilated. Right atrial size is normal. There is no significant valvular heart disease. The aortic root is normal size. There is a trivial to small pericardial effusion noted. There are no echocardiographic indications of cardiac tamponade. There is a moderate left-sided pleural effusion. There is a large right-sided pleural effusion. Read by Dr. 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 He presented via EMS (EMS was called earlier in the day, but despite recommendation, patient refused to come to the ER) to ER with shortness of breath that did not respond to conservative oxygen delivery methods. Intubated 09/18. Extubated 09/20. Hospital day 3. Acute issues: Acute on chronic bilateral pleural effusion. Present on admission -Secondary to follicular lymphoma -Chest x-ray at admission shows bilateral effusions (most recent historical chest x-ray 07/2016 demonstrates effusion on the right, but fairly clear on the left) -Ultrasound-guided thoracentesis 09/18 with full fluid analysis * 1.1 L transudate pleural fluid removed with fair resolution of acute respiratory impairment. -Consideration for indwelling pleural drainage catheter * Intent would be palliative, as this would likely increase his infectious risk Elevated troponin, acute. Present on admission -Troponin approximately 2 x historical values, and minimally trending up -Likely represents cardiac stress in the setting of anemia and hypoxic respiratory failure -No indication of wall motion abnormality/other sign of ischemia on echo as noted above -We will transfuse 1 unit of PRBC, and recheck H&H this afternoon -Consideration for goal hemoglobin of 8-9 given his cardiac history. Gradual physical and cognitive decline reported, chronic. -CODE STATUS discussion with family on day of admission, and confirmed patient wishes in line with DNR/DNI (we will need to confirm regarding reintubation) -Patient's brother, Emigdio, is family's agreed upon DPOA. They are in the process of discussing legal paperwork with a procurement services manager. -Discussed the case with palliative care, and they will follow along as well. * We appreciated their expertise -Multiple discussions in outpatient setting regarding placement in SNF Hyperglycemia in patient with diabetes mellitus type II, not on medication. Present on admission -A1c 7.6 -Regular insulin correction -Depending on response to current interventions for presenting illness, may or may not recommend outpatient medication. Leukocytosis with bandemia, acute. POA -Primary suspicion is pulmonary infection for which ID has been following along with us. -Per ID recommendation: Continue empiric linezolid and Zosyn for 2 more days to complete a 5 day course, then stop -We will continue to follow CBC trend, and monitor closely for other s/s of infection We will have physical therapy and initiate their evaluation of the patient today. We will also have speech therapy evaluate his swallow safety incapability. Pending these evaluations we may consider continuing the patient' s home medications tomorrow. Resolved acute issues: Acute hypoxic and hypercapnic respiratory failure. Present on admission -Secondary to pleural effusion (patient missed his scheduled thoracentesis), and less likely pulmonary infection. -Strong indication of chronic hypercapnic respiratory failure based on ABG findings (patient has been alkalemic on ABGs with a peak pH of 7.65 early a.m. in the setting of PaCO2 in the mid 30s). * Suspect that patient has a PaCO2 in the high 40s to low 50s at baseline. * Therefore, we will continue to decrease respiratory rate setting on the ventilator in order to bring him back to baseline. -1 time dose of IV Lasix 80 mg administered in the ER along with one-time dose of IV dexamethasone 10 mg, but these have not been continued -Ultrasound-guided thoracentesis 09/18 with full fluid analysis (as noted above) * 1.1 L transudate pleural fluid removed -Empiric Linezolid, Zosyn until 09/22, then stop * Infectious disease consulted, and we appreciated their expertise -Ventilator support until extubation on 09/20 * ICU/pulmonology consulted, and we appreciate their expertise -Consideration for chest CT in outpatient setting Acute primary respiratory alkalosis in patient with chronic metabolic alkalosis secondary to hypercapnia. -Patient has chronic underlying respiratory impairment as noted in detail above. Review of the last several months medical record reveals serum bicarbonate routinely in the mid 30s to 40s. Suspicion that patient has some baseline degree of CO2 retention with resultant chronic metabolic alkalosis. -As a result of mechanical ventilation (with a set respiratory rate and tidal volume) there is strong clinical evidence that we were artificially maintaining the patient in a state of respiratory alkalosis when his physiologic baseline is more consistent with PaCO2 in the mid 40s to low 50s (as opposed to the mid 30s). -Discussed in detail with ICU/pulmonary team. -As respiratory rate and tidal volume more reduced in a gradual manner over the course of patient's hospitalization, patient's status and ABGs improved significantly with pH approaching 7.4, and a PaCO2 in the low 50s. -Given this improvement, and other clinical indicators of improvement, patient was extubated successfully on 09/20 Shock. Present on admission -Suspect secondary to intubation with increased intrathoracic pressure, and administration of propofol -Cardiogenic less likely given echo findings (see above) -Norepinephrine was weaned and discontinued on 09/19. -Conservative fluid administration on an as needed basis in the form of bolus -Propofol stopped 09/18 due to hypotension -Possible sepsis component (met SIRS criteria presentation, and concern regarding pulmonary/other infection) seems much less likely at this point given both laboratory and clinical findings. SIRS. Present on admission -Leukocytosis with left shift, tachycardia, tachypnea. With elevated lactic acid (normalized 09/18). -Empiric antibiotics as noted -Patient is immunocompromised (gets regular administration of IVIG) -IVF as noted -Infectious workup has been unremarkable as noted above Seizure-like activity. Not present on admission -Per patient's brother, has seen this a couple times over the last month. -Please note, patient is awake and alert and responding appropriately, and there has been no further seizure-like activity. -Patient was seen in the ER at the end of July of this year for a ground-level fall with head trauma * Negative head CT at that time -Repeat noncontrast brain CT 09/18 also negative -Prolactin mildly elevated at 17.4 (upper end of normal is 15.2 per our lab parameters) -Consideration for EEG deferred given patient's clinical status at this time -Would likely benefit (if desired by patient and family) to follow-up with neurology in outpatient. Hypophosphatemia, acute. Not present on admission -Likely related to decreased oral intake in the setting of gradual decline as noted above with subsequent malnutrition -Replacement with potassium phosphate 09/18 Hypokalemia with Hyperkalemia at time of admission, acute. -Outpatient report of Bactrim administration within the last month for conjunctivitis-question potential contribution (perhaps less likely in setting of improved creatinine) -Replaced with potassium phosphate 09/18 Chronic conditions: Recurrent follicular lymphoma (in treatment with periods of remission since 2008 ) * Oncologist is -has seen the patient and is following. We appreciate his expertise. * Current treatment is Ibrutinib (started 05/2016)-will hold until further clarified by oncology. Hypogammaglobulinemia on IVIG-last reported dose was administered 09/11. Complete heart block, status post pacer placement Diastolic congestive heart failure-according to the list provided by family, patient is not on optimized heart failure medications, but will refrain from medication changes until prognosis/goals of care clarified. * Chronic lower extremity edema-wound care consulted Chronic kidney disease stage III (likely diabetic nephropathy)-review of the last several months reveals suspected baseline of 1.2-1.4. Chronic atrial fibrillation, not currently on anticoagulation-CHADsVASC score is 3 (age, CHF, diabetes). Nothing beyond prophylactic heparin at this time. Bleed risk with recent fall. Hypothyroidism, on thyroid switched to home by mouth administration tomorrow Anemia of chronic disease with component of iron deficiency-monitor H&H, and consider repeat iron studies +/- iron replacement (12/2015 iron 22, TIBC 336, percent saturation 7, ferritin 38). Receiving 1 unit of PRBC as noted. PRN MEDICATIONS - Acetaminophen as needed for mild pain/fever/headache - Bowel regimen as needed - Antiemetic as needed Patient is admitted under inpatient status with expected length of stay greater than 2 midnights due to severity of presenting symptoms, risk of adverse event, and complexity of treatment plan. Disposition: Extubated. Anticipate patient will be appropriate for discharge in the next day or 2. We will have physical therapy work closely with him to assess for SNF need versus returning home with likely home health. Pain Evaluation: Adequate Pain Control GI Prophylaxis: H2 eugene VTE Prophylaxis: Sub-Q Heparin (Unfractionated) Resuscitation Status: DNR/DNI:Do Not Resuscitate/Intubate Attending Statement The patient was seen and examined together with Dr. Alegre on 2016 and I agree with the history, exam and plan as outlined in the note above. . Yevgeniy Alegre DO September 20, 2016 15:15 Freddy Mercado MD September 21, 2016 08:36
--- NOTE | 2016-09-20 15:49 | NUR ---
Evaluation completed. Please go to "Notes" then click on "Assessments and Notes" (bottom left corner of screen). Then select appropriate discipline tab on top of screen.
--- NOTE | 2016-09-20 15:56 | NUR ---
Social Work Note: Continued Discharge Planning Data& Assessment: Per MD pt has been extubated and is medically improving. SW spoke with pt brother Ryder ([phone]) via phone call per his request to discuss discharge planning. Pt is not agreeable to SNF at this time however, pt family will be talking to him tonight about realistic discharge planning and safety. MD's and pt family have concerns about pt discharging home when medically ready as pt is likely to readmit into the hospital. SW explained to pt brother that we are not able to force pt to discharge to SNF. Pt brother explained that pt MD who he highly respects will be talking with pt tonight about SNF as well. Pt brother requested SW wait until tomorrow to bring up SNF options with pt in order not to overwhelm him and make him against SNF even more. SW to follow up with pt regarding discharge planning tomorrow after he has discussed options with MD and family and after he has recovered from extubation. SW to continue to follow. Plan: Anticipating discharge home with home health vs. SNF. SW to follow up with pt regarding discharge planning tomorrow after he has discussed options with MD and family and after he has recovered from extubation. SW to continue to follow. KECIA Enciso
--- NOTE | 2016-09-20 16:29 | NUR ---
spiritual care: follow up conversational visit. pt shared his frustration with discharge plans including his sense of not trusting all he hears specifying that he believes he was told he would discharge earlier today, but it is still pending. Pt using humor and conversational courtney in coping.
--- NOTE | 2016-09-20 17:03 | NUR ---
P: Resp, hemodynamics, Neuro, Nutrition,social I,E: Pt was extubated this am and is doing well on 3l NC with sats in the nury 90's. He is talking and joking with friends, has a strong voice and strong cough. VS are stable. He received one unit of RBC's this am and tolerated this well. BP is currently 106/60. He also received lasix after the blood. Pt was a little confused initally after he was extubated, but conversed with everyone. I gave him Benadryl IV (as he was still unable to take PO) prior to the blood transfusion and pt became quite paranoid for several hours after this. He continues to be somewhat confused in conversation, repeating stories and jokes. He is playing with some playing cards and constantly sorts and re sorts them. He is co operative this afternoon. Pt was seen by Speech and OK'd for nectar thick liquids and apple sauce. OT have been 90 and 104 today. Pt has had friends and his brother visit today and they are great support for him. they express concern r.e. pt returning home by himself and his brother asked to speak with case managment r.e. this concern. Pt was up out of bed today with PT and has actually been sitting up in a chair for several hours this afternoon and tolerating this well.
--- NOTE | 2016-09-20 22:28 | CCS NOTE ---
[facility] [address], [address] [address] MEDICAL ONCOLOGY OFFICE NOTE PATIENT: DHARA MOYA : 1945 MR#: [id number] DATE: 09/18/2016 JOB ID: [id number] DATE: 09/20/2016 HISTORY: The patient had improvement in his respiratory failure and was able to be extubated this morning. He is sitting in the chair. Shows a dramatic improvement compared to Sunday and is on oxygen at 4 L. He voice is hoarse due to the ET tube effect. His close friend is in the room who knows him for many years and we visited him with our vp digital marketing social media and crm, Kalen, from the [facility] to review his current status. So far, his cultures have not shown any bacterial growth from the blood culture. His white count has come down. He continues empiric antibiotics. On exam, he is afebrile. O2 sat 94%. He is in no apparent distress, but makes slightly confused impression and interrupts the discussion with statements trying to be funny or making things less serious. He does not remember exactly what happened that led to the respiratory failure. His legs show 2+ pitting edema. No significant rash. Oral cavity shows no lesion. LABORATORY STUDIES: Reviewed. His hemoglobin is 7.7, creatinine stable. ASSESSMENT AND PLAN: A 70-year-old gentleman with multiple medical problems admitted with respiratory failure requiring intubation. The details summarized in my notes of Sunday, September 18, 2016. He has made a significant turn around so that he could be extubated this morning and is communicative and interactive fairly close to his baseline when I saw him last week in the clinic. The exact etiology of this respiratory failure is not determined. The main focus of our discussion today was his disposition. I believe that the patient is absolutely not capable of managing himself at home. He lives alone and we have had this discussion as an outpatient multiple times given the several events he had with falls and missing appointments, mistakenly taking or not taking medication, and forgetting his oxygen. He had agreed in the recent outpatient visit to go to a nursing facility, but did not have a qualifying event for coverage yet. This hospitalization with the respiratory failure certainly qualifies him for the necessary placement into a nursing facility. I explained to him that going home is not an option for him and events like what happened on Sunday or the recent fall with serious head injury he had a few weeks ago are going to repeat themselves and he will have potentially a fatal . His friend was also present at conversation, and our vp digital marketing social media and crm has been in communication with his brother who is not able to manage all his needs as visiting person even though he has been very much engaged. The patient expressed understanding that this is now necessary for him to be in a safe environment and is no longer refusing to go to a [facility]. It is, however, important to him that he have his own room, as with last temporary placement, he had to share a room with somebody with common visitors and he says that he could never get enough rest or have privacy. I discussed this with his managing resident physician on the floor. I am out of office tomorrow, but will be available on Sunday. The discharge planning is proceeding for the next couple of days.
[2016-09-21 00:30] VITALS: BP 121/61; PULSE 70; RESP 16; RESP 22; O2SAT 96
[2016-09-21] MEDS: Heparin 5,000 Unit/mL Inj SUBQ SCH ×2 (01:02→07:49)
[2016-09-21 04:30] VITALS: BP 119/82; PULSE 70; RESP 22; O2SAT 98
[2016-09-21] MEDS: Insulin Human REGular 300 Unit/3 mL Inj SUBQ SCH ×3 (04:37→15:55)
[2016-09-21 04:40] LABS: BASOPHILS % (AUTO) 0.9 % (0-3); EOSINOPHILS % (AUTO) 1.3 % (0-5); MONOCYTES % (AUTO) 22.9 % (4-12); Mean Corpuscular Hemoglobin 24.9 pg (27.0-35.0); Mean Corpuscular Volume 83.5 fL (81-100); NEUTROPHILS % (AUTO) 61.2 % (40-74); Platelet Count 216 bil/L (150-400)
[2016-09-21] MEDS: Piperacillin-Tazo 3.375 Gm Inj 3.375 GM in Dextrose 5% Minibag Plus 50 ML IV SCH ×2 (06:44→14:30)
--- NOTE | 2016-09-21 07:18 | NUR ---
Respiratory / Mentation Pt required O2 at 7 L via oxymask to maintain SPO2 mid 90s. He denies SOB. VSS. Pt appears confuse and forgetful at times. Easy to reorient and redirect. No paranoia noted. Pt is enthusiastic to order breakfast this am.
[2016-09-21 07:29] VITALS: BP 122/68; PULSE 70; RESP 18; O2SAT 93
[2016-09-21] MEDS: Sodium Chloride LOK Flush 10 mL Syringe IVFLUSH SCH (07:49)
[2016-09-21] MEDS: Linezolid Inj 600 MG in IV Premix 1 EACH IV SCH (07:49)
[2016-09-21] MEDS: Levothyroxine 100 mCg/5 mL Inj IV SCH (07:50)
--- NOTE | 2016-09-21 08:27 | PATH ---
SURGICAL PATHOLOGY Attending Physician:Fdiel Kline MD CASE STATUS: Signed Out PATIENT NAME: DHARA MOYA PID: [id number] : 1945 DATE COLLECTED:09/18/2016 00:00 SPECIMEN: Pleural Fluid CLINICAL HISTORY: Pleural Fluid ICD-10 code not given FINAL DIAGNOSIS: PLEURAL FLUID, SIDE NOT SPECIFIED (THINPREP AND CELL BLOCK): PAUCICELLULAR SPECIMEN CONSISTING OF MESOTHELIAL CELLS AND LYMPHOCYTES (PLEASE SEE COMMENT). ICD10 code I31.9 NOTE: This is a paucicellular specimen with no evidence of a non-hemopoietic malignancy. Only sparse lymphocytes are present, and these lack cytologic atypia. Therefore, the cytologic findings are not worrisome for a significant lymphoproliferative disorder. However, a prior pleural fluid specimen from 03/21/16 was evaluated by flow cytometry and showed an abnormal B-cell population. While the morphologic findings do not suggest the presence of a B-cell lymphoproliferative disorder, flow cytometry should be considered, if clinically indicated, in order to exclude the presence of the abnormal B cells seen in the previous specimen. GROSS DESCRIPTION: Received fresh on 09/19/2016 is approximately 45 cc of cloudy pink fluid. Prepared are one cell block, one ThinPrep and one Cytospin slides. Vo ICD-9 CODES: CPT CODES: 1: 65525, 07453, 33704 Electronically Signed Out Ravindra Jasso MD, PhD [facility] [address], [place] [address] Technical component performed at [facility], [address] [place] [address] Ave[address], [place], [address]
[2016-09-21] MEDS ORDERED: Mupirocin 2% 22 Gm Ointment NASAL ONE (08:30)
[2016-09-21] MEDS: 0.9% Sodium Chloride 250 ML IV SCH (08:45)
--- NOTE | 2016-09-21 09:38 | PROG NOTE ---
[address] [address] PROGRESS NOTE PATIENT: DHARA MOYA : 1945 MR#: [id number] ADMIT: 09/18/2016 JOB ID: [id number] DATE: 09/21/2016 INFECTIOUS DISEASE FOLLOW UP NOTE: REASON FOR FOLLOWUP: Respiratory failure with right exudative pleural effusion and underlying lymphoma. INTERIM HISTORY: Yesterday the patient was successfully extubated. Today, the patient is awake, alert, interactive and making jokes. He says he has no significant residual shortness of breath though he is wearing some face mask oxygen, and that he has no chest pain or significant cough. No nausea, vomiting, diarrhea. He has a Zhang catheter in place and would like to get rid of it. The patient and I discussed his discharge plans. I was asked by other physicians to offer my opinion and also to try and help persuade the patient to accept a more safe living environment as he currently lives at home alone, and has had troubles with falls and missing medications and appointments. The patient and I discussed these issues frankly and he agreed that he should spend some time in rehab to make sure he is safe before he returns home. PHYSICAL EXAMINATION: Reveals an awake, alert, lucid and insightful gentleman in no acute distress. His temperature is 36.4, pulse 70, respiratory rate 22, blood pressure 119/82. He is saturating well on 7 L Oxy Mask. Eyes without conjunctivitis. Oral cavity basically negative. Lungs with decreased breath sounds, right greater than left base. Cardiac tones without change compared to yesterday. Abdomen soft, nontender. Zhang catheter is still present. Right triple-lumen IJ line also present. The stasis dermatitis on his bilateral lower extremities is little changed and does not appear in any way to be infectious. LABORATORIES: Include a white count of 18,000 in this lymphoma patient. Platelet count 216,000. Creatinine is 1.19. Micro studies include negative blood cultures, negative respiratory PCR, positive nasal MRSA screen. IMAGING: Includes a chest x-ray done on the shows air space opacities with small pleural effusions. IMPRESSION: This patient has done quite well and has now been successfully extubated. He continues to rapidly improve. As to whether or not he has any infection remains unclear to me. He did have a borderline exudative right pleural effusion which is likely related in some way to his lymphoma. He is colonized with MRSA but I am not certain that any of his respiratory decline had to do with infection. RECOMMENDATIONS: 1. Will continue Zosyn and Zyvox through tomorrow, SundaySeptember 22. 2. Will continue to closely follow this complex patient with you. 3. I have spoken to the patient in detail this morning and he agrees to proceed to a rehab facility, instead of his original plan to go home alone which would probably be quite inappropriate. 4. I would remove the Zhang as soon as possible. 5. Will follow up with this patient tomorrow.
--- NOTE | 2016-09-21 10:10 | NUR ---
Social Work: Continued Discharge Planning D: Pt discussed in multidisciplinary rounds, pt is medically stable for discharge to skilled rehab if one can be located. FINAL INSTALLER INSPECTOR met with pt and pt's brother at bedside to discuss discharge planning. SNF CHOICE LIST PROVIDED and discussed. Pt has [facility] and contracts reviewed with pt. Pt is agreeable to a referral made to [facility]. Pt states that his preference is to stay in [place] but would like a private room and would be willing to go to any facility that could accommodate this. PPW on chart. PASSR Complete A: Pt who will require skilled rehab for continued strengthening and gait training. P: Anticipate pt to discharge to skilled rehab pending facility acceptance and [facility] Auth. FINAL INSTALLER INSPECTOR to continue to update and follow. KECIA Smith Addendum: 09/21/16 at 1214 by NOVA WING [facility] Has accepted the pt with Dr. Deluna to follow. They have a private room. [facility] accepted the pt with a private room however they need to get the pt's final IV ABX dose authorized from [facility] before admission. They are working on this and anticipate they will have this done by day's end. They would like FINAL INSTALLER INSPECTOR to confirm that the pt has his oral chemo medications in his possession. FINAL INSTALLER INSPECTOR will follow up with the pt on this. FINAL INSTALLER INSPECTOR paged to write orders as there are two accepting facilities able to accept the pt today. Addendum: 09/21/16 at 1513 by NOVA WING SS FINAL INSTALLER INSPECTOR spoke with who states that the pt will not require another day of IV ABX after discussion with JULIA DAVIS. Per NASRIN [facility] has auth'd the pt's SNF stay. FINAL INSTALLER INSPECTOR spoke with Shivani at [facility]. They can accept the pt today and will pickup the pt at 4:30. FINAL INSTALLER INSPECTOR updated Pt of this along with pt's brother and bedside RN. Orders faxed and copies placed on chart.
--- NOTE | 2016-09-21 10:13 | NUR ---
Gave access and faxed facesheet to [facility] and [facility]. Left voicemail for Huma Bar at [facility] asking for review of patient and transfer to Care Home today. Updated MANPOWER DEVELOPMENT SPECIALIST MANAGER
--- NOTE | 2016-09-21 10:40 | NUR ---
Wound Care Patient seen at bedside for wound care of left plantar diabetic foot wound and right medial calf stasis ulcer. left plantar diabetic foot, 1.5 cm x 1.5 cm x 0.2 cm, base is fibrinous and drainage serous and scant and without odor. Right medial calf stasis ulcer, 1.8 cm x 1.8 cm x 0.1 cm, base is granular,drainage serous and scant and without odor. Both wounds cleaned with saline and gauze and redressed with mepilex foam dressing. Recommend dressing changes q 48 hrs. On discharge recommend patient be seen in wound clinic for continued care of his diabetic foot wound with Dr nguyen.
[2016-09-21 11:31] VITALS: BP 116/0; PULSE 70; RESP 18; O2SAT 95
--- NOTE | 2016-09-21 12:40 | NUR ---
P: Resp, Hemodynamics, Nutrition, Neuro, social, PT I,E: Pt requires O2 or he desats into the low 80's. Currently he is at 5l NC and sats mid 90's. VS are stable, he is afebrile, HR paced at 70, BP 110's to 120's. Pt is on dysphagia/mechanical with nectar thick liquids and he is taking moderate amounts of his diet well. Pt is slightly confused today. he recognizes staff, family friends etc. However, he gets mixed up in converstation and thinks that he was in a different room last night. Today he keeps asking for his pants that he believes he was wearing this morning, but he was only in a pt gown. He is directable though, and is co operative. Family and friends have been in to visit today. PT will come back this afternoon to work with him, but he did get up to the commode this am and has been sitting on the edge of the bed for several hours. Pt may transfer to SNF this afternoon, waiting to hear from case management.
--- NOTE | 2016-09-21 13:47 | NUR ---
NUTRITION FOLLOW-UP: Assess: 69 YO M admitted to CCU for respiratory failure requiring intubation. Pt with chronic pleural effusions. Pt was able to be extubated 09/20. ST placed him on a Dysphagia Mechanical diet with nectar thick liquids. No PO recorded yet but RN reported that he is tolerating moderate amounts. Pt has not had a BM since admit. PMHx: Follicular Lymphoma, DM, HTN, A-fib, Partial colectomy, CKD, complete heart block w/ pacemaker, depression, PNA, CHF, hypothyroid, hypogammaglobulinemia, sepsis, bacteremia, MRSA, L hand osteomyelitits. LABS: CO2 32, Glu 107, Ca 8.3 MEDICATIONS: Reviewed. DIET: DM, NT liquids GI: No BM noted. SKIN: R medial calf stasis ulcer, L plantar 1st metatarsal head ulcer. Wound care following. ANTHROPOMETRICS: Wt: 92.5 kg, BMI 30.1 kg/m2, admit wt 95kg ESTIMATED NEEDS: BMI/wound Calories: 0340-0639 kcal/day (22-25 kcal/kg BW) Protein: 85-105 g/day (1.2-1.5 g/kg IBW) NUTRITION DIAGNOSIS: 1) Inadequate oral intake related to decreased ability to consume sufficient energy as evidenced by vent/NPO status. -IMPROVING 2) Increased nutrient needs related to wound healing as evidenced by calf & plantar ulcers.-PERSISTS INTERVENTION: 1) Advance diet per ST. Continue to encourage PO intake 2) Will monitor for BM. MONITOR/EVALUATE: ST, PO, BM, POC, labs, GI/nutrition status. Follow per moderate nutrition risk guidelines.
--- NOTE | 2016-09-21 13:49 | NUR ---
Kerrie Bar CM at [facility] is approving patient for transfer to group home, patient has been accepted with [facility] to follow. Updated E TAILER Addendum: 09/21/16 at 1536 by ALSHAUN HANKINS CM Faxed orders to [facility] and place copy on chart
--- NOTE | 2016-09-21 15:03 | PCM.DIMED ---
AlegreYevgeniy DO 09/21/16 1503: Discharge Instructions Date of Service September 21, 2016 Dates of Hospitalization September 18, 2016 at 06:05 Discharge Diagnosis Discharge Diagnosis -Acute on chronic hypoxic respiratory failure secondary to progressive acute on chronic bilateral pleural effusions status post thoracentesis resulting in 1.1L pleural fluid removed on the R. -Acute primary respiratory alkalosis in patient with chronic metabolic alkalosis secondary to hypercapnia. The acute respiratory alkalosis secondary to mechanical ventilation, but resolved with gradual wean off the vent as patient's PaCO2 returned to his physiologic baseline. -Heart strain in the setting of acute on chronic anemia and resultant decreased oxygen carrying capacity s/p 1U PRBC transfusion. -Shock secondary to intubation with mechanical ventilation in the setting of Propofol administration. Propofol stopped, and pressors weaned to off in less than 48hr. -SIRS at presentation, but leukocytosis persistent without clear etiology. No clear indication of infection, but did receive 3 days of broad spectrum antibiotics. -Transient hyperkalemia, hypokalemia, phosphatemia which corrected with replacement x 1, and no recurrence. Medication Instructions Patient should not take the following medications (previously on his active medication list) until indication manifests: Insulin Glargine (Patient has not required any insulin over the last 24hr of his hospitalization, and minimal insulin over the last 48hr) Ibrutinib (Managed by Dr. Duque of Medical Oncology - I have contacted his office to inform that I will not be continuing this at discharge) * Please call Medical Oncology clinic (attn: Dr. Duque) regarding Ibrutinib. He is not in clinic today (09/21/16), but will return tomorrow (09/22/16). Patient should continue to take the following medications, unless otherwise directed by accepting physician at [facility]: Aspirin 81mg daily Docusate 100mg HS PRN for constipation Tylenol 500mg q4-6h PRN for pain Naproxen 220mg q12h PRN for pain Folic acid 1mg daily Levothyroxine 200mcg daily * Please note that this dose is a recent change, and patient would benefit from TSH recheck in 6-8 weeks. Insulin aspart * Patient does not report consistent dose for this. Over the last 24hr he has not required any insulin, and over the last 48hr he has only required 2U. I left this on his med list because of possible need once at the SNF. Consider low -dose correctional protocol, but I would defer to accepting physician for further adjustment. Test Results Laboratory Tests 72 Hours Test 09/18/16 16:23 09/19/16 01:15 09/19/16 05:45 09/19/16 06:25 Urine Osmolality 403mOs/kH2O (250-1200) Urine Random Sodium 115mEq/L Lactic Acid Level 1.8mmol/L (0.4-2.0) 1.7mmol/L (0.4-2.0) Troponin T 0.043ug/L (0.0-0.011) 0.055ug/L (0.0-0.011) White Blood Count 15.2th/mm3 (3.8-10.1) Red Blood Count 3.52mil/mm3 (4.40-5.80) Hemoglobin 8.1g/dL (13.8-17.2) Hematocrit 27.3% (41.0-50.0) Mean Corpuscular Volume 77.6fL (81-100) Mean Corpuscular Hemoglobin 23.0pg (27.0-35.0) Mean Corpuscular Hemoglobin Concent 29.7% (32.0-37.0) Red Cell Distribution Width 21.0% (12.3-15.4) Platelet Count 270bil/L (150-400) Neutrophils (%) (Auto) 59% (40-74) Lymphocytes (%) (Auto) 8% (14-46) Monocytes (%) (Auto) 28% (4-12) Eosinophils (%) (Auto) 0% (0-5) Basophils (%) (Auto) 0% (0-3) Band Neutrophils % 5% (1-5) Sodium Level 140mEq/L (134-144) Potassium Level 3.1mEq/L (3.5-5.2) Chloride Level 98mEq/L (97-108) Carbon Dioxide Level 29mmol/L (18-29) Blood Urea Nitrogen 23mg/dL (8-27) Creatinine 1.31mg/dL (0.76-1.27) Estimat Glomerular Filtration Rate 57mL/min (>59) Glucose Level 161mg/dL (60-99) Calcium Level 8.5mg/dL (8.5-10.1) Phosphorus Level 1.9mg/dL (2.5-4.9) Magnesium Level 1.9mg/dL (1.6-2.6) Total Bilirubin 1.1mg/dL (0.0-1.2) Aspartate Amino Transf (AST/SGOT) 15U/L (0-50) Alanine Aminotransferase (ALT/SGPT) 8U/L (0-44) Alkaline Phosphatase 104U/L (25-160) Total Protein 5.0g/dL (6.4-8.4) Albumin 2.5g/dL (3.4-5.0) Procalcitonin 0.17ng/mL (0.00-0.08) Test 09/19/16 18:16 09/20/16 03:10 09/20/16 14:30 09/21/16 04:30 Sodium Level 139mEq/L (134-144) 140mEq/L (134-144) 142mEq/L (134-144) Potassium Level 3.4mEq/L (3.5-5.2) 3.6mEq/L (3.5-5.2) 4.2mEq/L (3.5-5.2) 3.9mEq/L (3.5-5.2) Chloride Level 98mEq/L (97-108) 98mEq/L (97-108) 99mEq/L (97-108) Carbon Dioxide Level 30mmol/L (18-29) 31mmol/L (18-29) 32mmol/L (18-29) Blood Urea Nitrogen 21mg/dL (8-27) 18mg/dL (8-27) 15mg/dL (8-27) Creatinine 1.30mg/dL (0.76-1.27) 1.20mg/dL (0.76-1.27) 1.19mg/dL (0.76-1.27) Estimat Glomerular Filtration Rate 58mL/min (>59) 63mL/min (>59) 64mL/min (>59) Glucose Level 205mg/dL (60-99) 162mg/dL (60-99) 107mg/dL (60-99) Calcium Level 7.9mg/dL (8.5-10.1) 7.8mg/dL (8.5-10.1) 8.3mg/dL (8.5-10.1) Phosphorus Level 4.5mg/dL (2.5-4.9) 3.7mg/dL (2.5-4.9) Magnesium Level 1.9mg/dL (1.6-2.6) 1.9mg/dL (1.6-2.6) White Blood Count 15.6th/mm3 (3.8-10.1) 18.0th/mm3 (3.8-10.1) Red Blood Count 3.32mil/mm3 (4.40-5.80) 3.93mil/mm3 (4.40-5.80) Hemoglobin 7.7g/dL (13.8-17.2) 9.8g/dL (13.8-17.2) 9.8g/dL (13.8-17.2) Hematocrit 26.3% (41.0-50.0) 33.0% (41.0-50.0) 32.8% (41.0-50.0) Mean Corpuscular Volume 79.2fL (81-100) 83.5fL (81-100) Mean Corpuscular Hemoglobin 23.2pg (27.0-35.0) 24.9pg (27.0-35.0) Mean Corpuscular Hemoglobin Concent 29.3% (32.0-37.0) 29.9% (32.0-37.0) Red Cell Distribution Width 21.1% (12.3-15.4) 21.5% (12.3-15.4) Platelet Count 230bil/L (150-400) 216bil/L (150-400) Neutrophils (%) (Auto) 61.0% (40-74) 61.2% (40-74) Lymphocytes (%) (Auto) 10.4% (14-46) 11.6% (14-46) Monocytes (%) (Auto) 25.9% (4-12) 22.9% (4-12) Eosinophils (%) (Auto) 0.9% (0-5) 1.3% (0-5) Basophils (%) (Auto) 0.3% (0-3) 0.9% (0-3) MRSA positive (nares screen) Diet Heart Healthy, Diabetic Activity Other (Per [facility] PT/OT) Call your provider Fever or Chills, Shortness of breath, Bleeding, Chest pain, Vomitting, Excessive diarrhea, Weakness (unilateral), Other (If you experience any new or concerning symptoms, please call your doctor, or return to hospital.) Patient Instructions You will be discharged to [facility] (a jail facility) for ongoing care including, but not limited to, nursing care, physical therapy, occupational therapy. You will be under the care of Dr. Hernandez. Please note, patient has chronic, recurring, bilateral pleural effusions for which he has required regular thoracentesis for relief. He was admitted to the hospital this time, in large part, due to missing a scheduled thoracentesis. The patient was getting thoracentesis about every 2-3 weeks. He will need regular evaluations to assess his pleural effusions for thoracentesis. If any increasing SOB, consider evaluation for worsening pleural effusions. Dr. Duque is aware of the patient's effusion history. Please note, the patient is on chronic oxygen supplementation (reports 3L continuous). Follow-up plan Patient will follow up with Dr. Hernandez. I will call [facility], and leave a sign off for Dr. Hernandez. I will also forward my discharge summary to Dr. Hernandez. Freddy Mercado MD 09/22/16 0810: Discharge Instructions Attending's Statement The patient was seen and examined together with Dr. Morel on 09/21/2016 and I agree with the history, exam and plan as outlined in the note above. . Yevgeniy Alegre DO September 21, 2016 15:03 Freddy Mercado MD September 22, 2016 08:10
--- NOTE | 2016-09-21 15:58 | NUR ---
Palliative care note D/A: Case discussed today in PC rounds. Discussed with Jessica from [facility], Dr. Soares and Esther Fitzpatrick RT. Discussed current need for O2 and method of delivery vs what might be available at home with Hospice. Phone call to alejandro Baird to relay. P: Palliative care to follow. Janey GIMENEZ [facility] Addendum: 09/21/16 at 1604 by KULDIP GALARZA PC Note amendment Please note that above attached note is on the incorrect pt. See below for correct note. D/A: Case discussed in rounds and msg left for Kalen MCDONNELL, oncology center. Pt agreeing to SNF as well as family. PERCUSSION INSTRUMENT REPAIRER to work on SNF placement. P: Palliative care to follow. Janey GIMENEZ, [facility]
--- NOTE | 2016-09-21 16:59 | NUR ---
Pt discharged at 1650hrs to [facility] Report was called to [facility] at approx 1630hrs. Pt left at 1650hrs he was on 4l O2 via NC.
--- NOTE | 2016-09-22 07:04 | PCM.DC.MED ---
Discharge Summary Date of Service September 22, 2016 Dates of Hospitalization Date of Hospital Admission September 18, 2016 at 06:05 Date of Discharge: September 21, 2016 Providers: Admitting Physician: Virginia Alexander DO Primary Care Physician: Julian Fabian MD Attending Physician: Virginia Alexander DO Diagnosis at Time of Discharge Diagnosis at Time of Discharge Acute on chronic bilateral pleural effusion. Elevated troponin, acute. Gradual physical and cognitive decline reported, chronic. Hyperglycemia in patient with diabetes mellitus type II, not on medication. Leukocytosis with bandemia, acute. Resolved acute issues: Acute hypoxic and hypercapnic respiratory failure. Acute primary respiratory alkalosis in patient with chronic metabolic alkalosis secondary to hypercapnia. Shock. SIRS. Seizure-like activity. Hypophosphatemia, acute. Hypokalemia with Hyperkalemia at time of admission, acute. Chronic conditions: Recurrent follicular lymphoma Chronic hypoxic hypercapnic respiratory failure on home O2 Hypogammaglobulinemia Complete heart block, status post pacer placement Diastolic congestive heart failure * Chronic lower extremity edema Chronic kidney disease stage III (likely diabetic nephropathy) Chronic atrial fibrillation, not currently on anticoagulation-CHADsVASC score is 3 (age, CHF, diabetes). Hypothyroidism Anemia of chronic disease with component of iron deficiency (12/2015 iron 22, TIBC 336, percent saturation 7, ferritin 38) Consultations Pulmonology/ICU ID Procedures XRay, CTs & MRIs Date of Service: 09/18/16 0448 PROCEDURE: X-RAY CHEST ONE VIEW, PORTABLE ([id number]) INDICATIONS: resp failure IMPRESSION: Bilateral pleural effusions, grossly unchanged to mildly increased, with adjacent atelectasis. No new consolidation. Stable support equipment Dictated by: Juan Del Rio M.D. on 09/18/2016 at 8:05 Follow-up chest x-ray showed stable placement of right IJ central line without evidence of pneumothorax. CXR 09/19 shows persisting small bilateral pleural effusions. Date of Service: 09/18/16 1057 PROCEDURE: CT BRAIN WITHOUT CONTRAST ([id number]) INDICATIONS: AMS, poss. seizure IMPRESSION: 1. No acute intracranial process. 2. Sinus disease. Dictated by: Geovanny Salazar M.D. on 09/18/2016 at 17:06 Date of Service: 09/18/16 1100 PROCEDURE: US GUIDED THORACENTESIS BY REFERRING PHYSICIAN ([id number]) INDICATIONS: ac hypox resp fail, pl. effusions FINDINGS: Access site: Left hemithorax. Needle: One-Step centesis catheter with introducer needle. Fluid volume and description: 1.12 L of clear pleural fluid. Fluid sent for diagnostic testing: Fluid sent for cytology, multiple chemistry panels and therapeutic drainage. Medications: 1% lidocaine for local anaesthesia. Complications: None; post-procedural chest radiograph is pending to assess for pneumothorax. IMPRESSION: Successful ultrasound-guided thoracentesis. Dictated by: Dante SY Interpreted: Garfield Briggs MD on 09/18/2016 at 14:49 Date of Service: 09/19/16 0600 PROCEDURE: X-RAY CHEST ONE VIEW, PORTABLE ([id number]) INDICATIONS: Monitor effusions/infiltrates IMPRESSION: 1. Stable support lines and tubes. 2. Mid/basilar patchy airspace opacities redemonstrated consistent with pneumonia and/or atelectasis. 3. Small pleural effusions redemonstrated. Dictated by: Dante SY Interpreted: Lisbeth Alva MD on 09/19/2016 at 9:24 ECG 12 Lead 5/15: Paced rhythm with rate of 70. Prolonged intervals in the setting of pacing. No appreciable ST or T-wave changes to suggest acute ischemia. Cardiac Echo Impression Date of Service: 09/19/16 1901 Interpretation Summary The left ventricle is normal in size. Left ventricular systolic function is normal without focal wall motion abnormalities. The ejection fraction is estimated to be 60-65%. LVEF is unchanged since prior study on 03/26/2016. There are no findings that would suggest acute CHF on today's study. Clinical correlation is recommended. The right ventricle is normal size. TAPSE is reduced suggestive of decreased RV systolic function but visually the RV function appears to be grossly normal. Right ventricular systolic pressure is estimated to be 27 mmHg plus the clinically estimated CVP which cannot be estimated on this exam. The left atrium is mildly dilated. Right atrial size is normal. There is no significant valvular heart disease. The aortic root is normal size. There is a trivial to small pericardial effusion noted. There are no echocardiographic indications of cardiac tamponade. There is a moderate left-sided pleural effusion. There is a large right-sided pleural effusion. Read by Dr. Bowman of cardiology Invasive Procedures Thoracentesis as noted above. Brief History The following is taken from my (Dr. Martin) H&P dated 09/18/2016: PCP is Dr. Julian Fabian Net Architect is Dr. Елена Harper Oncologist is Dr. Duque 70-year-old gentleman with complicated medical history including recurrent follicular lymphoma on Ibrutinib, chronic bilateral pleural effusions requiring regular thoracentesis, hypogammaglobulinemia with history of multiple episodes of sepsis and bacteremia involving MRSA. He presented via EMS (EMS was called earlier in the day, but despite recommendation, patient refused to come to the ER) to ER with shortness of breath that did not respond to conservative oxygen delivery methods. The following history is obtained after speaking with family, and reviewing outpatient and inpatient record (including oncology, cardiology record): Patient is reportedly been having regular thoracenteses performed on alternating sides for his chronic bilateral pleural effusions. Records and family reported that he missed his thoracentesis approximately 2 weeks ago ( this was rescheduled to take place on Sunday of this week (09/20). Family noted that patient was very short of breath in the preceding several days, and became acutely worse today prompting a call to EMS. EMS arrived and recommended the patient proceed to the ER, but he declined. His shortness of breath continued to worsen, and EMS was called a second time, and patient was brought to the ER for evaluation and treatment. Please note the patient was started on Ibrutinib in May 2016 for recurrence of his follicular lymphoma. He receives regular IVIG administration's ( oncology note mentions last dose 09/11/16). Oncology note also makes mention over the last several visits of the patient's gradual decline over the last year or so in both a physical and cognitive manner. They were having discussions with patient and family with regards to SNF placement. Family reports the patient was amenable to this. They were also visiting with a hot mill supervisor (they were supposed to meet with the hot mill supervisor this morning at 11 AM) with regards to [employer] paperwork. As far as can be gathered from family: Patient has not had any recent travel, no recent sick contacts, no fevers/chills, no nausea or vomiting, no diarrhea, no rash. Patient does follow regularly with wound care with regards to his bilateral lower extremities (chronic lower extremity edema, and lower extremity chronic wounds), but note that there has not been any appearance of spreading redness or cellulitis at this time. There is some concern that medication compliance is been an issue (given his declining cognition), but unclear of doses of actually been missed. Of note, the only medication change of late was an increase in his levothyroxine from 2 tablets of 88 g to 1 tablet of 200 g daily. As noted above, in the ER patient continued to be short of breath not amenable to nonrebreather, and given his distress and report of obtundation, he was subsequently intubated. Initially placed on propofol and fentanyl, but due to dropping blood pressures, propofol was discontinued, and norepinephrine was initiated. Central line was also placed (right IJ). Patient was then admitted up to the ICU in stable condition. Patient is admitted under inpatient status with expected length of stay greater than 2 midnights due to severity of presenting symptoms, risk of adverse event, and complexity of treatment plan. Hospital Course 70-year-old gentleman with complicated medical history including recurrent follicular lymphoma on Ibrutinib, chronic bilateral pleural effusions requiring regular thoracentesis, hypogammaglobulinemia with history of multiple episodes of sepsis and bacteremia involving MRSA. He presented via EMS (EMS was called earlier in the day, but despite recommendation, patient refused to come to the ER) to ER with shortness of breath that did not respond to conservative oxygen delivery methods. Intubated 09/18. Extubated 09/20. Hospital day 3. Acute issues: Acute on chronic bilateral pleural effusion. Present on admission -Secondary to follicular lymphoma -Chest x-ray at admission showed bilateral effusions (most recent historical chest x-ray 07/2016 demonstrates effusion on the right, but fairly clear on the left) -Ultrasound-guided thoracentesis 09/18 with full fluid analysis * 1.1 L transudate pleural fluid removed with fair resolution of acute respiratory impairment. -Consideration for indwelling pleural drainage catheter * Intent would be palliative, as this would likely increase his infectious risk -Acute pleural effusion on the right resolved status post thoracentesis, but patient continues to have persistently recurrent bilateral pleural effusions for which ongoing monitoring and thoracentesis will likely be required Elevated troponin, acute. Present on admission -Troponin approximately 2 x historical values -Likely represents cardiac stress in the setting of anemia (chronically anemic given his lymphoma history on chemotherapy) and hypoxic respiratory failure -No indication of wall motion abnormality/other sign of ischemia on echo as noted above -We transfused 1 unit of PRBC, and recheck H&H demonstrated stable hemoglobin at 9.8. Gradual physical and cognitive decline reported, chronic. -CODE STATUS discussion with family on day of admission, and confirmed patient wishes in line with DNR/DNI -Patient's brother, Emigdio, is family's agreed upon DPOA. They are in the process of discussing legal paperwork with a hot mill supervisor. -Discussed the case with palliative care, and they followed along as well. * We appreciated their expertise -Multiple discussions in outpatient setting regarding placement in SNF, and patiently agreed to discharge to [facility]. -See PT recommendations below Hyperglycemia in patient with diabetes mellitus type II, not on medication. Present on admission -A1c 7.6 -Regular insulin correction switched to lispro once diet initiated following extubation -Has required minimal to no insulin over the last 24-48 hours, and will therefore not send him on basal dose glargine, but we will send him with correction scale. -Consideration for metformin Leukocytosis with bandemia, acute. Present on admission. Improving -Primary suspicion was pulmonary infection for which ID had been following along with us. -Per ID recommendation: Low likelihood of ongoing infection, and antibiotics can be discontinued as of day of discharge -Given his negative procalcitonin, and other significantly negative infectious workup, we will discontinue antibiotics on day of discharge (3 days broad coverage antibiotics) -Consideration for repeat CBC in 1 week's time Acute hypoxic and hypercapnic respiratory failure. Present on admission -Secondary to pleural effusion (patient missed his scheduled thoracentesis), and much less likely pulmonary infection. -Strong indication of chronic hypercapnic respiratory failure based on ABG findings (patient has been alkalemic on ABGs with a peak pH of 7.65 early a.m. in the setting of PaCO2 in the mid 30s). * Suspect that patient has a PaCO2 in the high 40s to low 50s at baseline. * Therefore, we weaned off of the ventilator gradually until patient's PaCO2 was in the low 50s with a normal pH on ABG. -1 time dose of IV Lasix 80 mg administered in the ER along with one-time dose of IV dexamethasone 10 mg -Ultrasound-guided thoracentesis 09/18 with full fluid analysis (as noted above) * 1.1 L transudate pleural fluid removed -Empiric Linezolid, Zosyn until day of discharge * Infectious disease consulted, and we appreciated their expertise -Ventilator support until extubation on 09/20 * ICU/pulmonology consulted, and we appreciate their expertise -Consideration for chest CT in outpatient setting -Patient will require regular evaluation of his bilateral pleural effusions with likely therapeutic intervention involving regular thoracentesis ( previously was on a biweekly to every 3 week basis) Acute primary respiratory alkalosis in patient with chronic metabolic alkalosis secondary to hypercapnia. -Patient has chronic underlying respiratory impairment as noted in detail above. Review of the last several months medical record reveals serum bicarbonate routinely in the mid 30s to 40s. Suspicion that patient has some baseline degree of CO2 retention with resultant chronic metabolic alkalosis. -As a result of mechanical ventilation (with a set respiratory rate and tidal volume) there is strong clinical evidence that we were artificially maintaining the patient in a state of respiratory alkalosis when his physiologic baseline is more consistent with PaCO2 in the mid 40s to low 50s (as opposed to the mid 30s). -Discussed in detail with ICU/pulmonary team. -As respiratory rate and tidal volume more reduced in a gradual manner over the course of patient's hospitalization, patient's status and ABGs improved significantly with pH approaching 7.4, and a PaCO2 in the low 50s. -Given this improvement, and other clinical indicators of improvement, patient was extubated successfully on 09/20 Shock. Present on admission -Suspect secondary to intubation with increased intrathoracic pressure, and administration of propofol -Cardiogenic less likely given echo findings (see above) -Norepinephrine was weaned and discontinued on 09/19. -Propofol stopped 09/18 due to hypotension -Possible sepsis component (met SIRS criteria presentation, and concern regarding pulmonary/other infection) much less likely at this point given both laboratory and clinical findings. SIRS. Present on admission -Leukocytosis with left shift, tachycardia, tachypnea. With elevated lactic acid (normalized 09/18). -Empiric antibiotics as noted -Patient is immunocompromised (gets regular administration of IVIG) -Infectious workup has been unremarkable as noted above Seizure-like activity. Not present on admission -On day of admission shortly after intubation the patient was noted to have bilateral gaze deviation to the upper right quadrant with associated full-body tremor (but no noted tonic clonic activity). -Per patient's brother, has seen this a couple times over the last month. -Please note, the following day (following thoracentesis and ventilator adjustments as noted above) patient was awake and alert and responding appropriately, and there had been no further seizure-like activity. -Patient was seen in the ER at the end of July of this year for a ground-level fall with head trauma * Negative head CT at that time -Repeat noncontrast brain CT 09/18 also negative as noted above -Prolactin mildly elevated at 17.4 (upper end of normal is 15.2 per our lab parameters) -Consideration for EEG deferred given patient's clinical status at this time -Would likely benefit (if desired by patient and family) to follow-up with neurology in outpatient. Hypophosphatemia, acute. Not present on admission, but has resolved -Likely related to decreased oral intake in the setting of gradual decline as noted above with subsequent malnutrition -Replacement with potassium phosphate 09/18 Hypokalemia with Hyperkalemia at time of admission, acute. Not present on admission, but have resolved -Outpatient report of Bactrim administration within the last month for conjunctivitis-question potential contribution (perhaps less likely in setting of improved creatinine) -Replaced with potassium phosphate 09/18 Chronic conditions: Recurrent follicular lymphoma (in treatment with periods of remission since 2008 ) * Oncologist is -has seen the patient and is following. We appreciate his expertise. * Current treatment is Ibrutinib (started 05/2016)-will hold until further clarified by oncology. Hypogammaglobulinemia on IVIG-last reported dose was administered 09/11. Complete heart block, status post pacer placement Diastolic congestive heart failure-according to the list provided by family, patient is not on optimized heart failure medications, but will refrain from medication changes until prognosis/goals of care clarified. * Chronic lower extremity edema-wound care consulted Chronic kidney disease stage III (likely diabetic nephropathy)-review of the last several months reveals suspected baseline of 1.2-1.4. Chronic atrial fibrillation, not currently on anticoagulation-CHADsVASC score is 3 (age, CHF, diabetes). Only received prophylactic heparin dosed subcutaneously during hospitalization. Given fall risk in the setting of anemia and his chronic disease, elected to continue with just his baby aspirin as patient is rate controlled with pacer. Hypothyroidism Anemia of chronic disease with component of iron-transfusion of blood as noted above, and consider iron replacement (12/2015 iron 22, TIBC 336, percent saturation 7, ferritin 38). PRN MEDICATIONS - Acetaminophen as needed for mild pain/fever/headache - Bowel regimen as needed - Antiemetic as needed On the day of discharge, patient was eating and drinking without difficulty, requiring about 4 L oxygen supplementation by nasal cannula to maintain saturations 88-92% (this is slightly higher than his reported home use 3 L), voiding and stooling without problem, effectively working with physical therapy on ambulation/gait stability/strengthening and is appropriate for discharge to SNF with further physical therapy and occupational therapy. Patient was pain- free. I called [facility] and spoke with the admission nurse yesterday (09/21/2016) and provided a brief signout along with my cell phone number for Dr. Hernandez. I also called oncology clinic, and left a detailed message with Dr. Duque's nurse (as he was not in clinic yesterday) regarding patient's discharge to [facility], and to inform that I had not continued to hold on Ibrutinib. I requested that the oncology clinic contact [facility] with regards to further recommendations of this medication. I also discussed this with [facility] admission nurse, and agreed upon their intent to contact oncology clinic today (09/22/2016). This discharge summary will be forwarded to Dr. Hernandez, the accepting physician at [facility]. Exam Vital Signs (Last) Date Time Temp Pulse Resp B/P Pulse Ox O2 Delivery O2 Flow Rate FiO2 09/21/16 11:31 36.7 70 18 116/0 95 Nasal Cannula 6.00 09/21/16 00:30 Exam Physical exam on day of discharge: General: Sitting up in his chair with 4 L of oxygen visiting with his brother. Speaking in full sentences, and not in any distress. Head: Normocephalic, atraumatic. External ears normal. Eyes: PERRL (approximately 4 mm vi to 3 mm bilaterally), EOMi and tracking appropriately (no indication of gaze deviation). Anicteric sclerae. Conjunctivae are not injected Mouth: Mouth Normal, Mucous Membranes Moist/[place]. Neck: Neck supple. No Thyromegaly. Do not appreciate any lymphadenopathy. Do not appreciate JVD. Right IJ central line in place is c/d/i (this will be removed prior to discharge). Chest & Lungs: Clear to auscultation bilaterally with no crackles, wheezes, or rhonchi. Decreased breath sounds in the bases/posteriorly. Normal respiratory effort on 4 L of oxygen Cardiovascular: Regular Rate/Rhythm (paced on the monitor), Normal S1, Normal S2, No Murmurs/Rubs/Gallops. Radial pulses are 2+ bilaterally. Posterior tibial pulses 1+ bilaterally d/t edema. Abdomen: Non-tender, Non-distended, large reducible ventral hernia, normoactive bowel tones, Soft. Multiple surgical scars (colectomy, pacemaker). Pacemaker generator palpable in the right upper quadrant subcutaneously. No overlying erythema. Musculoskeletal: Moving all 4 extremities without difficulty. No large joint swelling or erythema. Extremities: No cyanosis/clubbing bilat. Mod pitting edema in the lower extremities to the level of the knees bilaterally. Neurological: Grossly intact without focal deficit. Cranial nerves II through XII intact. Normal speech. Psych: Normal mood and affect. Thought content intact Test 09/18/16 04:40 09/18/16 04:45 09/18/16 05:10 09/18/16 07:55 Metamyelocytes % 3% (0-0) Myelocytes % 1% (0-0) Hematology Comments Hold Purple Top Tube Received (Received) Prothrombin Time 11.5sec (8.1-12.5) Prothromb Time International Ratio 1.07ratio Activated Partial Thromboplast Time 27.5sec (22.8-33.0) Hold Blue Top Tube Received (Received) Hemoglobin A1c 7.6% (4.8-5.6) Pro-B-Type Natriuretic Peptide 4094pg/mL (0-376) Hold [place] Top Tube Received (Received) Urine Color Dark yellow (YELLOW) Urine Appearance Clear (CLEAR,HAZY) Urine pH 5.5 (5.0-8.0) Urine Specific [place] 1.030 (1.003-1.035) Urine Protein 100mg/dL (NEG,TRACE) Urine Glucose (UA) 250mg/dL (NEGATIVE) Urine Ketones Negativemg/dL (NEGATIVE) Urine Occult Blood Negative (NEGATIVE) Urine Nitrite Negative (NEGATIVE) Urine Bilirubin Negative (NEGATIVE) Urine Urobilinogen Normalmg/dL (NORMAL) Urine Leukocyte Esterase Negative (NEGATIVE) Urine RBC 3-10/hpf (0-2) Urine WBC 0-5/hpf (0-5) Urine Epithelial Cells Occasional/hpf (NONE-MOD) Urine Crystals Amorphous urates (NONE Urine Bacteria Few/hpf (NONE-FEW) Urine Hyaline Casts Occasional/lpf (NONE) Urine Granular Casts >20 (NONE SEEN) Urine Waxy Casts None seen (NONE SEEN) Urine Red Blood Cell Casts None seen (NONE SEEN) Urine White Blood Cell Casts None seen (NONE SEEN) Urine Mucus Present (None Seen) Urine Trichomonas None seen (NONE SEEN) Urine Yeast None (NONE SEEN) Urinalysis Comment None Urine Culture Reflexed Not indicated Urine Legionella pneumophilia Ag Negative (Negative) Hold Urine Received (Received) Test 09/18/16 09:10 09/18/16 10:44 09/18/16 14:01 09/18/16 14:47 Lactate Dehydrogenase 209U/L (100-190) Prolactin 17.4ng/mL (4.0-15.2) Osmolality 312 (275-300) Body Fluid Source Pleural fluid Body Fluid Color Yellow (Clear) Body Fluid Appearance Hazy Body Fluid pH 7.9 (Not Estab.) Body Fluid WBC 113/mm3 Body Fluid RBC 6500/mm3 Body Fluid Polynuclear WBCs 2% Body Fluid Lymphocytes 22% Body Fluid Monocytes 66% Body Fluid Eosinophils 0% Body Fluid Basophils 0% Body Fluid Lactate Dehydrogenase 99U/L Pleural Fluid Total Protein 2.7g/dL Pleural Fluid Glucose 258mg/dL Test 09/18/16 16:23 09/19/16 05:45 09/19/16 06:25 09/20/16 03:10 Urine Osmolality 403mOs/kH2O (250-1200) Urine Random Sodium 115mEq/L Band Neutrophils % 5% (1-5) Total Bilirubin 1.1mg/dL (0.0-1.2) Aspartate Amino Transf (AST/SGOT) 15U/L (0-50) Alanine Aminotransferase (ALT/SGPT) 8U/L (0-44) Alkaline Phosphatase 104U/L (25-160) Troponin T 0.055ug/L (0.0-0.011) Total Protein 5.0g/dL (6.4-8.4) Albumin 2.5g/dL (3.4-5.0) Procalcitonin 0.17ng/mL (0.00-0.08) Lactic Acid Level 1.7mmol/L (0.4-2.0) Phosphorus Level 3.7mg/dL (2.5-4.9) Magnesium Level 1.9mg/dL (1.6-2.6) Test 09/21/16 04:30 White Blood Count 18.0th/mm3 (3.8-10.1) Red Blood Count 3.93mil/mm3 (4.40-5.80) Hemoglobin 9.8g/dL (13.8-17.2) Hematocrit 32.8% (41.0-50.0) Mean Corpuscular Volume 83.5fL (81-100) Mean Corpuscular Hemoglobin 24.9pg (27.0-35.0) Mean Corpuscular Hemoglobin Concent 29.9% (32.0-37.0) Red Cell Distribution Width 21.5% (12.3-15.4) Platelet Count 216bil/L (150-400) Neutrophils (%) (Auto) 61.2% (40-74) Lymphocytes (%) (Auto) 11.6% (14-46) Monocytes (%) (Auto) 22.9% (4-12) Eosinophils (%) (Auto) 1.3% (0-5) Basophils (%) (Auto) 0.9% (0-3) Sodium Level 142mEq/L (134-144) Potassium Level 3.9mEq/L (3.5-5.2) Chloride Level 99mEq/L (97-108) Carbon Dioxide Level 32mmol/L (18-29) Blood Urea Nitrogen 15mg/dL (8-27) Creatinine 1.19mg/dL (0.76-1.27) Estimat Glomerular Filtration Rate 64mL/min (>59) Glucose Level 107mg/dL (60-99) Calcium Level 8.3mg/dL (8.5-10.1) Microbiology Results MRSA nasal screen positive Respiratory nasal PCR negative 09/18 blood cultures negative to date 09/18 sputum cultures (Gram stain shows rare polys and rare mixed normal radha) negative to date 09/18 pleural fluid cultures (incl fungal) negative to date-though negative to date, these are still pending (especially the fungal cultures), and recommend accepting physician follow-up on these. Please note patient has history of extensive MRSA infections. Discharge Medications Discharge Medications Aspirin (Aspirin) 81 Mg Tablet 81 MG PO DAILY (Reported) Folic Acid (Folic Acid) 1 Mg Tablet 1 MG PO DAILY Prescribed by: EDWIN BURGOS MD Insulin Aspart (NovoLOG U-100 Pen) 100 Unit/Ml Insuln.pen UNITS SQ ACHS ( Reported) per sliding scale Levothyroxine (Levothyroxine) 200 Mcg Tablet 200 MCG PO DAILY (Reported) As needed Acetaminophen (Acetaminophen) 500 Mg Tablet 500 MG PO Q6H PRN PRN For Pain ( Reported) Docusate Sodium (Colace) 100 Mg Capsule 100 MG PO HS PRN PRN For Constipation ( Reported) Naproxen Sodium (Naproxen Sodium) 220 Mg Capsule 220 MG PO BID PRN PRN For Pain (Reported) Additional med instructions Patient should not take the following medications (previously on his active medication list) until indication manifests: Insulin Glargine (Patient has not required any insulin over the last 24hr of his hospitalization, and minimal insulin over the last 48hr) Ibrutinib (Managed by Dr. Duque of Medical Oncology - I have contacted his office to inform that I will not be continuing this at discharge) * Please call Medical Oncology clinic (attn: Dr. Duque) regarding Ibrutinib. Patient should continue to take the following medications, unless otherwise directed by accepting physician at [facility]: Aspirin 81mg daily Docusate 100mg HS PRN for constipation Tylenol 500mg q4-6h PRN for pain Naproxen 220mg q12h PRN for pain Folic acid 1mg daily Levothyroxine 200mcg daily * Please note that this dose is a recent change, and patient would benefit from TSH recheck in 6-8 weeks. Insulin aspart * Patient does not report consistent dose for this. Over the last 24hr he has not required any insulin, and over the last 48hr he has only required 2U. I left this on his med list because of possible need once at the [facility]. Consider low -dose correctional protocol, but I would defer to accepting physician for further adjustment. Followup Plan Disposition: Estella Cisse ([facility]) Follow-up plan Patient will follow up with Dr. Hernandez. I will call Estella Cisse, and leave a sign off for Dr. Hernandez. I will also forward my discharge summary to Dr. Ramsbottom. Discharge Diet: Heart Healthy, Diabetic Discharge Activity: Other (See patient instructions) Patient Instructions Please note, patient has chronic, recurring, bilateral pleural effusions for which he has required regular thoracentesis for relief. He was admitted to the hospital this time, in large part, due to missing a scheduled thoracentesis. The patient was getting thoracentesis about every 2-3 weeks. He will need regular evaluations to assess his pleural effusions for thoracentesis. If any increasing SOB, consider evaluation for worsening pleural effusions. Dr. Duque is aware of the patient's effusion history. Please note, the patient is on chronic oxygen supplementation (reports 3L continuous). On day of discharge she was requiring more like 4-5 L by nasal cannula. Physical therapy recommendations: Reports patient primarily utilizes a WC for community ambulation but he reports able to ambulate short distance. CLOF: Patient found resting in bed with significant delirium. Guarded examination secondary to impulsive nature of pateint. Patient agreeable to limited attempts to mobilize with encouragement by PT. Supine to sit with min A. Sit to stand with mod A and poor initial standing balance secondary to retropulsion requiring mod A. Balance improved following VC on posturing over walker. Patient limited in gait attempts secondary to required to stay on walk telemetry but perform stand and pivot transfer to bedside chair with mod A and guarded walker technique secondary to impulsive nature. Vitals remained stable during attempts at transfer but O2 sats reports drop to 89 (but demonstrated poor pleth). Patient left sitting up chair with call button access and RN attending to patient. PT recommending D/C to SNF with PT/OT services at this time. Defer further physical therapy recommendations to therapists at SNF. Speech therapy recommendations: Pt was extubated today after 2 days on mechanical ventilation. Pt demonstrated difficulty with sustained attention which impacted his ability to follow directions and stay on task for evaluation. With redirection, pt completed part of OME. Cough and voice were WFL. Swallow was delayed and laryngeal excursion was complete. Pt coughed on 2/5 trials of thin liquids with wet vocal quality. [place] thick trials were WFL. Solid food trials were characterized by poor mastication and slow AP transit. Recommend dysphagia mechanical textures, nectar thick liquids, and meds in applesauce. Defer further speech therapy recommendations to therapists at SNF. Wound care recommendations: Patient seen at bedside for wound care of left plantar diabetic foot wound and right medial calf stasis ulcer. left plantar diabetic foot, 1.5 cm x 1.5 cm x 0.2 cm, base is fibrinous and drainage serous and scant and without odor. Right medial calf stasis ulcer, 1.8 cm x 1.8 cm x 0.1 cm, base is granular,drainage serous and scant and without odor. Both wounds cleaned with saline and gauze and redressed with mepilex foam dressing. Recommend dressing changes q 48 hrs. On discharge recommend patient be seen in wound clinic for continued care of his diabetic foot wound with Dr nguyen. Defer further wound care recommendations to Dr. Nguyen at the wound center, and accepting physician at [facility]. Provider: Annie Nguyen DPM Follow-up in: 1 week (for ongoing lower extremity wound care) Time spent Greater than 30 minutes was spent in preparation of discharge with greater than 50% of that time dedicated to patient counseling and coordination of care. . Attending Statement The patient was seen and examined together with Dr. Morel on 09/21/2016 and I agree with the history, exam and plan as outlined in the note above. . copies to: Aj Fernandez MD; Annie Nguyen DPM; Michelle Hernandez MD ; Елена Harper MD; Julian Fabian MD, Collin T DO September 22, 2016 07:04 Freddy Mercado MD September 22, 2016 08:15
[2016-09-29] MEDS ORDERED: IBRU140C PO (09:08)
[2016-10-06] MEDS ORDERED: METF500T4 PO (11:03)
[2016-10-06] MEDS ORDERED: TORS20TA3 PO (11:27)
[2016-10-06] MEDS ORDERED: SPIR25TA3 PO (11:27)
[2016-10-06] MEDS ORDERED: POTA20TA16 PO (11:30)
[2016-10-13] MEDS ORDERED: INSLIS SUBQ (15:08)
[2016-10-13] MEDS ORDERED: ACET-2766 PO (15:08)
[2016-10-13] MEDS ORDERED: [UNRECOGNIZED DRUG - CODE] PO (15:08)
[2016-10-13] MEDS ORDERED: TORS10TA5 PO (15:08)
[2016-10-13] MEDS ORDERED: POTA10TA12 PO (15:08)
[2016-10-13] MEDS ORDERED: LEVO150T5 PO (15:08)
[2016-10-13] MEDS ORDERED: oxygen INH (15:08)
[2016-10-19] MEDS ORDERED: CLIN-78 PO (10:09)
[2016-10-19] MEDS ORDERED: FOLI1TAB18 PO (10:09)
== END 2016-09-21 17:00 | DRG 208 ==
LOC: EDBD 04:35 → SED 04:35 → CCU 06:05 → PCC 09-21 10:00
PROVIDERS: ADMIT Internal Medicine; ATTEND Internal Medicine
PROC: 5A1945Z Respiratory Ventilation, 24-96 Consecutive Hours (ICD-10-PCS; principal; 2016-09-18)
PROC: 02HV33Z Insertion of Infusion Device into Superior Vena Cava, Percutaneous Approach (ICD-10-PCS; 2016-09-18)
PROC: 0BH17EZ Insertion of Endotracheal Airway into Trachea, Via Natural or Artificial Opening (ICD-10-PCS; 2016-09-18)
PROC: 4A033R1 Measurement of Arterial Saturation, Peripheral, Percutaneous Approach (ICD-10-PCS; 2016-09-18)
PROC: 0W9B3ZZ Drainage of Left Pleural Cavity, Percutaneous Approach (ICD-10-PCS; 2016-09-18)
PROC: 30233N1 Transfusion of Nonautologous Red Blood Cells into Peripheral Vein, Percutaneous Approach (ICD-10-PCS; 2016-09-20)
DX: J96.01 Acute respiratory failure with hypoxia (principal); R57.9 Shock, unspecified; C82.90 Follicular lymphoma, unspecified, unspecified site; J91.8 Pleural effusion in other conditions classified elsewhere; D80.1 Nonfamilial hypogammaglobulinemia; I50.30 Unspecified diastolic (congestive) heart failure; Z94.84 Stem cells transplant status; E87.3 Alkalosis; L97.219 Non-pressure chronic ulcer of right calf with unspecified severity; R65.10 Systemic inflammatory response syndrome (SIRS) of non-infectious origin without acute organ dysfunction; J96.02 Acute respiratory failure with hypercapnia; R53.81 Other malaise; E11.65 Type 2 diabetes mellitus with hyperglycemia; Z66 Do not resuscitate; Z95.0 Presence of cardiac pacemaker; N18.3 Chronic kidney disease, stage 3 (moderate); I48.2 Chronic atrial fibrillation; E03.9 Hypothyroidism, unspecified; D63.8 Anemia in other chronic diseases classified elsewhere; E87.5 Hyperkalemia; Z86.14 Personal history of Methicillin resistant Staphylococcus aureus infection; Z79.4 Long term (current) use of insulin; I12.9 Hypertensive chronic kidney disease with stage 1 through stage 4 chronic kidney disease, or unspecified chronic kidney disease; R56.9 Unspecified convulsions; E87.6 Hypokalemia; E83.39 Other disorders of phosphorus metabolism; R79.89 Other specified abnormal findings of blood chemistry; E11.21 Type 2 diabetes mellitus with diabetic nephropathy; E11.621 Type 2 diabetes mellitus with foot ulcer; L97.529 Non-pressure chronic ulcer of other part of left foot with unspecified severity; E11.622 Type 2 diabetes mellitus with other skin ulcer

== ENCOUNTER 2016-12-26 18:39 | Inpatient (IN) | payer MEDICARE ==
[~2016-12-26] VITALS: Ht 175.3 cm; Wt 73.2 kg
[~2016-12-26 18:39] MED LIST changes: +BENZ1LOZ60 PO; +INSLIS SUBQ; -INSU100I SQ; -INSU100V7 SUBQ; +LEVO150T5 PO; -LEVO88TA4 PO; -MAGN400T39 PO; +METF500T4 PO; -MULT1CAP33 PO; +NAPR220C16 PO; -OMEG-38 PO; +ONDA8TAB10 PO; +OXYC-530 PO; -OXYC5TAB72 PO; -PANT40TA3 PO; +POTA10TA12 PO; +SERT50TA9 PO; +TORS10TA5 PO
[2016-12-26 18:54] VITALS: BP 141/51; RESP 28; O2SAT 95
[2016-12-26 19:38] LABS: Mean Corpuscular Volume 89.6 fL (81-100); Platelet Count 371 bil/L (150-400)
[2016-12-26 20:00] LABS: BASOPHILS % (AUTO) 0 % (0-3); EOSINOPHILS % (AUTO) 0 % (0-5); MONOCYTES % (AUTO) 12 % (4-12); NEUTROPHILS % (AUTO) 46 % (40-74)
--- NOTE | 2016-12-26 20:01 | ED.REPORT ---
HPI-Dyspnea / Wheezing Date of Service Dec 26, 2016 ED Provider: Carson Malik DO The pt is a 71 y/o male with a hx of lymphoma, leukemia,recurrent pleural effusion requiring essentially weekly thoracocentesis, DM, paroxysmal atrial fibrillation, CHF (s/p pacemaker) who presents to the ED complaining of shortness of breath for the last 2 days. The pt uses oxygen at home. He denies cough, fever, chest pain, and abdominal pain. Nursing Notes Stated Complaint: RESPIRATORY DISTRESS Chief Complaint: Respiratory Distress Nursing Notes Reviewed: Yes Allergies: Coded Allergies: levofloxacin (Verified Allergy, Intermediate, hives, 12/26/16) vancomycin (Verified Allergy, Intermediate, Rash, 12/26/16) Scheduled Aspirin (Aspirin) 81 Mg Tablet 81 MG PO DAILY Benzocaine/Menthol (Cepacol Sore Throat Lozenge) 1 Each Lozenge 1 EACH PO 3-4 times/dy prn Folic Acid (Folic Acid) 1 Mg Tablet 1 MG PO DAILY Ibrutinib (Imbruvica) 140 Mg Capsule 420 MG PO DAILY Insulin Regular, Human (HUMulin-R U100 Insulin Vial) 100 Unit/1 Ml Vial Unknown Dose SUBQ ACHS Levothyroxine (Levothyroxine) 150 Mcg Tablet 150 MCG PO DAILY Metformin (Metformin) 500 Mg Tablet 500 MG PO BID Ondansetron ODT (Ondansetron ODT) 8 Mg Tab.rapdis 8 MG PO 15-30min before tx Potassium Chloride ER (Potassium Chloride ER) 10 Meq Tablet 10 MEQ PO DAILY TAKE WITH FOOD Sertraline HCl (Sertraline) 50 Mg Tablet 50 MG PO DAILY Spironolactone (Spironolactone) 25 Mg Tablet 25 MG PO QAM Torsemide (Torsemide) 10 Mg Tablet 20 MG PO DAILY Scheduled PRN Naproxen Sodium (Naproxen Sodium) 220 Mg Capsule 220 MG PO BID PRN PRN For Pain oxyCODONE (oxyCODONE) 5 Mg Tablet 5 MG PO q6hrs prn PRN PRN For Pain General Time Seen by MD: 20:00 Chief Complaint Shortness of breath Hx Obtained From: Patient Arrived By: Walk-in Sudden in Onset?: Yes Onset Occurred: 2 days ago Symptom Duration: Since onset Severity: Current: No pain currently Severity: Maximum: No pain Recent Healthcare: Recent doctor visit Similar Sx Previous: Yes Past Medical History Past Medical History Notes: Oncologist: [facility] - see note 07/25/16 (recurrent follicular lymphoma) Supervisor Sound Technician: Dr. Harper primary care is Julian Cartwright Past Medical History 1. ho Bacteremia with MRSA 10/2015 2. 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 4. Left-hand osteomyelitis. 7. Chronic kidney disease stage 3. 8. Paroxysmal atrial fibrillation. 9. Chronic Coumadin anticoagulation - has been discontinued as of 08/02/16 10. Diabetes mellitus type 2, insulin dependent. 11. History of complete heart block status post pacemaker. 13. Chronic anemia. 14. Dyslipidemia. 15. Hypothyroidism. 17. Recurrent follicular malignant lymphoma, most recently on treatment with oral agent ibrutinib since the beginning of May 2016 at 420 mg daily - as of 07/25/16 18. Hyperlipidemia 19. Congestive heart failure 20. Chronic bilateral pleural effusion, requiring frequent thoracentesis Past Surgical History Tonsillectomy Bone marrow asp/core biopsy Stem cell transplant Partial colonectomy Pacemaker insertion Reports: Pacemaker insertion Family History noncontributory Smoking History Never Smoker Social History Lives at [facility] See discussion re: code status with oncology 07/25/16 - Patient does not want to be on protracted life support, but would want an initial attempt at resuscitation to be undertaken Alcohol Use: Denies alcohol use Drug Use: Denies drug use Other Social History: Local resident Ambulatory Status Independent Review of Systems Constitutional: Denies: Fever Respiratory: Reports: Shortness of breath, Denies: Non-productive cough Cardiovascular: Denies: Chest pain Complete sys rev & neg: except as marked. GI: Denies: Abdominal pain Physical Exam Initial Vital Signs Vital Signs (First) Date Time Temp Pulse Resp B/P Pulse Ox O2 Delivery O2 Flow Rate FiO2 12/26/16 18:54 36.7 28 141/51 95 Nasal Cannula 2 12/26/16 20:40 88 Initial VS: Reviewed Head / Eyes: Atraumatic, Normocephalic Abdomen / GI: Soft, Non-tender, No guarding, No rebound, No distention Extremities: Vascular intact, Neuro intact, No swelling, No tenderness Skin: Warm, Dry, No cyanosis Neurologic: Alert, Oriented, Nonfocal General/Constitutional: Awake, Alert, Well appearing, Cooperative Neck: Atraumatic, Supple, Full range of motion Respiratory / Chest: Atraumatic Diminished breath sounds with crackles on the right. Cardiovascular: Heart rate NL, Regular rhythm, No gallop, No rubs Heart Sounds / Murmur: Positive: Systolic murmur present.. Interpretation & Diagnostics Lab Results Interpretation Result Diagram: 12/26/16192612/26/161926 Test 12/26/16 19:27 12/26/16 21:20 White Blood Count 17.8th/mm3 (3.8-10.1) Red Blood Count 3.66mil/mm3 (4.40-5.80) Hemoglobin 9.5g/dL (13.8-17.2) Hematocrit 32.8% (41.0-50.0) Mean Corpuscular Volume 89.6fL (81-100) Mean Corpuscular Hemoglobin 26.0pg (27.0-35.0) Mean Corpuscular Hemoglobin Concent 29.0% (32.0-37.0) Red Cell Distribution Width 20.9% (12.3-15.4) Platelet Count 371bil/L (150-400) Neutrophils (%) (Auto) 46% (40-74) Lymphocytes (%) (Auto) 22% (14-46) Monocytes (%) (Auto) 12% (4-12) Eosinophils (%) (Auto) 0% (0-5) Basophils (%) (Auto) 0% (0-3) Band Neutrophils % 16% (1-5) Metamyelocytes % 2% (0-0) Myelocytes % 2% (0-0) Hematology Comments Rbc Hold Purple Top Tube Received (Received) Prothrombin Time 10.0sec (8.1-12.5) Prothromb Time International Ratio 0.94ratio Hold Blue Top Tube Received (Received) Sodium Level 140mEq/L (134-144) Potassium Level 4.1mEq/L (3.5-5.2) Chloride Level 93mEq/L (97-108) Carbon Dioxide Level 35mmol/L (18-29) Blood Urea Nitrogen 22mg/dL (8-27) Creatinine 1.21mg/dL (0.76-1.27) Estimat Glomerular Filtration Rate 63mL/min (>59) Glucose Level 155mg/dL (60-99) Calcium Level 8.9mg/dL (8.5-10.1) Total Bilirubin 0.3mg/dL (0.0-1.2) Aspartate Amino Transf (AST/SGOT) 15U/L (0-50) Alanine Aminotransferase (ALT/SGPT) 9U/L (0-44) Alkaline Phosphatase 159U/L (25-160) Troponin T 0.036ug/L (0.0-0.011) Pro-B-Type Natriuretic Peptide 2769pg/mL (0-376) Total Protein 6.7g/dL (6.4-8.4) Albumin 3.7g/dL (3.4-5.0) Procalcitonin 0.05ng/mL (0.00-0.08) Hold [place] Top Tube Received (Received) Lactic Acid Level 1.1mmol/L (0.4-2.0) ECG Interpretation ECG Interpretation: Flutter with controlled rate of 70. Time: 20:14 Interpreted by: ED physician CBC Interpretation WBC elevated, Hgb low BMP / CMP Interpretation Glucose elevated Cardiac / Vascular Interp BNP elevated, Troponin abnormal (elevated to 0.036) X-Ray Chest Interpretation Chest Xray Interpretation: IMPRESSION: Bilateral prominent pleural effusions. Dictated by: Stone Mccormack M.D. on 12/26/2016 at 20:40 Approved by: Stone Mccormack M.D. on 12/26/2016 at 20:41 View: Portable, 1 view Interpretation / Wet Read by: Interpret - Radiologist Re-Eval/Medical Decision Re-Evaluation/Progress : Time of Eval: 20:41 Re-Evaluation/Progress Note: Discussed lab results and plan to admit. The pt understands and agrees with the plan. All questions answered. Consultation : Referral / Consult Name: Ranjith Fitzpatrick MD Consulted With: Hospitalist Call Returned at: 20:51 Education Assistant: Will see patient, Agrees with eval, Agrees with plan, Accepts admit Counseled Regarding: Diagnosis, Lab results, Need for admission Discharge & Departure Impression: Primary Impression: Acute respiratory failure with hypoxia Additional Impressions: Chronic anemia Elevated troponin Bilateral pleural effusion Disposition: ADMITTED TO HOSPITAL Referrals: Julian Fabian MD (PCP) Scribe Attestation Portions of this note were transcribed by Susanne Laureano. I,, personally performed the history,physical exam and medical decision-making;I reviewed and confirmed the accuracy of the information in the transcribed note. Signed by Hilary Muse. 12/26/16 copies to: Julian Fabian MD, Todd P DO Dec 26, 2016 20:01 Susanne Laureano Dec 26, 2016 20:42
[2016-12-26 20:17] LABS: TROPONIN T 0.036 ug/L (0.0-0.011)
[2016-12-26 20:40] VITALS: BP 145/88; PULSE 88; O2SAT 98
--- NOTE | 2016-12-26 20:43 | DRSVH ---
PROCEDURE: X-RAY CHEST ONE VIEW, PORTABLE ([id number]) INDICATIONS: shortness of breath TECHNIQUE: One view of the chest was acquired. COMPARISON: [facility], CR, XR CHEST 1VW, 12/18/2016, 11:51. FINDINGS: Surgical changes and devices: None. Lungs and pleura: Bilateral large pleural effusions are present with upper lobe is aerated only. Vasc ulature is prominent, likely from redistribution to aerated lung. Mediastinum: Mediastinal contours appear normal. Heart size is normal. Bones and chest wall: No suspicious bony lesions. Overlying soft tissues appear unremarkable. IMPRESSION: Bilateral prominent pleural effusions. Dictated by: Stone Mccormack M.D. on 12/26/2016 at 20:40 Approved by: Stone Mccormack M.D. on 12/26/2016 at 20:41
[2016-12-26 21:09] LABS: INR 0.94 ratio
[2016-12-26] MEDS ORDERED: INSU100V28 SUBQ (21:53)
[2016-12-26] MEDS ORDERED: Cefepime Inj 2,000 MG in Dextrose 5% Minibag Plus 100 ML IV ONE (22:20)
[2016-12-26 22:34] VITALS: BP 142/74; PULSE 70; RESP 22; O2SAT 98
[2016-12-26] MEDS ORDERED: Polyethylene Glycol (PEG) 17 Gm Powder PO PRN (22:45)
[2016-12-26] MEDS ORDERED: Ondansetron 2 mg/mL 2 mL Inj IVPUSH PRN (22:45)
[2016-12-26] MEDS ORDERED: Alum-Mag Hydrox-Simeth 30 mL Suspension PO PRN (22:45)
[2016-12-26 23:14] VITALS: BP 161/72; PULSE 68; RESP 26; O2SAT 93
[2016-12-26 23:22] VITALS: PULSE 74
[2016-12-26 23:48] LABS: APPEARANCE,URINE HAZY (CLEAR,HAZY); COLOR,URINE YELLOW (YELLOW)
[2016-12-26 23:49] LABS: OCCULT BLOOD,URINE NEGATIVE (NEGATIVE); UROBILINOGEN,URINE NORMAL (NORMAL)
[2016-12-27] VITALS (13 sets, daily range): BP systolic 93–123; BP diastolic 49–69; PULSE 68–95; RESP 16–24; O2SAT 91–98
--- NOTE | 2016-12-27 00:48 | PCM.HPMED ---
Subjective Date of Service Dec 26, 2016 Primary Provider: Admitting Physician: Ranjith Fitzpatrick MD Primary Care Physician: Julian Fabian MD Attending Physician: Ranjith Fitzpatrick MD Admit Status: From the Emergency Department Chief Complaint: Shortness of Breath History of Present Illness: Mr. Winston is a pleasant but unfortunate 71-year-old male with a complex past medical history significant for malignant lymphoma with recurrent pleural effusions, atrial fibrillation, diastolic CHF, diabetes mellitus and CKD stage III who presented to the emergency department for ongoing shortness of breath for 2 days. The patient is on 2.5 L of oxygen at baseline but has been unable to keep his saturations at an acceptable level. He normally requires thoracentesis almost weekly, alternating sides, but it has been about a week and a half since his last one. He denies any fever/chills, cough, chest pain, palpitations, abdominal pain, or hemoptysis. He denies any sick contacts but notes he lives at [facility] so it is difficult to assess exposure. Review of Systems: Complete review of systems was obtained and negative except as in the above history of present illness. Allergies Coded Allergies: levofloxacin (Verified Allergy, Intermediate, hives, 12/26/16) vancomycin (Verified Allergy, Intermediate, Rash, 12/26/16) Home Medications Aspirin (Aspirin) 81 Mg Tablet 81 MG PO DAILY Benzocaine/Menthol (Cepacol Sore Throat Lozenge) 1 Each Lozenge 1 EACH PO 3-4 times/dy prn Folic Acid (Folic Acid) 1 Mg Tablet 1 MG PO DAILY Ibrutinib (Imbruvica) 140 Mg Capsule 420 MG PO DAILY Insulin Regular, Human (HUMulin-R U100 Insulin Vial) 100 Unit/1 Ml Vial Unknown Dose SUBQ ACHS Levothyroxine (Levothyroxine) 150 Mcg Tablet 150 MCG PO DAILY Metformin (Metformin) 500 Mg Tablet 500 MG PO BID Ondansetron ODT (Ondansetron ODT) 8 Mg Tab.rapdis 8 MG PO 15-30min before tx Potassium Chloride ER (Potassium Chloride ER) 10 Meq Tablet 10 MEQ PO DAILY TAKE WITH FOOD Sertraline HCl (Sertraline) 50 Mg Tablet 50 MG PO DAILY Spironolactone (Spironolactone) 25 Mg Tablet 25 MG PO QAM Torsemide (Torsemide) 10 Mg Tablet 20 MG PO DAILY Scheduled PRN Naproxen Sodium (Naproxen Sodium) 220 Mg Capsule 220 MG PO BID PRN PRN For Pain oxyCODONE (oxyCODONE) 5 Mg Tablet 5 MG PO q6hrs prn PRN PRN For Pain PMH 1. Bacteremia with MRSA 10/2015 2. 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 4. Left-hand osteomyelitis. 7. Chronic kidney disease stage 3. 8. Paroxysmal atrial fibrillation. 10. Diabetes mellitus type 2, insulin dependent. 11. History of complete heart block status post pacemaker. 13. Chronic anemia. 14. Dyslipidemia. 15. Hypothyroidism. 17. Recurrent follicular malignant lymphoma, most recently on treatment with ibrutinib since May 2016 at 420 mg daily 18. Hyperlipidemia 19. Congestive heart failure 20. Chronic bilateral pleural effusion, requiring frequent thoracentesis Surgical History Tonsillectomy Bone marrow asp/core biopsy Stem cell transplant Partial colonectomy Pacemaker insertion Family History Mother had an aneurysm in her heart. Sister with depression. Social History Hx Alcohol Use: No Hx Substance Use: No Hx Tobacco Use: No Smoking Status: Never Smoker Living Arrangement: Nursing Home Facility ([facility]) Exam Vital Signs Vital Sign - Last Date Time Temp Pulse Resp B/P Pulse Ox O2 Delivery O2 Flow Rate FiO2 12/26/16 22:34 70 22 142/74 98 Nasal Cannula 3 12/26/16 18:54 36.7 Exam Gen.: Elderly gentleman sitting upright in bed in no acute distress HEENT: NCAT, PERRLA, EOMI. Anicteric sclera. No conjunctival injection. Oropharynx pink and moist. Neck: Supple, no JVD or thyromegaly. CV: Regular rate and rhythm, no murmurs, no rubs, gallops. Pulmonary: right lung significant for crackles, diminished breath sounds bilaterally Abd: Soft, nontender, nondistended. Bowel sounds present throughout. no guarding or rebound. Extremities: Skin scrape on the right medial elbow. Another Scrape on the posterior left shoulder. His lower extremities are both wrapped from his recent wound care visit. Neuro: alert and oriented 3. CN II through XII intact. Muscle strength 4 out of 5 globally, without focal deficit. Psych: Normal mood and affect Lab and Diagnostics Result Diagram: 12/26/16192612/26/161926 X-Rays, CTs and MRIs Chest XR 12/26/16 IMPRESSION: Bilateral prominent pleural effusions. Dictated by: Stone Mccormack M.D. on 12/26/2016 at 20:40 Approved by: Stone Mccormack M.D. on 12/26/2016 at 20:41 12-lead ECG Flutter with controlled rate of 70. Cardiac Echo Impressions Echo 09/19/16 The left ventricle is normal in size. Left ventricular systolic function is normal without focal wall motion abnormalities. The ejection fraction is estimated to be 60-65%. LVEF is unchanged since prior study on 03/26/2016. There are no findings that would suggest acute CHF on today's study. Clinical correlation is recommended. The right ventricle is normal size. TAPSE is reduced suggestive of decreased RV systolic function but visually the RV function appears to be grossly normal. Right ventricular systolic pressure is estimated to be 27 mmHg plus the clinically estimated CVP which cannot be estimated on this exam. The left atrium is mildly dilated. Right atrial size is normal. There is no significant valvular heart disease. The aortic root is normal size. There is a trivial to small pericardial effusion noted. There are no echocardiographic indications of cardiac tamponade. There is a moderate left-sided pleural effusion. There is a large right-sided pleural effusion. Assessment & Plan Mr. Winston is a pleasant but unfortunate 71-year-old male with a complex past medical history significant for malignant lymphoma with recurrent pleural effusions, atrial fibrillation, diastolic CHF, diabetes mellitus and CKD stage III who presented to the emergency department for ongoing shortness of breath for 2 days. Acute On chronic hypoxic respiratory failure, present on admission. Ongoing. - Patient is on 2.5 L of oxygen at baseline but was unable to maintain saturations - Likely due to bilateral pleural effusions due to his lymphoma - Patient was stable on 3-4 L in the ED, but required 5 L for movement and transferred to the floor - Maintain saturations above 92% - Thoracentesis ordered for the morning Bilateral pleural effusions, present on admission. Chronic. Ongoing. - Patient requires almost weekly alternating thoracentesis, last done 12/18 - Thoracocentesis ordered for the morning, will send fluid for evaluation of infection Leukocytosis, present on admission. Chronic. Ongoing. - Likely due to patient's lymphoma, but possibility of infection is present - Patient denies fever/chills, productive cough, sick contacts - Patient received 2 g of cefepime in the ED - Continue Cefepime 2g q8h for now; consider discontinuing pending thoracentesis fluid evaluation - Continue to monitor with CBC and thoracentesis fluid evaluation Lymphoma, present on admission. Chronic. - Pt follows with Dr. Duque - Continue Impruvica daily Elevated troponin, present on admission. Chronic. - Patient has Elevated troponin on prior admission, likely due to demand and CKD - Patient denies any chest pain, palpitations - Will not trend as the value is close to his baseline - Monitor on telemetry Diastolic CHF, present on admission. Chronic. - Likely not the cause of his shortness of breath, but we will reevaluate if not improved after thoracentesis - Last echo was done 09/19 as above - Continue torsemide and spironolactone Diabetes mellitus type II Insulin using, present on admission. Chronic. - Hold metformin while inpatient - Continue insulin regimen, 100 units in the morning - Medium dose correctional scale ordered - Patient refused a diabetic diet; will give general diet due to condition - A1c was 7.6 in September Hypothyroidism, present on admission. Chronic. - Continue levothyroxine 50 mcg daily Depression, present on admission. Chronic. - Continue sertraline 50 mg daily Acetaminophen as needed for mild pain, fever, headache. Bowel regimen as needed. Zofran as needed. Subcutaneous heparin on board, SCDs contraindicated due to lower extremity wounds. Patient status: Patient was admitted to the inpatient service, likely length of stay >2 midnights due to severity of presenting symptoms, complex medical workup, and overall treatment plan. VTE Prophylaxis: Sub-Q Heparin (Unfractionated) Resuscitation Status: CPR: Attempt Resuscitation Attending Statement The patient was seen and examined together with Dr. Guo on 12/26 and I agree with the history, exam and plan as outlined in the note above. copies to: Julian Fabian MD, Jeffery S DO Dec 26, 2016 22:52 Ranjith Fitzpatrick MD Dec 27, 2016 02:11
[2016-12-27] MEDS ORDERED: Glucose 40% Oral Gel 15 Gm Tube PO PRN (00:50)
[2016-12-27] MEDS: Heparin 5,000 Unit/mL Inj SUBQ SCH ×3 (00:53→16:36)
[2016-12-27] MEDS ORDERED: Dextrose 10% 250 ML IV PRN (00:55)
[2016-12-27] MEDS ORDERED: Benzocaine-Menthol Lozenge 2/Pkg PO PRN (01:30)
[2016-12-27] MEDS ORDERED: Albuterol-Ipratropium 3 mL Inhalation Solution NEB ONE (02:05)
[2016-12-27] MEDS ORDERED: Albuterol-Ipratropium 3 mL Inhalation Solution NEB PRN (02:35)
[2016-12-27 03:02] LABS: Mean Corpuscular Hemoglobin 25.5 pg (27.0-35.0); Platelet Count 352 bil/L (150-400)
[2016-12-27 03:51] LABS: BASOPHILS % (AUTO) 0 % (0-3); EOSINOPHILS % (AUTO) 2 % (0-5); MONOCYTES % (AUTO) 18 % (4-12); NEUTROPHILS % (AUTO) 58 % (40-74)
[2016-12-27] MEDS ORDERED: Insulin Human REGular 300 Unit/3 mL Inj SUBQ SCH (07:30)
--- NOTE | 2016-12-27 07:32 | NUR ---
Admit/Respiratory/Skin Pt admitted to room 2007 around 2300 last night, pt on 2L NC per ED but after standing to transfer beds and to urinate pt needed to be increased to 5L RICHARD, in room and made aware. Pt A&O and able to answer admission questions, med rec reviewed prior to arrival to unit. Later pt noted to desat to low 80s when needing to urinate, refused oxymask. MD notified of increased O2 needs and work of breathing. Nebs ordered and RT placed pt on 9L oxymask. Sats much better when pt not in bed even if he was sat up all the way his sats are much better if his feet dangle at edge of bed and he spent most of the night in this position as no recliner was found. Able to titrate O2 back down to 5L in this position, monitored on LACE BURN OUT TENDER. Pt insisting on using BR but was educated that this was not safe given respiratory status. Pt compromised and used BSC, rosio alarm on for safety. Pt LEs not visualized for skin check as they had been wrapped at wound care per pt. Pt has open sores on buttocks but unable to turn as even one pillow under a hip made him dyspneic and desat. Mepilex were applied. Pt also had wounds on left shoulder and bilateral arms from fall, aware of wound care needs, day RN made aware.
[2016-12-27] MEDS: Insulin LISPRO 300 Unit/3 mL Inj SUBQ SCH ×4 (08:00→22:00)
[2016-12-27] MEDS: Cefepime Inj 2,000 MG in Dextrose 5% Minibag Plus 100 ML IV SCH ×2 (08:15→16:33)
--- NOTE | 2016-12-27 09:00 | NUR ---
Pt escorted via wheelchair to ultrasound for procedure.
--- NOTE | 2016-12-27 10:09 | NUR ---
Escorted via wheelchair from ultrasound to room 2007.
--- NOTE | 2016-12-27 10:27 | ABG ---
DateTimeAnalyzed 10:06:00 -_ pH ____7.369 - pCO2 ___69.1__ -mmHg pO2 180 -mmHg HCO3- ___38.9__ -mmol/L ABE ___14.4__ -mmol/L -2.0 2.0 tHb ____0.03_ -g/dL FIO2 ___21.0__ -% Drawn By as - Date/Time Notified____ 10:27:00 -_ Notified By ams - Notified Whom dr Celerian - B 758 -mmHg tO2 ____0.5__ -Vol% Cristiano test N/A -
--- NOTE | 2016-12-27 10:39 | DRSVH ---
PROCEDURE: X-RAY CHEST ONE VIEW ([id number]) INDICATIONS: POST THORACENTESIS TECHNIQUE: One view of the chest was acquired. COMPARISON: [facility], CR, XR CHEST 1VW, 12/18/2016, 11:51. [facility], CR, XR CHEST 1VW, 10/31/2016, 14:21. [facility], CR, XR CHEST 1VW, 10/05/2016, 12:18. [facility], CR, XR CHEST 1VW (PORTABLE), 12/27/2016, 5:36. FINDINGS: Surgical changes and devices: None. Lungs and pleura: No pneumothorax. Decreased, small right pleural effusion. No change in moderate le ft pleural effusion. Previously seen interstitial pulmonary opacity has decreased. Bibasilar air spac e opacity is present, as before. Mediastinum: Mediastinal contours appear normal. Heart is not well seen, but appears enlarged. Bones and chest wall: No suspicious bony lesions. Overlying soft tissues appear unremarkable. IMPRESSION: 1. No complication following thoracentesis. 2. Decreased, small right pleural effusion. 3. Decreased pulmonary edema. 4. No change in bibasilar pneumonia. Continued plain film surveillance is recommended to ensure resol ution, and to exclude underlying or central malignancy. Dictated by: Geovanny Salazar M.D. on 12/27/2016 at 10:36 Approved by: Geovanny Salazar M.D. on 12/27/2016 at 10:37
[2016-12-27 10:53] LABS: TOTAL PROTEIN,PLEURAL FLUID 2.7 g/dL
[2016-12-27 11:44] LABS: BFWBC 165 /mm3; MONOCYTES,BODY FLUID 55 %; OTHER CELLS,BODY FLUID 0
--- NOTE | 2016-12-27 12:27 | DRSVH ---
PROCEDURE: X-RAY CHEST ONE VIEW, PORTABLE ([id number]) INDICATIONS: shortness of breath TECHNIQUE: One view of the chest was acquired. COMPARISON: [facility], CR, XR CHEST 1VW (PORTABLE), 12/26/2016, 20:18. FINDINGS: Surgical changes and devices: Presumed cardiac pacer leads redemonstrated.. Lungs and pleura: Lung volumes are low. Persistent moderate pleural effusions and mid/basilar airspa ce opacities similar to prior examination. No pneumothorax. Mediastinum: Mediastinal contours appear normal. Heart size is normal. Bones and chest wall: No suspicious bony lesions. Overlying soft tissues appear unremarkable. IMPRESSION: 1. Persistent moderate pleural effusions and mid/basilar airspace opacities consistent with compressi ve atelectasis versus bilateral pneumonia. Dictated by: Dante Diehl RRA Interpreted: Lisbeth Alva MD on 12/27/2016 at 11:28 Approved by: Lisbeth Alva MD, PhD on 12/27/2016 at 12:25
[2016-12-27] MEDS: IBRUTINIB 420 MG PO SCH (13:36)
--- NOTE | 2016-12-27 14:46 | NUR ---
Respiratory Patient suddenly desaturated down to mid 60% while on 4L per NC. Prior to episode pt oxygen saturation was stable trending in the upper 90s. No obvious s/s of respiratory distress other than decreased oxygen saturation. Respirations unlabored and even. Patient denies SOA. No reported pain. Oxymask placed with 10L 02 and saturation returned to mid 90s. Thoracentesis site c/d/i. Dr Benjamin notified of increasing 02 demand, no new orders at this time. Will continue to monitor.
--- NOTE | 2016-12-27 15:37 | NUR ---
Inpatient Wound Nurse Patient seen for multiple wounds. [facility]. BLE dressings were roll at proximal edge, and lower than intention. These were removed and numerous small wounds found, all with glossy pink wound beds, scant, serosanguinous, non-odorous drainage, no signs of infection. Pitting edema toes to knees. Wounds were cleansed, blotted dry, periwound covered with calmoseptine, wound beds covered with Xeroform and then wrapped with Kerlix and Coban. Grade 1 skin tear found on L forearm, 1 cm V shaped tear, edges flat, minimal sanguinous drainage, periwound bruising. Wound was cleansed, blotted dry, covered with silicone faced Mepilex dressing. Grade 2 skin tear on R forearm, 1 cm x 0.5 cm, half freitas shape, edges flat, minimal sanguinous drainage, periwound bruising. Wound was cleansed, blotted dry, covered with silicone faced Mepilex dressing. Ulceration of unknown origin found on R foot plantar surface, 1st metatarsal head, 0.5 cm x 0.5 cm x 0.2 cm, dull wound bed, no granulating tissue noted, edges well-adhered, patient denied pain. Wound was covered with Xeroform and bordered Mepilex dressing. Bruise to L hip 5 cm L x 9 cm W, purple, yellow, and red. Stage 2 pressure ulcer R distal buttock, almost in crease with proximal thigh/distal glut fold measures 0.5 cm L x 0.5 cm W x 0.2 cm D, appears to be old pressure injury, dull colored but glossy wound bed, no true drainage, edges well adhered with very minor epibole. Wound was cleansed, blotted dry, covered with bordered Mepilex dressing. CWON will see patient on Sunday, all dressings, including wraps to BLE, can remain in place 3 to 5 days if clean, dry, intact. Nursing may change dressing PRN, CWON will change wraps Sunday or Sunday. Addendum: 12/27/16 at 1618 by HILARIA HANEY RN Additional pressure ulcers to coccxy: L: 1.25 cm L x 1.25 cm W x 0.2 cm D R: 2.2.5 cm L x 1.0 cm W x 0.2 cm D Wounds were cleansed, blotted dry, covered with Mepilex sacral dressing. Nursing staff may change dressing PRN. CWON will see patient on Sunday.
--- NOTE | 2016-12-27 16:27 | DRSVH ---
PROCEDURE: US GUIDED THORACENTESIS BY REFERRING PHYSICIAN ([id number]) INDICATIONS: bilateral pleural effusion TECHNIQUE: The indications, alternatives, benefits, risks, and complications of the procedure were explained to the patient. Written informed consent was obtained and placed in the chart. The chest was examined sonographically, and an appropriate site was chosen for thoracentesis. The skin was prepared and noemy ped in the usual sterile fashion, and 1% lidocaine was infiltrated from the skin down through the ple ural surface. A 19-gauge catheter-covered needle was then introduced into the pleural space, the cat heter was advanced and the needle was withdrawn, and thereafter pleural fluid was aspirated. The cat heter was then removed and a dressing was applied. The attending physician was present, and personal ly performed the procedure. COMPARISON: [facility], , US GUIDED THORACENTESIS, 12/18/2016, 10:57. FINDINGS: Access site: Right hemithorax. Needle: One-Step centesis catheter with introducer needle. Fluid volume and description: 1420 cc of chylous-appearing pleural fluid. Fluid sent for diagnostic testing: Fluid sent for cytology, multiple chemistry panels and therapeuti c drainage. Medications: 1% lidocaine for local anaesthesia. Complications: None; post-procedural chest radiograph is pending to assess for pneumothorax. IMPRESSION: Successful ultrasound-guided thoracentesis. Dictated by: Dante SY Interpreted: Garfield Briggs MD on 12/27/2016 at 13:34 Approved by: Garfield Briggs M.D. on 12/27/2016 at 15:05
--- NOTE | 2016-12-27 17:25 | NUR ---
spiritual care: pt request visit attempt; pt sleeping. left note on white board, to follow tomorrow
--- NOTE | 2016-12-27 17:42 | NUR ---
Respiratory/status Oxygen saturation > 92% on 3L per oxymask. Respirations unlabored and even. Dressing to thoracentesis site c/d/i. Patient without complaints at this time. Appetite poor, suboptimal fluid and intake at meals. Denies nausea. Will continue to monitor.
--- NOTE | 2016-12-27 17:52 | PCM.PNMED ---
Subjective Date of Service Dec 27, 2016 Subjective This morning, patient underwent thoracentesis. A total of 1420 cc of chylous- appearing pleural fluid aspirated. He states that his breathing has improved since the fluid was aspirated. He was very somnolent during my assessment and would continually fall back to sleep while sitting up. Overnight, patient was hypoxic and very postural dependent. ROS: Patient continues to report some SOB. He denies fevers, chills, chest pain , nausea, vomiting, and abdominal pain. Exam Vital Signs Vital Sign - Last Date Time Temp Pulse Resp B/P Pulse Ox O2 Delivery O2 Flow Rate FiO2 12/27/16 08:02 36.9 71 22 119/56 97 OxyMask 7.00 Intake and Output 12/26/16 12/26/16 12/27/16 Cumulative From/Thru 15:00 23:00 07:00 12/26/16 18:54 - 12/27/16 02:13 Intake Total 200 ml 200 ml Balance 200 ml 200 ml Intake Oral 200 ml 200 ml Exam General: Patient is sitting up comfortably on bed, kept falling asleep during my assessment, not in acute distress, cooperative HEENT: head normocephalic and atraumatic, PERRLA, EOMI, no scleral icterus, noninjected conjunctiva Neck: neck supple, non-tender, no JVD CV: regular rate and rhythm, s1 and s2 heard, no murmur, trace edema on lower extremities bilaterally Lungs: decreased breath sounds bilaterally and crackles heard on right lung bases Abdomen: normoactive bowel sounds on 4Q, soft, non-distended, non-tender to palpation, no organomegally, Skin: warm and dry, LE wrapped with bandage bilaterally Neuro: Grossly neurologically intact, cranial nerves II through XII intact Psych: Normal mood and affect IVs and Medications IV Fluids 100 mL with IV fluid medication Medications Reviewed: Medications were reviewed in detail Lab and Diagnostics Laboratory Tests Test 12/26/16 19:27 12/26/16 21:20 12/26/16 23:27 12/27/16 02:35 White Blood Count 17.8th/mm3 (3.8-10.1) 19.3th/mm3 (3.8-10.1) Red Blood Count 3.66mil/mm3 (4.40-5.80) 3.49mil/mm3 (4.40-5.80) Hemoglobin 9.5g/dL (13.8-17.2) 8.9g/dL (13.8-17.2) Hematocrit 32.8% (41.0-50.0) 31.4% (41.0-50.0) Mean Corpuscular Volume 89.6fL (81-100) 90.0fL (81-100) Mean Corpuscular Hemoglobin 26.0pg (27.0-35.0) 25.5pg (27.0-35.0) Mean Corpuscular Hemoglobin Concent 29.0% (32.0-37.0) 28.3% (32.0-37.0) Red Cell Distribution Width 20.9% (12.3-15.4) 20.5% (12.3-15.4) Platelet Count 371bil/L (150-400) 352bil/L (150-400) Neutrophils (%) (Auto) 46% (40-74) 58% (40-74) Lymphocytes (%) (Auto) 22% (14-46) 14% (14-46) Monocytes (%) (Auto) 12% (4-12) 18% (4-12) Eosinophils (%) (Auto) 0% (0-5) 2% (0-5) Basophils (%) (Auto) 0% (0-3) 0% (0-3) Band Neutrophils % 16% (1-5) 7% (1-5) Metamyelocytes % 2% (0-0) 1% (0-0) Myelocytes % 2% (0-0) Hematology Comments Rbc Hold Purple Top Tube Received (Received) Prothrombin Time 10.0sec (8.1-12.5) Prothromb Time International Ratio 0.94ratio Hold Blue Top Tube Received (Received) Sodium Level 140mEq/L (134-144) 138mEq/L (134-144) Potassium Level 4.1mEq/L (3.5-5.2) 4.2mEq/L (3.5-5.2) Chloride Level 93mEq/L (97-108) 93mEq/L (97-108) Carbon Dioxide Level 35mmol/L (18-29) 33mmol/L (18-29) Blood Urea Nitrogen 22mg/dL (8-27) 22mg/dL (8-27) Creatinine 1.21mg/dL (0.76-1.27) 1.12mg/dL (0.76-1.27) Estimat Glomerular Filtration Rate 63mL/min (>59) 68mL/min (>59) Glucose Level 155mg/dL (60-99) 146mg/dL (60-99) Calcium Level 8.9mg/dL (8.5-10.1) 8.7mg/dL (8.5-10.1) Total Bilirubin 0.3mg/dL (0.0-1.2) 0.3mg/dL (0.0-1.2) Aspartate Amino Transf (AST/SGOT) 15U/L (0-50) 14U/L (0-50) Alanine Aminotransferase (ALT/SGPT) 9U/L (0-44) 9U/L (0-44) Alkaline Phosphatase 159U/L (25-160) 155U/L (25-160) Troponin T 0.036ug/L (0.0-0.011) Pro-B-Type Natriuretic Peptide 2769pg/mL (0-376) Total Protein 6.7g/dL (6.4-8.4) 5.9g/dL (6.4-8.4) Albumin 3.7g/dL (3.4-5.0) 3.7g/dL (3.4-5.0) Procalcitonin 0.05ng/mL (0.00-0.08) Hold [place]ley Top Tube Received (Received) Lactic Acid Level 1.1mmol/L (0.4-2.0) Urine Color Yellow (YELLOW) Urine Appearance Hazy (CLEAR,HAZY) Urine pH 6.0 (5.0-8.0) Urine Specific [place] 1.019 (1.003-1.035) Urine Protein 30mg/dL (NEG,TRACE) Urine Glucose (UA) Negativemg/dL (NEGATIVE) Urine Ketones Negativemg/dL (NEGATIVE) Urine Occult Blood Negative (NEGATIVE) Urine Nitrite Negative (NEGATIVE) Urine Bilirubin Negative (NEGATIVE) Urine Urobilinogen Normalmg/dL (NORMAL) Urine Leukocyte Esterase Negative (NEGATIVE) Urine RBC 0-2/hpf (0-2) Urine WBC 0-5/hpf (0-5) Urine Epithelial Cells Occasional/hpf (NONE-MOD) Urine Crystals None seen (NONE SEEN) Urine Bacteria Few/hpf (NONE-FEW) Urine Hyaline Casts 09/23/lpf (NONE) Urine Granular Casts Rare (NONE SEEN) Urine Waxy Casts None seen (NONE SEEN) Urine Red Blood Cell Casts None seen (NONE SEEN) Urine White Blood Cell Casts None seen (NONE SEEN) Urine Mucus Present (None Seen) Urine Trichomonas None seen (NONE SEEN) Urine Yeast None (NONE SEEN) Urinalysis Comment Fine granular casts Urine Culture Reflexed Not indicated Nucleated Red Blood Cells 3/100 WBC (0-24) Test 12/27/16 09:38 Body Fluid Source Pleural fluid Body Fluid Color Yellow (Clear) Body Fluid Appearance Hazy Body Fluid WBC 165/mm3 Body Fluid RBC 6700/mm3 Body Fluid Polynuclear WBCs 5% Body Fluid Lymphocytes 40% Body Fluid Monocytes 55% Body Fluid Eosinophils 0% Body Fluid Basophils 0% Body Fluid Lactate Dehydrogenase 87U/L Pleural Fluid Total Protein 2.7g/dL Pleural Fluid Glucose 146mg/dL Microbiology 12/26/16 Blood Culture, Received Pending 12/27/16 , Received Pending 12/27/16 Acid Fast Bacilli Smear, Received Pending 12/27/16 Acid Fast Bacilli Culture, Received Pending 12/27/16 MRSA (PCR) - Final, Complete Result Diagram: 12/27/16 0235 12/27/16 0235 X-Rays, CTs and MRIs Chest XR 12/26/16 IMPRESSION: Bilateral prominent pleural effusions. Dictated by: Stone Mccormack M.D. on 12/26/2016 at 20:40 Approved by: Stone Mccormack M.D. on 12/26/2016 at 20:41 12-lead ECG Flutter with controlled rate of 70. Cardiac Echo Impressions Echo 09/19/16 The left ventricle is normal in size. Left ventricular systolic function is normal without focal wall motion abnormalities. The ejection fraction is estimated to be 60-65%. LVEF is unchanged since prior study on 03/26/2016. There are no findings that would suggest acute CHF on today's study. Clinical correlation is recommended. The right ventricle is normal size. TAPSE is reduced suggestive of decreased RV systolic function but visually the RV function appears to be grossly normal. Right ventricular systolic pressure is estimated to be 27 mmHg plus the clinically estimated CVP which cannot be estimated on this exam. The left atrium is mildly dilated. Right atrial size is normal. There is no significant valvular heart disease. The aortic root is normal size. There is a trivial to small pericardial effusion noted. There are no echocardiographic indications of cardiac tamponade. There is a moderate left-sided pleural effusion. There is a large right-sided pleural effusion. Assessment & Plan Mr. 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 Acute On chronic hypoxic respiratory failure, present on admission. Ongoing. - Patient is on 2.5 L of oxygen at baseline but was unable to maintain saturations - Likely due to bilateral pleural effusions due to his lymphoma - Patient was stable on 3-4 L in the ED, but required 5 L for movement and transferred to the floor - Maintain saturations above 92% - Thoracentesis done today, with a total 1420 cc of chylous-appearing pleural fluid aspirated Analysis of Fluid WBC 165, Fluid LDH 86, Pleural Glucose, 146, Fluid Triglycerides pending -Dr. Duque was consulted and will see patient later today, his inpur is greatly appreaciated Bilateral pleural effusions, present on admission. Chronic. Ongoing. - Patient requires almost weekly alternating thoracentesis, last done 12/18 - Thoracentesis done today, with a total 1420 cc of chylous-appearing pleural fluid aspirated Analysis of Fluid WBC 165, Fluid LDH 86, Pleural Glucose, 146, Fluid Triglycerides pending , fluid cultures sent for analysis Leukocytosis, present on admission. Chronic. Ongoing. - Likely due to patient's lymphoma, but possibility of infection is present - Patient has been afebrile, denies chills, productive cough, sick contacts - Patient received 2 g of cefepime in the ED - Continue Cefepime 2g q8h for now; consider discontinuing given thoracentesis fluid evaluation - Continue to monitor with CBC Lymphoma, present on admission. Chronic. - Pt follows with Dr. Duque - Continue Imbruvica daily Elevated troponin, present on admission. Chronic. - Patient has Elevated troponin on prior admission, likely due to demand and CKD - Patient denies any chest pain, palpitations - Will not trend as the value is close to his baseline - Monitor on telemetry Diastolic CHF, present on admission. Chronic. - Likely not the cause of his shortness of breath, but we will reevaluate if not improved after thoracentesis - Last echo was done 09/19 as above - Continue torsemide and spironolactone Diabetes mellitus type II Insulin using, present on admission. Chronic. - Hold metformin while inpatient - Hold insulin regimen, 100 units in the morning but monitor Blood glucose closely - Medium dose correctional scale ordered - Patient refused a diabetic diet; will give general diet due to condition - A1c was 7.6 in September Hypothyroidism, present on admission. Chronic. - Continue levothyroxine 50 mcg daily Depression, present on admission. Chronic. - Continue sertraline 50 mg daily Leg Ulcers, present on admission. -Ordered Wound Care nurse Acetaminophen as needed for mild pain, fever, headache. Bowel regimen as needed. Zofran as needed. Subcutaneous heparin on board, SCDs contraindicated due to lower extremity wounds. Patient status: Patient was admitted to the inpatient service, likely length of stay >2 midnights due to severity of presenting symptoms, complex medical workup, and overall treatment plan. VTE Prophylaxis: Sub-Q Heparin (Unfractionated) VTE Mechanical Devices: Anti-Embolic stockings Resuscitation Status: CPR: Attempt Resuscitation Time spent 30 minutes Attending Statement I have seen and evaluated patient at bedside in addition to directly supervising care provided by resident physician. I agree with above documentation Rosalva Neely DO Dec 27, 2016 08:06 Arturo Benjamin DO Dec 28, 2016 08:10
--- NOTE | 2016-12-27 19:10 | CCS NOTE ---
[facility] [address], [address] [address] MEDICAL ONCOLOGY OFFICE NOTE PATIENT: DHARA MOYA : 1945 MR#: [id number] DATE: 12/26/2016 JOB ID: [id number] DATE: 12/27/2016 HISTORY OF PRESENT ILLNESS: This patient is a 71-year-old, pleasant, gentleman with recurrent follicular lymphoma whom I had recently seen in the office in the Oncology Clinic on December 12. For further details, please refer to my notes of that day. He has been on ibrutinib to manage his recurrent lymphoma which is an oral B-cell receptor tyrosine kinase inhibitor. His recent CT scan had shown slight disease progression but not major enough in the size of nonbulky lymph nodes to justify change of therapy. The scan was done on December 05, 2016. He has also a number of other comorbidities including complete heart block with need of pacemaker. This has been unfortunately infected and had to be removed due to MRSA infection in the past and he ended up needing a different kind of pacemaker placed to the peritoneal/abdominal insert with precordial leads to avoid an intravascular device. Since that procedure, we have been having recurrent bilateral pleural effusions which have been recently mostly on the right side only, requiring frequent thoracentesis. The etiology of his pleural effusion is complex with factors of both lymphoma and cardiac etiology playing a role. The intervals of thoracentesis on the right side had been lately increased to every 3-4 weeks, and on the left side we did not need to do any thoracentesis for many months. He had a recent thoracentesis on December 18 with drainage of 1200 cc of fluid that I had already scheduled, but yet he still returned with hypoxia and shortness of breath on December 26 leading to the admission, and he had another thoracentesis within a week interval early today with drainage of 1400 cc of pleural fluid. 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 He has had many lines of chemotherapy and autologous stem cell transplant a few years ago and I have been managing him since the last eight years. LABORATORY DATA: Labs show a white count of 19,000, hemoglobin 8.9, platelets 352. Chemistry shows normal electrolytes, creatinine 1.12. Normal LFTs. Albumin 3.7. He appears progressively weaker and has lost some weight. He is afebrile. Is on 4-6 L of Oxymask. Lungs clear. Abdomen is soft. ASSESSMENT AND PLAN: A 71-year-old gentleman with a history of recurrent follicular lymphoma that has been managed since 2008 with several lines of therapy, currently on oral agent ibrutinib since May which has stabilized his disease. The recent CT scan of December 05 showed slight increase in size of some of the lymph nodes but it was not significant enough to justify change of therapy. The main issue is his respiratory status. He has been seen by Dr. Benitez in the Pulmonology Clinic and has seen in the past Dr. Harper of Cardiology. Since the recurrent pleural effusion requiring repeated thoracentesis has started happening after that precordial pacemaker placement at [facility], the question has been recently raised whether this could be not just related to diastolic dysfunction in addition to his lymphoma, but also possibly a chylous effusion due to injury to the thoracic duct. The fluid has not been previously described as chylous, but interestingly on yesterday's thoracentesis it was described as chylous-appearing. The previous tap that he had on the same side on the right side just a week ago through our clinic on December 18 was sent for triglycerides and it was not significantly elevated with only 34 mg/dL. Given the fact that within one week he needed this thoracentesis again, this is now a new change as in the past we were able to stretch the thoracentesis to every 3-4 weeks. Therefore, I discussed with him that maybe now it might be more advisable to consider video-assisted thoracoscopic pleurodesis. He has been in the past reluctant but he is now willing to consider it. I have discussed this with the hospitalist team for surgical consult and if needed communication with Dr. Benitez of Pulmonology as well. The left side has not caused much trouble and over the past month we have not needed to do a thoracentesis on the left. It has been initially a problem, but over the past 4-5 months it has been only the right side.
--- NOTE | 2016-12-27 21:41 | NUR ---
respiratory: Around 2100 pt c/o of SOB with Spo2 87-91% asked to be set up in bed. Pt did say that helped and was breathing easier O2 was increased to 5L/M per NC. Then at 2140 c/o of not getting enough air spo2 was 92%. Pt was placed on Oxymask at 8L/M, which improved breathing.
[2016-12-28] VITALS (8 sets, daily range): BP systolic 110–126; BP diastolic 53–68; PULSE 69–72; RESP 20–26; O2SAT 93–98
[2016-12-28] MEDS: Cefepime Inj 2,000 MG in Dextrose 5% Minibag Plus 100 ML IV SCH ×3 (00:14→16:56)
[2016-12-28] MEDS: Heparin 5,000 Unit/mL Inj SUBQ SCH ×3 (00:15→16:56)
[2016-12-28 03:55] LABS: Mean Corpuscular Hemoglobin 25.7 pg (27.0-35.0); Mean Corpuscular Volume 89.1 fL (81-100); Platelet Count 334 bil/L (150-400)
[2016-12-28 04:37] LABS: BASOPHILS % (AUTO) 0 % (0-3); EOSINOPHILS % (AUTO) 1 % (0-5); MONOCYTES % (AUTO) 9 % (4-12); NEUTROPHILS % (AUTO) 57 % (40-74)
[2016-12-28] MEDS: Insulin LISPRO 300 Unit/3 mL Inj SUBQ SCH ×4 (08:00→21:30)
[2016-12-28] MEDS: IBRUTINIB 420 MG PO SCH (08:53)
--- NOTE | 2016-12-28 11:12 | NUR ---
Social Work: Initial Assessment/Multidisciplinary Rounds D: Per EMR review, pt is a 71 year old male admitted for Respiratory Distress BLL Pleural Effusions. Pt is [facility] with Medicare. Pt has no LTC or VA benefits. PCP is Julian Fabian MD. NOK is Ryder Andrade, brother, . RA score is high, 5/8. Advanced directives not completed- information provided. Information collected from patient's brother and [facility] nurse Lalita along with interview with patient at bedside. Sw role explained, contact info and d/c planning checklist provided to patient. See initial assessment. Pt lives at [facility]. Pt has a w/c for use and is I with transfers but usually has a staff member SBA. [facility] and patient's brother state that the patient is impulsive and often walks without the use of any DME. The patient does not have a walker at [facility]. The patient's brother believes that the patient has a FWW at home that he will attempted to locate for the patient. The patient has had numerous falls at [facility] and would benefit from this equipment. [facility] states that they assist the patient with showers, dressing, and transfers for toileting. Pt has a history at [facility] for skilled rehab and no HH. [facility] is willing to complete a bedside assessment when the patient is appropriate and to call the Nadine GONSALES at the facility to coordinate. They are requesting clinicals be faxed to [phone]. [facility] informed them that provider would need to complete an order before this can occur. A: Pt who lives at [facility] P: Evolving; Either patient to return to [facility] pending bedside assessment versus Skilled Rehab for further strengthening. KECIA Smith Addendum: 12/28/16 at 1155 by NOVA WING Amended: Links added. Addendum: 12/28/16 at 1641 by NOVA WING SS [facility] received notification from Levi Mayen with [facility] stating that the patient is open for HH services for RN and PT. They have noticed a decline in the patient's medical condition in the last several months.
--- NOTE | 2016-12-28 14:28 | NUR ---
NUTRITION ASSESSMENT: ASSESS: Pt is a 71yo M admitted for respiratory distress and BLL pneumonia. He is being followed by oncology for follicular lymphoma. Pt is being followed by WC for multiple skin wounds including stg 2 PU on buttock. He s/p thoracentesis with 1420ml removed. He reported that his appetite is much improved and he understands the importance of eating adequate kcal/pro for wound healing. PMHX: Follicular Lymphoma, DM, HTN, A-fib, Partial colectomy, CKD, complete heart block w/ pacemaker, depression, PNA, CHF, hypothyroid, hypogammaglobulinemia, sepsis, bacteremia, MRSA, L hand osteomyelitis. LABS: Reviewed. Cl 94, CO2 35, Glu 142, Alb 3.4 MEDS: Reviewed. insulin GI: 0 BM recorded SKIN: WC following for multiple skin wounds including Stg 2 PU on buttock CURRENT WTS: 88.1kg, BMI 28.7kg/m2, IBW: 72.7kg, UBW: ~100kg, pt has lost ~12kg x10 months = 12% wt loss x 10 months = not severe wt loss DIET: General, PO 50% (Pt refused to be on a diabetic diet) EST. NEEDS: wounds, ca Kcals: 2640-3085kcal/day (30-35kcal/kg) Pro: 105-130g/day (1.2-1.5g/kg) NUTRITION DIAGNOSIS: 1.) Increased kcal/pro needs related to increased demand for healing as evidence by pt with multiple skin wounds including stg 2 PU on buttock NUTRITION INTERVENTION: 1.) Pt agreed to receive Ensure on his B and D tray to help increase kcal/pro intake for wound healing (Pt has refused to be on a Diabetic diet) MONITOR / EVAL: PO, wt, wounds, GI, labs, POC, nutrition status. Will continue to monitor per moderate nutrition risk guidelines.
--- NOTE | 2016-12-28 14:32 | NUR ---
spiritual care: pt request conversational visit with pt's friends who shared updates, coping and concern for pt.
--- NOTE | 2016-12-28 15:00 | NUR ---
Sacrum pressure areas/ambulation/Orientation Sacrum dark purple non-blanchable areas covered with new mepilexes today. Pt tolerated well. Pt ambulates to the BSC and back without issues. Voiding pale yellow urine. Steady on feet. Pt this AM was not oriented. Thought it was 2069 and that he was in the town of [facility]. Pt later was A&O X3. Appears forgetful at times but overall oriented. CBGs 110 and 163, received sliding scale insulin X1.
--- NOTE | 2016-12-28 17:18 | NUR ---
spiritual care: pt request brief visit while pt rec. care. He brightly greeted me and will plan to follow tomorrow.
--- NOTE | 2016-12-28 17:51 | CONS ---
[address] [address] CONSULTATION REPORT PATIENT: DHARA MOYA : 1945 MR#: [id number] ADMIT: 12/26/2016 JOB ID: [id number] DATE OF SERVICE: 12/28/2016 CHIEF COMPLAINT: A 71-year-old gentleman with malignant pleural effusions seen in consultation at the request of Aj Duque MD. HISTORY OF PRESENT ILLNESS: The patient is a 71-year-old gentleman with recurrent follicular lymphoma with pleural effusions who has been requiring escalating frequency of right-sided thoracentesis over the last few months. He was seen by Dr. Celia Benitez in consultation as an outpatient before and the possibility of palliative pleurodesis was brought up, but at that time Dr. Duque and the patient were still considering other treatment options so decided to hold off. He has been on ibrutinib to manage his recurrent lymphoma. He had a pacemaker for complete heart block but it was complicated by lead infection with MRSA and it was removed. He had an abdominal insertion of the pacemaker with the precordial leads to avoid an intravascular device. Since the procedure he has had more complications with bilateral pleural effusions with more symptoms requiring thoracentesis. He has not required a thoracentesis on the left side. I was asked today to see him in consultation to for considering pleurodesis of the right chest. OTHER MEDICAL PROBLEMS: 1. Chronic kidney disease stage 3. 2. Paroxysmal atrial fibrillation. 3. Diabetes mellitus type 2. 4. Complete heart block. 5. Chronic anemia. 6. Dyslipidemia. 7. Hypothyroidism. 8. Recurrent follicular lymphoma. 9. Infective endocarditis. 10. Obesity. PRIOR OPERATIONS: 1. Tonsillectomy. 2. Partial colectomy. 3. Pacemaker placement. MEDICATIONS: 1. Oxycodone. 2. Insulin. 3. Torsemide. 4. Cefepime. 5. Heparin. 6. Potassium chloride. 7. Spironolactone. 8. Aspirin. 9. Sertraline. 10. Levothyroxine. 11. Albuterol. 12. Benzocaine. 13. Ondansetron. 14. Dextrose. 15. Acetaminophen. 16. MiraLAX. 17. Senna. 18. Ondansetron. ALLERGIES: 1. LEVOFLOXACIN. 2. VANCOMYCIN. REVIEW OF SYSTEMS: Twelve point review of systems negative other than the pertinent positives noted in the history of present illness and other medical problems. INVESTIGATIONS: Labs from December 28, 2016: WBC 14.5, hemoglobin 8.5, platelet count 334. Creatinine 1.07 and glucose 142. INR 0.94. Pleural fluid from December 27, 2016, showed counts consistent with an exudative effusion, but not obviously chylous. This fluid has been sampled before on September 18, 2016, which showed a paucicellular specimen, but it is the impression of his treating physicians, including Dr. Duque, that this is indeed a malignant effusion. CT chest from December 05, 2016, showed progression of lymphadenopathy along mediastinum, retroperitoneum, and mesentery and [id number] bilateral pleural effusions which are more prominent than in August. FAMILY HISTORY: Mother had an aneurysm. Sister has depression. SOCIAL HISTORY: He never smoked. He lives right now in [facility]. PHYSICAL EXAMINATION: A 71-year-old gentleman in mild distress with a oxygen mask. Temperature 36.4, pulse 70, respiratory rate 26, blood pressure 126/68, saturating 97% on 5 L OxyMask. Eyes: Normal pupils, conjunctivae. Ears, nose, and throat: Normal external appearance. Neck: Some adenopathy. Respiratory: Diminished air entry bilaterally. Cardiovascular: Regular. Gastrointestinal: Prior abdominal incisions with reducible incisional hernia. Neurologic: No gross deficits. Psychiatric: Alert, appropriate. Musculoskeletal: Normal strength in extremities. ASSESSMENT AND PLAN: A 71-year-old gentleman with what appears to be recurrent malignant effusions, more symptomatic obviously on the right. Discussed the alternatives of mechanical pleurodesis in the operating room, versus chemical pleurodesis at the bedside, versus repeated thoracentesis. After discussing the risks, benefits, and alternatives, the patient chose to proceed with tube thoracostomy on the right side with clinical pleurodesis. I talked to the pharmacy to order talc slurry for the pleurodesis. The patient understands that it is possible that he might require further interventions on the left in the future. After discussing the risks, benefits, and alternatives, he wished to proceed, and he proceeded with the chest tube.
--- NOTE | 2016-12-28 18:33 | DRSVH ---
PROCEDURE: X-RAY CHEST ONE VIEW, PORTABLE ([id number]) INDICATIONS: Right chest tube placement TECHNIQUE: One view of the chest was acquired. COMPARISON: [facility], CR, XR CHEST 1VW, 12/27/2016, 10:04. [facility], US, US GUIDED THORACENTESIS, 12/27/2016, 9:07. FINDINGS: Surgical changes and devices: A subpulmonic and medial positioning of the single right pleural drain is noted. Lungs and pleura: A small to moderate right pneumothorax is present measuring up to 2.3 cm at the theresa ng apex in a similar with at the lateral right lung base. No mediastinal shift in this patient with convex rightward scoliosis. Previously present left pleural effusion again seen with associated atel ectasis over the mid and lower lung on the left. Mediastinum: Mediastinal contours appear deviated rightward associated with the convex rightward sco liosis.. Heart size is normal. Bones and chest wall: No suspicious bony lesions. Overlying soft tissues appear unremarkable. IMPRESSION: Right pleural drain position as noted above, 2.3 cm upper lobe and lateral right lung ba se with a pneumothorax. Otherwise no significant change considering bladder film technique. Dictated by: Reese Barton M.D. on 12/28/2016 at 18:27 Approved by: Reese Barton M.D. on 12/28/2016 at 18:31
--- NOTE | 2016-12-28 19:08 | PCM.PNMED ---
Subjective Date of Service Dec 28, 2016 Subjective Today, patient was alert, awake and oriented X3. He states that he is feeling better overall. He notes that he continues to have some SOB but believes that he is close to baseline. He has to sleep sitting upright in order to maintain his oxygen saturation. Per nursing, overnight, patient complained of SOB with Spo2 87-91%. He asked to sit up on the bed and that improved his breathing. On ROS, patient complains of feeling tired. He denies headaches, dizziness, chest pain, nausea, vomiting, abdominal pain, and dysuria. Exam Vital Signs Vital Sign - Last Date Time Temp Pulse Resp B/P Pulse Ox O2 Delivery O2 Flow Rate FiO2 12/28/16 06:20 70 12/28/16 03:11 36.8 24 118/60 98 Nasal Cannula 6.00 Intake and Output 12/27/16 12/27/16 12/28/16 Cumulative From/Thru 15:00 23:00 07:00 12/26/16 18:54 - 12/28/16 06:27 Intake Total 150 ml 221 ml 508 ml 1079 ml Output Total 450 ml 1100 ml 350 ml 1900 ml Balance -300 ml -879 ml 158 ml -821 ml Intake Oral 150 ml 100 ml 400 ml 850 ml IV Total 121 ml 108 ml 229 ml Output Urine Total 450 ml 1100 ml 350 ml 1900 ml Exam Exam General: Patient is sitting up comfortably on bed, kept falling asleep during my assessment, not in acute distress, cooperative HEENT: head normocephalic and atraumatic, PERRLA, EOMI, no scleral icterus, noninjected conjunctiva Neck: neck supple, non-tender, no JVD CV: regular rate and rhythm, s1 and s2 heard, no murmur, trace edema on lower extremities bilaterally Lungs: decreased breath sounds bilaterally and crackles heard on right lung bases Abdomen: normoactive bowel sounds on 4Q, soft, non-distended, non-tender to palpation, no organomegally, Skin: warm and dry, LE wrapped with bandage bilaterally Neuro: Grossly neurologically intact, cranial nerves II through XII intact Psych: Normal mood and affect Eyes: Normal pupils, conjunctivae. Ears, nose, and throat: Normal external appearance. Neck: Some adenopathy. Respiratory: Diminished air entry bilaterally. Cardiovascular: Regular. Gastrointestinal: Prior abdominal incisions with reducible incisional hernia. Neurologic: No gross deficits. Psychiatric: Alert, appropriate. Musculoskeletal: Normal strength in extremities. IVs and Medications Medications Reviewed: Medications were reviewed in detail Lab and Diagnostics Result Diagram: 12/28/16 0335 12/28/165 X-Rays, CTs and MRIs Chest XR 12/26/16 IMPRESSION: Bilateral prominent pleural effusions. Dictated by: Stone Mccormack M.D. on 12/26/2016 at 20:40 Approved by: Stone Mccormack M.D. on 12/26/2016 at 20:41 12-lead ECG Flutter with controlled rate of 70. Cardiac Echo Impressions Echo 09/19/16 The left ventricle is normal in size. Left ventricular systolic function is normal without focal wall motion abnormalities. The ejection fraction is estimated to be 60-65%. LVEF is unchanged since prior study on 03/26/2016. There are no findings that would suggest acute CHF on today's study. Clinical correlation is recommended. The right ventricle is normal size. TAPSE is reduced suggestive of decreased RV systolic function but visually the RV function appears to be grossly normal. Right ventricular systolic pressure is estimated to be 27 mmHg plus the clinically estimated CVP which cannot be estimated on this exam. The left atrium is mildly dilated. Right atrial size is normal. There is no significant valvular heart disease. The aortic root is normal size. There is a trivial to small pericardial effusion noted. There are no echocardiographic indications of cardiac tamponade. There is a moderate left-sided pleural effusion. There is a large right-sided pleural effusion. Assessment & Plan Mr. 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 Acute On chronic hypoxemic Hypercapnic respiratory failure, present on admission. Ongoing. - Patient is on 2.5 L of oxygen at baseline but was unable to maintain saturations - Likely due to bilateral pleural effusions due to his lymphoma - Patient was stable on 3-4 L in the ED, but required 5 L for movement and transferred to the floor - Maintain O2 saturations between 88-94% - Thoracentesis done 12/27/16, with a total 1420 cc of chylous-appearing pleural fluid aspirated Analysis of Fluid WBC 165, Fluid LDH 86, Pleural Glucose, 146, Fluid Triglycerides 50 -Oncology, Dr. Duque was consulted and saw patient yesterday his input is greatly appreciated -Respiratory Therapy was consulted for possible Trilogy Bilateral pleural effusions, present on admission. Chronic. Ongoing. - Patient requires almost weekly alternating thoracentesis, last done 12/18 - Thoracentesis done today, with a total 1420 cc of chylous-appearing pleural fluid aspirated Analysis of Fluid WBC 165, Fluid LDH 86, Pleural Glucose, 146, Fluid Triglycerides pending , fluid cultures sent for analysis -Surgery consulted and we appreciate their input. Dr. Benitez will be doing a tube thoracostomy on the right side with clinical pleurodesis. Leukocytosis, present on admission. Chronic. Ongoing. - Likely due to patient's lymphoma, but possibility of infection is present - Patient has been afebrile, denies chills, productive cough, sick contacts - Patient received 2 g of cefepime in the ED - Continue Cefepime 2g q8h for now; consider discontinuing given thoracentesis fluid evaluation, will continue for a total of 7-10 days - Continue to monitor with CBC Lymphoma, present on admission. Chronic. - Pt follows with Dr. Duque - Continue Imbruvica daily Elevated troponin, present on admission. Chronic. - Patient has Elevated troponin on prior admission, likely due to demand and CKD - Patient denies any chest pain, palpitations - Will not trend as the value is close to his baseline - Monitor on telemetry Diastolic CHF, present on admission. Chronic. - Likely not the cause of his shortness of breath, but we will reevaluate if not improved after thoracentesis - Last echo was done 09/19 as above - Continue torsemide and spironolactone Diabetes mellitus type II Insulin using, present on admission. Chronic. - Hold metformin while inpatient - Hold insulin regimen, 100 units in the morning but monitor Blood glucose closely - Medium dose correctional scale ordered - Patient refused a diabetic diet; will give general diet due to condition - A1c was 7.6 in September Hypothyroidism, present on admission. Chronic. - Continue levothyroxine 50 mcg daily Depression, present on admission. Chronic. - Continue sertraline 50 mg daily Leg Ulcers, present on admission. -Ordered Wound Care nurse Acetaminophen as needed for mild pain, fever, headache. Bowel regimen as needed. Zofran as needed. Subcutaneous heparin on board, SCDs contraindicated due to lower extremity wounds. Patient status: Patient was admitted to the inpatient service, likely length of stay >2 midnights due to severity of presenting symptoms, complex medical workup, and overall treatment plan. VTE Prophylaxis: Sub-Q Heparin (Unfractionated) VTE Mechanical Devices: Anti-Embolic stockings Resuscitation Status: CPR: Attempt Resuscitation Time spent 35 minutes Attending Statement I have seen and evaluated the patient at bedside in addition to directly supervising care provided by Dr Neely on 12/28/2016. I agree with above documentation. Rosalva Neely DO Dec 28, 2016 07:35 Arturo Benjamin DO Dec 29, 2016 07:52
--- NOTE | 2016-12-28 19:20 | PROCED ---
[address] [address] PROCEDURE NOTE PATIENT: DHARA MOYA : 1945 MR#: [id number] ADMIT: 12/26/2016 JOB ID: [id number] DATE OF SERVICE: 12/28/2016 PREOPERATIVE DIAGNOSIS(ES): Malignant pleural effusion. POSTOPERATIVE DIAGNOSIS(ES): Malignant pleural effusion. SURGEON: Bennie Benitez MD PROCEDURE PERFORMED: Right tube thoracostomy. ANESTHESIA: Local. COMPLICATIONS: None. CONDITION OF THE PATIENT: Stable. INDICATIONS: The patient is a 71-year-old gentleman with a malignant effusion, and I was asked to consult for right tube thoracostomy with chemical pleurodesis. After discussing the risks, benefits, and alternatives, he wished to proceed. PROCEDURE DETAILS: He was placed in a semi-upright position with the right chest exposed. Then, I prepped the right chest in the usual sterile fashion and procedural time-out was undertaken, and the patient was identified and site was confirmed. I then made an incision in the 5th intercostal space after infiltrating the site thoroughly with 1% lidocaine and bluntly dissected through to the pleural cavity with a combination of finger dissection and clamp and entered the chest safely with my finger. I then advanced a 28-Irish straight chest tube posteriorly and then secured it with a 2-0 nylon suture and sterile dressing was applied and the chest tube was attached to a Pleur-evac with 20 cm suction.
[2016-12-29] VITALS (10 sets, daily range): BP systolic 106–135; BP diastolic 50–70; PULSE 70–88; RESP 18–24; O2SAT 92–97
[2016-12-29] MEDS: Heparin 5,000 Unit/mL Inj SUBQ SCH ×4 (01:19→23:56)
[2016-12-29] MEDS: Cefepime Inj 2,000 MG in Dextrose 5% Minibag Plus 100 ML IV SCH ×2 (01:19→08:28)
[2016-12-29 03:39] LABS: Mean Corpuscular Hemoglobin 25.7 pg (27.0-35.0); Mean Corpuscular Volume 89.3 fL (81-100)
[2016-12-29 03:40] LABS: Platelet Count 321 bil/L (150-400)
[2016-12-29 03:54] LABS: BASOPHILS % (AUTO) 0 % (0-3); EOSINOPHILS % (AUTO) 0 % (0-5); MONOCYTES % (AUTO) 18 % (4-12); NEUTROPHILS % (AUTO) 63 % (40-74)
--- NOTE | 2016-12-29 05:52 | NUR ---
Respiratory: Chest Tube to right chest continues to put out large amount of serous- sanguineous drainage (830ml overnight). Pt reports that his breathing is improving. sats maintained 90s on 3-5L NC. Pt up to BCS with assist- tolerates well however does become SOB- recovers with rest. PRN ocycodone given for back/ side pain with good relief- pt sleeping intermittently overnight.
[2016-12-29] MEDS: Insulin LISPRO 300 Unit/3 mL Inj SUBQ SCH ×4 (08:00→22:00)
[2016-12-29] MEDS: IBRUTINIB 420 MG PO SCH (08:51)
--- NOTE | 2016-12-29 10:36 | CONS ---
[address] [address] CONSULTATION REPORT PATIENT: DHARA MOYA : 1945 MR#: [id number] ADMIT: 12/26/2016 JOB ID: [id number] CORRECTED REPORT: DATE OF SERVICE: 12/29/2016 INFECTIOUS DISEASE CONSULTATION: I thank Dr. Quispe for this timely consult. REASON FOR CONSULTATION: Possible pulmonary or skin infection in a patient with underlying malignancy. HISTORY OF THE PRESENT ILLNESS: The patient is an unfortunate 71-year-old gentleman who is well known to me from many admissions over the past 2-3 years. Many of these admissions during which I was involved revolved around recurrent pacer infections. The patient had life-threatening pacemaker infections in association with endocarditis which eventually required removal of two pacers and implantation of a third. His other major ongoing problem over the past couple years has been his follicular lymphoma which has relapsed recently and has left him with recurrent pleural effusions requiring serial thoracenteses. I last saw him back in September of this year when he was admitted with shortness of breath and confusion. There was concerns about possible infection given his history of many MRSA infections as well as stenotrophomonas bacteremia and he was broadly covered with antibiotics but rapidly improved. He did have exudative pleural effusion at the time of his September admission, and we did give him a short course of antibiotics but there was never any conclusive proof of recurrent infections though a nasal swab was positive for MRSA at that time. Following his September admission, the patient has had subsequent cultures including some done in through the [facility] which were positive for MRSA as he was being treated for multiple small soft tissue infections. This admission started back on December 26 when he was admitted through the emergency department with subjective fever, chills, and a progressive shortness of breath. Recall that he had been requiring ongoing thoracenteses on a weekly basis because of recurrent presumably malignant pleural effusions. Notes from Heme-Onc indicate there was also some thought that some of his pleural effusion issues were related to CHF as well as malignant pleural effusions. In any event, the patient was admitted here on the , and appropriate cultures were done. He was started on cefepime as a single broad-spectrum antibiotic given his underlying malignancy, but there was no treatment provided for MRSA at the time of admission. Subsequent to his admission, he has received a thoracentesis and has also had the placement of a chest tube on the right in preparation for a talc pleurodesis which is scheduled for today. Note that that chest tube was placed yesterday. The patient tells us that he is continuing to have some chills but no longer has any fevers or rigors. He notes that he has an intermittent headache but no significant sore throat. The patient has some kwfc-ah-evruxpuf shortness of breath but it has actually improved over admission and especially after the placement of the chest tube. Oddly he has no pain at the site of the right-sided chest tube. He has minimal sputum production. No nausea, vomiting, or other GI complaint. He notes that he has many small skin lesions but they seem to be improving. PAST MEDICAL HISTORY: 1. 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 2. Complete heart block with which has required three pacers as the first two became infected. 3. Hypertension. 4. Insulin-dependent diabetes. 5. Chronic renal insufficiency. 6. Diastolic congestive heart failure. 7. Progressive debility. 8. Hyperlipidemia. 9. Home O2 dependent at this point, secondary to CHF, recurrent pleural effusions and other related issues. SOCIAL HISTORY: The patient lives at home with his three cats. He does not smoke or use drugs. He is retired. He has a large collection of friends and relatives who see him frequently at home and in the hospital. FAMILY HISTORY: Negative for TB in first and second-degree relatives. REVIEW OF SYSTEMS: The patient does have some mild headache today. He notes he does have mild sore throat today. No acute visual change. He has minimal cough and is not especially short of breath despite the fact he is requiring face mask oxygen and has a chest tube in his right side. No significant chest pain on either side including the side with the chest tube. No nausea vomiting, diarrhea. No dysuria, urgency or frequency. He notes his lower extremities are chronically swollen but they have responded well to wraps applied by the wound management team which are currently in place. No new neurologic complaints. Remainder of the review of systems negative. PHYSICAL EXAMINATION: Reveals an afebrile gentleman, temperature 36.5, pulse 70, respiratory rate 22, blood pressure 113/67. He is saturating well right now on 3 L and recall that he is always on oxygen at home. He is awake, alert, making jokes and seems to be in his usual mental state. Head without temporal wasting. No conjunctivitis. No thrush or hairy leukoplakia is noted. Neck without significant JVD. He has a chest tube in the right side which appears benign at its insertion site. Lungs are notable for decreased breath sounds on the right more than the left. No significant wheezing is noted. Cardiac tones: Regular rate and rhythm without notable murmur. The abdomen is soft and without organomegaly. At this point no ascites is noted. No suprapubic fullness noted. No notable adenopathy. His lower extremity wraps were removed and his legs carefully inspected with the wound management nurse. Below the knee the patient has fairly significant venous stasis changes with some stasis dermatitis but no evidence of infection. There are no significant wounds on his lower extremities though there are shallow areas of open skin but these are very minimal and without any evidence whatsoever of infection. Underneath the left first metatarsal on the plantar aspect, there is about a 5-6 mm shallow ulcer which is completely uninfected appearing. We then rolled the patient over and carefully inspected his buttocks and coccyx. There is some erythema perhaps due to pressure but absolutely no skin breakdown in the perianal, coccygeal or buttock region. Neurologically the patient is intact. LABORATORIES: Include a white count which was 18,000 when he came in. It is now 10,000. Going back over his labs over the past 18 months though, he has never had a normal white count and they are always elevated which I assume is on the basis of his lymphoma. His platelet count 321,000. He has 7% bands, but on looking at his labs for the last 18 months or so, he has had intermittent very significant bandemias and I would attach no importance to the bandemia at this point. His creatinine 1.19 which is more or less his baseline. LFTs are normal. Bilirubin negative. Albumin 3.3. Procalcitonin 0.05, which is utterly negative. Urinalysis on this admission, no white cells. His pleural fluid was described as hazy at 165 white cells, 6700 red cells, but it was largely mononuclear cells. LDH 87 and total protein 2.7 so this was a transudative pleural effusion. Cultures from that pleural effusion are negative at 48 hours and an AFB smear is negative as well. A MRSA screen of the nares on this admission is negative by PCR which is interesting as he has been heavily colonized with MRSA in the past. Blood cultures are negative. IMPRESSION: This patient was admitted three days ago with increasing shortness of breath and some subjective fever. We have not documented any fevers here and his white blood count and band counts are within normal for him over the past 18 months. His procalcitonin is 0 and I see no evidence based on physical examination, nor by evaluation of his laboratories and micro results to suggest ongoing infection at this time. The patient certainly remains at high risk for infection as he has multiple very small areas of skin breakdown on his lower extremities and his left foot, but at this point, they all appear entirely benign. Luckily, he also has no skin breakdown on his buttocks or coccyx region. RECOMMENDATIONS: 1. I would discontinue antibiotics and observe the patient at this time. 2. I agree completely with the attempt at pleurodesis to avoid the very frequent thoracenteses that he has been requiring. 3. I agree with Dr. Duque's thought that at least some of this recurrent pleural effusion is on the basis of heart failure as we now know this is a transudative process. Thank you very much for this consult. Will follow the patient up on Sunday and see how he does off all antibiotics. Corrected by ROSA 01/22/17 at 7:40am DOS.
--- NOTE | 2016-12-29 11:31 | NUR ---
AUTO ROLLER witnessed ANA signature at bedside. Kathryn Trevino AUTO ROLLER
--- NOTE | 2016-12-29 12:05 | NUR ---
Inpatient Wound Nurse Patient seen by KEISHA and Dr. Finley who provided visual assessment of wounds. BLE dressings intact, easily removed as BLE edema has decreased. Wounds are unchanged, periwound maceration improved, scant serosanguinous, non-odorous drainage, no signs of infection, wound beds marbled glossy pink and beefy red. Wounds were cleansed, blotted dry, periwound covered with calmoseptine, wound beds covered with Xeroform and then wrapped with Kerlix and Coban. Ulceration of on R foot plantar surface, beefy red wound bed, edges well-adhered; wound was cleansed, blotted dry, covered with hydrocolloid cut down to 2 cm x 2 cm. Stage 2 pressure ulcer R distal buttock is all but resolved. Sacrum now pink and warm, blanchable, with no new open areas found. Wound was cleansed, blotted dry, and entire area covered with bordered Mepilex dressing. Since patient is at risk for pressure injuries in this area and intermittently sustains Stage 1s, Mepilex sacral dressings may be cautionary measure to be used at all times per nursing judgment and patient tolerance. CWON will see patient on Sunday, all dressings, including wraps to BLE, can remain in place 3 to 5 days if clean, dry, intact. Nursing may change dressing PRN, CWON will change wraps Sunday.
--- NOTE | 2016-12-29 14:52 | DRSVH ---
PROCEDURE: X-RAY CHEST ONE VIEW ([id number]) INDICATIONS: Gurwinder Effusions s/p R CHEST TUBE TECHNIQUE: One view of the chest was acquired. COMPARISON: [facility], US, US GUIDED THORACENTESIS, 12/27/2016, 9:07. [facility], CR, XR CHEST 1VW (PORTABLE), 12/28/2016, 17:51. [facility], CR, XR CHEST 1VW, 12/27, 10:04. FINDINGS: Surgical changes and devices: Stable positioning of right pleural drain. Lungs and pleura: Small right apical pneumothorax is present similar to prior examination. Midright lung and basilar patchy airspace opacity redemonstrated. A large left pleural effusion with minimal aeration of the left upper lobe. Mediastinum: Mediastinal contours appear normal. Heart size is normal. Bones and chest wall: No suspicious bony lesions. Overlying soft tissues appear unremarkable. IMPRESSION: 1. Stable position of right pleural drain and small right apical non-tension pneumothorax redemonstra diana. 2. Mid right lung and basilar air space opacity consistent with compressive atelectasis versus pneumo kwame or aspiration. 3. Large left pleural effusion redemonstrated slightly increased in size from prior exam. Dictated by: Dante SCHRADERA Interpreted: Mary Hurtado MD on 12/29/2016 at 9:06 Approved by: Mary Hurtado M.D. on 12/29/2016 at 14:51
--- NOTE | 2016-12-29 16:27 | NUR ---
Oxygen/mentation/self-transferring Oxygen has been between 3-5L all day, switching between the nasal cannula and the oxy mask. Desats to as low as 69% when laying flat or when switching between cannula and mask. Typically able to stay between 88-94%. C/O SOB often, uses pursed lip breathing at times. Pt A&O X3 but sometimes slow to respond and sometimes forgets names or numbers. Pt consistently attempts to self-transfer despite being told to use call light. Also consistently removes oxygen and forgets to replace.
--- NOTE | 2016-12-29 16:55 | PCM.PNMED ---
Subjective Date of Service Dec 29, 2016 Subjective Today, patient states that he feels fine. He still feels SOB when laying down and continues to need oxygen via mask. He denies headaches, chest pain, palpitations. Overnight, Chest Tube to right chest continues to put out large amount of serous - sanguineous drainage (830ml overnight). Pt reported that his breathing is improving. sats maintained 90s on 3-5L NC. Review of systems: Patient denies dizziness, visual changes, chest pain, nausea , vomiting, abdominal pain, bowel changes. Exam Vital Signs Vital Sign - Last Date Time Temp Pulse Resp B/P Pulse Ox O2 Delivery O2 Flow Rate FiO2 12/29/16 05:48 71 12/29/16 03:04 36.3 19 135/66 95 Nasal Cannula 4.00 12/28/16 22:59 91 Intake and Output 12/28/16 12/28/16 12/29/16 Cumulative From/Thru 15:00 23:00 07:00 12/26/16 18:54 - 12/29/16 06:30 Intake Total 819 ml 389 ml 2287 ml Output Total 1000 ml 1230 ml 4130 ml Balance -181 ml -841 ml -1843 ml Intake Oral 600 ml 200 ml 1650 ml IV Total 219 ml 189 ml 637 ml Output Urine Total 1000 ml 400 ml 3300 ml Drainage Total 830 ml 830 ml # Voids 1 4 5 # Bowel Movements 0 0 Exam General: Patient is sitting up comfortably on bed, alert awake and oriented HEENT: head normocephalic and atraumatic, PERRLA, EOMI, no scleral icterus, noninjected conjunctiva Neck: neck supple, non-tender, no JVD CV: regular rate and rhythm, s1 and s2 heard, no murmur, trace edema on lower extremities bilaterally Lungs:chest tube draining serosanguineous fluid on the right side, diffuse crackles bilaterally Abdomen: normoactive bowel sounds on 4Q, soft, non-distended, non-tender to palpation, no organomegally, Skin: warm and dry, LE wrapped with bandage bilaterally Neuro: Grossly neurologically intact, cranial nerves II through XII intact Psych: Normal mood and affect IVs and Medications IV Fluids 50 mL given with IV medications Medications Reviewed: Medications were reviewed in detail Medications High-risk medications include oxycodone Lab and Diagnostics Laboratory Tests Test 12/29/16 03:25 White Blood Count 18.3th/mm3 (3.8-10.1) Red Blood Count 3.82mil/mm3 (4.40-5.80) Hemoglobin 9.8g/dL (13.8-17.2) Hematocrit 34.1% (41.0-50.0) Mean Corpuscular Volume 89.3fL (81-100) Mean Corpuscular Hemoglobin 25.7pg (27.0-35.0) Mean Corpuscular Hemoglobin Concent 28.7% (32.0-37.0) Red Cell Distribution Width 20.5% (12.3-15.4) Platelet Count 321bil/L (150-400) Neutrophils (%) (Auto) 63% (40-74) Lymphocytes (%) (Auto) 12% (14-46) Monocytes (%) (Auto) 18% (4-12) Eosinophils (%) (Auto) 0% (0-5) Basophils (%) (Auto) 0% (0-3) Band Neutrophils % 7% (1-5) Hematology Comments Sodium Level 139mEq/L (134-144) Potassium Level 4.7mEq/L (3.5-5.2) Chloride Level 94mEq/L (97-108) Carbon Dioxide Level 34mmol/L (18-29) Blood Urea Nitrogen 22mg/dL (8-27) Creatinine 1.19mg/dL (0.76-1.27) Estimat Glomerular Filtration Rate 64mL/min (>59) Glucose Level 165mg/dL (60-99) Calcium Level 8.5mg/dL (8.5-10.1) Total Bilirubin 0.3mg/dL (0.0-1.2) Aspartate Amino Transf (AST/SGOT) 20U/L (0-50) Alanine Aminotransferase (ALT/SGPT) 8U/L (0-44) Alkaline Phosphatase 153U/L (25-160) Total Protein 5.8g/dL (6.4-8.4) Albumin 3.3g/dL (3.4-5.0) Microbiology 12/26/16 Blood Culture - Preliminary, Resulted No growth at 2 days; culture examined... 12/27/16 - Final, Resulted 12/27/16 Acid Fast Bacilli Smear - Final, Resulted 12/27/16 Acid Fast Bacilli Culture, Resulted Pending 12/27/16 MRSA (PCR) - Final, Complete Result Diagram: 12/29/16 0325 12/29/16 0325 X-Rays, CTs and MRIs Chest XR 12/26/16 IMPRESSION: Bilateral prominent pleural effusions. Dictated by: Stone Mccormack M.D. on 12/26/2016 at 20:40 Approved by: Stone Mccormack M.D. on 12/26/2016 at 20:41 12-lead ECG Flutter with controlled rate of 70. Cardiac Echo Impressions Echo 09/19/16 The left ventricle is normal in size. Left ventricular systolic function is normal without focal wall motion abnormalities. The ejection fraction is estimated to be 60-65%. LVEF is unchanged since prior study on 03/26/2016. There are no findings that would suggest acute CHF on today's study. Clinical correlation is recommended. The right ventricle is normal size. TAPSE is reduced suggestive of decreased RV systolic function but visually the RV function appears to be grossly normal. Right ventricular systolic pressure is estimated to be 27 mmHg plus the clinically estimated CVP which cannot be estimated on this exam. The left atrium is mildly dilated. Right atrial size is normal. There is no significant valvular heart disease. The aortic root is normal size. There is a trivial to small pericardial effusion noted. There are no echocardiographic indications of cardiac tamponade. There is a moderate left-sided pleural effusion. There is a large right-sided pleural effusion. Assessment & Plan Mr. 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 Acute On chronic hypoxemic Hypercapnic respiratory failure, present on admission. Ongoing. - Patient is on 2.5 L of oxygen at baseline but was unable to maintain saturations - Likely due to bilateral pleural effusions due to his lymphoma - Patient was stable on 3-4 L in the ED, but required 5 L for movement and transferred to the floor - Maintain O2 saturations between 88-94% - Thoracentesis done 12/27/16, with a total 1420 cc of chylous-appearing pleural fluid aspirated Analysis of Fluid WBC 165, Fluid LDH 86, Pleural Glucose, 146, Fluid Triglycerides 50 -Oncology, Dr. Duque was consulted and saw patient; his input is greatly appreciated -Respiratory Therapy was consulted for possible Trilogy -Consider spirometry Bilateral pleural effusions, present on admission. Chronic. Ongoing. - Patient requires almost weekly alternating thoracentesis, last done 12/18 - Thoracentesis done today, with a total 1420 cc of chylous-appearing pleural fluid aspirated Analysis of Fluid WBC 165, Fluid LDH 86, Pleural Glucose, 146, Fluid Triglycerides pending , fluid cultures sent for analysis -Surgery consulted and we appreciate their input. Dr. Benitez did a tube thoracostomy on the right side. -He plans to do a pleurodesis later this morning Leukocytosis, present on admission. Chronic. Ongoing. - Likely due to patient's lymphoma, but possibility of infection is present - Patient has been afebrile, denies chills, productive cough, sick contacts - Patient received 2 g of cefepime in the ED, and it was continued on the floor - Infectious disease was consulted and we appreciate their input -Per ID, we will discontinue the cefepime -Patient's presentation is less likely to be infectious - Continue to monitor with CBC Lymphoma, present on admission. Chronic. - Pt follows with Dr. Duque - Continue Imbruvica daily Elevated troponin, present on admission. Chronic. - Patient has Elevated troponin on prior admission, likely due to demand and CKD - Patient denies any chest pain, palpitations - Will not trend as the value is close to his baseline - Monitor on telemetry Diastolic CHF, present on admission. Chronic. - Likely not the cause of his shortness of breath, but we will reevaluate if not improved after thoracentesis - Last echo was done 09/19 as above - Continue torsemide and spironolactone -We will order an echo today Diabetes mellitus type II Insulin using, present on admission. Chronic. - Hold metformin while inpatient - Hold insulin regimen, 100 units in the morning but monitor Blood glucose closely - Medium dose correctional scale ordered - Patient refused a diabetic diet; will give general diet due to condition - A1c was 7.6 in September Hypothyroidism, present on admission. Chronic. - Continue levothyroxine 50 mcg daily Normocytic anemia, present on admission. Chronic -Patient has history of CML -H and H slightly improved today and 0.8 and 34.1 respectively Depression, present on admission. Chronic. - Continue sertraline 50 mg daily Leg Ulcers, present on admission. -Ordered Wound Care nurse Acetaminophen as needed for mild pain, fever, headache. Bowel regimen as needed. Zofran as needed. Subcutaneous heparin on board, SCDs contraindicated due to lower extremity wounds. Patient status: Patient was admitted to the inpatient service, likely length of stay >2 midnights due to severity of presenting symptoms, complex medical workup, and overall treatment plan. Pain Evaluation: Adequate Pain Control VTE Prophylaxis: Sub-Q Heparin (Unfractionated) VTE Mechanical Devices: Anti-Embolic stockings Resuscitation Status: CPR: Attempt Resuscitation Time spent 30 minutes Attending Statement I have seen and evaluated the patient at bedside in addition to directly supervising care provided by resident physician. I agree with above documentation. Rosalva Neely DO Dec 29, 2016 06:44 Arturo Benjamin DO Dec 30, 2016 07:47
--- NOTE | 2016-12-29 18:03 | CCS NOTE ---
[facility] [address] [address] MEDICAL ONCOLOGY OFFICE NOTE PATIENT: DHARA MOYA : 1945 MR#: [id number] DATE: 12/26/2016 JOB ID: [id number] DATE: 12/29/2016 SUBJECTIVE: Patient has been mostly in bed at times sedated due to both oxygen requirement and a history of CO2 retention. Dr. Benitez and myself had communication yesterday about the patient's status and a chest tube was then placed yesterday for planning of talc pleurodesis. Patient's oxygen requirements are at least currently relatively stable. He is on 3 L nasal cannula and communicative. Remains afebrile. White count is 18, hemoglobin 9.8, platelets 321. Chemistry shows stable electrolytes. Creatinine 1.19. On exam, he has now a chest tube in place on the right side with drainage of blood-tinged pleural fluid. His lower extremity edema is less pronounced, likely due to the fact that he is laying in bed most of the time with feet elevated. He is alert and oriented, somewhat lethargic, but his mental status is not much different than his baseline. ASSESSMENT AND PLAN: 1. A 71-year-old gentleman with follicular lymphoma admitted with another episode of respiratory distress and increased oxygen requirement, which is multifactorial but predominantly determined by recurrent pleural effusions, particularly on the right side. I had a conversation both with the hospitalist team as well as Dr. Benitez with surgery and we reached the conclusion to proceed with attempt of pleurodesis on the right side. He might require this also on the left side in future. A chest tube was placed yesterday and talc has been ordered per Dr. Benitez. 2. Leukocytosis. 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 This has been a secondary disorder that has been present, identified during his autologous stem cell transplant and so far has been mild and has not required any therapy. Therefore, his leukocytosis is not necessarily a reflection of an infection. Given his other comorbidities we have deferred from treating his low volume CML at the same time, and have been simply observing it.
[2016-12-30] VITALS (11 sets, daily range): BP systolic 106–120; BP diastolic 48–63; PULSE 69–75; RESP 18–24; O2SAT 89–95
[2016-12-30 03:32] LABS: Mean Corpuscular Hemoglobin 25.4 pg (27.0-35.0); Platelet Count 315 bil/L (150-400)
[2016-12-30 03:46] LABS: BASOPHILS % (AUTO) 0 % (0-3); EOSINOPHILS % (AUTO) 0 % (0-5); MONOCYTES % (AUTO) 14 % (4-12); NEUTROPHILS % (AUTO) 70 % (40-74)
--- NOTE | 2016-12-30 04:26 | PCM.PNSURG ---
Subjective Date of Service: Dec 29, 2016 Visit Information: Refractory Pleural Effusions s/p R Tube Thoracostomy 12/28/2016 Date of Admission: Dec 26, 2016 at 22:11 Hospital Day # 4 Subjective: Feeling okay Assessment & Plan Impression Lung not completely expanded. No obvious improvement in oxygen requirement Problems: Plan Continue aggressive pulmonary hygeine Repeat CXR tomorrow morning Will plan on Talc Pleuorodesis tomorrow Bennie Benitez MD Dec 30, 2016 04:26
--- NOTE | 2016-12-30 05:30 | NUR ---
mentation pt confused this shift, pt able to state where he was but kept removing his oxygen and de-sating to 70s, when you remind pt to keep oxygen pt stating that it is on, pt would remove oxygen while in room and deny doing it, pt trying to get out of bed with out calling multiply times, [place] alarm on. changed oxygen to NC and pt kept that on better. 5L NC
--- NOTE | 2016-12-30 05:42 | NUR ---
chest tube pts chest tube oozing at site, reniforced, chest tube also putting out 250cc of fluid this shift. pt denies any pain
[2016-12-30] MEDS: Insulin LISPRO 300 Unit/3 mL Inj SUBQ SCH ×4 (08:00→21:01)
[2016-12-30] MEDS: IBRUTINIB 420 MG PO SCH (09:14)
[2016-12-30] MEDS: Heparin 5,000 Unit/mL Inj SUBQ SCH ×2 (09:14→17:08)
[2016-12-30] MEDS ORDERED: SODIUM CHLORIDE 0.9% PLEURAL ONE (10:00)
[2016-12-30] MEDS ORDERED: TALC PLEURAL ONE (10:00)
--- NOTE | 2016-12-30 12:20 | PCM.PNSURG ---
Subjective Date of Service: Dec 30, 2016 Visit Information: Refractory Pleural Effusions s/p R Tube Thoracostomy 12/28/2016 Date of Admission: Dec 26, 2016 at 22:11 Hospital Day # 5 Subjective: Feels breathing improved with chest tube Objective Vital Sign- Last 8 Hours Date Time Temp Pulse Resp B/P Pulse Ox O2 Delivery O2 Flow Rate FiO2 12/30/16 09:02 36.7 70 23 107/52 95 Nasal Cannula 5.00 12/30/16 09:02 Supplement Oxygen Chest Tubes 12/30/16 08:53 70 12/30/16 05:42 70 12/30/16 04:43 36.8 70 22 120/62 94 Nasal Cannula 5.00 Intake and Output- Last 8 Hour 12/30/16 Cumulative From/Thru 07:00 12/26/16 18:54 - 12/30/16 06:24 Intake Total 200 ml 3232 ml Output Total 600 ml 8530 ml Balance -400 ml -5298 ml Intake Oral 200 ml 2450 ml IV Total 782 ml Output Urine Total 350 ml 5250 ml Chest Tube Drainage Total 250 ml 2450 ml Drainage Total 830 ml # Voids 5 # Bowel Movements 0 Chest: No Airleak, Improved air entry on the right Result Diagram: 12/30/16 0255 12/30/16 0255 Assessment & Plan Impression Doing well Problems: Plan Instilled 5G of Talc Slurry at 11:50 AM Chest tube clamped Position changes every 15 min for an hour Unclamp to suction at 20cm h2O at 12:50PM - 1 hr Chest Xray in AM Bennie Benitez MD Dec 30, 2016 12:20
--- NOTE | 2016-12-30 12:33 | DRSVH ---
PROCEDURE: X-RAY CHEST ONE VIEW ([id number]) INDICATIONS: f/u R CT TECHNIQUE: One view of the chest was acquired. COMPARISON: [facility], CR, XR CHEST 1VW, 12/29/2016, 4:43. FINDINGS: Surgical changes and devices: Thoracostomy tube projecting to the right apex. Lungs and pleura: Large left pleural effusion and small right pleural effusion are unchanged. No pneu mothorax. Mediastinum: Mediastinal contours appear normal. Heart size is normal. Bones and chest wall: No suspicious bony lesions. Overlying soft tissues appear unremarkable. IMPRESSION: Stable chest. Dictated by: Garfield Briggs M.D. on 12/30/2016 at 12:30 Approved by: Garfield Briggs M.D. on 12/30/2016 at 12:31
--- NOTE | 2016-12-30 13:21 | PCM.PNMED ---
Subjective Date of Service Dec 30, 2016 Subjective Mr. 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 There were no acute events overnight. Patient continues to receive about 5 L O2 via nasal cannula. This morning, he denies chest pain and but continues to have shortness of breath, it is very postural dependent. He is optimistic about getting the pleurodeses to he will no longer have the get periodic thoracentesis. He has no concerns today. Review of systems, patient denies fevers, chills, headaches, chest pain, palpitations, nausea, vomiting, abdominal pain, bowel changes and dysuria. Exam Vital Signs Vital Sign - Last Date Time Temp Pulse Resp B/P Pulse Ox O2 Delivery O2 Flow Rate FiO2 12/30/16 05:42 70 12/30/16 04:43 36.8 22 120/62 94 Nasal Cannula 5.00 12/28/16 22:59 91 Intake and Output 12/29/16 12/29/16 12/30/16 Cumulative From/Thru 15:00 23:00 07:00 12/26/16 18:54 - 12/30/16 06:24 Intake Total 745 ml 200 ml 3232 ml Output Total 1800 ml 600 ml 8530 ml Balance -1055 ml -400 ml -5298 ml Intake Oral 600 ml 200 ml 2450 ml IV Total 145 ml 782 ml Output Urine Total 1600 ml 350 ml 5250 ml Chest Tube Drainage Total 200 ml 250 ml 2450 ml Drainage Total 830 ml # Voids 5 # Bowel Movements 0 0 Exam General: Patient is sitting up comfortably on bed, alert awake and oriented HEENT: head normocephalic and atraumatic, PERRLA, EOMI, no scleral icterus, noninjected conjunctiva Neck: neck supple, non-tender, no JVD CV: regular rate and rhythm, s1 and s2 heard, no murmur, trace edema on lower extremities bilaterally Lungs:chest tube draining serosanguineous fluid on the right side, decreased breath sounds bilaterally Abdomen: normoactive bowel sounds on 4Q, soft, non-distended, non-tender to palpation, no organomegally, Skin: warm and dry, LE wrapped with bandage bilaterally Neuro: Grossly neurologically intact, cranial nerves II through XII intact Psych: Normal mood and affect IVs and Medications Medications Reviewed: Medications were reviewed in detail Medications High-risk medications include oxycodone Lab and Diagnostics Laboratory Tests Test 12/30/16 02:55 White Blood Count 20.5th/mm3 (3.8-10.1) Red Blood Count 3.43mil/mm3 (4.40-5.80) Hemoglobin 8.7g/dL (13.8-17.2) Hematocrit 30.2% (41.0-50.0) Mean Corpuscular Volume 88.0fL (81-100) Mean Corpuscular Hemoglobin 25.4pg (27.0-35.0) Mean Corpuscular Hemoglobin Concent 28.8% (32.0-37.0) Red Cell Distribution Width 20.3% (12.3-15.4) Platelet Count 315bil/L (150-400) Neutrophils (%) (Auto) 70% (40-74) Lymphocytes (%) (Auto) 11% (14-46) Monocytes (%) (Auto) 14% (4-12) Eosinophils (%) (Auto) 0% (0-5) Basophils (%) (Auto) 0% (0-3) Band Neutrophils % 4% (1-5) Metamyelocytes % 1% (0-0) Nucleated Red Blood Cells 2/100 WBC (0-24) Hematology Comments Sodium Level 140mEq/L (134-144) Potassium Level 3.9mEq/L (3.5-5.2) Chloride Level 92mEq/L (97-108) Carbon Dioxide Level 37mmol/L (18-29) Blood Urea Nitrogen 22mg/dL (8-27) Creatinine 1.20mg/dL (0.76-1.27) Estimat Glomerular Filtration Rate 63mL/min (>59) Glucose Level 144mg/dL (60-99) Calcium Level 8.4mg/dL (8.5-10.1) Total Bilirubin 0.3mg/dL (0.0-1.2) Aspartate Amino Transf (AST/SGOT) 12U/L (0-50) Alanine Aminotransferase (ALT/SGPT) 7U/L (0-44) Alkaline Phosphatase 139U/L (25-160) Total Protein 5.2g/dL (6.4-8.4) Albumin 3.1g/dL (3.4-5.0) Microbiology 12/26/16 Blood Culture - Preliminary, Resulted No growth at 2 days; culture examined... 12/27/16 - Final, Resulted 12/27/16 Acid Fast Bacilli Smear - Final, Resulted 12/27/16 Acid Fast Bacilli Culture, Resulted Pending 12/27/16 MRSA (PCR) - Final, Complete Result Diagram: 12/30/16 0255 12/30/16 0255 X-Rays, CTs and MRIs Chest XR 12/26/16 IMPRESSION: Bilateral prominent pleural effusions. Dictated by: Stone Mccormack M.D. on 12/26/2016 at 20:40 Approved by: Stone Mccormack M.D. on 12/26/2016 at 20:41 12-lead ECG Flutter with controlled rate of 70. Cardiac Echo Impressions Echo 09/19/16 The left ventricle is normal in size. Left ventricular systolic function is normal without focal wall motion abnormalities. The ejection fraction is estimated to be 60-65%. LVEF is unchanged since prior study on 03/26/2016. There are no findings that would suggest acute CHF on today's study. Clinical correlation is recommended. The right ventricle is normal size. TAPSE is reduced suggestive of decreased RV systolic function but visually the RV function appears to be grossly normal. Right ventricular systolic pressure is estimated to be 27 mmHg plus the clinically estimated CVP which cannot be estimated on this exam. The left atrium is mildly dilated. Right atrial size is normal. There is no significant valvular heart disease. The aortic root is normal size. There is a trivial to small pericardial effusion noted. There are no echocardiographic indications of cardiac tamponade. There is a moderate left-sided pleural effusion. There is a large right-sided pleural effusion. Assessment & Plan Mr. 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 Acute On chronic hypoxemic Hypercapnic respiratory failure, present on admission. Ongoing. - Patient is on 2.5 L of oxygen at baseline but was unable to maintain saturations - Likely due to bilateral pleural effusions due to his lymphoma - Patient was stable on 3-4 L in the ED, but required 5 L for movement and transferred to the floor - Maintain O2 saturations between 88-94% - Thoracentesis done 12/27/16, with a total 1420 cc of chylous-appearing pleural fluid aspirated Analysis of Fluid WBC 165, Fluid LDH 86, Pleural Glucose, 146, Fluid Triglycerides 50 -Oncology, Dr. Duque was consulted and saw patient; his input is greatly appreciated -Respiratory Therapy was consulted for possible Trilogy -Consider spirometry Bilateral pleural effusions, present on admission. Chronic. Ongoing. - Patient requires almost weekly alternating thoracentesis, last done 12/18 - Thoracentesis done today, with a total 1420 cc of chylous-appearing pleural fluid aspirated Analysis of Fluid WBC 165, Fluid LDH 86, Pleural Glucose, 146, Fluid Triglycerides pending , fluid cultures sent for analysis -Surgery consulted and we appreciate their input. Dr. Benitez did a tube thoracostomy on the right side. -He plans to do a pleurodesis later this morning -Continue aggressive pulmonary hygeine Repeat CXR -Will plan on Talc Pleuorodesis tomorrow Leukocytosis, present on admission. Chronic. Ongoing. - Likely due to patient's lymphoma, but possibility of infection is present - Leukocytosis. 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 Chronic. - Pt follows with Dr. Duque - Continue Imbruvica daily Elevated troponin, present on admission. Chronic. - Patient has Elevated troponin on prior admission, likely due to demand and CKD - Patient denies any chest pain, palpitations - Will not trend as the value is close to his baseline - Monitor on telemetry Diastolic CHF, present on admission. Chronic. - Likely not the cause of his shortness of breath, but we will reevaluate if not improved after thoracentesis - Last echo was done 09/19 as above - Continue torsemide and spironolactone -We will order an echo today Diabetes mellitus type II Insulin using, present on admission. Chronic. - Hold metformin while inpatient - Hold insulin regimen, 100 units in the morning but monitor Blood glucose closely - Medium dose correctional scale ordered - Patient refused a diabetic diet; will give general diet due to condition - A1c was 7.6 in September Hypothyroidism, present on admission. Chronic. - Continue levothyroxine 50 mcg daily Normocytic anemia, present on admission. Chronic -Patient has history of CML -H and H slightly improved today and 0.8 and 34.1 respectively Depression, present on admission. Chronic. - Continue sertraline 50 mg daily Leg Ulcers, present on admission. -Ordered Wound Care nurse Acetaminophen as needed for mild pain, fever, headache. Bowel regimen as needed. Zofran as needed. Subcutaneous heparin on board, SCDs contraindicated due to lower extremity wounds. Patient status: Patient was admitted to the inpatient service, likely length of stay >2 midnights due to severity of presenting symptoms, complex medical workup, and overall treatment plan. Pain Evaluation: Adequate Pain Control VTE Mechanical Devices: Anti-Embolic stockings Time spent 25 minutes Attending Statement I have seen and evaluated patient at bedside in addition to directly supervising care provided by resident physician Dr Godoy for care provided on . I agree with above documentation Rosalva Neely DO Dec 30, 2016 08:07 Arturo Benjamin DO Dec 31, 2016 07:41
--- NOTE | 2016-12-30 17:48 | DRSVH ---
[facility] [address] [place] [address] Echocardiogram Report Name: DHARA MOYA te: 12/30/2016 Height: 69 in Hospital Exam Location: [facility] Weight: 186 lb Gender: Male BSA: 2.0 m2 : 1945 Age: 71 yrs BP: 120/62 mmHg Reason For Study: SOB Ordering Physician: Performed By: Iesha Burton Referring Physician: Dr. Julian Fabian Interpretation Summary 1. Normal left ventricular size, wall thickness and systolic function with an estimated EF of 60-65% 2. Grossly normal right ventricular size - function is difficult to assess given arrhythmia. The estimated right atrial pressure is elevated. the estimated RVSP is 55 mm Hg. 3. Large left sided pleural effusion. Small right sided effusion. 4. No evidence for significant valvular pathology Compared to the previous study, the LV function is stable Procedure: A two-dimensional transthoracic echocardiogram with color flow and Doppler was performed. The study quality was technically adequate. Comparison is made with the echocardiogram of 09/19/2016. The patient has a paced rhythm. Left Ventricle: The left ventricle is normal in size. There is normal left ventricular wall thickness. The ejection fraction is estimated to be 60-65%. Diastolic function could not be accurately assessed due to paced rhythm. Right Ventricle: The right ventricle is grossly normal size. Function difficult to assess. Atria: The left atrium is mildly dilated. Right atrial size is normal. There is no Doppler evidence for an interatrial shunt. Mitral Valve: There is mild mitral annular calcification. The mitral valve leaflets are slightly calcified. There is trace mitral regurgitation. Aortic Valve: The aortic valve is slightly calcified. The aortic valve opens well. Not optimally visualized but appears trileaflet. No aortic regurgitation is present. Tricuspid Valve: The tricuspid valve leaflets are thin and pliable. There is mild tricuspid regurgitation. The right ventricular systolic pressure is estimated at 55 mmHg assuming a right atrial pressure of 15 mm Hg. Pulmonic Valve: The pulmonic valve is not well seen, but is grossly normal. There is no pulmonic valvular regurgitation. Great Vessels: The aortic root is normal size. The IVC is dilated (diameter is greater than 2.1 cm) and it collapses less than 50% with a sniff. This suggests a high right atrial pressure of 15 mm Hg. Systolic flow reversal in the hepatic vein. Pericardium/ Pleura There is no pericardial effusion. There is a trivial right-sided pleural effusion. There is a very large left-sided pleural effusion. MMode/2D Measurements & Calculations LVIDd: 5.1 cm RA long axis LVOT diam LVIDs: 3.6 cm LA A2 area: 22.6 cm FS: 30.0 % LA A4 area: 23.5 cm RA area Ao root diam IVSd: 0.79 cm LA length (vol): 5.9 cm : 3.4 cm LVPWd: 0.71 cm LA vol: 76.9 ml : 19.6 cm LA vol index RA vol: 61.9 ml RA : 30.9 mm2 IVC diam: 2.4 cm LV raman. diameter/BSA LV sys. diameter/BSA RVD1 (basal) RVD2 (mid) (cm/m^2): 2.6 (cm/m^2): 1.8 : 3.1 cm TAPSE: 0.78 cm Doppler Measurements & Calculations Ao V2 max MV E max yrn Med Peak E' Yrn TR max yrn : 166.0 cm/sec : 145.6 cm/sec : 316.6 cm/sec Ao max P.0 mmHg E/E' med: 15.8 TR max PG Ao mean P.3 mmHg MVA(VTI): 2.4 cm2 : 40.1 mmHg LVOT Max Yrn PA V2 max : 99.8 cm/sec : 118.1 cm/sec PA mean PG CYNDI(I,D): 2.1 cm sev ratio: 0.58 PA Accel Time : 0.06 sec MV V2 mean Ao V2 mean LV V1 max PG PA V2 mean : 55.8 cm/sec : 105.4 cm/sec : 75.4 cm/sec MV mean P.9 mmHg Ao V2 VTI: 30.0 cmLV V1 VTI MV V2 VTI: 26.3 cm : 17.4 cm MV dec time: 0.13 sec CYNDI(V,D): 2.2 cm2 CYNDI indexed to BSA (cm^2/m^2): 1.1 Reading Physician:05:47 PM
--- NOTE | 2016-12-30 18:16 | PROG NOTE ---
[address] [address] PROGRESS NOTE PATIENT: DHARA MOYA : 1945 MR#: [id number] ADMIT: 12/26/2016 JOB ID: [id number] DATE: 12/30/2016 CARDIOLOGY PROGRESS NOTE: SUBJECTIVE: He has a malignant follicular lymphoma and CML with recurrent pleural effusions. He has atrial flutter versus atrial tachycardia and a history of diastolic heart failure. He came with pleural effusions. I was asked to look at him to see if there was a potential caught cardiac contributor. At the time I arrive to the room the patient is fatigued and wants to rest. He reports improved breathing. His echocardiogram shows preserved LV systolic function. Right ventricular function is difficult to assess given the arrhythmia. Pleural effusions are present. No significant valvular pathology. IMPRESSION: This is a complicated man who has evidence for probable atypical flutter versus atrial tachycardia. I am not certain if this is contributing. It could potentially do so, however I highly doubt this would resolve until his pleural processes have improved. I will check in on the patient tomorrow MTDD
--- NOTE | 2016-12-30 19:29 | NUR ---
Note Patient forgetful- frequent attempts to get up. Patient remained unsteady on his feet and required one persona support with transfer from bed to chair and with walking in addition to a front wheel walker- bed alarm on, frequent observation/rounds. Talcum injection thought chest tube was perform by Dr. Benitez today. MD injected first through the chest tube Lidocaine vile content. Patient remained on bedrest with position changing Q15 min from side to side and with chest tube clamped for one hour starting at 1150 per MD verbal order. Chest tube was unclamped at 1250 and suction was resumed. Chest tube output total for the shift was 185ml of serum drainage. Oxygen requirements- NC at 6L O2 while at rest and oxy mask with 10-15L O2 with activity to maintain oxygen saturation 92% and grater. Patient was removing his oxy-mask and occasionally NC with oxygen saturation decreasing to the low to mid 70 without O2 supplementation- frequent round- sitter at the bedside.
--- NOTE | 2016-12-30 23:19 | NUR ---
Change in mentation: 2299 when vitals were being done pt noted to be fairly somnolent- pt awakes to light sternal rub but appears very drowsy and confused, cant state where he is or what day it is- this is a noted change from NOC shift night where pt was A/ox3. Dr. Zhou made aware- STAT ABG ordered. MD at bedside to assess pt. RT at bedside to obtain ABG, currently awaiting results. Addendum: 12/30/16 at 2355 by HUNTER CHAVES RN ABG resulted- reviewed by by Dr. Zhou and RT, STAT CXR ordered. Xray / diagnostic imaging contacted immediately- unable to locate. Inventory Control Associate and medical records receptionist notified. avionics electronics technician currently on way. will update MD when image becomes available. Addendum: 12/31/16 at 0101 by HUNTER CHAVES RN MD notified when image available. Order received to place petty cath and administer lasix. care ongoing- pt currently more awake- answering yes and no questions- intermittently pulling off oxymask. pt currently on 5L oxymask with sats in the high 80s-low 90s (monitored via EARTH SCIENCE TEACHER) pt immediately desats into the 60s-70s when he pulls off mask. frequent reorientating, and rounding.
--- NOTE | 2016-12-30 23:27 | ABG ---
DateTimeAnalyzed 23:20:00 -_ pH ____7.316 - 7.350 7.450 pCO2 ___87.1__ -mmHg 35.0 45.0 pO2 ___62.8__ -mmHg 69.0 116 HCO3- ___43.2__ -mmol/L 22.0 26.0 ABE ___14.8__ -mmol/L -2.0 2.0 tHb ____9.2__ -g/dL 12.0 18.0 O2Hb ___86.5__ -% COHb ____1.6__ -% 0.0 1.5 MetHb ____1.1__ -% 0.4 1.5 sO2 ___88.9__ -% 25.0 FIO2 ___40.0__ -% Drawn By MM - Date/Time Notified____ 23:26:00 -_ Spontaneous_RR ___18.0__ -b/min Oxygen Device 1 __OXYMASK - Notified By MM - Notified Whom DR ADRIENNE - B 760 -mmHg tO2 ___11.3__ -Vol% Cristiano test _Positive -
[2016-12-31] VITALS (15 sets, daily range): BP systolic 100–135; BP diastolic 47–68; PULSE 69–72; RESP 14–32; O2SAT 90–99
[2016-12-31] MEDS ORDERED: Furosemide 10 mg/mL 2 mL Inj IVPUSH ONE (00:30)
[2016-12-31] MEDS: Heparin 5,000 Unit/mL Inj SUBQ SCH ×2 (00:36→17:42)
--- NOTE | 2016-12-31 07:12 | DRSVH ---
PROCEDURE: X-RAY CHEST ONE VIEW, PORTABLE ([id number]) INDICATIONS: AMS w/ h/o effusions TECHNIQUE: One view of the chest was acquired. COMPARISON: [facility], CR, XR CHEST 1VW (PORTABLE), 12/28/2016, 17:51. [facility], CR, XR CHEST 1VW (PORTABLE), 12/27/2016, 5:36. [facility], CR, XR CHEST 1VW (PORT ABLE), 12/26/2016, 20:18. [facility], CR, XR CHEST 1VW (PORTABLE), 09/19/2016, 4:52. FINDINGS: Surgical changes and devices: Right-sided chest tube Lungs and pleura: Stable large left pleural effusion with compressive atelectasis of the middle lower left lung. Persistent diffuse mostly basilar right pulmonary opacities. Right pneumothorax is now ap ical. Mediastinum: Mediastinal contours are obscured. Heart size is likely unchanged. Bones and chest wall: No suspicious bony lesions. Overlying soft tissues appear unremarkable. IMPRESSION: Right-sided thorax is now nearly entirely apical. Right chest tube in place. Stable left pleural effusion with compressive atelectasis. Dictated by: Wilfrido Byrnes M.D. on 12/31/2016 at 7:08 Approved by: Wilfrido Byrnes M.D. on 12/31/2016 at 7:10
[2016-12-31] MEDS: IBRUTINIB 420 MG PO SCH (08:30)
--- NOTE | 2016-12-31 08:30 | PCM.PNMED ---
Subjective Date of Service Dec 31, 2016 Subjective Contacted this morning by this patient's surgeon for help managing his acute on chronic mixed hypoxemic and hypercarbic respiratory failure. Patient is moribund and poorly responsive, unable to give any meaningful history. Chart review reveals a chronically ill 71 yo man with Follicular B cell lymphoma, recurrent s/p stem cell transplant, currently on TKI CML Chronic hypoxemic and hypercarbic respiratory failure A. Fib Diastolic heart disease DM H/O multiple pacer infections requiring explantation x 2 Hypothyroidism He was admitted for VATS pleurodesis of his Rt effusion which was completed but overnight he his chronically elevated pCO2 ( high 60's ) has risen to nearly 90. His last CXR was 12/30 and showed a massive Lt sided effusion with a chest tube on the Rt. Speaks in 1-2 word sentences with grunting respirations, SpO2 94% on 6 L by Oximask. Affirms that he would accept a second chest tube on the left and intubation if needed Lungs Decreased breath sounds diffusely CV Distant IIR, no m/g/r Limited bedside chest ultrasound confirms no PTX on Rt and Large loculated effusion on the LT extending to the lung apex. IMP Acute on chronic mixed hypoxemic and hypercarbic respiratory failure. Generalized deconditioning and the large malignant effusions are the obvious contributors at this point but it is difficult to exclude a superimposed infection, heart failure. He is near the point of requiring intubation and mechanical ventilation. REC Urgent placement Lt thoracostomy tube Noninvasive positive pressure ventilation, BiPAP Serial ABGs Procalcitonin, BNP Intubate for refractory resp failure Multidisciplinary meeting with Onc, primary team, Palliative care to define appropriate goals of care Full note to follow Exam Vital Signs Vital Sign - Last Date Time Temp Pulse Resp B/P Pulse Ox O2 Delivery O2 Flow Rate FiO2 12/31/16 06:15 70 12/31/16 03:07 36.5 21 135/68 90 OxyMask 5.00 12/28/16 22:59 91 Intake and Output 12/30/16 12/30/16 12/31/16 Cumulative From/Thru 15:00 23:00 07:00 12/26/16 18:54 - 12/31/16 06:43 Intake Total 450 ml 50 ml 3732 ml Output Total 1635 ml 775 ml 23598 ml Balance -1185 ml -725 ml -7208 ml Intake Oral 450 ml 50 ml 2950 ml IV Total 782 ml Output Urine Total 1450 ml 750 ml 7450 ml Chest Tube Drainage Total 2450 ml Drainage Total 185 ml 25 ml 1040 ml # Voids 8 4 17 # Bowel Movements 0 Lab and Diagnostics Result Diagram: 12/30/16 0255 12/30/16 0255 X-Rays, CTs and MRIs Chest XR 12/26/16 IMPRESSION: Bilateral prominent pleural effusions. Dictated by: Stone Mccormack M.D. on 12/26/2016 at 20:40 Approved by: Stone Mccormack M.D. on 12/26/2016 at 20:41 12-lead ECG Flutter with controlled rate of 70. Cardiac Echo Impressions Echo 09/19/16 The left ventricle is normal in size. Left ventricular systolic function is normal without focal wall motion abnormalities. The ejection fraction is estimated to be 60-65%. LVEF is unchanged since prior study on 03/26/2016. There are no findings that would suggest acute CHF on today's study. Clinical correlation is recommended. The right ventricle is normal size. TAPSE is reduced suggestive of decreased RV systolic function but visually the RV function appears to be grossly normal. Right ventricular systolic pressure is estimated to be 27 mmHg plus the clinically estimated CVP which cannot be estimated on this exam. The left atrium is mildly dilated. Right atrial size is normal. There is no significant valvular heart disease. The aortic root is normal size. There is a trivial to small pericardial effusion noted. There are no echocardiographic indications of cardiac tamponade. There is a moderate left-sided pleural effusion. There is a large right-sided pleural effusion. Assessment & Plan Mr. 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 Acute On chronic hypoxemic Hypercapnic respiratory failure, present on admission. Ongoing. - Patient is on 2.5 L of oxygen at baseline but was unable to maintain saturations - Likely due to bilateral pleural effusions due to his lymphoma - Patient was stable on 3-4 L in the ED, but required 5 L for movement and transferred to the floor - Maintain O2 saturations between 88-94% - Thoracentesis done 12/27/16, with a total 1420 cc of chylous-appearing pleural fluid aspirated Analysis of Fluid WBC 165, Fluid LDH 86, Pleural Glucose, 146, Fluid Triglycerides 50 -Oncology, Dr. Duque was consulted and saw patient; his input is greatly appreciated -Respiratory Therapy was consulted for possible Trilogy -Consider spirometry Bilateral pleural effusions, present on admission. Chronic. Ongoing. - Patient requires almost weekly alternating thoracentesis, last done 12/18 - Thoracentesis done today, with a total 1420 cc of chylous-appearing pleural fluid aspirated Analysis of Fluid WBC 165, Fluid LDH 86, Pleural Glucose, 146, Fluid Triglycerides pending , fluid cultures sent for analysis -Surgery consulted and we appreciate their input. Dr. Benitez did a tube thoracostomy on the right side. -He plans to do a pleurodesis later this morning -Continue aggressive pulmonary hygeine Repeat CXR -Will plan on Talc Pleuorodesis tomorrow Leukocytosis, present on admission. Chronic. Ongoing. - Likely due to patient's lymphoma, but possibility of infection is present - Leukocytosis. 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 Chronic. - Pt follows with Dr. Duque - Continue Imbruvica daily Elevated troponin, present on admission. Chronic. - Patient has Elevated troponin on prior admission, likely due to demand and CKD - Patient denies any chest pain, palpitations - Will not trend as the value is close to his baseline - Monitor on telemetry Diastolic CHF, present on admission. Chronic. - Likely not the cause of his shortness of breath, but we will reevaluate if not improved after thoracentesis - Last echo was done 09/19 as above - Continue torsemide and spironolactone -We will order an echo today Diabetes mellitus type II Insulin using, present on admission. Chronic. - Hold metformin while inpatient - Hold insulin regimen, 100 units in the morning but monitor Blood glucose closely - Medium dose correctional scale ordered - Patient refused a diabetic diet; will give general diet due to condition - A1c was 7.6 in September Hypothyroidism, present on admission. Chronic. - Continue levothyroxine 50 mcg daily Normocytic anemia, present on admission. Chronic -Patient has history of CML -H and H slightly improved today and 0.8 and 34.1 respectively Depression, present on admission. Chronic. - Continue sertraline 50 mg daily Leg Ulcers, present on admission. -Ordered Wound Care nurse Acetaminophen as needed for mild pain, fever, headache. Bowel regimen as needed. Zofran as needed. Subcutaneous heparin on board, SCDs contraindicated due to lower extremity wounds. Patient status: Patient was admitted to the inpatient service, likely length of stay >2 midnights due to severity of presenting symptoms, complex medical workup, and overall treatment plan. VTE Mechanical Devices: Anti-Embolic stockings Reese Xavier MD Dec 31, 2016 08:30
[2016-12-31 09:31] LABS: Mean Corpuscular Hemoglobin 25.6 pg (27.0-35.0); Mean Corpuscular Volume 89.4 fL (81-100); NEUTROPHILS % (AUTO) 75 % (40-74); Platelet Count 334 bil/L (150-400)
[2016-12-31 09:32] LABS: BASOPHILS % (AUTO) 0 % (0-3); EOSINOPHILS % (AUTO) 1 % (0-5); MONOCYTES % (AUTO) 12 % (4-12)
--- NOTE | 2016-12-31 10:24 | NUR ---
Social Work: Continued Discharge Planning/Multidisciplinary Rounds D: EMR reviewed. Pt is on day 5 of hospitalization. Pt discussed in multidisciplinary rounds and will chest tube and BIPAP today. Pt anticipated to discharge 2-3 days pending oncology. SW discussed potential discharge needs and that pt was open with Lana GTUIERREZ RN PT. SW requested resumption order. MD will wait to place order to determine potential needs after procedures today. No other SW needs identified at this time, no MD orders received. SW will continue to follow. A: Pt who resides and [facility] and is open with Lana GUTIERREZ RN PT. P: Pt anticipated to discharge back to [facility] and resume Lana GUTIERREZ RN PT - pending oncology. No SW needs identified at this time, no MD orders received. SW will continue to follow. KECIA Styles
--- NOTE | 2016-12-31 11:34 | DRSVH ---
PROCEDURE: X-RAY CHEST ONE VIEW ([id number]) INDICATIONS: Left Chest tube placement TECHNIQUE: One view of the chest was acquired. COMPARISON: [facility], CR, XR CHEST 1VW, 12/30/2016, 4:38. [facility], CR, XR CHEST 1VW, 12/29/2016, 4:43. [facility], CR, XR CHEST 1VW, 12/27/2016, 10:04. [facility], CR, XR CHEST 1VW, 12/18/2016, 11:51. FINDINGS: Surgical changes and devices: New left pleural catheter. Stable right chest tube. Lungs and pleura: Stable right apical pneumothorax. Possible new tiny left apical pneumothorax. Left pleural effusion is now small. Stable right pleural effusion with right mid lower lung pulmonary opac ities. Minimal left basilar atelectasis. Mediastinum: Mediastinal contours appear normal. Heart size is normal. Bones and chest wall: No suspicious bony lesions. Overlying soft tissues appear unremarkable. IMPRESSION: 1. New left pleural catheter with significantly decreased size of left-sided pleural effusion. Possib le tiny left apical pneumothorax. 2. Stable right chest tube with apical pneumothorax and right mid and lower lung pulmonary opacities. Dictated by: Wilfrido Byrnes M.D. on 12/31/2016 at 11:30 Approved by: Wilfrido Byrnes M.D. on 12/31/2016 at 11:33
--- NOTE | 2016-12-31 11:40 | PCM.PNSURG ---
Subjective Date of Service: Dec 31, 2016 Visit Information: Refractory Pleural Effusions s/p R Tube Thoracostomy 12/28/2016 R Talc Pleurodesis 12/30/2016 Date of Admission: Dec 26, 2016 at 22:11 Hospital Day # 6 Subjective: Hypoventilation, hypercarbia & depressed mentation overnight Objective Vital Sign- Last 8 Hours Date Time Temp Pulse Resp B/P Pulse Ox O2 Delivery O2 Flow Rate FiO2 12/31/16 10:30 70 12/31/16 08:11 36.5 70 20 124/51 93 OxyMask 5.00 12/31/16 06:15 70 Intake and Output- Last 8 Hour 12/31/16 Cumulative From/Thru 07:00 12/26/16 18:54 - 12/31/16 06:43 Intake Total 50 ml 3732 ml Output Total 775 ml 37970 ml Balance -725 ml -7208 ml Intake Oral 50 ml 2950 ml IV Total 782 ml Output Urine Total 750 ml 7450 ml Chest Tube Drainage Total 2450 ml Drainage Total 25 ml 1040 ml # Voids 4 17 # Bowel Movements 0 Chest: Decreased air entry on the left. no airleak Result Diagram: 12/31/16 0818 12/31/16 0818 Assessment & Plan Impression Some clinical deterioration overnight Problems: Plan Consulted Dr. Xavier from Pulmonology BiPAP Left Tube thoracostomy to drain the effusion Will keep in touch with Bennie Guerra MD Dec 31, 2016 11:40
[2016-12-31] MEDS: Insulin LISPRO 300 Unit/3 mL Inj SUBQ SCH ×4 (12:00→22:00)
--- NOTE | 2016-12-31 12:06 | ABG ---
DateTimeAnalyzed 11:58:00 -_ pH ____7.281 - 7.350 7.450 pCO2 ___97.0__ -mmHg 35.0 45.0 pO2 ___96.7__ -mmHg 69.0 116 HCO3- ___44.2__ -mmol/L 22.0 26.0 ABE ___15.2__ -mmol/L -2.0 2.0 tHb ____9.0__ -g/dL 12.0 18.0 O2Hb ___93.8__ -% COHb ____1.7__ -% 0.0 1.5 MetHb ____1.2__ -% 0.4 1.5 sO2 ___96.6__ -% 25.0 FIO2 ___40.0__ -% CPAP ___12.0__ -cmH2O PEEP ____5.0__ -cmH2O Set_RR ___12.0__ -b/min Drawn By NB - Date/Time Notified____ 12:06:00 -_ Spontaneous_RR ___30.0__ -b/min Oxygen Device 1 ____BIPAP - Notified By NB - Notified Whom ___DR. CRUMP - B 759 -mmHg tO2 ___12.0__ -Vol%
--- NOTE | 2016-12-31 15:20 | ABG ---
DateTimeAnalyzed 15:12:00 -_ pH ____7.323 - 7.350 7.450 pCO2 ___86.9__ -mmHg 35.0 45.0 pO2 101 -mmHg 69.0 116 HCO3- ___43.8__ -mmol/L 22.0 26.0 ABE ___15.5__ -mmol/L -2.0 2.0 tHb ____9.2__ -g/dL 12.0 18.0 O2Hb ___94.9__ -% COHb ____1.7__ -% 0.0 1.5 MetHb ____1.1__ -% 0.4 1.5 sO2 ___97.6__ -% 25.0 FIO2 ___40.0__ -% CPAP ___18.0__ -cmH2O PEEP ____6.0__ -cmH2O Drawn By NB - Date/Time Notified____ 15:19:00 -_ Spontaneous_RR ___16.0__ -b/min Oxygen Device 1 ____BIPAP - Notified By NB - Notified Whom DR Xavier - B 758 -mmHg tO2 ___12.4__ -Vol% Cristiano test _Positive -
--- NOTE | 2016-12-31 16:02 | PROCED ---
[address] [address] PROCEDURE NOTE PATIENT: DHARA MOYA : 1945 MR#: [id number] ADMIT: 12/26/2016 JOB ID: [id number] DATE OF SERVICE: 12/31/2016 PREOPERATIVE DIAGNOSIS(ES): Left pleural effusion. POSTOPERATIVE DIAGNOSIS(ES): Left pleural effusion. PROCEDURE PERFORMED: Left tube thoracostomy. SURGEON: Bennie Benitez MD. ANESTHESIA: Local with lidocaine. COMPLICATIONS: None. CONDITION OF THE PATIENT: Relatively stable. INDICATIONS: The patient is a 71-year-old gentleman with bilateral pleural effusions, and I performed right tube thoracostomy a few days ago and performed chemical pleurodesis on that side. Overnight, he had respiratory decompensation with hypercarbia, and after discussing with the tank processor workers compensation claims analyst, Dr. Xavier, a left tube thoracostomy was recommended. After obtaining verbal consent from the patient, we proceeded. PROCEDURE DETAILS: He was placed in a semi-upright position with the left chest exposed. Then I prepped the left chest in the usual sterile fashion and procedural time-out was undertaken. The patient was identified and the side was confirmed. I then made an incision in the 5th intercostal space after infiltrating the site thoroughly with 1% lidocaine and bluntly dissected to the pleural cavity with a combination of finger dissection and clamp and entered the chest safely with my finger. I then advanced a 28-Kittitian straight chest tube posteriorly and then secured it with a 2-0 nylon suture and a sterile dressing was applied. Chest tube was attached to a Pleur-evac. He initially emptied over 2.5 L, prompting us to replace the Pleur-evac. Postprocedure chest x-ray showed chest tube to be in good position.
--- NOTE | 2016-12-31 18:18 | NUR ---
Medication/Pain/Heparin/Bipap Due to change in patient condition, morning medications were held. Administered Heparin 5000 units subcutaneous at approximately 1730. Notified Pharmacy regarding medication timing off for next Heparin. Pharmacist adjusted time. Pt states back pain is 5/10, notified, administered Morphine 2 mg IV at approximately 1815. Pt resting, friend in room. Notified RT pt requesting Bipap adjustment. RT in room adjusting Bipap for pt comfort. Care continues.
--- NOTE | 2016-12-31 18:31 | ABG ---
DateTimeAnalyzed 18:23:00 -_ pH ____7.349 - 7.350 7.450 pCO2 ___83.5__ -mmHg 35.0 45.0 pO2 ___85.2__ -mmHg 69.0 116 HCO3- ___44.9__ -mmol/L 22.0 26.0 ABE ___16.8__ -mmol/L -2.0 2.0 tHb ____9.1__ -g/dL 12.0 18.0 O2Hb ___93.5__ -% COHb ____1.8__ -% 0.0 1.5 MetHb ____1.2__ -% 0.4 1.5 sO2 ___96.4__ -% 25.0 FIO2 ___40.0__ -% CPAP ___14.0__ -cmH2O PEEP ____6.0__ -cmH2O Vt __480.0__ -L Drawn By NB - Date/Time Notified____ 18:30:00 -_ Spontaneous_RR ___22.0__ -b/min Oxygen Device 1 ____BIPAP - Notified By NB - Notified Whom DR Xavier - B 757 -mmHg tO2 ___12.0__ -Vol% Cristiano test _Positive -
--- NOTE | 2016-12-31 20:42 | NUR ---
Chest Tube Output Claimed 2500 mL output from Left chest tube placement this shift on Is & Os. Know output change for Right chest tube noted this shift.
--- NOTE | 2016-12-31 20:47 | PCM.PNMED ---
Subjective Date of Service Dec 31, 2016 Subjective overnight: Patient became acutely delirious likely secondary to severe CO2 retention and hypoxia due to left sided rapidly recurrent pleural effusion. Today: Patient was somnolent while in the room on BiPAP. The patient's DPOA brother in the room states that the patient should be made DNR/DNI given his chronic ongoing follicular lymphoma and CML as well as severe recurrent pleural effusions with poor prognosis. Exam Vital Signs Vital Sign - Last Date Time Temp Pulse Resp B/P Pulse Ox O2 Delivery O2 Flow Rate FiO2 12/31/16 08:11 36.5 70 20 124/51 93 OxyMask 5.00 12/28/16 22:59 91 Intake and Output 12/30/16 12/30/16 12/31/16 Cumulative From/Thru 15:00 23:00 07:00 12/26/16 18:54 - 12/31/16 06:43 Intake Total 450 ml 50 ml 3732 ml Output Total 1635 ml 775 ml 23149 ml Balance -1185 ml -725 ml -7208 ml Intake Oral 450 ml 50 ml 2950 ml IV Total 782 ml Output Urine Total 1450 ml 750 ml 7450 ml Chest Tube Drainage Total 2450 ml Drainage Total 185 ml 25 ml 1040 ml # Voids 8 4 17 # Bowel Movements 0 Exam General: Senior cachectic male in mild respiratory distress somnolent with BiPAP in place Eyes: Pupils equal round and reactive to light, extraocular motion intact, anicteric sclera, noninjected conjunctiva HENT: Normocephalic atraumatic, BiPAP mask in place Neck: Supple, trachea midline, without thyromegaly or JVD Cardiovascular: Regular rate and regular rhythm, S1-S2 present, possible rub noted at left lower sternal border without murmurs or gallops noted Lungs: With mild accessory muscle use left-sided chest tube in place with serosanguineous drainage, decreased breath sounds in left lung funes without wheezing rales or rhonchi Abdomen: Soft, nontender, nondistended, tympanic to percussion, normal active bowel sounds, without organomegaly Extremities: No cyanosis clubbing or edema noted, pulses intact bilaterally at dorsalis pedis and radial : Zhang catheter in place Skin: Warm and dry Neuro: Unable to assess given somnolence Psych: Unable to assess given somnolence Lab and Diagnostics Result Diagram: 12/31/16 0818 12/31/16 0818 X-Rays, CTs and MRIs Chest XR 12/26/16 IMPRESSION: Bilateral prominent pleural effusions. Approved by: Stone Mccormack M.D. on 12/26/2016 at 20:41 12-lead ECG Flutter with controlled rate of 70. Cardiac Echo Impressions Echocardiogram Report Interpretation Summary 1. Normal left ventricular size, wall thickness and systolic function with an estimated EF of 60-65% 2. Grossly normal right ventricular size - function is difficult to assess given arrhythmia. The estimated right atrial pressure is elevated. the estimated RVSP is 55 mm Hg. 3. Large left sided pleural effusion. Small right sided effusion. 4. No evidence for significant valvular pathology Compared to the previous study, the LV function is stable Reading Physician:05:47 PM Assessment & Plan Mr. 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 Acute On chronic hypoxemic Hypercapnic respiratory failure, present on admission. Ongoing. - Patient is on 2.5 L of oxygen at baseline but was unable to maintain saturations - Likely due to bilateral pleural effusions possibly due to his lymphoma or possible congestive heart failure - Maintain O2 saturations between 88-94% - Thoracentesis done 12/27/16, with a total 1420 cc of chylous-appearing pleural fluid aspirated Analysis of Fluid WBC 165, Fluid LDH 86, Pleural Glucose, 146, Fluid Triglycerides 50 - Primary oncologist, Dr. Duque consult with input is greatly appreciated - Patient is DNR/DNI and been placed on BiPAP with mild improvement in CO2 retention from PCO2 of 87 to PCO2 of 83.5, baseline PCO2 appears to be near 70 the patient does not carry a diagnosis of COPD Bilateral pleural effusions, present on admission. Chronic. Ongoing. - Patient requires almost weekly alternating thoracentesis, last done 12/18 - Thoracentesis done 12/27/16, with a total 1420 cc of chylous-appearing pleural fluid aspirated Analysis of Fluid WBC 165, Fluid LDH 86, Pleural Glucose, 146, Fluid Triglycerides 50 , fluid cultures sent for analysis - Surgery consulted and we appreciate their input. Dr. Benitez did a tube thoracostomy on the right sided Right sided VATS Pleuorodesis on 12/29/2016 - Continue aggressive pulmonary hygeine - Rapidly recurrent left-sided pleural effusion required left sided axillary thoracostomy to with reportedly near 3 L of serosanguineous drainage, surgery will consider possible bilateral pleurodeses Leukocytosis, present on admission. Chronic. Ongoing. - Likely due to patient's follicular lymphoma and CML, pleural effusion appears to be sterile - Patient has been afebrile, denies chills, productive cough, sick contacts - Patient received 2 g of cefepime in the ED - Infectious disease consulted - Per ID, we will discontinue the cefepime - Continue to monitor with CBC 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 Duque -Currently hold Imbruvica Elevated troponin, present on admission. Chronic. - Patient has Elevated troponin on prior admission, likely due to demand and CKD - Patient denies any chest pain, palpitations - Monitor on telemetry Diastolic CHF, present on admission. Chronic. - Likely not the cause of his shortness of breath, but we will reevaluate if not improved after thoracentesis - Last echo was done 09/19 as above -Currently holding torsemide and spironolactone as the patient is somnolent due to hypercapnia Diabetes mellitus type II Insulin using, present on admission. Chronic. - Hold metformin while inpatient - Hold insulin regimen, 100 units in the morning but monitor Blood glucose closely - Medium dose correctional scale ordered - Patient refused a diabetic diet; will give general diet due to condition - A1c was 7.6 in September Hypothyroidism, present on admission. Chronic. -Currently holding levothyroxine 50 mcg daily as the patient was somnolent due to hypercapnia Normocytic anemia, present on admission. Chronic -Patient has history of CML - Monitor Depression, present on admission. Chronic. - Currently holding sertraline 50 mg daily due to hypercapnia Leg Ulcers, present on admission. -Ordered Wound Care nurse Acetaminophen as needed for mild pain, fever, headache. Bowel regimen as needed. Zofran as needed. Subcutaneous heparin on board, SCDs contraindicated due to lower extremity wounds. Patient is likely to remain inpatient for the foreseeable future given his underlying chronic medical conditions and recent recurrent pleural effusion requiring likely pleurodesis. Pain Evaluation: Adequate Pain Control GI Prophylaxis: Not indicated VTE Mechanical Devices: Intermittant Pneumatic CD Resuscitation Status: DNR/DNI:Do Not Resuscitate/Intubate Time spent 35 minutes Attending Statement I have seen and evaluated patient at bedside in addition to directly supervising care provided by resident physician Dr Quispe on 12/31/2016. I agree with above documentation. Acute decline in respiratory function and mentation prompted chest tube placement to address large/expanded left sided pleural effusion. This was not immediately effective. Patient condition remains tenuous. Advanced directives were reviewed with patients brother and clarified should condition continue to decline. Shamir Quispe DO Dec 31, 2016 09:52 Arturo Benjamin DO Jan 01, 2017 07:37
[2017-01-01] VITALS (13 sets, daily range): BP systolic 96–131; BP diastolic 47–63; PULSE 70–71; RESP 18–39; O2SAT 93–97
[2017-01-01 03:00] LABS: Mean Corpuscular Hemoglobin 25.5 pg (27.0-35.0); Mean Corpuscular Volume 88.6 fL (81-100)
[2017-01-01 03:01] LABS: BASOPHILS % (AUTO) 0 % (0-3); EOSINOPHILS % (AUTO) 0 % (0-5); MONOCYTES % (AUTO) 11 % (4-12); NEUTROPHILS % (AUTO) 71 % (40-74); Platelet Count 307 bil/L (150-400)
[2017-01-01] MEDS: Heparin 5,000 Unit/mL Inj SUBQ SCH ×3 (03:28→18:30)
--- NOTE | 2017-01-01 04:44 | ABG ---
DateTimeAnalyzed 04:37:00 -_ pH ____7.328 - 7.350 7.450 pCO2 ___88.3__ -mmHg 35.0 45.0 pO2 ___73.1__ -mmHg 69.0 116 HCO3- ___45.0__ -mmol/L 22.0 26.0 ABE ___16.5__ -mmol/L -2.0 2.0 tHb ____9.4__ -g/dL 12.0 18.0 O2Hb ___91.3__ -% COHb ____1.8__ -% 0.0 1.5 MetHb ____1.3__ -% 0.4 1.5 sO2 ___94.2__ -% 25.0 FIO2 ___40.0__ -% CPAP ___14.0__ -cmH2O PEEP ____6.0__ -cmH2O Set_RR ___18.0__ -b/min Drawn By MM - Date/Time Notified____ 04:44:00 -_ Spontaneous_RR ___32.0__ -b/min Oxygen Device 1 ____BIPAP - Notified By MM - Notified Whom DR FUIMAONO - B 756 -mmHg tO2 ___12.1__ -Vol% Cristiano test _Positive -
[2017-01-01] MEDS ORDERED: HYDROmorphone 0.5 mg/0.5 mL iSecure Syringe IVPUSH PRN (05:05)
--- NOTE | 2017-01-01 06:48 | NUR ---
BiPap/ABGs/Pain Pt has kept BiPap on with FiO2 40% on throughout the shift. Pt has ABGs drawn this AM with the following results: pH: 7.328 / pCO2: 88 / pO2: 73.1 / HCO3: 45. MD was notified of these findings along with the increase in the pt's WBCs to 46.0. MD was also made aware of the pt's pain not responding to the pain medication and new pain med orders were placed to help manage the pt's pain. Chest tubes are still patent and the left chest tube drained 120cc of sero-sanguineous fluid and the right chest tube drained 10cc of serous fluid.
--- NOTE | 2017-01-01 07:09 | NUR ---
DC Petty Catheter Per report pt was to have petty catheter removed due to discomfort caused by the petty catheter placement. The petty catheter was removed and pt was able to void.
[2017-01-01] MEDS: Insulin LISPRO 300 Unit/3 mL Inj SUBQ SCH ×4 (08:00→22:00)
[2017-01-01] MEDS: IBRUTINIB 420 MG PO SCH (08:30)
[2017-01-01] MEDS ORDERED: DEXTROSE 5% IV SCH (09:52)
[2017-01-01] MEDS ORDERED: MEROPENEM IV SCH (09:52)
--- NOTE | 2017-01-01 09:57 | PROG NOTE ---
[address] [address] PROGRESS NOTE PATIENT: DHARA MOYA : 1945 MR#: [id number] ADMIT: 12/26/2016 JOB ID: [id number] DATE: 01/01/2017 REASON FOR FOLLOWUP: Bilateral pleural effusions in a patient with underlying lymphoma as well as a rapidly increasing white blood count with profound left shift. INTERVAL HISTORY: Recall that this is an extremely complex 71-year-old gentleman we saw on Sunday the . At that time our concern was that he had some subjective fevers with increasing shortness of breath. He had received several days of cefepime during the first few days of his hospital stay without any demonstrable change and he had no documented fevers here as well as a procalcitonin that was essentially zero. We decided on that basis to stop antibiotics and watch over the weekend. Over the weekend, the patient had the right pleurodesis done utilizing a chest tube in his right pleural space, but he subsequently rapidly developed respiratory decompensation with an increasing left-sided pleural effusion which required the placement of a chest tube yesterday. I do not see any cultures from that left-sided chest tube placement. Also over the weekend, the patient has had progressive shortness of breath requiring CPAP at all times and increasing respiratory distress. This morning the patient is awake and a bit lethargic, but he can answer questions. He denies fever and chills. He notes he is short of breath, which is obvious. He denies abdominal pain or diarrhea. Otherwise the history is limited though we did discuss the case in detail with the nurses at the bedside. PHYSICAL EXAMINATION: Reveals a more ill gentleman than we saw him on the . He is awake, however, and given us the thumbs up sign lying in bed. His current temp is 36.4, pulse is 70 and paced, respiratory rate in the mid 30s, blood pressure 115/54. He is saturating reasonably well on CPAP. His eyes reveal conjunctival pallor. He has clear JVD today indicating fluid overload or CHF. His lungs are notable for diffuse rales and rhonchi. Cardiac tones are regular and paced at about 70. A pacemaker is present on the right side of the abdomen and is benign. His abdomen in general is soft and nontender. He has bilateral chest tubes. The right is not producing much. The left is producing considerable bloody pleural fluid with about 120 cc overnight. We do not have any chemistries on that fluid, nor do we have any cultures. He does not have a Zhang catheter. On Sunday we carefully examined his legs and buttocks with the wound management nurse and saw no evidence of significant skin breakdown. There is no reports of any worsening of these areas. No significant peripheral edema. LABORATORIES: Include white blood count which was 18,000 on Sunday with a relatively benign appearing diff except 7% bands. Today his white count has more than doubled to 46,000 with 11% bands. Recall this patient does have a chronic leukocytosis on the basis of underlying lymphoma, but this is quite a jump over the weekend. His creatinine 1.06. His GFR is 73. His LFTs are normal. BNP 3800. Procalcitonin continues to bounce along at fairly low levels now 0.34. The pleural fluid from the which was from the right side was a transudate. We do not have pleural fluid from the left. The culture of the pleural fluid from the right side on the is negative. Blood cultures are negative from the and a MRSA screen is negative on this occasion. Today's chest x-ray was reviewed, and I personally viewed it on the machine. It shows the chest tubes present on both sides with scattered bilateral infiltrates. IMPRESSION: This is an extremely difficult case of a gentleman with advanced lymphoma and bilateral pleural effusions. He recently underwent right-sided pleurodesis utilizing a chest tube, but now has developed worsening left-sided pleural effusion. He also has history of multiple complicated infections including multiple pacers, and he currently is on his third pacer which is an intraabdominal pacer. When I first saw the patient in consultation on Sunday he appeared uninfected with negative cultures and a negative procalcitonin, and I thought it was reasonable to discontinue his cefepime. Over the weekend basically his white count has more than doubled, and he has developed increasing respiratory distress with fairly minimal sputum production. At this point, it is hard to know whether his decompensation is strictly due to progressive lymphoma and pleural effusion or whether there are additional issues in play. RECOMMENDATIONS: 1. Will obtain a broad Infectious Disease set of tests at this point to include fungal blood cultures, Fungitell, galactomannan, urinalysis with reflex culture, sputum Gram stain if available. 2. Once these cultures are obtained we will start the patient on a combination of meropenem and micafungin. I do not think empiric therapy for MRSA is indicated at this time. 3. We plan to discuss this case this morning with the pulmonary attending who is already involved in the case to see what ideas he might have and whether or not a bronchoscopy might even be indicated in this case.
--- NOTE | 2017-01-01 10:09 | PCM.PNMED ---
Subjective Date of Service Jan 01, 2017 Subjective Mr. 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 This morning, patient was quite somnolent. He was on BiPap with FiO2 at 40%. He wakes up when aroused and briefly responds to questions but returns to sleep immediately. He reports shortness of breath but denies chest pain. His Zhang was also removed this morning because it was causing him discomfort. Patient was able to void.ABGs drawn this AM with the following results: pH: 7.328 / pCO2 : 88 / pO2: 73.1 / HCO3: 45. Overnight, he was complaining of pain that was unresponsive to current pain medication regimen, so night team made new pain med orders to help manage pain. Exam Vital Signs Vital Sign - Last Date Time Temp Pulse Resp B/P Pulse Ox O2 Delivery O2 Flow Rate FiO2 01/01/17 04:34 70 32 94 40 01/01/17 04:18 36.4 115/54 BiPAP 12/31/16 08:11 5.00 Intake and Output 12/31/16 12/31/16 01/01/17 Cumulative From/Thru 15:00 23:00 07:00 12/26/16 18:54 - 01/01/17 06:12 Intake Total 0 ml 0 ml 3732 ml Output Total 3425 ml 355 ml 93458 ml Balance -3425 ml -355 ml -95607 ml Intake Oral 0 ml 0 ml 2950 ml IV Total 782 ml Output Urine Total 425 ml 225 ml 8100 ml Chest Tube Drainage Total 3000 ml 130 ml 5580 ml Drainage Total 1040 ml # Voids 1 18 # Bowel Movements 0 Exam General: Cachectic male sitting on bed, somnolent, but alert, awake and oriented when aroused HEENT: head normocephalic and atraumatic, PERRLA, EOMI, no scleral icterus, noninjected conjunctiva Neck: neck supple, non-tender, no JVD CV: regular rate and rhythm, s1 and s2 heard, no murmur, trace edema on lower extremities bilaterally Lungs:Bipap mask in place, chest tube draining serosanguineous fluid on the right side and left side, decreased breath sounds bilaterally without wheezes, rales or ronchi Abdomen: normoactive bowel sounds on 4Q, soft, non-distended, non-tender to palpation, no organomegally, : Zhang catheter recently removed, patient able to void Skin: warm and dry, LE wrapped with bandage bilaterally Neuro: unable to assess because patient was somnolent Psych: Normal mood and affect IVs and Medications Medications Reviewed: Medications were reviewed in detail Medications Jackson medications include morphine and Dilaudid. Lab and Diagnostics Result Diagram: 01/01/17 [id number]/[id number] X-Rays, CTs and MRIs Chest XR 12/26/16 IMPRESSION: Bilateral prominent pleural effusions. Approved by: Stone Mccormack M.D. on 12/26/2016 at 20:41 12-lead ECG Flutter with controlled rate of 70. Cardiac Echo Impressions Echocardiogram Report Interpretation Summary 1. Normal left ventricular size, wall thickness and systolic function with an estimated EF of 60-65% 2. Grossly normal right ventricular size - function is difficult to assess given arrhythmia. The estimated right atrial pressure is elevated. the estimated RVSP is 55 mm Hg. 3. Large left sided pleural effusion. Small right sided effusion. 4. No evidence for significant valvular pathology Compared to the previous study, the LV function is stable Reading Physician:05:47 PM Assessment & Plan Mr. 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 Acute On chronic hypoxemic Hypercapnic respiratory failure, present on admission. Ongoing. - Patient is on 2.5 L of oxygen at baseline but was unable to maintain saturations - Likely due to bilateral pleural effusions possibly due to his lymphoma or possible congestive heart failure - Maintain O2 saturations between 88-94% - Thoracentesis done 12/27/16, with a total 1420 cc of chylous-appearing pleural fluid aspirated Analysis of Fluid WBC 165, Fluid LDH 86, Pleural Glucose, 146, Fluid Triglycerides 50 - Primary oncologist, Dr. Duque consult with input is greatly appreciated - Patient is DNR/DNI and been placed on BiPAP with mild improvement in CO2 retention from PCO2 of 87 to PCO2 of 83.5, baseline PCO2 appears to be near 70 the patient does not carry a diagnosis of COPD -Discontinue Dilaudid and continue morphine only as patient is always somnolent -Palliative care has been consulted. We appreciate their input Bilateral pleural effusions, present on admission. Chronic. Ongoing. - Patient requires almost weekly alternating thoracentesis, last done 12/18 - Thoracentesis done 12/27/16, with a total 1420 cc of chylous-appearing pleural fluid aspirated Analysis of Fluid WBC 165, Fluid LDH 86, Pleural Glucose, 146, Fluid Triglycerides 50 , fluid cultures sent for analysis - Surgery consulted and we appreciate their input. Dr. Benitez did a tube thoracostomy on the right sided Right sided VATS Pleuorodesis on 12/29/2016 -Refractory Pleural Effusions s/p R Tube Thoracostomy 12/28/2016, R Talc Pleurodesis 12/30/2016, L Tube Thoracostomy 12/31/2016 -Right and Left chest tubes have been removed - Continue aggressive pulmonary hygeine - Rapidly recurrent left-sided pleural effusion required left sided axillary thoracostomy too with reportedly near 3 L of serosanguineous drainage, surgery will consider possible bilateral pleurodeses -Overnight, left chest tube drained 120cc of sero-sanguineous fluid and the right chest tube drained 10cc of serous fluid Leukocytosis, present on admission. Chronic. Ongoing. - Likely due to patient's follicular lymphoma and CML, pleural effusion appears to be sterile - Patient has been afebrile, denies chills, productive cough, sick contacts - Patient received 2 g of cefepime in the ED - Infectious disease consulted - Per ID, cefepime was discontinued -However, today WBC went up to 46 -ID ordered various cultures - patient started on a combination of meropenem and micafungin - Continue to monitor with CBC 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 Duque -Currently hold Imbruvica Elevated troponin, present on admission. Chronic. - Patient has Elevated troponin on prior admission, likely due to demand and CKD - Patient denies any chest pain, palpitations - Monitor on telemetry Diastolic CHF, present on admission. Chronic. - Likely not the cause of his shortness of breath, but we will reevaluate if not improved after thoracentesis - Last echo was done 09/19 as above -Currently holding torsemide and spironolactone as the patient is somnolent due to hypercapnia -His echocardiogram shows preserved LV systolic function. Right ventricular function is difficult to assess given the arrhythmia. Pleural effusions are present. No significant valvular pathology. Diabetes mellitus type II Insulin using, present on admission. Chronic. - Hold metformin while inpatient - Hold insulin regimen, 100 units in the morning but monitor Blood glucose closely - Medium dose correctional scale ordered - Patient refused a diabetic diet; will give general diet due to condition - A1c was 7.6 in September Hypothyroidism, present on admission. Chronic. -Currently holding levothyroxine 50 mcg daily as the patient was somnolent due to hypercapnia Normocytic anemia, present on admission. Chronic -Patient has history of CML - Monitor Depression, present on admission. Chronic. - Currently holding sertraline 50 mg daily due to hypercapnia Leg Ulcers, present on admission. -Ordered Wound Care nurse Acetaminophen as needed for mild pain, fever, headache. Bowel regimen as needed. Zofran as needed. Subcutaneous heparin on board, SCDs contraindicated due to lower extremity wounds. Patient is likely to remain inpatient for the foreseeable future given his underlying chronic medical conditions and recent recurrent pleural effusion requiring likely pleurodesis. GI Prophylaxis: Not indicated VTE Mechanical Devices: Intermittant Pneumatic CD Resuscitation Status: DNR/DNI:Do Not Resuscitate/Intubate Attending Statement The patient was seen and examined together with Dr. Neely on 01/01/2017 and I agree with the history, exam and plan as outlined in the note above. . Rosalva Neely DO Jan 01, 2017 06:54 Freddy Mercado MD Jan 04, 2017 18:08
--- NOTE | 2017-01-01 10:18 | PCM.PNSURG ---
Subjective Date of Service: Jan 01, 2017 Visit Information: Refractory Pleural Effusions s/p R Tube Thoracostomy 12/28/2016, R Talc Pleurodesis 12/30/2016, L Tube Thoracostomy 12/31/2016 Date of Admission: Dec 26, 2016 at 22:11 Hospital Day # 7 Subjective: Persistent Hypercapnia Objective Vital Sign- Last 8 Hours Date Time Temp Pulse Resp B/P Pulse Ox O2 Delivery O2 Flow Rate FiO2 01/01/17 09:48 70 39 96 40 01/01/17 09:06 36.6 70 38 117/55 96 BiPAP 40 01/01/17 04:34 70 32 94 40 01/01/17 04:18 36.4 70 28 115/54 94 BiPAP Intake and Output- Last 8 Hour 01/01/17 Cumulative From/Thru 07:00 12/26/16 18:54 - 01/01/17 06:12 Intake Total 0 ml 3732 ml Output Total 355 ml 84163 ml Balance -355 ml -35828 ml Intake Oral 0 ml 2950 ml IV Total 782 ml Output Urine Total 225 ml 8100 ml Chest Tube Drainage Total 130 ml 5580 ml Drainage Total 1040 ml # Voids 1 18 # Bowel Movements 0 Chest: Minimal CT output on the right, No airleak Result Diagram: 01/01/17 0210 01/01/17 0210 Assessment & Plan Impression Continued hypercapnia and somnolence Good response to pleurodesis on the right Problems: Plan Will remove right chest tube today Left chest tube/ pleurodesis options up for discussion with Dr. Duque & Pulmonary teams Will continue to follow Resuscitation Status: DNR/DNI:Do Not Resuscitate/Intubate Bennie Benitez MD Jan 01, 2017 10:18
--- NOTE | 2017-01-01 10:29 | NUR ---
not available this morning at first attempt. Wilbert Frausto, OT/L
[2017-01-01] MEDS ORDERED: 0.9% Sodium Chloride 250 ML ONE (12:08)
--- NOTE | 2017-01-01 12:08 | DRSVH ---
PROCEDURE: X-RAY CHEST ONE VIEW, PORTABLE ([id number]) INDICATIONS: acute respiratory failure TECHNIQUE: One view of the chest was acquired. COMPARISON: [facility], CR, XR CHEST 1VW, 12/31/2016, 10:32. [facility], CR, XR CHEST 1VW (PORTABLE), 12/30/2016, 23:55. FINDINGS: Surgical changes and devices: Stable positioning of bilateral pleural drains. Small bibasilar pleura l effusions persist. Mid/bibasilar airspace opacities are present, increased involving the left lung . No pneumothorax. Lungs and pleura: No pleural effusions or pneumothorax. Lungs are clear. Mediastinum: Mediastinal contours appear normal. Heart size is normal. Bones and chest wall: No suspicious bony lesions. Overlying soft tissues appear unremarkable. IMPRESSION: 1. Stable position of the bilateral pleural drains and small effusions are present. 2. Mid/basal bilateral air space opacities and increased involving the left lung suggesting atelectas is and/or pneumonia. Correlate clinically. Dictated by: Dante Diehl RRA Interpreted: Garfield Briggs MD on 01/01/2017 at 8:40 Approved by: Garfield Briggs M.D. on 01/01/2017 at 12:07
[2017-01-01] MEDS: Micafungin Inj 150 MG in 0.9% Sodium Chloride 100 ML IV SCH (12:37)
--- NOTE | 2017-01-01 13:24 | PCM.PROC ---
Procedure Note Date of Service: Jan 01, 2017 Pre Procedure Diagnosis: Primary diagnoses: 1. Bilateral malignant pleural effusions 2. Acute on chronic hypoxemic hypercapnic respiratory failure 3. Leg ulcers, bilateral shallow and noninfected Other chronic conditions: 1. Bacteremia with MRSA 10/2015 2. 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 4. Left-hand osteomyelitis. 5. Chronic kidney disease stage 3. 6. Paroxysmal atrial fibrillation. 7. Diabetes mellitus type 2, insulin dependent. 8. History of complete heart block status post pacemaker. 9. Chronic anemia. 10. Dyslipidemia. 11. Hypothyroidism. 12. Recurrent follicular malignant lymphoma, most recently on treatment with ibrutinib since May 2016 at 420 mg daily 13. Hyperlipidemia 14. Diastolic Congestive heart failure 15. Chronic bilateral pleural effusion, requiring frequent thoracentesis 16. Depression Post Procedure Diagnosis: Same Procedure: Bilateral chest tube removal Provider and Manager Recruitment: Umberto Wick PA-C Procedural Analgesia: None Procedure Details: The patient was positioned in a right side-lying position. Left chest tube suture was cut. Chest tube was removed during the inspiratory cycle of the patient's respiration (he was unable to cooperate with breath holding). The patient did not inspire air during chest tube removal. An occlusive dressing of 4 x 4, bacitracin ointment, and Vaseline gauze was applied. The procedure was well-tolerated. The patient was then positioned in a left side-lying position. Chest tube suture was cut. Chest tube was removed during sustained deep inspiration. The patient did not suck air during chest tube removal. A dressing of 4 x 4, Vaseline gauze, and bacitracin ointment was applied. The procedure was well- tolerated. Specimen: None Post Procedure Plan: Chest tube site dressings will remain in place for 24 hours. Umberto Wick PA-C Jan 01, 2017 13:24
--- NOTE | 2017-01-01 14:39 | NUR ---
Pain Meds Pt has received 2 doses of .5mg IV Dilaudid Q4 hours today. Oncologist came by to round on the pt and pt was very drowsy/ sedated, reviewed recent ABG. Oncology asked to hold off on the narcotics for a while till the pt is alert and able to blow off some of CO2. Pt will moan when somewhat awake. Hospitalist aware and making changes now.
--- NOTE | 2017-01-01 15:55 | DRSVH ---
PROCEDURE: X-RAY CHEST ONE VIEW, PORTABLE ([id number]) INDICATIONS: S/P CT removal TECHNIQUE: One view of the chest was acquired. COMPARISON: 01/01/2017-0539 hrs. FINDINGS: Surgical changes and devices: Bilateral pleural drains have been removed since earlier exam. Epicardi al leads are present.. Lungs and pleura: Bilateral pleural effusions and patchy bilateral pulmonary radiodensities with cons olidation in the left retrocardiac region appear unchanged. There are no pulmonary markings seen in t he right apex above the fifth posterior rib level therefore right pneumothorax cannot be excluded. Mediastinum: Mediastinal contours appear normal. Heart size is normal. Bones and chest wall: No suspicious bony lesions. Overlying soft tissues appear unremarkable. IMPRESSION: 1. Interval removal of bilateral chest tubes with possible right apical pneumothorax. 2. Bilateral pulmonary radiodensities with bibasilar infiltrates suggesting pneumonia. Bilateral pleu ral effusions are present and loculated fluid such as right pseudotumor is suggested. Dictated by: Shamir Whitfield M.D. on 01/01/2017 at 15:49 Approved by: Shamir Whitfield M.D. on 01/01/2017 at 15:54
--- NOTE | 2017-01-01 17:09 | NUR ---
Wound note Patient seen at bedside, open areas are closed at this time at both Lower extremities, cleaned with moisturizing remedy cloth and redressed with kerlix and coban mostly for protection and mild compression. Will follow up on this patient in 48 hours. Duoderm dressing reapplied to left p[lanter foot wound.
--- NOTE | 2017-01-01 17:48 | NUR ---
spiritual care: follow up brief caring visit. pt awake; recognized me, made some attempts to speak. very weak and difficult to understand. continuing to follow
--- NOTE | 2017-01-01 17:54 | PCM.PNMED ---
Subjective Date of Service Jan 01, 2017 Subjective Interval history S/P Lt thoracostomy tube placement by Dr. Benitez yesterday with 1400 fluid out. On BiPAP continuously since yesterday. Arouses briefly to loud voice but quickly falls back asleep. Exam Vital Signs Vital Sign - Last Date Time Temp Pulse Resp B/P Pulse Ox O2 Delivery O2 Flow Rate FiO2 01/01/17 16:47 36.9 70 36 101/53 93 BiPAP 40 01/01/17 13:00 9.80 Intake and Output 12/31/16 12/31/16 01/01/17 Cumulative From/Thru 15:00 23:00 07:00 12/26/16 18:54 - 01/01/17 06:12 Intake Total 0 ml 0 ml 3732 ml Output Total 3425 ml 355 ml 30683 ml Balance -3425 ml -355 ml -86422 ml Intake Oral 0 ml 0 ml 2950 ml IV Total 782 ml Output Urine Total 425 ml 225 ml 8100 ml Chest Tube Drainage Total 3000 ml 130 ml 5580 ml Drainage Total 1040 ml # Voids 1 18 # Bowel Movements 0 Exam Afeb SpO2 95% on 0.40 Lungs both lungs clear anteriorly with decreased BS at bases and crackles CV RRR, fixed split S2, no murmur IVs and Medications Medications Reviewed: Medications were reviewed in detail Lab and Diagnostics Result Diagram: 01/01/1720901/01/17 0210 X-Rays, CTs and MRIs Chest XR 12/26/16 IMPRESSION: Bilateral prominent pleural effusions. Approved by: Stone Mccormack M.D. on 12/26/2016 at 20:41 12-lead ECG Flutter with controlled rate of 70. Cardiac Echo Impressions Echocardiogram Report Interpretation Summary 1. Normal left ventricular size, wall thickness and systolic function with an estimated EF of 60-65% 2. Grossly normal right ventricular size - function is difficult to assess given arrhythmia. The estimated right atrial pressure is elevated. the estimated RVSP is 55 mm Hg. 3. Large left sided pleural effusion. Small right sided effusion. 4. No evidence for significant valvular pathology Compared to the previous study, the LV function is stable Reading Physician:05:47 PM Assessment & Plan IMP Acute on Chronic hypoxemic and hypercarbic respiratory failure. The cause of his hypercarbia is unclear but he does not appear to have chronic lung disease but rather this appears to be a problem with ventilatory drive, ie central alveolar hypoventilation and/or respiratory muscle function. He is not receiving drugs which are typically associated with respiratory depression but I wonder about his TKI. [employer] imaging might be helpful to exclude a brainstem process or large mass lesion but if negative would leave respiratory stimulants such as doxapram as a palliative option. I can't exclude a neuromuscular disease as a contributor as he is unable to cooperate with testing of muscle strength although he does have generalized muscle atrophy. It is difficult to know whether he has an acute respiratory infection but that would not explain his hypercarbia which is disproportionate to his degree of hypoxemia. His rapidly increasing neutrophilia with immature forms is at least partly a reflection of his CML but a thorough evaluation to exclude an acute infection is appropriate and has been undertaken by his ID work and family life consultant. Bronchoscopy has been raised as a possible means to exclude PNA but it would likely lead to significant further deterioration and given his DNR/DNI status might hasten his . I don't see him as a reasonable candidate currently. Bilateral recurrent pleural effusions s/p multiple serial therapeutic thoracenteses and VATS talc pleurodesis on Rt. Had Lt thoracostomy yesterday but this tube has now been removed without an attempt at pleurodesis apparently. 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 Fib Diastolic heart disease DM H/O multiple pacer infections requiring explantation x 2 Hypothyroidism REC Check TSH CPK or aldolase levels as myopathy screen Continue BiPAP for now Palliative care consult Consider brain MRI or CT If imaging nondiagnostic, consider trial of respiratory stimulant, methylphenidate, theophylline or doxapram. Pain Evaluation: Adequate Pain Control GI Prophylaxis: Not indicated VTE Mechanical Devices: Intermittant Pneumatic CD Resuscitation Status: DNR/DNI:Do Not Resuscitate/Intubate Reese Xavier MD Jan 01, 2017 17:54 - Pt follows with Dr. Duque -Currently hold Imbruvica Elevated troponin, present on admission. Chronic. - Patient has Elevated troponin on prior admission, likely due to demand and CKD - Patient denies any chest pain, palpitations - Monitor on telemetry Diastolic CHF, present on admission. Chronic. - Likely not the cause of his shortness of breath, but we will reevaluate if not improved after thoracentesis - Last echo was done 09/19 as above -Currently holding torsemide and spironolactone as the patient is somnolent due to hypercapnia -His echocardiogram shows preserved LV systolic function. Right ventricular function is difficult to assess given the arrhythmia. Pleural effusions are present. No significant valvular pathology. Diabetes mellitus type II Insulin using, present on admission. Chronic. - Hold metformin while inpatient - Hold insulin regimen, 100 units in the morning but monitor Blood glucose closely - Medium dose correctional scale ordered - Patient refused a diabetic diet; will give general diet due to condition - A1c was 7.6 in September Hypothyroidism, present on admission. Chronic. -Currently holding levothyroxine 50 mcg daily as the patient was somnolent due to hypercapnia Normocytic anemia, present on admission. Chronic -Patient has history of CML - Monitor Depression, present on admission. Chronic. - Currently holding sertraline 50 mg daily due to hypercapnia Leg Ulcers, present on admission. -Ordered Wound Care nurse Acetaminophen as needed for mild pain, fever, headache. Bowel regimen as needed. Zofran as needed. Subcutaneous heparin on board, SCDs contraindicated due to lower extremity wounds. Patient is likely to remain inpatient for the foreseeable future given his underlying chronic medical conditions and recent recurrent pleural effusion requiring likely pleurodesis. GI Prophylaxis: Not indicated VTE Mechanical Devices: Intermittant Pneumatic CD Resuscitation Status: DNR/DNI:Do Not Resuscitate/Intubate Reese Xavier MD Jan 01, 2017 17:54
--- NOTE | 2017-01-01 18:25 | CCS NOTE ---
[facility] [address] [place] [id number] MEDICAL ONCOLOGY OFFICE NOTE PATIENT: DHARA MOYA : 1945 MR#: [id number] DATE: 12/26/2016 JOB ID: [id number] DATE: 01/01/2017 SUBJECTIVE: The patient is significantly drowsy after administration of pain medication. Events over the weekend reviewed. He has become severely hypersomnolent with abnormal ABGs and has been placed on BiPAP. His right-sided chest tube has been removed after successful talc pleurodesis on Sunday. Because of the respiratory changes, chest tube has been placed on the left side as well to drain the left-sided pleural effusion. Associated with this, his leukocytosis that is chronic has suddenly gotten significantly worse with white count increasing from 20 on Sunday to now 46, with a chronic left shift. Hemoglobin 9.4, platelets 307. Chemistry shows stable creatinine and LFTs, although albumin is dropping due to poor nutrition. BNP has deteriorated with 3800. Speaking with his nurse, he has just received another dose of Dilaudid because of pain associated with the pleurodesis. The pain has been assessed by the patient moaning. His ABG has shown a CO2 of 88. Chest x-ray of this afternoon shows removal of his chest tube bilaterally now with a questionable right apical pneumothorax. He has been empirically started on meropenem and micafungin for possibility of a fungal infection. He has been afebrile, tachypneic with respiratory rate in the 20s and using 40% FiO2, O2 sat 93% to 96%. Abdomen soft. ASSESSMENT AND PLAN: A 71-year-old gentleman with recurrent lymphoma and recurrent bilateral pleural effusion that is multifactorial requiring frequent thoracentesis. Over the weekend, Dr. Benitez has kindly performed pleurodesis on the right side with removal of the chest tube and a new chest tube was placed on the left side as well to drain the pleural fluid. He has a flare-up of his leukocytosis and left shift. He has a chronic leukocytosis due to the mild stable CML, but there has been a significant flare over the weekend which might have been triggered by the inflammatory response versus an infection. Dr. Finley has been consulted and has empirically started the patient on meropenem and micafungin. I agree with antibiotic support but probably the white count elevation is rather inflammatory in nature in the background of CML although infection cannot be entirely excluded. Cultures so far negative. The patient's respiratory status has deteriorated with severe hypercapnia. My assessment is that this is likely due to sedation from pain medication. The patient has already a tendency of hypercapnia and hypersomnolence as an outpatient, and I think with the pain medicine with narcotic, he is very sensitive with increasing sedation and reduced respiratory drive and worsening of hypercapnia. Obviously some pain management has been required because of the chest tube and pleurodesis. I spoke with Dr. Benitez and with the patient's resident team and suggested to discontinue narcotics and administer it only if truly patient complains of pain and see whether with reduction in narcotic exposure his CO2 retention improves.
[2017-01-01] MEDS: Meropenem Inj 2,000 MG in 0.9% Sodium Chloride 100 ML IV SCH (18:28)
[2017-01-02] VITALS (8 sets, daily range): BP systolic 99–130; BP diastolic 47–64; PULSE 70–72; RESP 16–24; O2SAT 92–100
[2017-01-02] MEDS: Heparin 5,000 Unit/mL Inj SUBQ SCH ×3 (01:37→16:40)
[2017-01-02] MEDS: Meropenem Inj 2,000 MG in 0.9% Sodium Chloride 100 ML IV SCH ×4 (01:42→23:51)
[2017-01-02 03:19] LABS: BASOPHILS % (AUTO) 0.5 % (0-3); EOSINOPHILS % (AUTO) 0.4 % (0-5); MONOCYTES % (AUTO) 17.4 % (4-12); Mean Corpuscular Hemoglobin 25.4 pg (27.0-35.0); Mean Corpuscular Volume 88.7 fL (81-100); NEUTROPHILS % (AUTO) 75.3 % (40-74); Platelet Count 260 bil/L (150-400)
--- NOTE | 2017-01-02 06:44 | NUR ---
Neuro Status Pt drowsy throughout shift with BiPAP on at 40% FiO2. Growing more alert and confused this morning. Continues to be cooperative at this time, bed alarm on. Chest tubes removed 01/01. Plan to continue holding narcotics due to previous sedated state and possible palliative consult.
--- NOTE | 2017-01-02 07:21 | PCM.PNSURG ---
Subjective Date of Service: Jan 02, 2017 Visit Information: Refractory Pleural Effusions s/p R Tube Thoracostomy 12/28/2016, R Talc Pleurodesis 12/30/2016, L Tube Thoracostomy 12/31/2016 Removal of Both Chest Tubes 01/01/2017 Date of Admission: Dec 26, 2016 at 22:11 Hospital Day # 8 Subjective: More awake. No ABGs since last night Objective Vital Sign- Last 8 Hours Date Time Temp Pulse Resp B/P Pulse Ox O2 Delivery O2 Flow Rate FiO2 01/02/17 04:35 Supplement Oxygen 01/02/17 04:11 36.4 72 20 99/47 92 OxyMask 2.00 01/01/17 23:30 36.8 70 24 96/47 96 BiPAP 40 01/01/17 23:23 70 24 97 40 Intake and Output- Last 8 Hour 01/02/17 Cumulative From/Thru 07:00 12/26/16 18:54 - 01/02/17 06:43 Intake Total 714 ml 4576 ml Output Total 88099 ml Balance 714 ml -44247 ml Intake Oral 300 ml 3250 ml IV Total 414 ml 1326 ml Output Urine Total 8350 ml Chest Tube Drainage Total 5690 ml Drainage Total 1040 ml # Voids 3 23 # Bowel Movements 0 Chest: Gurwinder Air entry Result Diagram: 01/02/17 0233 01/02/17 0233 Assessment & Plan Impression Doing better Problems: Plan Care per medicine/ Oncology/Pulmonary teams If Left pleural effusion reaccumulates, pleurodesis remains an option Please call with questions Resuscitation Status: DNR/DNI:Do Not Resuscitate/Intubate Bennie Benitez MD Jan 02, 2017 07:21
[2017-01-02] MEDS: IBRUTINIB 420 MG PO SCH (07:45)
[2017-01-02] MEDS: Insulin LISPRO 300 Unit/3 mL Inj SUBQ SCH ×4 (07:47→22:00)
[2017-01-02] MEDS: Micafungin Inj 150 MG in 0.9% Sodium Chloride 100 ML IV SCH (07:48)
--- NOTE | 2017-01-02 10:00 | NUR ---
Evaluation completed. Please go to "Notes" then click on "Assessments and Notes" (bottom left corner of screen). Then select appropriate discipline tab on top of screen.
--- NOTE | 2017-01-02 10:14 | PROG NOTE ---
[address] [address] PROGRESS NOTE PATIENT: DHARA MOYA : 1945 MR#: [id number] ADMIT: 12/26/2016 JOB ID: [id number] DATE: 01/02/2017 INFECTIOUS DISEASE FOLLOW UP NOTE: REASON FOR FOLLOWUP: Possible systemic infection based upon worsening of chronic leukocytosis. INTERVAL HISTORY: Overnight, the patient reports no fevers, chills or sweats. He denies significant cough or shortness of breath. Both his chest tubes have now been removed and he has undergone pleurodesis on the right side but not the left. He denies abdominal pain, nausea, vomiting or diarrhea. He does not have a Zhang catheter. PHYSICAL EXAMINATION: Reveals a gentleman who is able to ask intelligible questions and answer appropriately this morning. He is afebrile. Temperature 36.4. He has been afebrile throughout this hospital stay. His pulse is 70, respiratory rate about 20, blood pressure 99/47, saturating well on 2 L. He is perhaps more alert than yesterday though still not back to his baseline. His eyes without conjunctivitis. Oral cavity: No thrush or hairy leukoplakia. Lungs are relatively clear after both chest tubes have been pulled. His abdomen is soft and nontender. No cellulitis noted. LABORATORIES: Include white count which is back down to 29,000 which is relatively close to his normal baseline considering his underlying hematologic malignancy. His bandemia which occurred between the and , and went up to 11% is now gone. His creatinine is stable at 1.05. His LFTs basically normal and procalcitonin continues low 0.34. Fungitell and galactomannan are pending. Likewise fungal blood cultures are pending. Yesterday's chest x-ray was again reviewed. It showed removal of both chest tubes as well as bilateral bibasilar densities. IMPRESSION: It seems as if the pendulum is swinging back towards the opinion that the patient does not have an infection and both Dr. Duque and I are inclined to agree with this. The patient has a chronic baseline leukocytosis which got worse after his chest tube placement as well as his pleurodesis on the right side. His chest x-ray is difficult to interpret with bilateral infiltrates, some of which may represent fluid overload or CHF versus any type of an infection. I think, at this point, the most prudent course is to continue with our broad-spectrum antibiotics while we wait a day or two for maturation of these cultures before concluding he has no infection and stopping antibiotics, but that is likely the course we are going to follow. RECOMMENDATIONS: 1. Will continue his current antibiotics which include meropenem and micafungin. 2. Will wait on cultures for another day or two, but if they are negative and continue to look uninfected, will stop antibiotics certainly by the end of the week.
--- NOTE | 2017-01-02 10:21 | NUR ---
ANA: Attempted times two days, patient is not alert and oriented. Patient has brother as NOK and he will be the one to sign the message. Update CHARGE MASTER COORDINATOR for follow up.
--- NOTE | 2017-01-02 10:42 | NUR ---
NUTRITION FOLLOW UP: ASSESS: 71 yo M admitted for respiratory distress and BLL pneumonia. He is being followed by oncology for follicular lymphoma. Pt is being followed by WC for multiple skin wounds including stg 2 PU on buttock. Pt has refused most meals for the past 2 days. Palliative consult pending. PMHX: Follicular Lymphoma, DM, HTN, A-fib, Partial colectomy, CKD, complete heart block w/ pacemaker, depression, PNA, CHF, hypothyroid, hypogammaglobulinemia, sepsis, bacteremia, MRSA, L hand osteomyelitis. LABS: Reviewed. Na 147, BUN 29, Glu 139, Alb 2.5 MEDS: Reviewed. GI: 0 BM recorded SKIN: WC following for multiple skin wounds including Stg 2 PU on buttock CURRENT WT: 73.1 kg, BMI 24.0 kg/m2, IBW: 72.7 kg, UBW: ~100 kg, pt has lost ~12kg x10 months = 12% wt loss x 10 months = not severe wt loss. DIET: Dysphagia mechanical, nectar thick liquids + Ensure. PO intake: refusal. ESTIMATED NEEDS: wounds, cancer Calories: 7855-5046 kcal/day (30-35 kcal/kg BW) Protein: 105-130 g/day (1.2-1.5 g/kg BW) NUTRITION DIAGNOSIS: 1.) Increased kcal/pro needs related to increased demand for healing as evidence by pt with multiple skin wounds including stg 2 PU on buttock---PERSISTS. 2.) Inadequate oral intake related to decreased ability to consume sufficient energy as evidenced by refusal of PO. NUTRITION INTERVENTION: 1.) Will await plan of care decisions. 2.) Continue current diet per speech therapy. 3.) Continue supplements to encourage adequate nutrition. MONITOR/EVALUATE: PO intake, POC, wt, wounds, GI, labs, POC, nutrition status. Follow per high nutrition risk guidelines.
--- NOTE | 2017-01-02 10:45 | NUR ---
Palliative Care Palliative Care received order from Jaskaran Neely DO 01/01/17 (late) to assist with goals of care. Patient admitted 12/26/16. Palliative Care has seen patient during previous admissions. Patient resides at [facility]. Ryder (brother) [phone] Tiburcio (friend) [phone] Palliative Care to follow. Swati Mazariegos
--- NOTE | 2017-01-02 12:38 | NUR ---
Evaluation completed. Please go to "Notes" then click on "Assessments and Notes" (bottom left corner of screen). Then select appropriate discipline tab on top of screen.
--- NOTE | 2017-01-02 13:30 | NUR ---
Social Work: Continued Discharge Planning/Multidisciplinary Rounds D: Pt discussed in multidisciplinary rounds; palliative care has been consulted to have goals of care discussion with the patient's brother, Ryder. Pt is only oriented to self and continues to not progress clinically. Per Palliative care PALLET STONE INSERTER, the brother is interested in a hospice informational visit and is scheduled for tomorrow at 10:00am. PALLET STONE INSERTER received t/c from [facility]korina MARSH RN requesting an update on the patient. PALLET STONE INSERTER informed her of the pt's current clinical status and that a hospice informational visit is scheduled for tomorrow. They are able to work with hospice but would still need to complete a bedside assessment prior to return and would need hospice to open on the day of discharge/intake. A: Pt who lives at [facility] P: Evolving; PALLET STONE INSERTER to follow up after hospice informational visit to determine if consents were signed and to coordinate further discharge planning. KECIA Smith
--- NOTE | 2017-01-02 13:45 | PCM.CONPAL ---
Date of Service Jan 02, 2017 Date of Hospital Admission: Dec 26, 2016 at 22:11 Date of Palliative Consult: Jan 02, 2017 Requesting Provider: Rosalva Neely DO Reason Palliative Care Consult: Goals of Care Discussion, Hospice Referral & Discussion Hospital Unit @time of consult: Progressive Care Palliative Care Recommendation 71-year-old male with history of follicular B-cell lymphoma, hypercapnic respiratory failure, recurrent bilateral pleural effusions, now status post talc pleurodesis on the right and chest tube drainage on the left, etc. now with delirium and leukocytosis (infectious versus inflammatory versus other). Palliative medicine consulted to assist patient and family and determination of goals of care. Summary of palliative recommendations: -Symptom management (Pain/other)- comfortable at this time. Continued management per medical/hospitalist teams. Delirium multifactorial (hypercapnia , physiologic stress, sleep deprivation, infection, medications, etc.) and superimposed on mild progressive chronic cognitive impairment -DPOA/Advanced Directives/POLST- DO NOT RESUSCITATE/DO NOT INTUBATE per patient' s previously expressed wishes to his brother Ryder/JUNIOR. Further, Ryder requests that if necessary BiPAP can be offered to the patient but that if he does not want to wear the mask or tries to pull it off, that he be allowed to do so. Ryder also has requested hospice information visit and this will be arranged in the coming days. I left a phone message with Dr. Duque's office regarding these plans. Ultimate disposition depending on patient's status and progress (or lack thereof ) in the coming days. -Family/emotional support- excellent support from his brother. Ryder noted that his daughter will be arriving from [place] this evening and her presence in the past has always brightened up the patient Additional Medical Diagnoses with primary management by Hospitalist team include : Acute On chronic hypoxemic Hypercapnic respiratory failure, present on admission. Ongoing. Bilateral pleural effusions, present on admission. Chronic. Ongoing. Leukocytosis, present on admission. Chronic. Ongoing. 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 Chronic. Diastolic CHF, present on admission. Chronic. Diabetes mellitus type II Insulin using, present on admission. Chronic. Hypothyroidism, present on admission. Chronic. Normocytic anemia, present on admission. Chronic Depression, present on admission. Chronic. Leg Ulcers, present on admission. Problems: End of Life Preferences DO NOT RESUSCITATE/DO NOT INTUBATE Goals of Care Stabilization and recovery as much as possible while avoiding unnecessary/ unpleasant interventions Disposition To be determined Resuscitation Status Resuscitation Status: DNR/DNI:Do Not Resuscitate/Intubate POLST Updates/Changes Previous POLST?: No . Pain: None Symptom management: Delirium Pt History History of Present Illness Per admission H&P: 71-year-old male with a complex past medical history significant for malignant lymphoma with recurrent pleural effusions, atrial fibrillation, diastolic CHF, diabetes mellitus and CKD stage III who presented to the emergency department for ongoing shortness of breath for 2 days. The patient is on 2.5 L of oxygen at baseline but has been unable to keep his saturations at an acceptable level. He normally requires thoracentesis almost weekly, alternating sides, but it has been about a week and a half since his last one. He denies any fever/chills , cough, chest pain, palpitations, abdominal pain, or hemoptysis. He denies any sick contacts but notes he lives at [facility] so it is difficult to assess exposure. Palliative medicine consulted to assist patient and family and determination of goals of care. Patient and his family well known to the palliative medicine service- he had previously been seen by us in September at which time there were extensive discussions about his course of care. Since that discharge, he has been residing at [facility] [place]. Prior to visiting today, I reviewed his records in the EMR in detail, both from hospitalizations and his outpatient cancer center visits. I spoke with his hospitalist team, his bedside nurse and then spoke at length with the patient and his brother Ryder who is his POA. Today the patient is delirious. He is speaking clearly but is quite confused and hallucinating at times. He denies any significant pain, however, and likewise denies any significant shortness of breath, dyspnea, nausea or other distressing symptoms. After we spoke for a while, his brother Ryder and I left the room and spoke at length. Ryder's first concern was that we make certain the patient is DO NOT RESUSCITATE/DO NOT INTUBATE. He says this is consistent with the patient's previously and often stated wishes. He further noted that if the patient was willing to wear BiPAP mask that was okay, but if the patient resisted the mask or kept trying to pull it off, Ryder would prefer that the mask remain off, and I reassured him that we would pass these wishes along to the staff. We then talked at length about patient's continued decline in functional status, his prognosis including the likelihood of need for recurrent hospitalizations and additional interventions, these in light of the patient's past unequivocal assertions that he would not want ongoing medical care were he to become severely debilitated and dependent. Given all of this, Ryder was interested in considering other options to ongoing aggressive care including possible transition to hospice care. We discussed the nature of hospice care and a Ryder's request an information visit will be set up in the coming days. Past Medical History Significant PMH Noted: 1. Bacteremia with MRSA 10/2015 2. 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 4. Left-hand osteomyelitis. 7. Chronic kidney disease stage 3. 8. Paroxysmal atrial fibrillation. 10. Diabetes mellitus type 2, insulin dependent. 11. History of complete heart block status post pacemaker. 13. Chronic anemia. 14. Dyslipidemia. 15. Hypothyroidism. 17. Recurrent follicular malignant lymphoma, most recently on treatment with ibrutinib since May 2016 at 420 mg daily 18. Hyperlipidemia 19. Congestive heart failure 20. Chronic bilateral pleural effusion, requiring frequent thoracentesis Surgical History Tonsillectomy Bone marrow asp/core biopsy Stem cell transplant Partial colonectomy Pacemaker insertion Social History Occupation: Retired; worked as a marketing operations assistant for [employer] , no children Brother Ryder is his POA Family Members Issues: As above Social Support: Limited to his brother and a few other close friends Living Situation: [facility] Performance Scale PPS Patient Status: Current PPS Ambulation: Mainly Bed PPS Activity: Unable to do any activity PPS Self-Care: 2 person assist PPS Intake: Normal or reduced PPS Conscious Level: Full or confusion Performance Scale: 30% POLST at Time of Admission Previous POLST?: No Allergy Allergies Reviewed: Yes Medications Current Medications: Current Medications Morphine Sulfate 1-2 mg Q4H PRN IVPUSH Last administered on 01/01/17 03:28; Admin Dose 2 MG; Start 12/31/16 at 17:45; Stop 01/01/17 at 05:08; Status DC Heparin Sodium (Porcine) 5,000 unit Q8H SUBQ Last administered on 01/02/17 12: 25; Admin Dose 5,000 UNIT; Start 01/01/17 at 02:00 Morphine Sulfate 1-2 mg Q1H PRN IVPUSH; Start 01/01/17 at 05:05 Hydromorphone HCl 0.5 mg Q4H PRN IVPUSH Last administered on 01/01/17 13:13; Admin Dose 0.5 MG; Start 01/01/17 at 05:05; Stop 01/01/17 at 15:33; Status DC Meropenem 2000 mg 2,000 mg Q8 IV; Start 01/01/17 at 09:05; Status UNV Micafungin Sodium 150 mg/Sodium Chloride 107.5 ml @ 107.5 mls/ hr Q24 IV Last administered on 01/02/17 07:48; Admin Dose 107.5 MLS/HR; Start 01/01/17 at 09: 05 Meropenem 2000 mg/ Dextrose/Water 100 ml @ 25 mls/hr Q8 IV; Start 01/01/17 at 09:52; Stop 01/01/17 at 10:12; Status DC Meropenem/Sodium Chloride 100 ml @ 25 mls/hr Q8 IV Last administered on 12:19; Admin Dose 25 MLS/HR; Start 01/01/17 at 16:30 Morphine Sulfate 1-2 mg IV q4h prn moder... Q4H PRN IVPUSH; Start 01/01/17 at 15:25 Scheduled Aspirin (Aspirin) 81 Mg Tablet 81 MG PO DAILY Benzocaine/Menthol (Cepacol Sore Throat Lozenge) 1 Each Lozenge 1 EACH PO 3-4 times/dy prn Folic Acid (Folic Acid) 1 Mg Tablet 1 MG PO DAILY Ibrutinib (Imbruvica) 140 Mg Capsule 420 MG PO DAILY Insulin Regular, Human (HUMulin-R U100 Insulin Vial) 100 Unit/1 Ml Vial Unknown Dose SUBQ ACHS Levothyroxine (Levothyroxine) 150 Mcg Tablet 150 MCG PO DAILY Metformin (Metformin) 500 Mg Tablet 500 MG PO BID Ondansetron ODT (Ondansetron ODT) 8 Mg Tab.rapdis 8 MG PO 15-30min before tx Potassium Chloride ER (Potassium Chloride ER) 10 Meq Tablet 10 MEQ PO DAILY TAKE WITH FOOD Sertraline HCl (Sertraline) 50 Mg Tablet 50 MG PO DAILY Spironolactone (Spironolactone) 25 Mg Tablet 25 MG PO QAM Torsemide (Torsemide) 10 Mg Tablet 20 MG PO DAILY Scheduled PRN Naproxen Sodium (Naproxen Sodium) 220 Mg Capsule 220 MG PO BID PRN PRN For Pain oxyCODONE (oxyCODONE) 5 Mg Tablet 5 MG PO q6hrs prn PRN PRN For Pain Current Treatments BiPAP/CPAP: Yes (occasional) Oxygen: Yes Antibiotics: Yes Telemetry: Yes Objective Findings Exam Vital Sign - Last Date Time Temp Pulse Resp B/P Pulse Ox O2 Delivery O2 Flow Rate FiO2 01/02/17 13:04 70 01/02/17 12:35 36.8 20 130/64 94 Nasal Cannula 4.00 01/01/17 23:30 40 Intake and Output 01/01/17 01/01/17 01/02/17 Cumulative From/Thru 15:00 23:00 07:00 12/26/16 18:54 - 01/02/17 06:43 Intake Total 130 ml 714 ml 4576 ml Output Total 360 ml 29191 ml Balance -230 ml 714 ml -63424 ml Intake Oral 0 ml 300 ml 3250 ml IV Total 130 ml 414 ml 1326 ml Output Urine Total 250 ml 8350 ml Chest Tube Drainage Total 110 ml 5690 ml Drainage Total 1040 ml # Voids 2 3 23 # Bowel Movements 0 0 Objective Frail-appearing elderly gentleman lying in bed. Vital signs noted. Skin pale and sallow. Head and neck exam without acute findings. Lungs with decreased sounds and a few crackles at each base. Heart sounds regular. Abdomen soft and nontender. Ankles with trace puffiness/edema. Lab/Diagnostics Lab and Imaging results reviewed in detail in EMR. Time spent Total time 75 minutes; >50% face to face with patient and family, providing counselling regarding plans and recommendations, and in care coordination with his medical teams. Of the above total time, 25 minutes counseling for advanced care planning with the patient and his brother/Nitish Winston MD Jan 02, 2017 13:45
--- NOTE | 2017-01-02 14:10 | NUR ---
Palliative care note D/A: Pt seen today by Dr. Ellsworth. He notes that pt and his bro are interested in hospice. Pt gabby has asked to be the contact lens technician. Pt bro is Ryder and can be reached at [phone]. Dr. Ellsworth has kindly written order for hospice consult. Phone call to alejandro Baird to alert as to plan, with return to pt Elio Mead. Phone call to Ryder and discuss Hospice Services informational form. Note that pt resides in [facility] and that the only hospice that services [facility] is [facility]. Ryder agrees to this hospice and would like an info visit either Weds am ( 01/03/17) or Sunday am ( 01/05/17). Phone call to Marleni at [facility], she is able to schedule info visit with Julia on 01/03/17 at 1000. Phone call to Ryder who agrees to time and date. Phone call alejandro Baird to alert as to plan for info visit on 01/03/17 at 1000. P: Palliative care to follow. [facility] info visit on 01/03/17 at 1000. Janey GIMENEZ, CCM
--- NOTE | 2017-01-02 17:09 | DRSVH ---
PROCEDURE: X-RAY CHEST ONE VIEW, PORTABLE ([id number]) INDICATIONS: pleural effusions TECHNIQUE: One view of the chest was acquired. COMPARISON: [facility], CR, XR CHEST 1VW (PORTABLE), 01/01/2017, 15:26. FINDINGS: Surgical changes and devices: None. Lungs and pleura: Bilateral pleural effusions redemonstrated which may be loculated and mid/basilar a irspace opacities are again seen which appear similar to prior examination. No definite pneumothorax . Mediastinum: Mediastinal contours appear normal. Heart size is enlarged. Bones and chest wall: No suspicious bony lesions. Overlying soft tissues appear unremarkable. IMPRESSION: 1. Bilateral pleural effusions which may be loculated and there is persistent mid/basilar airspace op acities consistent with compressive atelectasis versus pneumonia. Continued radiographic surveillance to resolution is recommended. Dictated by: Dante SY Interpreted: Mary Hurtado MD on 01/02/2017 at 12:21 Approved by: Mary Hurtado M.D. on 01/02/2017 at 17:07
--- NOTE | 2017-01-02 18:02 | NUR ---
confusion/palliative/plan pt continues to be confused all day, alert to self and recognizes family members. He does not remember me being his nurse from one minute to the next. Palliative care consult plan for hospice consult tomorrow. Pt and family are in agreement.
--- NOTE | 2017-01-02 19:37 | PCM.PNMED ---
Subjective Date of Service Jan 02, 2017 Subjective Mr. 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 Today, patient appeared less somnolent. He was still somewhat confused and not oriented to time and place. He notes that he feels ok. He reports SOB but denies chest pain. Palliative care met with the patient and his brother today to discuss goals of care. Exam Vital Signs Vital Sign - Last Date Time Temp Pulse Resp B/P Pulse Ox O2 Delivery O2 Flow Rate FiO2 01/02/17 04:35 Supplement Oxygen 01/02/17 04:11 36.4 72 20 99/47 92 2.00 01/01/17 23:30 40 Intake and Output 01/01/17 01/01/17 01/02/17 Cumulative From/Thru 15:00 23:00 07:00 12/26/16 18:54 - 01/02/17 06:29 Intake Total 130 ml 300 ml 4162 ml Output Total 360 ml 11139 ml Balance -230 ml 300 ml -63277 ml Intake Oral 0 ml 300 ml 3250 ml IV Total 130 ml 912 ml Output Urine Total 250 ml 8350 ml Chest Tube Drainage Total 110 ml 5690 ml Drainage Total 1040 ml # Voids 2 3 23 # Bowel Movements 0 0 Exam General: Cachectic male sitting on bed, less somnolent, alert, awake but not oriented to time and place HEENT: head normocephalic and atraumatic, PERRLA, EOMI, no scleral icterus, noninjected conjunctiva Neck: neck supple, non-tender, no JVD CV: regular rate and rhythm, s1 and s2 heard, no murmur, Lungs: on 5 L supplemental oxygen via NC, decreased breath sounds bilaterally without wheezes, rales or ronchi Abdomen: normoactive bowel sounds on 4Q, soft, non-distended, non-tender to palpation, no organomegally, : Zhang catheter recently removed, patient able to void Skin: warm and dry, LE wrapped with bandage bilaterally Neuro: unable to assess because patient was somnolent Psych: Normal mood and affect IVs and Medications Medications Reviewed: Medications were reviewed in detail Lab and Diagnostics Laboratory Tests Test 01/02/17 02:33 White Blood Count 29.8th/mm3 (3.8-10.1) Red Blood Count 3.55mil/mm3 (4.40-5.80) Hemoglobin 9.0g/dL (13.8-17.2) Hematocrit 31.5% (41.0-50.0) Mean Corpuscular Volume 88.7fL (81-100) Mean Corpuscular Hemoglobin 25.4pg (27.0-35.0) Mean Corpuscular Hemoglobin Concent 28.6% (32.0-37.0) Red Cell Distribution Width 21.1% (12.3-15.4) Platelet Count 260bil/L (150-400) Neutrophils (%) (Auto) 75.3% (40-74) Lymphocytes (%) (Auto) 5.2% (14-46) Monocytes (%) (Auto) 17.4% (4-12) Eosinophils (%) (Auto) 0.4% (0-5) Basophils (%) (Auto) 0.5% (0-3) Band Neutrophils % 1% (1-5) Hematology Comments Platelet Sodium Level 147mEq/L (134-144) Potassium Level 3.7mEq/L (3.5-5.2) Chloride Level 96mEq/L (97-108) Carbon Dioxide Level 42mmol/L (18-29) Blood Urea Nitrogen 29mg/dL (8-27) Creatinine 1.05mg/dL (0.76-1.27) Estimat Glomerular Filtration Rate 74mL/min (>59) Glucose Level 139mg/dL (60-99) Calcium Level 8.6mg/dL (8.5-10.1) Total Bilirubin 0.4mg/dL (0.0-1.2) Aspartate Amino Transf (AST/SGOT) 12U/L (0-50) Alanine Aminotransferase (ALT/SGPT) 6U/L (0-44) Alkaline Phosphatase 131U/L (25-160) Total Creatine Kinase 13U/L (21-232) Total Protein 4.6g/dL (6.4-8.4) Albumin 2.5g/dL (3.4-5.0) Thyroid Stimulating Hormone (TSH) 2.090uIU/mL (0.450-4.500) Microbiology 01/01/17 Blood Fungal Culture, Received Pending 12/27/16 - Final, Resulted 12/27/16 Acid Fast Bacilli Smear - Final, Resulted 12/27/16 Acid Fast Bacilli Culture, Resulted Pending 12/27/16 MRSA (PCR) - Final, Complete Result Diagram: 01/02/17 0233 01/02/17 0233 X-Rays, CTs and MRIs Chest XR 12/26/16 IMPRESSION: Bilateral prominent pleural effusions. Approved by: Stone Mccormack M.D. on 12/26/2016 at 20:41 12-lead ECG Flutter with controlled rate of 70. Cardiac Echo Impressions Echocardiogram Report Interpretation Summary 1. Normal left ventricular size, wall thickness and systolic function with an estimated EF of 60-65% 2. Grossly normal right ventricular size - function is difficult to assess given arrhythmia. The estimated right atrial pressure is elevated. the estimated RVSP is 55 mm Hg. 3. Large left sided pleural effusion. Small right sided effusion. 4. No evidence for significant valvular pathology Compared to the previous study, the LV function is stable Reading Physician:05:47 PM Assessment & Plan Mr. 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 Acute On chronic hypoxemic Hypercapnic respiratory failure, present on admission. Ongoing. - Patient is on 2.5 L of oxygen at baseline but was unable to maintain saturations - Likely due to bilateral pleural effusions possibly due to his lymphoma or possible congestive heart failure - Maintain O2 saturations between 88-94% - Thoracentesis done 12/27/16, with a total 1420 cc of chylous-appearing pleural fluid aspirated Analysis of Fluid WBC 165, Fluid LDH 86, Pleural Glucose, 146, Fluid Triglycerides 50 - Primary oncologist, Dr. Duque consult with input is greatly appreciated - Patient is DNR/DNI and been placed on BiPAP with mild improvement in CO2 retention from PCO2 of 87 to PCO2 of 83.5, baseline PCO2 appears to be near 70 the patient does not carry a diagnosis of COPD -Discontinue Dilaudid and continue morphine only as patient is always somnolent -Palliative care has been consulted. We appreciate their input -Per palliative, brother requests that if necessary BiPAP can be offered to the patient but that if he does not want to wear the mask or tries to pull it off, that he be allowed to do so. -Family also requested hospice information visit and this will be arranged in the coming days Bilateral pleural effusions, present on admission. Chronic. Ongoing. - Patient requires almost weekly alternating thoracentesis, last done 12/18 - Thoracentesis done 12/27/16, with a total 1420 cc of chylous-appearing pleural fluid aspirated Analysis of Fluid WBC 165, Fluid LDH 86, Pleural Glucose, 146, Fluid Triglycerides 50 , fluid cultures sent for analysis - Surgery consulted and we appreciate their input. Dr. Benitez did a tube thoracostomy on the right sided Right sided VATS Pleuorodesis on 12/29/2016 -Refractory Pleural Effusions s/p R Tube Thoracostomy 12/28/2016, R Talc Pleurodesis 12/30/2016, L Tube Thoracostomy 12/31/2016 -Right and Left chest tubes have been removed - Continue aggressive pulmonary hygeine - Rapidly recurrent left-sided pleural effusion required left sided axillary thoracostomy too with reportedly near 3 L of serosanguineous drainage, surgery will consider possible bilateral pleurodeses -Overnight, left chest tube drained 120cc of sero-sanguineous fluid and the right chest tube drained 10cc of serous fluid Leukocytosis, present on admission. Chronic. Ongoing. - Likely due to patient's follicular lymphoma and CML, pleural effusion appears to be sterile - Patient has been afebrile, denies chills, productive cough, sick contacts - Patient received 2 g of cefepime in the ED - Infectious disease consulted - Per ID, cefepime was discontinued -However, today WBC down to 29.8 from 46 -ID ordered various cultures - patient started on a combination of meropenem and micafungin -wait on blood cultures to return and if they come back negative, d/c abx per recommendations of ID - Continue to monitor with CBC 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 Duque -Currently hold Imbruvica Elevated troponin, present on admission. Chronic. - Patient has Elevated troponin on prior admission, likely due to demand and CKD - Patient denies any chest pain, palpitations - Monitor on telemetry Diastolic CHF, present on admission. Chronic. - Likely not the cause of his shortness of breath, but we will reevaluate if not improved after thoracentesis - Last echo was done 09/19 as above -Currently holding torsemide and spironolactone as the patient is somnolent due to hypercapnia -His echocardiogram shows preserved LV systolic function. Right ventricular function is difficult to assess given the arrhythmia. Pleural effusions are present. No significant valvular pathology. Diabetes mellitus type II Insulin using, present on admission. Chronic. - Hold metformin while inpatient - Hold insulin regimen, 100 units in the morning but monitor Blood glucose closely - Medium dose correctional scale ordered - Patient refused a diabetic diet; will give general diet due to condition - A1c was 7.6 in September Hypothyroidism, present on admission. Chronic. -Currently holding levothyroxine 50 mcg daily as the patient was somnolent due to hypercapnia Normocytic anemia, present on admission. Chronic -Patient has history of CML - Monitor Depression, present on admission. Chronic. - Currently holding sertraline 50 mg daily due to hypercapnia Leg Ulcers, present on admission. -Ordered Wound Care nurse Acetaminophen as needed for mild pain, fever, headache. Bowel regimen as needed. Zofran as needed. Subcutaneous heparin on board, SCDs contraindicated due to lower extremity wounds. Patient is likely to remain inpatient for the foreseeable future given his underlying chronic medical conditions and recent recurrent pleural effusions. Pain Evaluation: Adequate Pain Control GI Prophylaxis: Not indicated VTE Mechanical Devices: Intermittant Pneumatic CD Resuscitation Status: DNR/DNI:Do Not Resuscitate/Intubate Attending Statement The patient was seen and examined together with Dr. Neely on 01/02/2017 and I agree with the history, exam and plan as outlined in the note above. . Rosalva Neely DO Jan 02, 2017 06:31 Freddy Mercado MD Jan 04, 2017 18:08
--- NOTE | 2017-01-02 22:55 | CCS NOTE ---
[facility] [address], [address] [address] MEDICAL ONCOLOGY OFFICE NOTE PATIENT: DHARA MOYA : 1945 MR#: [id number] DATE: 12/26/2016 JOB ID: [id number] DATE: 01/02/2017 SUBJECTIVE: The patient is a little more alert today and is able to communicate, although very weak. He has not had any fevers. The left chest tube was removed apparently without a pleurodesis but the right side had a talc pleurodesis performed. Oxygen requirements are less. His white count remains elevated. OBJECTIVE: On exam, his vitals are stable. Afebrile. Abdomen is soft. The skin shows no significant rash. The lower extremity edema is fairly mild likely due to leg being mostly elevated. ASSESSMENT AND PLAN: A 71-year-old gentleman with recurrent lymphoma on ibrutinib with recurrent effusion managed with pleurodesis this admission. His hypersomnolence has improved likely due to reduction in the narcotic medication as discussed yesterday and he is now more interactive. He appears, however, very weak. There was a note from the palliative care team regarding the patient's future goals of care and limits of care. I suggested to Dhara that we have a visit with his brother tomorrow in late afternoon to discuss this issue and see whether there has been any change in their desires. The patient is DO NOT RESUSCITATE/DO NOT INTUBATE at this point. He is being empirically treated with antibiotics because of the sudden rise of his chronic leukocytosis, but this might be an inflammatory/reactive reaction.
[2017-01-03] VITALS (9 sets, daily range): BP systolic 96–114; BP diastolic 49–64; PULSE 70–72; RESP 16–23; O2SAT 95–99
[2017-01-03] MEDS: Heparin 5,000 Unit/mL Inj SUBQ SCH ×3 (03:02→18:10)
[2017-01-03 03:03] LABS: Mean Corpuscular Hemoglobin 25.3 pg (27.0-35.0); Mean Corpuscular Volume 87.5 fL (81-100); Platelet Count 254 bil/L (150-400)
[2017-01-03 04:05] LABS: BASOPHILS % (AUTO) 0 % (0-3); EOSINOPHILS % (AUTO) 0 % (0-5); MONOCYTES % (AUTO) 9 % (4-12); NEUTROPHILS % (AUTO) 77 % (40-74)
[2017-01-03] MEDS: IBRUTINIB 420 MG PO SCH (07:34)
[2017-01-03] MEDS: Micafungin Inj 150 MG in 0.9% Sodium Chloride 100 ML IV SCH (07:35)
[2017-01-03] MEDS: Insulin LISPRO 300 Unit/3 mL Inj SUBQ SCH ×4 (07:36→21:59)
--- NOTE | 2017-01-03 08:36 | PROG NOTE ---
[address] [address] PROGRESS NOTE PATIENT: DHARA MOYA : 1945 MR#: [id number] ADMIT: 12/26/2016 JOB ID: [id number] DATE: 01/03/2017 INFECTIOUS DISEASE FOLLOW UP NOTE: REASON FOR FOLLOWUP: Possible systemic infection with profound leukocytosis. INTERVAL HISTORY: Overnight, the patient reports no fevers, chills, sweats, shortness of breath, cough or abdominal complaint. He is quite confused, however. He asked me where we are and seems reluctant to accept the idea that he is currently in the hospital. He has no idea what year this is. Additionally he tells me that he is being held against his will by a variety of devices including a restraining device he points to on his hand which is actually his pulse ox. He states he has no idea how he came to be here and that he should be at a place called [facility], which he denies there is a nearby retirement also known as [facility]. PHYSICAL EXAMINATION: Reveals a comfortable but confused gentleman. He has been afebrile for several days now. Temperature 36.8 currently. Pulse 70, respiratory rate 16, blood pressure 109/55. He is saturating well but requiring 3 L nasal oxygen. He is weak but could move all his extremities. Oral cavity without thrush or hairy leukoplakia. His lungs fairly clear actually. Cardiac tones without new murmur. Abdomen soft and nontender. IV devices appear uninfected. LABORATORIES: Include a white count which is back down to 22,000, which is really about his normal. Recall that on the and , his white blood count jumped all the way up to 46,000 following his pleurodesis on the right side. His creatinine stable at 1.04. His LFTs are normal. His Fungitell and galactomannan are pending. His cultures are all negative. IMAGING: Includes a chest radiograph yesterday which was reviewed. It shows bilateral pleural effusions, atelectasis versus pneumonia. IMPRESSION: It remains unclear whether or not the patient's recent spiking of his chronically elevated white count was due to infection or the talc pleurodesis on his right pleural space, which I suspect is actually more likely. He also has some degree of CHF. At this point, I think my plan would be to continue the meropenem and micafungin for a total of five days which would take us basically through January 05, and then discontinue all antibiotics unless we have positive cultures or more definitive evidence of infection. RECOMMENDATIONS: 1. Micafungin and meropenem through January 05. 2. The patient needs frequent and constant efforts to reorient. 3. I note that there are increasing discussions about goals of care in this increasingly debilitated gentleman and I agree with at least exploring options regarding less aggressive therapy in this gentleman who has gradually deteriorated really over the past couple years related to his multiple pacer infections as well as his ongoing malignancy.
[2017-01-03] MEDS: Meropenem Inj 2,000 MG in 0.9% Sodium Chloride 100 ML IV SCH ×2 (10:25→18:11)
--- NOTE | 2017-01-03 11:47 | NUR ---
Social Work: Readiness for Discharge/Multidisciplinary Rounds D: Pt discussed in multidisciplinary rounds. The patient has a hospice informational visit today at 11:00am. If the pt's brother signs consents, DIRECTOR TRAFFIC AND PLANNING will be coordinating with [facility] to arrange for the patient's return. DIRECTOR TRAFFIC AND PLANNING received notification from palliative care DIRECTOR TRAFFIC AND PLANNING that the patient/brother have signed consents with hospice. She does not know when the soonest intake time is available. DIRECTOR TRAFFIC AND PLANNING left a message for [facility] to inquire when an intake can be scheduled. t/c to Nadine, Medical Examiner at [facility]. She states that as soon as an intake for hospice is scheduled to notify her and she will make time to come see the patient at bedside. She states that they are able to do admissions over the holiday weekend as the patient is returning resident however hospice would need to open on the day pt is to come back. DIRECTOR TRAFFIC AND PLANNING agreed and will contact her once an intake time is assigned. A: Pt who is transitioning to hospice/comfort care. P: Anticipate pt to return to [facility] with Hospice care. DIRECTOR TRAFFIC AND PLANNING to notify RCM at [facility] once a Hospice intake time is assigned so that a bedside assessment can be completed prior to d/c. KECIA Smith Addendum: 01/03/17 at 1741 by NOVA WING SS KECIA has made repeated attempts to coordinate an intake time for this patient with no success. Patient still does not have an assigned intake time. KECIA will continue to attempt to coordinate with [facility] on an intake time and to coordinate with [facility] for a bedside assessment.
[2017-01-03] MEDS ORDERED: Benzocaine-Menthol Lozenge 2/Pkg PO PRN (12:50)
--- NOTE | 2017-01-03 14:10 | NUR ---
Palliative care note D/A: Pt/bro seen by Julia from [facility] today and decision has been reached to sign on for hospice services. Plan is for pt to return to [facility]. Per Dr. Ellsworth, [facility] is asking that pt be dc'ed to facility on same day that [facility] can open for care. Date of [facility] open is unknown at this time. Outreach from Jessica at [facility] who is asking about DPOA paperwork. Copy of DPOA paperwork is obtained from chart and scanned/emailed to Jessica at [facility]. DPOA dates 10/09/16, gives financial and medical decision making to pt brother Ryder Andrade and should he be unavailable, to [facility]. P: Palliative to follow as needed. Janey GIMENEZ, CCM
--- NOTE | 2017-01-03 15:19 | NUR ---
Inpatient Wound Nurse Patient seen for BLE care and PI of L plantar. All open areas on BLE have closed, no drainage noted on removed dressings. Skin excessively dry, Medline Remedy Nutrashield applied. Patient complained of pain, facial grimacing noted, with application of lotion. Kerlix and Coban applied as maintenance and per patient comfort. Pressure injury of L plantar at first met head has debrided with five days of hydrocolloid, now measures 1 cm L x 1 cm W and 0.3 cm D. Wound bed is funnel shaped with sloping sides, granulating wound bed at deepest point in center, minimal amount of serosanguinous drainage, non-odorous. Periowund is pink and warm, no signs of infection, edges well adhered. [facility] will see patient on Sunday.
--- NOTE | 2017-01-03 15:56 | PCM.PALLBR ---
Palliative Care Recommendation 71-year-old male with history of follicular B-cell lymphoma, hypercapnic respiratory failure, recurrent bilateral pleural effusions, now status post talc pleurodesis on the right and chest tube drainage on the left, etc. now with delirium and leukocytosis (infectious versus inflammatory versus other). Palliative medicine consulted to assist patient and family and determination of goals of care. Summary of palliative recommendations: -Symptom management (Pain/other)- comfortable at this time. Continued management per medical/hospitalist teams. Delirium multifactorial (hypercapnia , physiologic stress, sleep deprivation, infection, medications, etc.) and superimposed on mild progressive chronic cognitive impairment, somewhat better again today though still frequently confused. -DPOA/Advanced Directives/POLST- DO NOT RESUSCITATE/DO NOT INTUBATE per patient' s previously expressed wishes to his brother Ryder/JUNIOR. Further, Ryder requests that if necessary BiPAP can be offered to the patient but that if he does not want to wear the mask or tries to pull it off, that he be allowed to do so. Hospice information visit today Ultimate disposition depending on patient's status and progress (or lack thereof ) in the coming days. -Family/emotional support- excellent support from his brother. Additional Medical Diagnoses with primary management by Hospitalist team include : Acute On chronic hypoxemic Hypercapnic respiratory failure, present on admission. Ongoing. Bilateral pleural effusions, present on admission. Chronic. Ongoing. Leukocytosis, present on admission. Chronic. Ongoing. 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 Chronic. Diastolic CHF, present on admission. Chronic. Diabetes mellitus type II Insulin using, present on admission. Chronic. Hypothyroidism, present on admission. Chronic. Normocytic anemia, present on admission. Chronic Depression, present on admission. Chronic. Leg Ulcers, present on admission. Problems: End of Life Preferences DO NOT RESUSCITATE/DO NOT INTUBATE Goals of Care Stabilization and recovery as much as possible while avoiding unnecessary/ unpleasant interventions Disposition To be determined Resuscitation Status Resuscitation Status: DNR/DNI:Do Not Resuscitate/Intubate POLST Updates/Changes Previous POLST?: No . Pain: None Symptom management: Delirium Total time 25 minutes; >50% face to face with patient , providing counselling regarding plans and recommendations, and in care coordination with his medical teams. Palliative Brief Note Date of Service Jan 03, 2017 . Returned to reevaluate patient. Prior to visiting, reviewed his records in the EMR. When I arrived today, he is sitting up in bed talking with a friend. Still is confused at times and asking questions/making comments that do not make any sense and indicate that his grasp of reality is intermittent. To very straightforward questions though, he seems quite clear. He denies any pain or dyspnea at this time. Also note Dr. Duque's progress note and his plan to meet with patient and his brother later today to discuss treatment plans Exam is stable. Nitish Ellsworth MD Jan 03, 2017 15:56
--- NOTE | 2017-01-03 18:34 | NUR ---
hospice/plan/diet soap mixer sees pt and brother POAries and pt agrees to go to hospice. respite worker working on placement. Pt requests un-thickened liquids. His brother signed the form so pt may have whatever food he likes.
--- NOTE | 2017-01-03 19:36 | CCS NOTE ---
[facility] [address] [place] [id number] MEDICAL ONCOLOGY OFFICE NOTE PATIENT: DHARA MOYA : 1945 MR#: [id number] DATE: 12/26/2016 JOB ID: [id number] DATE: 01/03/2017 The patient is sitting in bed and with nasal cannula oxygen at 2 L. When he takes the oxygen off, his O2 sats drop to 70s. With 2-3 L, it is above 90%. He is slightly somnolent but oriented and he is able to carry a conversation. His respiratory status appears to have improved with fluid shifts on the right side. He is extremely weak. LAB STUDIES: Show improvement of the transient worsening of chronic leukocytosis with white count back in the 22 range from 46. Hemoglobin is showing chronic anemia with mild thrombocytopenia intermittently. Creatinine stable. He has not had any fevers. Vitals are stable. PHYSICAL EXAMINATION: His mucous membranes are extremely dry. Lungs clear. Heart is regular. He has a pacemaker. Abdomen is soft. Trace to 1+ pitting edema bilaterally. ASSESSMENT/PLAN: The patient is a 71-year-old gentleman with relapsed follicular lymphoma and complex medical course over the past eight years. He seems to have benefitted from the right-sided pleurodesis with less respiratory distress and switched back to nasal cannula. I had a family conference involving the patient as well as his brother and niece on the phone who have power of motorcycle repairer. We reviewed the current situation and his future treatment options which are limited. He has had several chemotherapy lines before and is on oral ibrutinib since May which has been able to control his disease but lately he has seen a slight progression. I explained that he would still have other treatment options that would be more aggressive to address his slight progression of lymphoma, but the main problem is his overall functional status, other comorbidities and inability to maintain an intense therapy. Overall, he has significant failure to thrive and worsening cognitive function. The brother, who has been very involved and caring in his care over the years, has also same concerns. The patient appeared alert and oriented enough to be able to participate in this discussion. My recommendation to him was to consider hospice and transition to palliative care alone without further aggressive intervention. He would like to go back to [facility] where he had been staying at assisted living. He is, after some discussion, agreeable with proceeding with hospice and case management would be to get involved and see whether this can be arranged through [facility] and the different levels of care at that location. In addition, this was also discussed with the residents of the hospitalist team and the nurse. TIME SPENT WITH PATIENT: Approximately 1 hour and 5 minutes were spent in counseling and coordination of care.
--- NOTE | 2017-01-03 21:57 | PCM.PNMED ---
Subjective Date of Service Jan 03, 2017 Subjective Mr. 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 Today, patient was slightly more alert but somewhat confused at times. He has attempted to ambulate but can sometimes be somewhat impulsive. Patient and his brother had a hospice information visit today to discuss goals of care. In addition, his oncologist also discussed goals with the the patient and the family. On ROS, patient denied chest pain and SOB. He states that he wants to drink soda that is not thickened. Exam Vital Signs Vital Sign - Last Date Time Temp Pulse Resp B/P Pulse Ox O2 Delivery O2 Flow Rate FiO2 01/03/17 02:38 36.8 70 16 109/55 95 Nasal Cannula 3.00 01/01/17 23:30 40 Intake and Output 01/02/17 01/02/17 01/03/17 Cumulative From/Thru 15:00 23:00 07:00 12/26/16 18:54 - 01/03/17 06:28 Intake Total 150 ml 756 ml 5482 ml Output Total 1050 ml 98062 ml Balance -900 ml 756 ml -92721 ml Intake Oral 150 ml 436 ml 3836 ml IV Total 320 ml 1646 ml Output Urine Total 1050 ml 9400 ml Chest Tube Drainage Total 5690 ml Drainage Total 1040 ml # Voids 7 4 34 # Bowel Movements 0 0 Exam General: Cachectic male sitting on bed, less somnolent, alert, awake but not oriented to time and place HEENT: head normocephalic and atraumatic, PERRLA, EOMI, no scleral icterus, noninjected conjunctiva Neck: neck supple, non-tender, no JVD CV: regular rate and rhythm, s1 and s2 heard, no murmur, Lungs: on 5 L supplemental oxygen via NC, decreased breath sounds bilaterally without wheezes, rales or ronchi Abdomen: normoactive bowel sounds on 4Q, soft, non-distended, non-tender to palpation, no organomegally, : Zhang catheter placed again Skin: warm and dry, LE wrapped with bandage bilaterally Neuro: CN II-XII grossly intact Psych: Normal mood and affect IVs and Medications Medications Reviewed: Medications were reviewed in detail Lab and Diagnostics Result Diagram: 01/03/17 0238 01/03/17 0238 X-Rays, CTs and MRIs Chest XR 12/26/16 IMPRESSION: Bilateral prominent pleural effusions. Approved by: Stone Mccormack M.D. on 12/26/2016 at 20:41 12-lead ECG Flutter with controlled rate of 70. Cardiac Echo Impressions Echocardiogram Report Interpretation Summary 1. Normal left ventricular size, wall thickness and systolic function with an estimated EF of 60-65% 2. Grossly normal right ventricular size - function is difficult to assess given arrhythmia. The estimated right atrial pressure is elevated. the estimated RVSP is 55 mm Hg. 3. Large left sided pleural effusion. Small right sided effusion. 4. No evidence for significant valvular pathology Compared to the previous study, the LV function is stable Reading Physician:05:47 PM Assessment & Plan Mr. 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 Acute On chronic hypoxemic Hypercapnic respiratory failure, present on admission. Ongoing. - Patient is on 2.5 L of oxygen at baseline but was unable to maintain saturations - Likely due to bilateral pleural effusions possibly due to his lymphoma or possible congestive heart failure - Maintain O2 saturations between 88-94% - Thoracentesis done 12/27/16, with a total 1420 cc of chylous-appearing pleural fluid aspirated Analysis of Fluid WBC 165, Fluid LDH 86, Pleural Glucose, 146, Fluid Triglycerides 50 - Primary oncologist, Dr. Duque consult with input is greatly appreciated - Patient is DNR/DNI and been placed on BiPAP with mild improvement in CO2 retention from PCO2 of 87 to PCO2 of 83.5, baseline PCO2 appears to be near 70 the patient does not carry a diagnosis of COPD -Discontinue Dilaudid and continue morphine only as patient is always somnolent -Palliative care has been consulted. We appreciate their input -Per palliative, brother requests that if necessary BiPAP can be offered to the patient but that if he does not want to wear the mask or tries to pull it off, that he be allowed to do so. -Family and patient participated in a hospice information visit -Per family, patient would like to be placed in hospice care, perhaps return home to [facility] where he came from Bilateral pleural effusions, present on admission. Chronic. Ongoing. - Patient requires almost weekly alternating thoracentesis, last done 12/18 - Thoracentesis done 12/27/16, with a total 1420 cc of chylous-appearing pleural fluid aspirated Analysis of Fluid WBC 165, Fluid LDH 86, Pleural Glucose, 146, Fluid Triglycerides 50 , fluid cultures sent for analysis - Surgery consulted and we appreciate their input. Dr. Benitez did a tube thoracostomy on the right sided Right sided VATS Pleuorodesis on 12/29/2016 -Refractory Pleural Effusions s/p R Tube Thoracostomy 12/28/2016, R Talc Pleurodesis 12/30/2016, L Tube Thoracostomy 12/31/2016 -Right and Left chest tubes have been removed - Continue aggressive pulmonary hygeine - Rapidly recurrent left-sided pleural effusion required left sided axillary thoracostomy too with reportedly near 3 L of serosanguineous drainage, surgery will consider possible bilateral pleurodeses Leukocytosis, present on admission. Chronic. Ongoing. - Likely due to patient's follicular lymphoma and CML, pleural effusion appears to be sterile - Patient has been afebrile, denies chills, productive cough, sick contacts - Patient received 2 g of cefepime in the ED - Infectious disease consulted - Per ID, cefepime was discontinued -However, today WBC down to 29.8 from 46 -ID ordered various cultures - patient started on a combination of meropenem and micafungin -wait on blood cultures to return and if they come back negative, d/c abx per recommendations of ID - Continue to monitor with CBC Hypoxemic, Hypercapnic Encephalopathy, ongoing -Patient has been confused likely as a result of his respiratory status 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 Duque -Currently hold Imbruvica Elevated troponin, present on admission. Chronic. - Patient has Elevated troponin on prior admission, likely due to demand and CKD - Patient denies any chest pain, palpitations - Monitor on telemetry Diastolic CHF, present on admission. Chronic. - Likely not the cause of his shortness of breath, but we will reevaluate if not improved after thoracentesis - Last echo was done 09/19 as above -Currently holding torsemide and spironolactone as the patient is somnolent due to hypercapnia -His echocardiogram shows preserved LV systolic function. Right ventricular function is difficult to assess given the arrhythmia. Pleural effusions are present. No significant valvular pathology. Diabetes mellitus type II Insulin using, present on admission. Chronic. - Hold metformin while inpatient - Hold insulin regimen, 100 units in the morning but monitor Blood glucose closely - Medium dose correctional scale ordered - Patient refused a diabetic diet; will give general diet due to condition - A1c was 7.6 in September Hypothyroidism, present on admission. Chronic. -Currently holding levothyroxine 50 mcg daily as the patient was somnolent due to hypercapnia Normocytic anemia, present on admission. Chronic -Patient has history of CML - Monitor Depression, present on admission. Chronic. - Currently holding sertraline 50 mg daily due to hypercapnia Leg Ulcers, present on admission. -Ordered Wound Care nurse Acetaminophen as needed for mild pain, fever, headache. Bowel regimen as needed. Zofran as needed. Subcutaneous heparin on board, SCDs contraindicated due to lower extremity wounds. Patient is likely to remain inpatient for the foreseeable future given his underlying chronic medical conditions and recent recurrent pleural effusions. Pain Evaluation: Adequate Pain Control GI Prophylaxis: Not indicated VTE Mechanical Devices: Intermittant Pneumatic CD Resuscitation Status: DNR/DNI:Do Not Resuscitate/Intubate Attending Statement The patient was seen and examined together with Dr. Neely on 01/03/2017 and I agree with the history, exam and plan as outlined in the note above. . Rosalva Neely DO Jan 03, 2017 06:56 Freddy Mercado MD Jan 04, 2017 18:09
[2017-01-04] VITALS (8 sets, daily range): BP systolic 108–113; BP diastolic 60–67; PULSE 70–73; RESP 16–22; O2SAT 92–100
[2017-01-04] MEDS: Meropenem Inj 2,000 MG in 0.9% Sodium Chloride 100 ML IV SCH ×3 (00:49→17:48)
[2017-01-04] MEDS: Heparin 5,000 Unit/mL Inj SUBQ SCH ×3 (02:19→17:48)
--- NOTE | 2017-01-04 05:33 | NUR ---
activity/mentation pt up to chair and back to bed x3 this shift, 2pa, tolerating fair, pt on 3.5L NC all night when he removes it he de-sats to low 80s but on he is mid 90s. at times pt able to follow commands and conversation other times very confused with confused conversation.
[2017-01-04] MEDS: Insulin LISPRO 300 Unit/3 mL Inj SUBQ SCH ×4 (08:00→22:00)
--- NOTE | 2017-01-04 08:51 | PROG NOTE ---
[address] [address] PROGRESS NOTE PATIENT: DHARA MOYA : 1945 MR#: [id number] ADMIT: 12/26/2016 JOB ID: [id number] DATE: 01/04/2017 REASON FOR FOLLOWUP: Possible sepsis in a patient with underlying lymphoma. INTERVAL HISTORY: The patient remains a bit confused this morning though he is slightly better than yesterday. He now realizes he is in a hospital, though he is not certain about dates or sequences of events. He denies fevers, chills, significant shortness of breath. He has no pleuritic chest pain interestingly and no new GI symptoms. PHYSICAL EXAMINATION: Reveals an afebrile gentleman, temp 35.8. He has been afebrile really throughout his hospital stay, which is now approaching nine days, pulse 70, respiratory rate about 20, saturating well on 3 L. Blood pressure 112/67. He has as noted oriented times 1.5. As he knows he is in a hospital, but not which one. He is not clear on dates at all. Oral cavity negative. Lungs decreased breath sounds bilaterally with occasional wheeze. Abdomen benign. No new skin rash, though he does have erythema and some evidence of soft tissue injury in the right forearm, but does not look infected. LABORATORIES: Include a white count which is 22,000 yesterday, it was not repeated today. Creatinine 1.04 yesterday not repeated today. Fungitell and galactomannan are negative. Pleural fluid was transudative. He has now undergone talc pleurodesis on the right and his left chest tube has been removed. Labs include multiple negative blood cultures as well as negative cultures from the thoracentesis fluid. No new imaging is available. IMPRESSION: The patient's recent doubling of his white count from his baseline around 20,000 to 40,000 plus followed the talc pleurodesis and I suspect that was the cause of the increased leukocytosis rather than infection. I would continue with the meropenem through tomorrow and then if we have negative cultures discontinue it given that the possibility of fungal infection seems to be declining, and we now have negative Fungitell and galactomannan. I think we could go ahead and reasonably stop the micafungin today and re-evaluate tomorrow. RECOMMENDATIONS: 1. Will stop the micafungin today. 2. If all his cultures are negative, and he looks okay tomorrow, I think we could reasonably stop the meropenem tomorrow. 3. I would repeat a CBC with diff tomorrow just to see where we are in terms of his white count.
--- NOTE | 2017-01-04 09:12 | NUR ---
Social Work: Readiness for Discharge D: HAND STRIPER spoke with Nadine, [place] Sewer/DNS, at [facility]. She will be coming to see the patient today at 1100 to complete his bedside assessment. t/c to Hospice [facility]; left message requesting an intake date and time for the patient. A: Pt who has signed consents with hospice. P: Anticipate the patient to discharge back to [facility] with hospice to open once an intake time and date is assigned. HAND STRIPER to follow up with [facility] after bedside assessment to confirm they are able to accept the patient back. KECIA Smith Addendum: 01/04/17 at 1049 by NOVA WING HAND STRIPER met with the patient to check in. Pt up in his chair eating breakfast. Pt informs HAND STRIPER that his "only request" is to return to [facility] and does not want to go anywhere else. HAND STRIPER sat with patient, talking and providing support. Pt appears much more oriented and closer to his baseline than he did several days prior. HAND STRIPER informed patient that Nadine from [facility] will be coming to see him today. He looks forward to her visit and appreciative of the care he is receiving. No concerns identified from patient. Addendum: 01/04/17 at 1524 by NOVA WING KECIA spoke with Nadine at [facility]. She states that they can accept the patient back once hospice has an intake time for him. Their preference is for a weekday but can do weekends as pt is a returning resident. HAND STRIPER received notification from Arianna at [facility]. They can open for services Sunday at 10:00-11:00am. KECIA spoke with attending provider, Dr. Mercado, to confirm that we can complete the patient's last course of IV ABX before 9:30am on Sunday and have him back to [facility] by 10:00am. He states that they can do this. KECIA confirmed with Arianna at [facility] to place the patient in the 10:00am spot for Sunday01/05/2017. HAND STRIPER spoke with Nadine at [facility] to notify her of the intake time. They will be waiting for the patient. They are unable to provide transportation. KECIA spoke with pt's brother, Ryder, to notify of the patient's admission. He will transport the patient via private vehicle and will be here by 0930 to transport the patient. KECIA has informed the bedside RN of the plan for discharge and she is aware that the patient's last course of ABX will need to be completed by 0900. She will pass this off to wing commander so that abx can be started appropriately.
--- NOTE | 2017-01-04 09:41 | PATH ---
SURGICAL PATHOLOGY Attending Physician:Bennie Benitez MD CASE STATUS: Signed Out PATIENT NAME: DHARA MOYA PID: [id number] : 1945 DATE COLLECTED:12/31/2016 00:00 SPECIMEN: Pleural Fluid CLINICAL HISTORY: Pleural Fluid ICD-10 code not given FINAL DIAGNOSIS: Pleural Fluid, Cytology: Negative for malignant cells. ICD10: J90. NOTE: One cell block slide and one cytospin stain are reviewed which show mesothelial cells in a background of scattered lymphocytes. A high-grade malignant cell population is not identified. GROSS DESCRIPTION: Received fresh on 01/02/2017 is approximately 10 cc of cloudy pink fluid. Prepared are one cell block and one Cytospin slide. Vo ICD-9 CODES: CPT CODES: 1: 17640, 42239, 13179 Electronically Signed Out Sabrina Leal MD [facility] Pathology [facility] [address], [place] [address] Technical component performed at [facility], [facility] [address], [place], [address]
--- NOTE | 2017-01-04 10:15 | NUR ---
NUTRITION FOLLOW UP: ASSESS: 71 YO M admitted with hypercapnic respiratory failure, recurrent bilateral pleural effusions, status post talc pleurodesis on the right and chest tube drainage on the left, now with delirium and leukocytosis (infectious versus inflammatory versus other). Palliative medicine consulted to assist patient and family and determination of goals of care. Oncology explained to family that he would still have other treatment options that would be more aggressive to address his progression of lymphoma, but the main problem is his overall functional status, other comorbidities and inability to maintain an intense therapy. Overall, he has significant failure to thrive and worsening cognitive function. Pt is also being followed by for multiple skin wounds including stg 2 PU on buttock. PO intake slightly improved, bites - 25% trays. Plan is for the patient to discharge back to [facility] with hospice to open once an intake time and date is assigned. PMHX:Follicular Lymphoma, DM, HTN, A-fib, Partial colectomy, CKD, complete heart block w/ pacemaker, depression, PNA, CHF, hypothyroid, hypogammaglobulinemia, sepsis, bacteremia, MRSA, L hand osteomyelitis. LABS:Reviewed. Na 147, Chloride 94, cO2 40, BUN 32, Glu 132, Alb 2.5. MEDS:Reviewed. GI: BM x 3 today. SKIN: All open areas on BLE have closed, no drainage noted on removed dressings. Pressure injury of L plantar at first met head has debrided with five days of hydrocolloid. CURRENT WT: 70.8 kg, BMI 23.0 kg/m2. Admit weight: 73.1 kg, BMI 24.0 kg/m2, IBW: 72.7 kg, UBW: ~100 kg, pt has lost ~12kg x10 months = 12% wt loss x 10 months = not severe wt loss. DIET: Dysphagia mechanical, nectar thick liquids + Ensure. PO intake: bites - 25% trays. ESTIMATED NEEDS: wounds, cancer Calories: 6272-1843 kcal/day (30-35 kcal/kg BW) Protein: 105-130 g/day (1.2-1.5 g/kg BW) NUTRITION DIAGNOSIS: 1) Increased kcal/pro needs related to increased demand for healing as evidence by pt with multiple skin wounds including stg 2 PU on buttock - IMPROVED. 2) Inadequate oral intake related to decreased ability to consume sufficient energy as evidenced by refusal of PO - PERSISTS. NUTRITION INTERVENTION: 1) Patient with end-of-life issues; will continue current supplement intervention. 2) Diet advance per Speech Therapy. MONITOR/EVALUATE: PO intake, wounds, GI, labs, POC, nutrition status. Follow per high nutrition risk guidelines.
--- NOTE | 2017-01-04 10:27 | PCM.PNMED ---
Subjective Date of Service Jan 04, 2017 Subjective Mr. 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 He underwent talc pleurodesis of his right lung and chest tubes of the left lung was removed. Today, patient was somewhat confused. when asked questions, his responses were not in line with the questions. However, he was aware of his surroundings. Family met with hospice this morning. In terms of goals of care, family would like to continue antibiotics per recommendations of Infectious disease Exam Vital Signs Vital Sign - Last Date Time Temp Pulse Resp B/P Pulse Ox O2 Delivery O2 Flow Rate FiO2 01/04/17 07:43 35.8 70 20 112/67 100 Nasal Cannula 3.00 01/01/17 23:30 40 Intake and Output 01/03/17 01/03/17 01/04/17 Cumulative From/Thru 15:00 23:00 07:00 12/26/16 18:54 - 01/04/17 06:47 Intake Total 970 ml 634 ml 7086 ml Output Total 850 ml 200 ml 80336 ml Balance 120 ml 434 ml -64140 ml Intake Oral 650 ml 400 ml 4886 ml IV Total 320 ml 234 ml 2200 ml Output Urine Total 850 ml 200 ml 23566 ml Chest Tube Drainage Total 5690 ml Drainage Total 1040 ml # Voids 3 37 # Bowel Movements 0 Exam General: Cachectic male sitting on bed, less somnolent, alert, awake and oriented to place. However, patient is somewhat confused and tangential HEENT: head normocephalic and atraumatic, PERRLA, EOMI, no scleral icterus, noninjected conjunctiva Neck: neck supple, non-tender, no JVD CV: regular rate and rhythm, s1 and s2 heard, no murmur, Lungs: on 3 L supplemental oxygen via NC, decreased breath sounds bilaterally without wheezes, rales or ronchi Abdomen: normoactive bowel sounds on 4Q, soft, non-distended, non-tender to palpation, no organomegally, : Zhang catheter placed again Skin: warm and dry, LE wrapped with bandage bilaterally Neuro: CN II-XII grossly intact Psych: Normal mood and affect IVs and Medications Medications Reviewed: Medications were reviewed in detail Lab and Diagnostics Result Diagram: 01/03/17 0238 01/03/17 0238 X-Rays, CTs and MRIs Chest XR 12/26/16 IMPRESSION: Bilateral prominent pleural effusions. Approved by: Stone Mccormack M.D. on 12/26/2016 at 20:41 12-lead ECG Flutter with controlled rate of 70. Cardiac Echo Impressions Echocardiogram Report Interpretation Summary 1. Normal left ventricular size, wall thickness and systolic function with an estimated EF of 60-65% 2. Grossly normal right ventricular size - function is difficult to assess given arrhythmia. The estimated right atrial pressure is elevated. the estimated RVSP is 55 mm Hg. 3. Large left sided pleural effusion. Small right sided effusion. 4. No evidence for significant valvular pathology Compared to the previous study, the LV function is stable Reading Physician:05:47 PM Assessment & Plan Mr. 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 He underwent talc pleurodesis of his right lung and chest tubes of the left lung was removed. Acute On chronic hypoxemic Hypercapnic respiratory failure, present on admission. Ongoing. - Patient is on 2.5 L of oxygen at baseline but was unable to maintain saturations - Likely due to bilateral pleural effusions possibly due to his lymphoma or possible congestive heart failure - Maintain O2 saturations between 88-94% - Thoracentesis done 12/27/16, with a total 1420 cc of chylous-appearing pleural fluid aspirated Analysis of Fluid WBC 165, Fluid LDH 86, Pleural Glucose, 146, Fluid Triglycerides 50 - Primary oncologist, Dr. Duque consult with input is greatly appreciated - Patient is DNR/DNI and been placed on BiPAP with mild improvement in CO2 retention from PCO2 of 87 to PCO2 of 83.5, baseline PCO2 appears to be near 70 the patient does not carry a diagnosis of COPD -Discontinue Dilaudid and continue morphine only as patient is always somnolent -Palliative care has been consulted. We appreciate their input -Per palliative, brother requests that if necessary BiPAP can be offered to the patient but that if he does not want to wear the mask or tries to pull it off, that he be allowed to do so. -Family and patient participated in a hospice information visit. Per family, they would like to continue treating infection with antibiotics per recommendations of ID -Per family, patient would like to be placed in hospice care, return home to [facility] where he came from -[facility] already assessed the patient today Bilateral pleural effusions, present on admission. Chronic. Ongoing. - Patient requires almost weekly alternating thoracentesis, last done 12/18 - Thoracentesis done 12/27/16, with a total 1420 cc of chylous-appearing pleural fluid aspirated Analysis of Fluid WBC 165, Fluid LDH 86, Pleural Glucose, 146, Fluid Triglycerides 50 , fluid cultures sent for analysis - Surgery consulted and we appreciate their input. Dr. Benitez did a tube thoracostomy on the right sided Right sided VATS Pleuorodesis on 12/29/2016 -Refractory Pleural Effusions s/p R Tube Thoracostomy 12/28/2016, R Talc Pleurodesis 12/30/2016, L Tube Thoracostomy 12/31/2016 -Right and Left chest tubes have been removed - Rapidly recurrent left-sided pleural effusion required left sided axillary thoracostomy too with reportedly near 3 L of serosanguineous drainage, surgery will consider possible bilateral pleurodeses Leukocytosis, present on admission. Chronic. Ongoing. - Likely due to patient's follicular lymphoma and CML, pleural effusion appears to be sterile - Patient has been afebrile, denies chills, productive cough, sick contacts - Patient received 2 g of cefepime in the ED - Infectious disease consulted - Per ID, cefepime was discontinued -However, 01/03/17 WBC down to 22. Labs not drawn today -ID ordered various cultures - patient started on a combination of meropenem and micafungin - Fungitell and galactomannan are negative. Pleural fluid was transudative -As a result, Micafungin was discontinued -Per ID, If all his cultures are negative, and he looks okay tomorrow, stop the meropenem 01/05/17. -repeat a CBC with diff tomorrow just to see where we are in terms of his white count. - Continue to monitor with CBC Hypoxemic, Hypercapnic Encephalopathy, ongoing -Patient has been confused likely as a result of his respiratory status 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 Duque -Currently hold Imbruvica Elevated troponin, present on admission. Chronic. - Patient has Elevated troponin on prior admission, likely due to demand and CKD - Patient denies any chest pain, palpitations - Monitor on telemetry Diastolic CHF, present on admission. Chronic. - Likely not the cause of his shortness of breath, but we will reevaluate if not improved after thoracentesis - Last echo was done 09/19 as above -Currently holding torsemide and spironolactone as the patient is somnolent due to hypercapnia -His echocardiogram shows preserved LV systolic function. Right ventricular function is difficult to assess given the arrhythmia. Pleural effusions are present. No significant valvular pathology. Diabetes mellitus type II Insulin using, present on admission. Chronic. - Hold metformin while inpatient - Hold insulin regimen, 100 units in the morning but monitor Blood glucose closely - Medium dose correctional scale ordered - Patient refused a diabetic diet; will give general diet due to condition - A1c was 7.6 in September Hypothyroidism, present on admission. Chronic. -Currently holding levothyroxine 50 mcg daily as the patient was somnolent due to hypercapnia Normocytic anemia, present on admission. Chronic -Patient has history of CML - Monitor Depression, present on admission. Chronic. - Currently holding sertraline 50 mg daily due to hypercapnia Leg Ulcers, present on admission. -Ordered Wound Care nurse Acetaminophen as needed for mild pain, fever, headache. Bowel regimen as needed. Zofran as needed. Subcutaneous heparin on board, SCDs contraindicated due to lower extremity wounds. Patient is likely to remain inpatient for the foreseeable future given his underlying chronic medical conditions and recent recurrent pleural effusions. GI Prophylaxis: Not indicated VTE Mechanical Devices: Intermittant Pneumatic CD Resuscitation Status: DNR/DNI:Do Not Resuscitate/Intubate Attending Statement The patient was seen and examined together with Dr. Neely on 01/04/2017 and I agree with the history, exam and plan as outlined in the note above. . Rosalva Neely DO Jan 04, 2017 10:27 Freddy Mercado MD Jan 05, 2017 15:47
[2017-01-04] MEDS: IBRUTINIB 420 MG PO SCH (10:29)
--- NOTE | 2017-01-04 11:39 | PCM.PNMED ---
Subjective Date of Service Jan 04, 2017 Subjective 71 yo man with acute on chronic hypoxemic and hypercarbic respiratory failure who I suspect has a primary hypoventilation syndrome which may be due to POLYMER SCIENTIST disease and/or respiratory muscle dysfunction. Also has complex history of: Follicular B cell lymphoma, recurrent s/p stem cell transplant, currently on TKI CML Chronic hypoxemic and hypercarbic respiratory failure A. Fib Diastolic heart disease DM H/O multiple pacer infections requiring explantation x 2 Hypothyroidism Palliative Care has met with family and discussed goals of care. Patient not seen today but when visited yesterday, he was difficult to arouse but appeared comfortable. Exam Vital Signs Vital Sign - Last Date Time Temp Pulse Resp B/P Pulse Ox O2 Delivery O2 Flow Rate FiO2 01/04/17 07:43 35.8 70 20 112/67 100 Nasal Cannula 3.00 01/01/17 23:30 40 Intake and Output 01/03/17 01/03/17 01/04/17 Cumulative From/Thru 15:00 23:00 07:00 12/26/16 18:54 - 01/04/17 06:47 Intake Total 970 ml 634 ml 7086 ml Output Total 850 ml 200 ml 45978 ml Balance 120 ml 434 ml -65318 ml Intake Oral 650 ml 400 ml 4886 ml IV Total 320 ml 234 ml 2200 ml Output Urine Total 850 ml 200 ml 57705 ml Chest Tube Drainage Total 5690 ml Drainage Total 1040 ml # Voids 3 37 # Bowel Movements 0 Lab and Diagnostics Result Diagram: 01/03/17 0238 01/03/17 0238 X-Rays, CTs and MRIs Chest XR 12/26/16 IMPRESSION: Bilateral prominent pleural effusions. Approved by: Stone Mccormack M.D. on 12/26/2016 at 20:41 12-lead ECG Flutter with controlled rate of 70. Cardiac Echo Impressions Echocardiogram Report Interpretation Summary 1. Normal left ventricular size, wall thickness and systolic function with an estimated EF of 60-65% 2. Grossly normal right ventricular size - function is difficult to assess given arrhythmia. The estimated right atrial pressure is elevated. the estimated RVSP is 55 mm Hg. 3. Large left sided pleural effusion. Small right sided effusion. 4. No evidence for significant valvular pathology Compared to the previous study, the LV function is stable Reading Physician:05:47 PM Assessment & Plan IMP Acute on Chronic hypoxemic and hypercarbic respiratory failure. The cause of his hypercarbia is unclear but he does not appear to have chronic lung disease but rather this appears to be a problem with ventilatory drive, ie central alveolar hypoventilation and/or respiratory muscle function. He is not receiving drugs which are typically associated with respiratory depression but I wonder about his TKI. POLYMER SCIENTIST imaging might be helpful to exclude a brainstem process or large mass lesion but if negative would leave respiratory stimulants such as doxapram as a palliative option. I can't exclude a neuromuscular disease as a contributor as he is unable to cooperate with testing of muscle strength although he does have generalized muscle atrophy. It is difficult to know whether he has an acute respiratory infection but that would not explain his hypercarbia which is disproportionate to his degree of hypoxemia. His rapidly increasing neutrophilia with immature forms is at least partly a reflection of his CML but a thorough evaluation to exclude an acute infection is appropriate and has been undertaken by his ID political consultant. Bronchoscopy has been raised as a possible means to exclude PNA but it would likely lead to significant further deterioration and given his DNR/DNI status might hasten his . I don't see him as a reasonable candidate currently. Bilateral recurrent pleural effusions s/p multiple serial therapeutic thoracenteses and VATS talc pleurodesis on Rt. Had Lt thoracostomy yesterday but this tube has now been removed without an attempt at pleurodesis apparently. 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 Fib Diastolic heart disease DM H/O multiple pacer infections requiring explantation x 2 Hypothyroidism Now note that goal of care has appropriately shifted to maintaining comfort. REC PCCM consult will sign off. Please reconsult as needed. GI Prophylaxis: Not indicated VTE Mechanical Devices: Intermittant Pneumatic CD Resuscitation Status: DNR/DNI:Do Not Resuscitate/Intubate Reese Xavier MD Jan 04, 2017 11:36
--- NOTE | 2017-01-04 12:52 | NUR ---
Palliative care note D/A: POLST is obtained by PC Resident Dr. Delmar Bey DO and dates 01/04/17. POLST is discussed with both pt brother Ryder and dtr Fabiana and signed by Fabiana Andrade. Note that both Ryder and Fabiana are pt DPOA. Pt medical condition is noted as CHF, lymphoma. Note that POLST indicates that pt is DNAR with limited measures as well as would like antibiotics if life can be prolonged and a trial of nutrition via tube. POLST was scanned and emailed to Mechelle at [facility]. Question if this POLST will suffice for [facility] pt. Will discuss with Dr. Valenzuela. P: Palliative care to follow. Janey GIMENEZ CCM Addendum: 01/04/17 at 1527 by KULDIP GALARZA SS PC note amendment D/A: Discussed POLST with Dr. Valenzuela. She has met with pt and family to discuss POLST. New POLST reads at DNAR/Comfort measures only. It does not make a determination regarding antibiotics but does indicate that pt does not wish for medically assisted nutrition via tube. POLST signed by pt dtr, who is one of his DPOA's , as well as signed by Dr. Valenzuela. Dated 01/04/17. Newest POLST is scanned and emailed to Jessica at [facility]. P: Palliative care to follow. Janey GIMENEZ [facility]
[2017-01-04] MEDS ORDERED: Morphine 20 mg/mL Oral Syringe SL/PO PRN (15:35)
--- NOTE | 2017-01-04 15:59 | NUR ---
D/C from PT per discussion in rounds
--- NOTE | 2017-01-04 16:03 | NUR ---
spiritual care: follow pt told detailed story of dream and impressions of his last several days in hospital including his sense of bewilderment, distrust and discomfort. He said the last clear memories he has are from prior to hospitalization and he believes he had been managing his oxygen well, so he is perplexed by the medical reports he is receiving. Continuing to follow.
--- NOTE | 2017-01-04 17:06 | PCM.PALLBR ---
Palliative Care Recommendation 71-year-old male with history of follicular B-cell lymphoma, hypercapnic respiratory failure, recurrent bilateral pleural effusions, now status post talc pleurodesis on the right and chest tube drainage on the left, etc. now with delirium and leukocytosis (infectious versus inflammatory versus other). Palliative medicine consulted to assist patient and family and determination of goals of care. Summary of palliative recommendations: 01/04/17-Pain- pt feels this is very well controlled. SOB-pt comfortable at rest but suspect any movement would cause dyspnea. Advise more regular dosing of oxycodone IR for comfort- pain and SOB Comfort meds of liquid MS concentrate. MCI and delirium-Moderate in severity. Not agitated at this time CODE STATUS/ POLST- reviewed with PATRICIA Vásquez and then with Ryder- brother. Pt is not decisional but he has indicated goal of DNR status in the past. Reviewed issues around TF/comfort measures and after discussion- they concur - no FT and aggressive comfort management Goals is to get patient back to [facility] with assistance from Hospice. CM working on this. family support from his brother and his niece -Symptom management (Pain/other)- comfortable at this time. Continued management per medical/hospitalist teams. Delirium multifactorial (hypercapnia , physiologic stress, sleep deprivation, infection, medications, etc.) and superimposed on mild progressive chronic cognitive impairment, somewhat better again today though still frequently confused. -DPOA/Advanced Directives/POLST- DO NOT RESUSCITATE/DO NOT INTUBATE per patient' s previously expressed wishes to his brother Ryder/JUNIOR. Further, Ryder requests that if necessary BiPAP can be offered to the patient but that if he does not want to wear the mask or tries to pull it off, that he be allowed to do so. Hospice information visit today Ultimate disposition depending on patient's status and progress (or lack thereof ) in the coming days. -Family/emotional support- excellent support from his brother. Additional Medical Diagnoses with primary management by Hospitalist team include : Acute On chronic hypoxemic Hypercapnic respiratory failure, present on admission. Ongoing. Bilateral pleural effusions, present on admission. Chronic. Ongoing. Leukocytosis, present on admission. Chronic. Ongoing. 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 Chronic. Diastolic CHF, present on admission. Chronic. Diabetes mellitus type II Insulin using, present on admission. Chronic. Hypothyroidism, present on admission. Chronic. Normocytic anemia, present on admission. Chronic Depression, present on admission. Chronic. Leg Ulcers, present on admission. Problems: End of Life Preferences DO NOT RESUSCITATE/DO NOT INTUBATE Goals of Care Stabilization and recovery as much as possible while avoiding unnecessary/ unpleasant interventions Disposition To be determined Resuscitation Status Resuscitation Status: DNR/DNI:Do Not Resuscitate/Intubate POLST Updates/Changes Previous POLST?: No Artificially Admin Nutrition: No Artifical Nutrition by Tube POLST Discussed with: Health Care Agent (DPOAHC) (reviewed with Ryder and signed by Thalia) POLST Review Outcome: New Form Completed . Advanced Care Planning Address: POLST Pain: None Symptom management: Dyspnea, Delirium Total time 60 minutes; >50% face to face with patient and/or family, providing counselling regarding plans and recommendations, and in care coordination with his/her medical teams. majority of which was spent in coordination of pt care and discussion with family I also spent an additional [ ] minutes counseling for advanced care planning with the patient/the patients family/the surrogate decision maker. copies to: Aj Fernandez MD; Julian Fabian MD Palliative Brief Note Date of Service Jan 04, 2017 . 71 yo with hx of lymphoma and diastolic CHF hospitalized for fever, weakness and increased SOB. He has hx of pleural effusions and received chest tube and talc pleurodesis. He is completing course of meropenem with a hx of recurrent MRSA infections. He has poor appetite--offers his meal to me. He states he is not SOB at rest but his niece feels he is and it is getting worse. Following discussion with Dr. Duque and Jodee with pt and family-Ryder his brother, pt and family agree on d/c chemo and move to goal for comfort. Pt has little to no recall of this discussion or any events over the past few days. O: polite, fatigued, chronically ill appearing bit groggy--playing with a pill he has had since morning which per RN is one of his chemotx meds. oriented to person, recalls Dr. Finley by name but is unsure if he is in a hospital. decreased BS HRR labs and CXR's reviewed Kady Valenzuela MD Jan 04, 2017 17:06
--- NOTE | 2017-01-04 18:08 | NUR ---
Transition to hospice care POC for pt is to transition to hospice. As such, tele d/c per orders. Spoke with pt and he agreed to a petty catheter which was placed this afternoon around 1610. Pt with increased confusion in afternoon and kept trying to get up to go to the bathroom. Explained to pt several times that he no longer has to urinate, the catheter will take care of that however he is forgetful and needs reminders. Pt sats remained in mid 90's, pt states he is not SOB when asked seveal times throughout shift. Denies pain during shift. Plan is for pt to d/c back to [facility] tomorrow AM.
[2017-01-05] MEDS: Heparin 5,000 Unit/mL Inj SUBQ SCH (00:50)
[2017-01-05] MEDS: Meropenem Inj 2,000 MG in 0.9% Sodium Chloride 100 ML IV SCH ×2 (00:50→06:57)
[2017-01-05 03:37] VITALS: BP 109/59; PULSE 70; RESP 20; O2SAT 96
[2017-01-05 03:51] LABS: Mean Corpuscular Hemoglobin 25.4 pg (27.0-35.0); Mean Corpuscular Volume 87.6 fL (81-100); Platelet Count 240 bil/L (150-400)
[2017-01-05 04:24] LABS: BASOPHILS % (AUTO) 0 % (0-3); EOSINOPHILS % (AUTO) 0 % (0-5); MONOCYTES % (AUTO) 13 % (4-12); NEUTROPHILS % (AUTO) 57 % (40-74)
--- NOTE | 2017-01-05 06:19 | PCM.DIMED ---
Rosalva Neely DO 01/05/17 0619: Discharge Instructions Date of Service Jan 05, 2017 Dates of Hospitalization Dec 26, 2016 at 22:11 Discharge Diagnosis Discharge Diagnosis Acute On chronic hypoxemic Hypercapnic respiratory failure, present on admission. Ongoing. Bilateral pleural effusions, present on admission. Chronic. Ongoing. Leukocytosis, present on admission. Chronic. Ongoing. 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 Chronic. Diastolic CHF, present on admission. Chronic. Diabetes mellitus type II Insulin using, present on admission. Chronic. Hypothyroidism, present on admission. Chronic. Normocytic anemia, present on admission. Chronic Depression, present on admission. Chronic. Leg Ulcers, present on admission. Medication Instructions Additional med instructions We will be sending him home with your current home medication regimen. Please review this with her hospice physician. Diet Discharge Diet: No restrictions Activity Discharge Activity: No restrictions, Other (activity as tolerated) Call your provider Call your provider for: Other (please consult the hospice physician/nurse for symptoms of fevers, chills, shortness of breath, chest pain) Patient Instructions Patient Instructions When he presented to the hospital, he had fevers, weakness, and increasing shortness of breath. He has a history of getting bilateral pleural effusions. We consulted surgery and pulmonology and they suggested putting in a chest tube on the right and left lungs as well as doing a talc pleurodesis of the right lung, which helped with her shortness of breath. Also consulted infectious disease and you were being treated with antibiotics for an infection. Following discussion with her oncologist and the palliative care doctor in addition to your family members, it was agreed upon to stop chemotherapy and to move to goals of comfort care. You will be returning to [facility] with assistance from Hospice. The goal is for Stabilization and recovery as much as possible while avoiding unnecessary/unpleasant interventions. We are going to leave your petty catheter in for comfort and ease. Please follow -up with hospice physician with regards to the continuation of this . Follow-up plan Follow-up with hospice physician Follow-up Provider: GILA GARNER Follow-up with PCP in: 1 week Freddy Mercado MD 01/05/17 1547: Discharge Instructions Attending's Statement The patient was seen and examined together with Dr. Neely on 01/05/2017 and I agree with the history, exam and plan as outlined in the note above. . Rosalva Neely DO Jan 05, 2017 06:19 Freddy Mercado MD Jan 05, 2017 15:47
[2017-01-05] MEDS: Insulin LISPRO 300 Unit/3 mL Inj SUBQ SCH (08:00)
[2017-01-05] MEDS ORDERED: SPIR25TA3 PO (08:01)
[2017-01-05] MEDS ORDERED: ONDA8TAB10 PO (08:01)
[2017-01-05] MEDS ORDERED: LEVO150T5 PO (08:01)
[2017-01-05] MEDS ORDERED: FOLI1TAB18 PO (08:01)
[2017-01-05] MEDS ORDERED: METF500T4 PO (08:01)
[2017-01-05] MEDS ORDERED: POTA10TA12 PO (08:01)
[2017-01-05] MEDS ORDERED: SERT50TA9 PO (08:01)
[2017-01-05] MEDS ORDERED: NAPR220C16 PO (08:01)
[2017-01-05] MEDS ORDERED: TORS10TA5 PO (08:01)
[2017-01-05] MEDS ORDERED: ASPI-973 PO (08:01)
[2017-01-05] MEDS ORDERED: OXYC-530 PO (08:01)
[2017-01-05] MEDS: IBRUTINIB 420 MG PO SCH (08:30)
[2017-01-05 08:46] VITALS: BP 111/59; PULSE 70; RESP 18; O2SAT 97
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
--- NOTE | 2017-01-05 09:33 | NUR ---
Inpatient Wound Nurse Patient seen for PI of L plantar and BLE wraps. BLE were unwrapped and no open areas were found, no drainage noted on removed wraps (though it did appear that coffee or urine had been spilled on LLE wrap). A few areas of erythemic crusting persist but these are all closed and without signs of infection. BLE were removed and not reapplied. CWON can reapply if patient prefers wraps for comfort. LLE plantar, first metatarsal head PI noted with beefy red, granulating wound bed, edges well adhered, mild maceration halo, no periwound erythema, no odor, scant drainage noted on removed hydrocolloid. Wound was cleansed, blotted dry, and hydrocolloid reapplied. Patient is expecting to discharge today. CWON is available if additional wound needs arise prior to discharge.
--- NOTE | 2017-01-05 10:24 | NUR ---
Discharge Pt. discharged to [facility] assisted living at 0940 via w/c. Pts. brother Ryder is here to transport. He has oxygen tank in his car as pt. is currently on 3L NC. Pt. has oxygen machine at [facility] Report called to RN prior to transfer. Pt. denies pain, chest pain, SOB, N/V. Alert and orientedx3. MCKEE. Cooperative and pleasant. Zhang catheter in place. This is to stay in per MD order. Pt. did not want any a.m. medications except his levothyroxine. List of medications and scripts sent with pt. No questions or concerns at this time.
--- NOTE | 2017-01-05 11:24 | NUR ---
spiritual care: follow up brief visit before discharge. Pt getting ready, thankful for emotional support, brother's role, and anticipating hospice/palliative conversations.
--- NOTE | 2017-01-05 14:22 | NUR ---
Social Work Note: Discharge Data& Assessment: EMR reviewed. Per MD in multidisciplinary rounds, pt is medically stable for discharge. Raymond Winston is a 71 year old male admitted on 12/26/2016 for respiratory distress. Per pt is medically stable for discharge back to [facility] with Hospice to open at 1000. Bedside Assessment has been completed with approval for pt to return to [facility]. Pt son transporting pt home today. No other MD orders identified. No other discharge needs identified. All updated and agreeable to plan. Plan: Per pt is medically ready to discharge home to [facility] via POV with Hospice to open at 1000. No other MD orders identified. No other discharge needs identified. All updated and agreeable to plan. KECIA Enciso
--- NOTE | 2017-01-05 21:45 | PCM.DC.MED ---
Discharge Summary Date of Service Jan 05, 2017 Dates of Hospitalization Date of Hospital Admission Dec 26, 2016 at 22:11 Date of Discharge: Jan 05, 2017 Providers: Admitting Physician: Ranjith Fitzpatrick MD Primary Care Physician: Julian Fabian MD Attending Physician: Freddy Mercado MD Diagnosis at Time of Discharge Diagnosis at Time of Discharge Acute On chronic hypoxemic Hypercapnic respiratory failure, present on admission. Ongoing. Bilateral pleural effusions, present on admission. Chronic. Ongoing. Leukocytosis, present on admission. Chronic. Ongoing. 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 Chronic. Diastolic CHF, present on admission. Chronic. Diabetes mellitus type II Insulin using, present on admission. Chronic. Hypothyroidism, present on admission. Chronic. Normocytic anemia, present on admission. Chronic Depression, present on admission. Chronic. Leg Ulcers, present on admission. Consultations Infectious disease, surgery, pulmonology, oncology, and cardiology were all consulted Procedures XRay, CTs & MRIs Chest XR 12/26/16 IMPRESSION: Bilateral prominent pleural effusions. Approved by: Stone Mccormack M.D. on 12/26/2016 at 20:41 ECG 12 Lead Flutter with controlled rate of 70. Cardiac Echo Impression Echocardiogram Report Interpretation Summary 1. Normal left ventricular size, wall thickness and systolic function with an estimated EF of 60-65% 2. Grossly normal right ventricular size - function is difficult to assess given arrhythmia. The estimated right atrial pressure is elevated. the estimated RVSP is 55 mm Hg. 3. Large left sided pleural effusion. Small right sided effusion. 4. No evidence for significant valvular pathology Compared to the previous study, the LV function is stable Reading Physician:05:47 PM Brief History Per admission H&P by on 12/27/2016: Mr. Winston is a pleasant but unfortunate 71-year-old male with a complex past medical history significant for malignant lymphoma with recurrent pleural effusions, atrial fibrillation, diastolic CHF, diabetes mellitus and CKD stage III who presented to the emergency department for ongoing shortness of breath for 2 days. The patient is on 2.5 L of oxygen at baseline but has been unable to keep his saturations at an acceptable level. He normally requires thoracentesis almost weekly, alternating sides, but it has been about a week and a half since his last one. He denies any fever/chills, cough, chest pain, palpitations, abdominal pain, or hemoptysis. He denies any sick contacts but notes he lives at [facility] so it is difficult to assess exposure. Hospital Course Mr. 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 He underwent talc pleurodesis of his right lung and chest tubes of the left lung was removed. We were treating infection and finished a course of antibiotics. Following discussion with her oncologist and the palliative care doctor in addition to your family members, it was agreed upon to stop chemotherapy and to move to goals of comfort care. You will be returning to [facility] with assistance from Hospice. The goal is for Stabilization and recovery as much as possible while avoiding unnecessary /unpleasant interventions. Acute On chronic hypoxemic Hypercapnic respiratory failure, present on admission. Ongoing. - Patient is on 2.5 L of oxygen at baseline but was unable to maintain saturations - Likely due to bilateral pleural effusions possibly due to his lymphoma or possible congestive heart failure - Maintain O2 saturations between 88-94% - Thoracentesis done 12/27/16, with a total 1420 cc of chylous-appearing pleural fluid aspirated Analysis of Fluid WBC 165, Fluid LDH 86, Pleural Glucose, 146, Fluid Triglycerides 50 - Primary oncologist, Dr. Duque consult with input is greatly appreciated - Patient is DNR/DNI and been placed on BiPAP with mild improvement in CO2 retention from PCO2 of 87 to PCO2 of 83.5, baseline PCO2 appears to be near 70 the patient does not carry a diagnosis of COPD -Discontinue Dilaudid and continue morphine only as patient is always somnolent -Palliative care has been consulted. We appreciate their input -Per palliative, brother requests that if necessary BiPAP can be offered to the patient but that if he does not want to wear the mask or tries to pull it off, that he be allowed to do so. -Family and patient participated in a hospice information visit. Per family, they would like to continue treating infection with antibiotics per recommendations of ID -Per family, patient would like to be placed in hospice care, return home to [facility] where he came from -[facility] already assessed the patient Bilateral pleural effusions, present on admission. Chronic. Ongoing. - Patient requires almost weekly alternating thoracentesis, last done 12/18 - Thoracentesis done 12/27/16, with a total 1420 cc of chylous-appearing pleural fluid aspirated Analysis of Fluid WBC 165, Fluid LDH 86, Pleural Glucose, 146, Fluid Triglycerides 50 , fluid cultures sent for analysis - Surgery consulted and we appreciate their input. Dr. Benitez did a tube thoracostomy on the right sided Right sided VATS Pleuorodesis on 12/29/2016 -Refractory Pleural Effusions s/p R Tube Thoracostomy 12/28/2016, R Talc Pleurodesis 12/30/2016, L Tube Thoracostomy 12/31/2016 -Right and Left chest tubes have been removed - Rapidly recurrent left-sided pleural effusion required left sided axillary thoracostomy too with reportedly near 3 L of serosanguineous drainage, surgery will consider possible bilateral pleurodeses Leukocytosis, present on admission. Chronic. Ongoing. - Likely due to patient's follicular lymphoma and CML, pleural effusion appears to be sterile - Patient has been afebrile, denies chills, productive cough, sick contacts - Patient received 2 g of cefepime in the ED - Infectious disease consulted - Per ID, cefepime was discontinued -However, 01/03/17 WBC down to 22. Labs not drawn today -ID ordered various cultures - patient started on a combination of meropenem and micafungin - Fungitell and galactomannan are negative. 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 Duque -Currently hold Imbruvica Elevated troponin, present on admission. Chronic. - Patient has Elevated troponin on prior admission, likely due to demand and CKD - Patient denies any chest pain, palpitations - Monitor on telemetry Diastolic CHF, present on admission. Chronic. - Likely not the cause of his shortness of breath, but we will reevaluate if not improved after thoracentesis - Last echo was done 09/19 as above -Currently holding torsemide and spironolactone as the patient is somnolent due to hypercapnia -His echocardiogram shows preserved LV systolic function. Right ventricular function is difficult to assess given the arrhythmia. Pleural effusions are present. No significant valvular pathology. Diabetes mellitus type II Insulin using, present on admission. Chronic. - Hold metformin while inpatient - Hold insulin regimen, 100 units in the morning but monitor Blood glucose closely - Medium dose correctional scale ordered - Patient refused a diabetic diet; will give general diet due to condition - A1c was 7.6 in September Hypothyroidism, present on admission. Chronic. -Currently holding levothyroxine 50 mcg daily as the patient was somnolent due to hypercapnia Normocytic anemia, present on admission. Chronic -Patient has history of CML - Monitor Depression, present on admission. Chronic. - Currently holding sertraline 50 mg daily due to hypercapnia Leg Ulcers, present on admission. -Ordered Wound Care nurse Exam Vital Signs (Last) Date Time Temp Pulse Resp B/P Pulse Ox O2 Delivery O2 Flow Rate FiO2 01/05/17 08:46 37.2 70 18 111/59 97 Nasal Cannula 3.00 01/01/17 23:30 40 Exam General: Cachectic male sitting on bed, less somnolent, alert, awake and oriented to place. However, patient is somewhat confused and tangential HEENT: head normocephalic and atraumatic, PERRLA, EOMI, no scleral icterus, noninjected conjunctiva Neck: neck supple, non-tender, no JVD CV: regular rate and rhythm, s1 and s2 heard, no murmur, Lungs: on 3 L supplemental oxygen via NC, decreased breath sounds bilaterally without wheezes, rales or ronchi Abdomen: normoactive bowel sounds on 4Q, soft, non-distended, non-tender to palpation, no organomegally, : Petty catheter placed again Skin: warm and dry, LE wrapped with bandage bilaterally Neuro: CN II-XII grossly intact Psych: Normal mood and affect Test 12/26/16 19:27 12/26/16 21:20 12/26/16 23:27 12/27/16 09:38 Myelocytes % 2% (0-0) Hold Purple Top Tube Received (Received) Prothrombin Time 10.0sec (8.1-12.5) Prothromb Time International Ratio 0.94ratio Hold Blue Top Tube Received (Received) Troponin T 0.036ug/L (0.0-0.011) Hold [place] Top Tube Received (Received) Lactic Acid Level 1.1mmol/L (0.4-2.0) Urine Color Yellow (YELLOW) Urine Appearance Hazy (CLEAR,HAZY) Urine pH 6.0 (5.0-8.0) Urine Specific [place] 1.019 (1.003-1.035) Urine Protein 30mg/dL (NEG,TRACE) Urine Glucose (UA) Negativemg/dL (NEGATIVE) Urine Ketones Negativemg/dL (NEGATIVE) Urine Occult Blood Negative (NEGATIVE) Urine Nitrite Negative (NEGATIVE) Urine Bilirubin Negative (NEGATIVE) Urine Urobilinogen Normalmg/dL (NORMAL) Urine Leukocyte Esterase Negative (NEGATIVE) Urine RBC 0-2/hpf (0-2) Urine WBC 0-5/hpf (0-5) Urine Epithelial Cells Occasional/hpf (NONE-MOD) Urine Crystals None seen (NONE SEEN) Urine Bacteria Few/hpf (NONE-FEW) Urine Hyaline Casts 5/20/lpf (NONE) Urine Granular Casts Rare (NONE SEEN) Urine Waxy Casts None seen (NONE SEEN) Urine Red Blood Cell Casts None seen (NONE SEEN) Urine White Blood Cell Casts None seen (NONE SEEN) Urine Mucus Present (None Seen) Urine Trichomonas None seen (NONE SEEN) Urine Yeast None (NONE SEEN) Urinalysis Comment Fine granular casts Urine Culture Reflexed Not indicated Body Fluid Source Pleural fluid Body Fluid Color Yellow (Clear) Body Fluid Appearance Hazy Body Fluid pH 7.5 (Not Estab.) Body Fluid WBC 165/mm3 Body Fluid RBC 6700/mm3 Body Fluid Polynuclear WBCs 5% Body Fluid Lymphocytes 40% Body Fluid Monocytes 55% Body Fluid Eosinophils 0% Body Fluid Basophils 0% Body Fluid Lactate Dehydrogenase 87U/L Body Fluid Triglycerides 50mg/dL (.) Pleural Fluid Total Protein 2.7g/dL Pleural Fluid Glucose 146mg/dL Test 12/31/16 08:18 01/01/17 02:10 01/01/17 09:40 01/02/17 02:33 Pro-B-Type Natriuretic Peptide 3830pg/mL (0-376) Metamyelocytes % 2% (0-0) Lipase 6U/L (13-60) Procalcitonin 0.34ng/mL (0.00-0.08) Fungal Antibodies <31pg/mL (<80) Aspergillus galactomannan Antigen 0.24Index (0.00-0.49) Total Creatine Kinase 13U/L (21-232) Aldolase 8.7U/L (3.3-10.3) Thyroid Stimulating Hormone (TSH) 2.090uIU/mL (0.450-4.500) Test 01/05/17 03:40 White Blood Count 19.4th/mm3 (3.8-10.1) Red Blood Count 3.55mil/mm3 (4.40-5.80) Hemoglobin 9.0g/dL (13.8-17.2) Hematocrit 31.1% (41.0-50.0) Mean Corpuscular Volume 87.6fL (81-100) Mean Corpuscular Hemoglobin 25.4pg (27.0-35.0) Mean Corpuscular Hemoglobin Concent 28.9% (32.0-37.0) Red Cell Distribution Width 21.0% (12.3-15.4) Platelet Count 240bil/L (150-400) Neutrophils (%) (Auto) 57% (40-74) Lymphocytes (%) (Auto) 12% (14-46) Monocytes (%) (Auto) 13% (4-12) Eosinophils (%) (Auto) 0% (0-5) Basophils (%) (Auto) 0% (0-3) Band Neutrophils % 12% (1-5) Nucleated Red Blood Cells 3/100 WBC (0-24) Hematology Comments Sodium Level 138mEq/L (134-144) Potassium Level 4.0mEq/L (3.5-5.2) Chloride Level 88mEq/L (97-108) Carbon Dioxide Level 41mmol/L (18-29) Blood Urea Nitrogen 33mg/dL (8-27) Creatinine 0.95mg/dL (0.76-1.27) Estimat Glomerular Filtration Rate 83mL/min (>59) Glucose Level 205mg/dL (60-99) Calcium Level 8.0mg/dL (8.5-10.1) Total Bilirubin 0.4mg/dL (0.0-1.2) Aspartate Amino Transf (AST/SGOT) 20U/L (0-50) Alanine Aminotransferase (ALT/SGPT) 7U/L (0-44) Alkaline Phosphatase 128U/L (25-160) Total Protein 5.5g/dL (6.4-8.4) Albumin 2.4g/dL (3.4-5.0) Discharge Medications Discharge Medications Aspirin (Aspirin) 81 Mg Tablet 81 MG PO DAILY Prescribed by: Jefferson CALABRESE Benzocaine/Menthol (Cepacol Sore Throat Lozenge) 1 Each Lozenge 1 EACH PO 3-4 times/dy prn (Reported) Folic Acid (Folic Acid) 1 Mg Tablet 1 MG PO DAILY Prescribed by: Jefferson CALABRESE Insulin Regular, Human (HUMulin-R U100 Insulin Vial) 100 Unit/1 Ml Vial Unknown Dose SUBQ ACHS (Reported) Levothyroxine (Levothyroxine) 150 Mcg Tablet 150 MCG PO DAILY Prescribed by: Jefferson CALABRESE Metformin (Metformin) 500 Mg Tablet 500 MG PO BID Prescribed by: Jefferson CALABRESE Ondansetron ODT (Ondansetron ODT) 8 Mg Tab.rapdis 8 MG PO 15-30min before tx Prescribed by: Jefferson CALABRESE Potassium Chloride ER (Potassium Chloride ER) 10 Meq Tablet 10 MEQ PO DAILY TAKE WITH FOOD Prescribed by: Jefferson CALABRESE Sertraline HCl (Sertraline) 50 Mg Tablet 50 MG PO DAILY Prescribed by: Jefferson CALABRESE Spironolactone (Spironolactone) 25 Mg Tablet 25 MG PO QAM Prescribed by: Jefferson CALABRESE Torsemide (Torsemide) 10 Mg Tablet 20 MG PO DAILY Prescribed by: Jefferson CALABRESE As needed Naproxen Sodium (Naproxen Sodium) 220 Mg Capsule 220 MG PO BID PRN PRN For Pain Prescribed by: Jefferson CALABRESE oxyCODONE (oxyCODONE) 5 Mg Tablet 5 MG PO q6hrs prn PRN PRN For Pain Prescribed by: Jefferson CALABRESE Additional med instructions We will be sending him home with your current home medication regimen. Please review this with her hospice physician. Followup Plan Disposition: Patient will be going home to [facility] with hospice. Follow-up plan Follow-up with hospice physician Discharge Diet: No restrictions Discharge Activity: No restrictions, Other (activity as tolerated) Patient Instructions When he presented to the hospital, he had fevers, weakness, and increasing shortness of breath. He has a history of getting bilateral pleural effusions. We consulted surgery and pulmonology and they suggested putting in a chest tube on the right and left lungs as well as doing a talc pleurodesis of the right lung, which helped with her shortness of breath. Also consulted infectious disease and you were being treated with antibiotics for an infection. Following discussion with her oncologist and the palliative care doctor in addition to your family members, it was agreed upon to stop chemotherapy and to move to goals of comfort care. You will be returning to [facility] with assistance from Hospice. The goal is for Stabilization and recovery as much as possible while avoiding unnecessary/unpleasant interventions. We are going to leave your petty catheter in for comfort and ease. Please follow -up with hospice physician with regards to the continuation of this . Follow-up Provider: GILA GARNER Follow-up with PCP in: 1 week Time spent Greater than 30 minutes was spent in preparation of discharge with greater than 50% of that time dedicated to patient counseling and coordination of care. . Attending Statement The patient was seen and examined together with Dr. Neely on 01/05/2017 and I agree with the history, exam and plan as outlined in the note above. . copies to: GILA GARNER Alexa N DO Jan 05, 2017 21:45 Freddy Mercado MD Jan 06, 2017 07:10
== END 2017-01-05 09:45 | disposition hospice, home (50) | DRG 840 ==
LOC: SED 18:39 → PCC 22:11
PROVIDERS: ADMIT Hospitalist; ATTEND Internal Medicine
PROC: 0W993ZX Drainage of Right Pleural Cavity, Percutaneous Approach, Diagnostic (ICD-10-PCS; principal; 2016-12-27)
PROC: 4A133R1 Monitoring of Arterial Saturation, Peripheral, Percutaneous Approach (ICD-10-PCS; 2016-12-27)
PROC: 0W9930Z Drainage of Right Pleural Cavity with Drainage Device, Percutaneous Approach (ICD-10-PCS; 2016-12-28)
PROC: 3E0L3GC Introduction of Other Therapeutic Substance into Pleural Cavity, Percutaneous Approach (ICD-10-PCS; 2016-12-30)
PROC: 0W9B30Z Drainage of Left Pleural Cavity with Drainage Device, Percutaneous Approach (ICD-10-PCS; 2016-12-31)
PROC: 5A09357 Assistance with Respiratory Ventilation, Less than 24 Consecutive Hours, Continuous Positive Airway Pressure (ICD-10-PCS; 2017-01-01)
DX: C82.90 Follicular lymphoma, unspecified, unspecified site (principal); J96.21 Acute and chronic respiratory failure with hypoxia; J91.0 Malignant pleural effusion; I50.32 Chronic diastolic (congestive) heart failure; I24.8 Other forms of acute ischemic heart disease; C92.10 Chronic myeloid leukemia, BCR/ABL-positive, not having achieved remission; I48.92 Unspecified atrial flutter; F05 Delirium due to known physiological condition; R64 Cachexia; G93.1 Anoxic brain damage, not elsewhere classified; N18.3 Chronic kidney disease, stage 3 (moderate); Z68.25 Body mass index [BMI] 25.0-25.9, adult; L89.312 Pressure ulcer of right buttock, stage 2; E03.9 Hypothyroidism, unspecified; E11.8 Type 2 diabetes mellitus with unspecified complications; F32.9 Major depressive disorder, single episode, unspecified; D63.8 Anemia in other chronic diseases classified elsewhere; Z51.5 Encounter for palliative care; Z66 Do not resuscitate; Z95.0 Presence of cardiac pacemaker; Z99.81 Dependence on supplemental oxygen; Z79.4 Long term (current) use of insulin; Z79.82 Long term (current) use of aspirin